=== PATIENT | male | born 1935 | race Caucasian/White ===

== ENCOUNTER 2018-02-01 21:36 | Emergency (ER) | payer MEDICARE ==
[~2018-02-01] VITALS: Ht 193 cm; Wt 75.7 kg
[~2018-02-01 21:36] MED LIST: ACET-2267 PO; ALFU10TA11 PO; CIPR-225 PO; FINA5TAB6 PO; HYDR-3820 PO; PLTR10OP OP; SULF1TAB35 PO; TERA1CAP3 PO; [UNRECOGNIZED DRUG - SUPPLY] MC
[2018-02-01] MEDS ORDERED: KETOROLAC 30 MG/ML VIAL IVP STA (23:46)
[2018-02-02] MEDS ORDERED: ONDANSETRON 4 MG/2 ML (SDV) Z0FRAN IVP ONE
[2018-02-02 00:08] LABS: BASOPHILS % (AUTO) 0 % (0-10); EOSINOPHILS # (AUTO) 0.1 10^3/uL (0.0-0.3); EOSINOPHILS % (AUTO) 1 % (0-10); HEMATOCRIT 45 % (40-54); HEMOGLOBIN 14.7 G/DL (13.3-17.7); LYMPHOCYTES # (AUTO) 2.5 X 10^3 (1.0-4.0); LYMPHOCYTES % (AUTO) 16 % (12-44); MEAN CORPUSCULAR HEMOGLOBIN 28 PG (25-34); MEAN CORPUSCULAR HGB CONC 33 G/DL (32-36); MEAN CORPUSCULAR VOLUME 86 FL (80-99); MEAN PLATELET VOLUME 9.5 FL (7.4-10.4); MONOCYTES # (AUTO) 0.9 X 10^3 (0.0-1.0); MONOCYTES % (AUTO) 6 % (0-12); NEUTROPHILS # (AUTO) 12.5 X 10^3 (1.8-7.8); NEUTROPHILS % (AUTO) 78 % (42-75); PLATELET COUNT 356 10^3/uL (130-400); RED BLOOD COUNT 5.26 10^6/uL (4.35-5.85); RED CELL DISTRIBUTION WIDTH 14.9 % (10.0-14.5)
[2018-02-02 00:22] LABS: BAND NEUTROPHILS 0 %; BASOPHILS % (MANUAL) 0 %; EOSINOPHILS % (MANUAL) 1 %; LYMPHOCYTES % (MANUAL) 13 %; MONOCYTES % (MANUAL) 3 %; NEUTROPHILS % (MANUAL) 79 %; REACTIVE LYMPHOCYTES 4 %; TOXIC GRANULATION/VACUOLAZATIO 1+
[2018-02-02 00:32] LABS: ALANINE AMINOTRANSFERASE 20 U/L (0-55); ALBUMIN 3.9 GM/DL (3.2-4.5); ALKALINE PHOSPHATASE 219 U/L (40-136); AMYLASE 53 U/L (25-125); BILIRUBIN,TOTAL 0.7 MG/DL (0.1-1.0); BUN/CREATININE RATIO 19; CALCIUM 9.2 MG/DL (8.5-10.1); CARBON DIOXIDE 19 MMOL/L (21-32); CHLORIDE 107 MMOL/L (98-107); CREATININE SERUM 0.94 MG/DL (0.60-1.30); GFR ESTIMATED > 60; GLUCOSE 121 MG/DL (70-105); LIPASE 6 U/L (8-78); POTASSIUM 3.8 MMOL/L (3.6-5.0); SODIUM 138 MMOL/L (135-145); TOTAL PROTEIN 6.7 GM/DL (6.4-8.2)
[2018-02-02] MEDS ORDERED: NS 250 ML (IVPB) BAG IV ONE (01:00)
[2018-02-02] MEDS ORDERED: IOHEXOL 350 MG/ML 100 ML (OMNIPAQUE 350) VIAL IV ONE (01:00)
[2018-02-02] MEDS ORDERED: RX-NAPROXEN (NAPROSYN) 250 MG TAB PPK#4 PO STA (01:53)
[2018-02-02] MEDS ORDERED: KETO10TA PO (01:57)
[2018-02-02] MEDS ORDERED: PANT40TA2 PO (01:57)
--- NOTE | 2018-02-02 01:58 | ED GI ---
General Chief Complaint: Abdominal/GI Problems Stated Complaint: NAUSEA Nursing Triage Note: Patient reports having an abdominal hernia. c/o nausea Sepsis Screen: No Definite Risk Source of Information: Patient Exam Limitations: No Limitations History of Present Illness Date Seen by Provider: Feb 01, 2018 Time Seen by Provider: 23:35 Initial Comments C/O LEFT GROIN PAIN FROM HERNIA STATES HERNIA HAS BEEN PRESENT FOR A COUPLE OF YEARS, BUT HAS NOT BEEN BOTHERING HIM UNTIL THE LAST 2 DAYS--HAS BECOME VERY PAINFUL HAS BEEN LIFTING 50 LB BAGS THIS WEEK--NOT A NORMAL ACTIVITY FOR PT HAS HAD DECREASED APPETITE FOR THE LAST 2 DAYS--BUT LATER REPORTS HAS ACTUALLY HAD DECREASED APPETITE OVER THE LAST 2 MONTHS + NAUSEA, NO VOMITING NO FEVER, BUT FEELS "HOT AND COLD" ALOT NO URINARY SYMPTOMS HAD SMALL BM THIS AM--HAS HAD PROBLEMS WITH CONSTIPATION, BUT STATES THAT HAS IMPROVED RECENTLY HE HAS INCREASED HIS FRUIT INTAKE. PCP: RONNIE, LILIBETH KIRK UROLOGIST: DR. SIMS Allergies and Home Medications Allergies Coded Allergies: Amanda Known Allergies (Unverified Allergy, Mild, 12/27/09) Home Medications Ciprofloxacin HCl 500 Mg Tablet, 500 MG PO BID Prescribed by: JAMES DIAZ on 07/01/15 1336 Hydrocodone/Acetaminophen 1 Each Tablet, 1-2 EA PO Q4H PRN for PAIN Prescribed by: JAMES DIAZ on 07/01/15 1336 Ketorolac Tromethamine 10 Mg Tablet, 10 MG PO Q6H Prescribed by: MING ORONA on 02/02/18 0157 Pantoprazole Sodium 40 Mg Tablet.dr, 40 MG PO DAILY Prescribed by: MING ORONA on 02/02/18156 Patient Home Medication List Home Medication List Reviewed: Yes Review of Systems Constitutional: see HPI, weight loss (10 LBS IN LAST 6 MONTHS--WEIGHED 180 6 MONTHS AGO. ) Respiratory: No Symptoms Reported Cardiovascular: No Symptoms Reported Gastrointestinal: See HPI, Abdominal Pain, Constipated; Denies Diarrhea; Nausea , Poor Appetite; Denies Poor Fluid Intake, Denies Rectal Bleeding, Denies Vomiting Genitourinary: No Symptoms Reported Musculoskeletal: no symptoms reported; No back pain Skin: no symptoms reported Psychiatric/Neurological: No Symptoms Reported Endocrine: No Symptoms Reported Hematologic/Lymphatic: No Symptoms Reported Past Lofoagx-Plebjw-Elyoyj Hx Patient Social History Alcohol Use: Denies Use Recreational Drug Use: No Smoking Status: Never a Smoker Recent Foreign Travel: No Contact w/Someone Who Travel: No Recent Infectious Disease Expo: No Physical Abuse: No Sexual Abuse: No Immunizations Up To Date Tetanus Booster (TDap): More than 5yrs PED Vaccines UTD: No Past Medical History Surgeries: Yes Appendectomy, Transurethral Resection Respiratory: No Cardiac: Yes Deep Vein Thrombosis Neurological: No Reproductive Disorders: No Genitourinary: Yes Benign Prostatic Hyperpl, Prostate Problems Gastrointestinal: No Musculoskeletal: Yes Arthritis Endocrine: No HEENT: No Cancer: No Psychosocial: No Nursing Suicide Risk Score: 0 Integumentary: No 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) Adverse Reaction/Blood Tranf: No (1959- PASSED OUT ) Family Medical History Heart disease G8 BROTHER Liver cirrhosis G8 BROTHER Renal cancer 19 FATHER Physical Exam Vital Signs Vital Signs - First Documented 02/01/18 23:24 Temp 97.4 Pulse 84 Resp 18 B/P (MAP) 176/104 (128) Pulse Ox 98 Capillary Refill : Less Than 3 Seconds General Appearance: no apparent distress, thin Respiratory: normal breath sounds, no respiratory distress, no accessory muscle use Cardiovascular: regular rate, rhythm, no edema, no JVD, no murmur Gastrointestinal: normal bowel sounds, soft, no pulsatile mass; No distended, No guarding, No rebound; hernia (BILATERAL INGUINAL HERNIAS--SOFT, REDUCIBLE. LEFT ONE IS MILDLY TENDER. NO ERYTHEMA OR WARMTH. 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, no motor/sensory deficits, alert, normal mood/affect, oriented x 3 Skin: normal color, warm/dry Progress/Results/Core Measures Results/Orders Lab Results Laboratory Tests Test 02/02/18 00:02 Range/Units White Blood Count 16.0 H 4.3-11.0 10^3/uL Red Blood Count 5.26 4.35-5.85 10^6/uL Hemoglobin 14.7 13.3-17.7 G/DL Hematocrit 45 40-54 % Mean Corpuscular Volume 86 80-99 FL Mean Corpuscular Hemoglobin 28 25-34 PG Mean Corpuscular Hemoglobin Concent 33 32-36 G/DL Red Cell Distribution Width 14.9 H 10.0-14.5 % Platelet Count 356 130-400 10^3/uL Mean Platelet Volume 9.5 7.4-10.4 FL Neutrophils (%) (Auto) 78 H 42-75 % Lymphocytes (%) (Auto) 16 12-44 % Monocytes (%) (Auto) 6 0-12 % Eosinophils (%) (Auto) 1 0-10 % Basophils (%) (Auto) 0 0-10 % Neutrophils # (Auto) 12.5 H 1.8-7.8 X 10^3 Lymphocytes # (Auto) 2.5 1.0-4.0 X 10^3 Monocytes # (Auto) 0.9 0.0-1.0 X 10^3 Eosinophils # (Auto) 0.1 0.0-0.3 10^3/uL Basophils # (Auto) 0.0 0.0-0.1 10^3/uL Neutrophils % (Manual) 79 % Lymphocytes % (Manual) 13 % Monocytes % (Manual) 3 % Eosinophils % (Manual) 1 % Basophils % (Manual) 0 % Band Neutrophils 0 % Reactive Lymphocytes 4 % Toxic Granulation 1+ Sodium Level 138 135-145 MMOL/L Potassium Level 3.8 3.6-5.0 MMOL/L Chloride Level 107 98-107 MMOL/L Carbon Dioxide Level 19 L 21-32 MMOL/L Anion Gap 12 5-14 MMOL/L Blood Urea Nitrogen 18 7-18 MG/DL Creatinine 0.94 0.60-1.30 MG/DL Estimat Glomerular Filtration Rate > 60 BUN/Creatinine Ratio 19 Glucose Level 121 H 70-105 MG/DL Calcium Level 9.2 8.5-10.1 MG/DL Total Bilirubin 0.7 0.1-1.0 MG/DL Aspartate Amino Transf (AST/SGOT) 21 5-34 U/L Alanine Aminotransferase (ALT/SGPT) 20 0-55 U/L Alkaline Phosphatase 219 H 40-136 U/L Total Protein 6.7 6.4-8.2 GM/DL Albumin 3.9 3.2-4.5 GM/DL Amylase Level 53 25-125 U/L Lipase 6 L 8-78 U/L My Orders Orders - ADWOAMING K DO Saline Lock/Iv-Start (02/01/18 23:46) Amylase (02/01/18 23:46) Cbc With Automated Diff (02/01/18 23:46) Comprehensive Metabolic Panel (02/01/18 23:46) Lipase (02/01/18 23:46) Ketorolac Injection (Toradol Injection) (02/01/18 23:46) Ondansetron Injection (Zofran Injectio (02/02/18 00:00) Ct Abdomen/Pelvis W (02/02/18 00:01) Abdomen, Flat & Upright/Decub (02/02/18 00:01) Manual Differential (02/02/18 00:02) Iohexol Injection (Omnipaque 350 Mg/Ml 1 (02/02/18 01:00) Ns (Ivpb) (Sodium Chloride 0.9%) (02/02/18 01:00) Rx-Naproxen (Rx-Naprosyn) (02/02/18 01:53) Medications Given in ED Current Medications Medications Dose Ordered Sig/Ella Route Start Time Stop Time Status Last Admin Dose Admin Iohexol 100 ml ONCE ONCE IV 02/02/18 01:00 02/02/18 01:01 DC 02/02/18 01:02 100 ML Ondansetron HCl 4 mg ONCE ONCE IVP 02/02/18 00:00 02/02/18 00:01 DC 02/02/18 00:05 4 MG Sodium Chloride 250 ml ONCE ONCE IV 02/02/18 01:00 02/02/18 01:01 DC 02/02/18 01:02 80 ML Vital Signs/I&O 02/01/18 02/02/18 23:24 02:05 Temp 97.4 97.4 Pulse 84 84 Resp 18 18 B/P (MAP) 176/104 (128) 154/98 (128) Pulse Ox 98 98 Blood Pressure Mean: 128 Progress Progress Note : Progress Note PAIN RELIEVED WITH TORADOL LENGTHY DISCUSSION WITH PT AND FAMILY ABOUT CT FINDINGS, AND THAT FINDINGS ARE VERY SUSPICIOUS FOR COLON CANCER WITH METASTATIC DISEASE TO LIVER AND LUNGS, BUT THAT ADDITIONAL TESTING WOULD NEED TO BE DONE TO DETERMINE IF THIS IS THE CASE. WILL REFER TO SURGEON, AND HAVE PT FOLLOW UP WITH HIS PCP WELL FOR FURTHER EVALUATION ALL APPEAR TO UNDERSTAND. 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 THICKENED WALL OF SIGMOID COLON, CONCERNING FOR NEOPLASTIC DISEASE, AIR AND FLUID FILLED UPSTREAM COLON. NO SMALL BOWEL OBSTRUCTION. RIGHT ADRENAL MASS, SUSPICIOUS FOR METASTASIS. NUMEROUS METASTATIC LESIONS IN LIVER. BILATERAL LUNG BASE NODULES-- DIFFERENTIAL DX IS METASTATIC DISEASE VS INFECTIOUS PER [facility] VIA FAX @ [phone] Departure Impression Primary Impression: Abnormal finding on CT scan Additional Impression: Bilateral inguinal hernia Disposition: HOME, SELF-CARE Condition: Improved Departure-Patient Inst. Referrals: RAVI LANDERS DO (PCP) Primary Care Physician AIDA KIRK (Family) Primary Care Physician JARAD VALENCIA MD Patient Instructions: CT Scan With Contrast, General, Groin Hernia (DC) Add. Discharge Instructions: LOTS OF CLEAR LIQUIDS--WATER, BROTH, JELLO, GATORADE, CLEAR JUICES DRINK ENSURE/BOOST OR OTHER HIGH PROTEIN, HIGH CALORIE SUPPLEMENTS TAKE STOOL SOFTENER DAILY FOR CONSTIPATION FOLLOW UP WITH DR. VALENCIA, SURGEON, NEXT WEEK FOR FURTHER CARE FOLLOW UP WITH YOUR DR AT [facility] NEXT WEEK FOR FURTHER CARE All discharge instructions reviewed with patient and/or family. Voiced understanding. Scripts Ketorolac Tromethamine (Ketorolac Tromethamine) 10 Mg Tablet 10 MG PO Q6H for Pain, #15 TAB Prov: MING ORONA DO 02/02/18 Pantoprazole Sodium (Protonix) 40 Mg Tablet.dr 40 MG PO DAILY, #15 TAB Prov: MING ORONA DO 02/02/18 MING ORONA DO Feb 02, 2018 01:58
[2018-02-02 02:05] VITALS: BP 154/98
--- NOTE | 2018-02-02 07:18 | Diagnostic Imaging Report ---
EXAM: ABDOMEN, FLAT UPRIGHT/DECUB INDICATION: Nausea. COMPARISON: CT abdomen and pelvis with IV contrast 02/02/2018. FINDINGS: Stable mild gaseous and fluid distention of the colon. Nonspecific small bowel gas pattern. No free intraperitoneal air is evident. No acute osseous findings. IMPRESSION: No acute radiographic findings in the abdomen. Dictated by: Dictated on workstation # [id number]
--- NOTE | 2018-02-02 07:32 | Diagnostic Imaging Report ---
PROCEDURE: CT abdomen and pelvis with contrast. TECHNIQUE: Multiple contiguous axial images were obtained through the abdomen and pelvis after administration of intravenous contrast. INDICATION: Nausea. COMPARISON: CT abdomen and pelvis without contrast 05/19/2015. FINDINGS: Several pulmonary nodules in both lung bases measuring up to 0.5 cm. Multiple large hypoenhancing masses in the liver, the largest measuring up to 7.7 cm. The gallbladder, pancreas, spleen, left adrenal gland, left kidney, collecting systems and bladder are unremarkable. Simple appearing cyst in the right kidney. Thickwalled centrally hypoenhancing mass in the right adrenal gland measuring up to 2.7 cm. Small amount of fluid layering dependently in the pelvis. No free intraperitoneal air. Moderate atherosclerotic calcifications. No lymphadenopathy. Focal bowel wall thickening in the sigmoid colon (series 2, image 65) suspicious for a mass. Moderate distention of the more proximal colon. Moderate spondylotic changes in the spine. No acute osseous findings. IMPRESSION: 1. Bowel wall thickening in the sigmoid colon is suspicious for a mass. 2. Several large hypoenhancing masses in the liver suspicious for metastatic disease. 3. Several small pulmonary nodules in the visualized lung bases are also suspicious for metastatic disease. 4. Thick-walled centrally hypoenhancing mass in the right adrenal gland measuring up to 2.7 cm. Dictated by: Dictated on workstation # [id number]
== END 2018-02-02 02:05 | disposition home or self-care (01) ==
LOC: EDUNIT# 21:36 → ER 21:37
DX: K40.20 Bilateral inguinal hernia, without obstruction or gangrene, not specified as recurrent (principal); R93.8 Abnormal findings on diagnostic imaging of other specified body structures; N40.0 Benign prostatic hyperplasia without lower urinary tract symptoms; Z86.718 Personal history of other venous thrombosis and embolism; Z90.49 Acquired absence of other specified parts of digestive tract; Z90.79 Acquired absence of other genital organ(s)
CPT/HCPCS: 36415; 74019; 74177; 80053; 82150; 83690; 85007; 85027; 96374; 96375

== ENCOUNTER 2018-02-03 06:15 | Inpatient (IN) | payer MEDICARE ==
[~2018-02-03] VITALS: Ht 190.5 cm; Wt 74.1 kg
[~2018-02-03 06:15] MED LIST changes: +KETO10TA PO; +PANT40TA2 PO
--- OUTSIDE RECORDS SUMMARY | 2018-02-03 06:21 | XMS REPORT ---
Demographics Preferred Language Unknown Marital Status Unknown Alevism Affiliation Unknown Race Unknown Ethnic Group UNK Author Author AIDA KIRK Organization [employer] Address Unknown Phone Unavailable Care Team Providers Care Business Objects Report Developer Name Role Phone AIDA KIRK CP Unavailable Allergies No Known Allergies Problems No Known Problems Medications No Known Medications Results No Known Results Summary Purpose [employer] Submission
--- OUTSIDE RECORDS SUMMARY | 2018-02-03 06:21 | XMS REPORT ---
Author Author AIDA KIRK Organization [employer] Address Unknown Phone Unavailable Care Team Providers Care Sales Representative [employer] Name Role Phone AIDA KIRK CP Unavailable Allergies, Adverse Reactions, Alerts Substance Reaction Event Type N.K.D.A. Info Not Available Non Drug Allergy Problems Problem Type Condition Code Onset Dates Condition Status Assessment BPH (benign prostatic hypertrophy) with urinary obstruction N40.1 Active Assessment Disappearance and of family member Z63.4 Active Assessment Establishing care with new doctor, encounter for Z71.89 Active Medications Medication Code System Code Instructions Start Date End Date Status Dos[place] [address]-56 400-80 MG Orally twice a day 2 tablets Proscar NDC [address]-23 5 MG Orally Once a day started in the hospital not defined Alfuzosin HCl NDC 0 10 MG Orally daily not defined Procedures Procedure Coding System Code Date Office Visit, New Pt., Level 3 CPT-4 31683 Jun 08, 2015 [facility] VISIT NEW PATIENT CPT-4 G0466 Jun 08, 2015 Vital Signs Date/Time: Jun 08, 2015 Temperature 98.3 F Weight 167.8 lbs Height 76 in BMI 20.42 Index Blood Pressure Diastolic 88 mmHg Blood Pressure Systolic 138 mmHg Cardiac Monitoring Heart Rate 104 bpm Results No Known Results Summary Purpose [employer] Submission
[2018-02-03] MEDS ORDERED: fentaNYL INJECTION 100 MCG/2 ML AMP IVP STA (06:29)
[2018-02-03] MEDS ORDERED: NS IV 1000 ML 1,000 ML IV STA (06:29)
[2018-02-03] MEDS ORDERED: ONDANSETRON 4 MG/2 ML (SDV) Z0FRAN IVP ONE (06:30)
--- NOTE | 2018-02-03 06:37 | ED Abdominal Pain ---
General Chief Complaint: Abdominal/GI Problems Stated Complaint: VOMITING BOWEL ISSUES Nursing Triage Note: Patient c/o abdomen pain and bloating. c/o nausea. patient reports has not had a BM for 4 or 5 days Sepsis Screen: No Definite Risk Source of Information: Patient Exam Limitations: No Limitations History of Present Illness Date Seen by Provider: Feb 03, 2018 Time Seen by Provider: 06:20 Initial Comments Here with increased bowel pain and bloating over the last several days. Seen 2 days ago for the same and found to have multiple masses and/or areas that are concerning for cancer. He is to have further workup tomorrow but is from too much nausea and pain to make it until then. He has been on his pain meds down and that does decrease his pain significantly but he is so nauseated that he can't tolerate it anymore. Denies fever or chills. He has not vomited. He has not had a bowel movement in 5 days. He states he is not passing anything via bowels currently. He does report that he is having some urination still. Timing/Duration: 4-5 Days Severity/Quality: Moderate, Severe, Aching, Other (nausea) Location: Generalized Abdomen Radiation: No Radiation Activities at Onset: None Modifying Factors: Improves With Analgesics; Worsens With Eating; Improves With Resting Associated Symptoms: No Back Pain, No Chest Pain, No Fever/Chills; Nausea/ Vomiting; No Shortness of Air; Swelling/Mass in Abdomen, Weakness Allergies and Home Medications Allergies Coded Allergies: NKANo Known Allergies (Unverified Allergy, Mild, 12/27/09) Home Medications Ciprofloxacin HCl 500 Mg Tablet, 500 MG PO BID Prescribed by: JAMES DIAZ on 07/01/15 133 Hydrocodone/Acetaminophen 1 Each Tablet, 1-2 EA PO Q4H PRN for PAIN Prescribed by: JAMES DIAZ on 07/01/15 1336 Ketorolac Tromethamine 10 Mg Tablet, 10 MG PO Q6H Prescribed by: MING ORONA on 02/02/18156 Pantoprazole Sodium 40 Mg Tablet.dr, 40 MG PO DAILY Prescribed by: MING ORONA on 02/02/18156 Patient Home Medication List Home Medication List Reviewed: Yes Review of Systems Constitutional: see HPI; No chills, No fever; weakness EENTM: No Symptoms Reported Respiratory: No Symptoms Reported; Denies Cough, Denies Shortness of Air Cardiovascular: Denies Chest Pain, Denies Edema Gastrointestinal: Abdominal Pain, Nausea; Denies Vomiting Genitourinary: No Symptoms Reported Musculoskeletal: no symptoms reported Skin: no symptoms reported All Other Systems Reviewed Negative Unless Noted: Yes Past Usjdeiu-Sdducf-Qlcari Hx Past Med/Social Hx: Reviewed Nursing Past Med/Soc Hx Patient Social History Alcohol Use: Denies Use Recreational Drug Use: No Recent Foreign Travel: No Contact w/Someone Who Travel: No Recent Infectious Disease Expo: No Immunizations Up To Date Tetanus Booster (TDap): More than 5yrs PED Vaccines UTD: No Past Medical History Surgeries: Yes Appendectomy, Transurethral Resection Respiratory: No Cardiac: Yes Deep Vein Thrombosis Neurological: No Reproductive Disorders: No Genitourinary: Yes Benign Prostatic Hyperpl, Prostate Problems Gastrointestinal: No Musculoskeletal: Yes Arthritis Endocrine: No HEENT: No Cancer: No Psychosocial: No Integumentary: No Blood Disorders: No (-1985) Adverse Reaction/Blood Tranf: No (1959- PASSED OUT ) Family Medical History Reviewed Nursing Family Hx Heart disease G8 BROTHER Liver cirrhosis G8 BROTHER Renal cancer 19 FATHER Physical Exam Vital Signs Vital Signs - First Documented 02/03/18 06:22 Temp 97.0 Pulse 106 Resp 18 B/P (MAP) 182/120 (140) Pulse Ox 98 Capillary Refill : Less Than 3 Seconds General Appearance: WD/WN, no apparent distress HEENT: PERRL/EOMI, pharynx normal Neck: full range of motion, supple Respiratory: lungs clear, normal breath sounds Cardiovascular: no murmur, tachycardia Peripheral Pulses: 2+ Dorsalis Pedis (R), 2+ Left Dors-Pedis (L), 2+ Radial Pulses (R), 2+ Radial Pulses (L) Gastrointestinal: soft, abnormal bowel sounds (hypoactive), distended, tenderness (mild diffuse) Extremities: non-tender, normal inspection Back: normal inspection, no CVA tenderness, no vertebral tenderness Neurologic/Psychiatric: alert, oriented x 3 Skin: normal color, warm/dry Progress/Results/Core Measures Results/Orders Lab Results Laboratory Tests Test 02/03/18 06:24 02/03/18 07:51 Range/Units White Blood Count 16.3 H 4.3-11.0 10^3/uL Red Blood Count 5.39 4.35-5.85 10^6/uL Hemoglobin 15.3 13.3-17.7 G/DL Hematocrit 46 40-54 % Mean Corpuscular Volume 84 80-99 FL Mean Corpuscular Hemoglobin 28 25-34 PG Mean Corpuscular Hemoglobin Concent 34 32-36 G/DL Red Cell Distribution Width 14.8 H 10.0-14.5 % Platelet Count 366 130-400 10^3/uL Mean Platelet Volume 9.5 7.4-10.4 FL Neutrophils (%) (Auto) 74 42-75 % Lymphocytes (%) (Auto) 20 12-44 % Monocytes (%) (Auto) 5 0-12 % Eosinophils (%) (Auto) 1 0-10 % Basophils (%) (Auto) 0 0-10 % Neutrophils # (Auto) 12.0 H 1.8-7.8 X 10^3 Lymphocytes # (Auto) 3.3 1.0-4.0 X 10^3 Monocytes # (Auto) 0.9 0.0-1.0 X 10^3 Eosinophils # (Auto) 0.1 0.0-0.3 10^3/uL Basophils # (Auto) 0.0 0.0-0.1 10^3/uL Neutrophils % (Manual) 79 % Lymphocytes % (Manual) 13 % Monocytes % (Manual) 3 % Eosinophils % (Manual) 3 % Basophils % (Manual) 0 % Band Neutrophils 0 % Reactive Lymphocytes 2 % Smudge Cells SLIGHT Toxic Granulation 1+ Sodium Level 137 135-145 MMOL/L Potassium Level 3.9 3.6-5.0 MMOL/L Chloride Level 104 98-107 MMOL/L Carbon Dioxide Level 19 L 21-32 MMOL/L Anion Gap 14 5-14 MMOL/L Blood Urea Nitrogen 21 H 7-18 MG/DL Creatinine 1.00 0.60-1.30 MG/DL Estimat Glomerular Filtration Rate > 60 BUN/Creatinine Ratio 21 Glucose Level 113 H 70-105 MG/DL Calcium Level 9.6 8.5-10.1 MG/DL Magnesium Level 2.5 H 1.8-2.4 MG/DL Total Bilirubin 1.2 H 0.1-1.0 MG/DL Aspartate Amino Transf (AST/SGOT) 20 5-34 U/L Alanine Aminotransferase (ALT/SGPT) 20 0-55 U/L Alkaline Phosphatase 227 H 40-136 U/L Total Protein 7.3 6.4-8.2 GM/DL Albumin 4.1 3.2-4.5 GM/DL Urine Color YELLOW Urine Clarity SLIGHTLY CLOUDY Urine pH 6 5-9 Urine Specific [place] 1.010 L 1.016-1.022 Urine Protein 1+ H NEGATIVE Urine Glucose (UA) NEGATIVE NEGATIVE Urine Ketones NEGATIVE NEGATIVE Urine Nitrite POSITIVE H NEGATIVE Urine Bilirubin NEGATIVE NEGATIVE Urine Urobilinogen NORMAL NORMAL MG/DL Urine Leukocyte Esterase 2+ H NEGATIVE Urine RBC (Auto) 1+ H NEGATIVE Urine RBC NONE /HPF Urine WBC 50-100 H /HPF Urine Crystals NONE /LPF Urine Bacteria LARGE H /HPF Urine Casts NONE /LPF Urine Mucus NEGATIVE /LPF Urine Culture Indicated YES My Orders Orders - YESENIA RIVERA MD Cbc With Automated Diff (02/03/18 06:29) Comprehensive Metabolic Panel (02/03/18 06:29) Magnesium (02/03/18 06:29) Ondansetron Injection (Zofran Injectio (02/03/18 06:30) Ns Iv 1000 Ml (Sodium Chloride 0.9%) (02/03/18 06:29) Saline Lock/Iv-Start (02/03/18 06:29) Fentanyl Injection (Sublimaze Injection (02/03/18 06:29) Manual Differential (02/03/18 06:24) Ua Culture If Indicated (02/03/18 06:45) Ct Abdomen/Pelvis W (02/03/18 07:04) Iohexol Injection (Omnipaque 350 Mg/Ml 1 (02/03/18 07:30) Ns (Ivpb) (Sodium Chloride 0.9%) (02/03/18 07:30) Urine Culture (02/03/18 07:51) Lactic Acid Analyzer (02/03/18 08:12) Blood Culture (02/03/18 08:12) Ceftriaxone Injection (Rocephin Injectio (02/03/18 08:15) Medications Given in ED Current Medications Medications Dose Ordered Sig/Ella Route Start Time Stop Time Status Last Admin Dose Admin Iohexol 100 ml ONCE ONCE IV 02/03/18 07:30 02/03/18 07:31 DC 02/03/18 07:24 100 ML Ondansetron HCl 4 mg ONCE ONCE IVP 02/03/18 06:30 02/03/18 06:32 DC 02/03/18 06:37 4 MG Sodium Chloride 250 ml ONCE ONCE IV 02/03/18 07:30 02/03/18 07:31 DC 02/03/18 07:24 80 ML Vital Signs/I&O 02/03/18 06:22 Temp 97.0 Pulse 106 Resp 18 B/P (MAP) 182/120 (140) Pulse Ox 98 Blood Pressure Mean: 140 Progress Progress Note : Progress Note Seen and evaluated. IV, labs and UA ordered. Normal saline 1 L bolus. Zofran 4 mg IV and fentanyl 50 g IV ordered. I did review the chart from previous visit. Significant concerns for cancer with metastasis. Lungs, liver and bowel all appear to be involved. 0815: CT results noted and are more concerning today. I did have a long discussion with the patient and family about the results including my concerns that this is primary cancer of the colon with metastasis. Patient is realistic in understanding the depth of the situation as far as the cancer or concerns for cancer go. We were able to get urine sample and this is positive for urinary tract infection. Blood cultures and lactic acid is been ordered and Rocephin 1 g IV will be initiated afterwards. In discussion with the patient and family, we had decided for admission for further evaluation to determine answers options for treatment and can at least provide comfort. Currently he is pain-free and without nausea. We did discuss that we may not be able to treat this but we can keep the patient comfortable and he is understanding and accepting of this. I have discussed the case with Dr. Velasquez, on-call for [facility], who accepts patient for admission, inpatient status. I have discussed the case with Dr. Astudillo, surgeon on-call and he will talk with the patient and family about possible options related to the possible primary cancer of the sigmoid colon. At this point we will provide clear liquids and bowel rest as well as pain and nausea medicines and IV fluids. Admit, inpatient status. Patient and family agree with plan. Diagnostic Imaging Diagonstic Imaging: CT Plain Films/CT/US/NM/MRI: abdomen, pelvis Comments VIA [facility]. [place], [place] NAME: MOY ZELAYA [facility] REC#: [id number] PT STATUS: REG ER : 1935 PHYSICIAN: YESENIA RIVERA MD ADMIT DATE: 02/03/18/ER Draft Date of Exam:02/03/18 CT ABDOMEN/PELVIS W PROCEDURE: CT abdomen and pelvis with contrast. TECHNIQUE: Multiple contiguous axial images were obtained through the abdomen and pelvis after administration of intravenous contrast. INDICATION: Nausea, vomiting, and constipation. COMPARISON: CT abdomen and pelvis performed prior day FINDINGS: Lower chest: Bandlike and nodular consolidation in the left lower lobe persists. Stable 5 mm left lower lobe pulmonary nodule. Peritoneum: Trace free fluid within the abdomen has developed. Liver and biliary system: Numerous peripherally enhancing hepatic masses are unchanged and compatible with metastases. Gallbladder has hyperdense material and is likely from vicarious excretion of contrast. Spleen and Pancreas: Spleen is normal. The pancreas enhances normally without mass lesion or peripancreatic inflammatory changes. Adrenals: Peripheral enhancing right adrenal metastasis is stable. tract: The kidneys enhance normally without suspicious mass or obstruction. Urinary bladder is distended without wall thickening. Prostate is not enlarged. GI tract: Annular wall thickening in the sigmoid colon is compatible with a sigmoid colon neoplasm resulting in partial obstruction. The colon proximal to the sigmoid colon is fluid-filled and mildly dilated. Multiple small bowel loops are also fluid filled and borderline dilated. Vasculature and Lymph nodes: Normal caliber aorta. No abdominal or pelvic lymphadenopathy. Musculoskeletal: No concerning osseous lesion. IMPRESSION: 1. 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 2. Metastatic disease includes numerous large hepatic masses and right adrenal mass. 3. A small volume of ascites has developed. 4. Left basilar pulmonary nodular bandlike consolidation is indeterminate. Dictated on workstation # [id number] Dict: 02/03/18 0729 Trans: 02/03/18 0743 RASHAAD [id number] Interpreted by: MARIO JERONIMO MD Electronically signed by: Departure Communication (Admissions) Time/Spoke to Admitting Phy: 08:05 Time/Spoke to Consulting Phy: 08:15 Impression Primary Impression: Colon cancer metastasized to multiple sites Additional Impression: Urinary tract infection Qualified Codes: N30.00 - Acute cystitis without hematuria Disposition: ADMITTED INPATIENT Condition: Stable Admissions Decision to Admit Reason: Admit from ER (General) Decision to Admit/Date: Feb 03, 2018 Time/Decision to Admit Time: 08:15 Departure-Patient Inst. Referrals: RAVI LANDERS DO (PCP) Primary Care Physician AIDA KIRK (Family) Primary Care Physician YESENIA RIVERA MD Feb 03, 2018 06:37
[2018-02-03 06:38] LABS: BASOPHILS % (AUTO) 0 % (0-10); EOSINOPHILS # (AUTO) 0.1 10^3/uL (0.0-0.3); EOSINOPHILS % (AUTO) 1 % (0-10); HEMATOCRIT 46 % (40-54); HEMOGLOBIN 15.3 G/DL (13.3-17.7); LYMPHOCYTES # (AUTO) 3.3 X 10^3 (1.0-4.0); LYMPHOCYTES % (AUTO) 20 % (12-44); MEAN CORPUSCULAR HEMOGLOBIN 28 PG (25-34); MEAN CORPUSCULAR HGB CONC 34 G/DL (32-36); MEAN CORPUSCULAR VOLUME 84 FL (80-99); MEAN PLATELET VOLUME 9.5 FL (7.4-10.4); MONOCYTES # (AUTO) 0.9 X 10^3 (0.0-1.0); MONOCYTES % (AUTO) 5 % (0-12); NEUTROPHILS % (AUTO) 74 % (42-75); PLATELET COUNT 366 10^3/uL (130-400); RED BLOOD COUNT 5.39 10^6/uL (4.35-5.85); RED CELL DISTRIBUTION WIDTH 14.8 % (10.0-14.5); WHITE BLOOD COUNT 16.3 10^3/uL (4.3-11.0)
[2018-02-03 06:51] LABS: BAND NEUTROPHILS 0 %; BASOPHILS % (MANUAL) 0 %; EOSINOPHILS % (MANUAL) 3 %; LYMPHOCYTES % (MANUAL) 13 %; MONOCYTES % (MANUAL) 3 %; NEUTROPHILS % (MANUAL) 79 %; REACTIVE LYMPHOCYTES 2 %; SMUDGE CELLS SLIGHT
[2018-02-03 06:52] LABS: TOXIC GRANULATION/VACUOLAZATIO 1+
[2018-02-03 06:59] LABS: ALANINE AMINOTRANSFERASE 20 U/L (0-55); ALBUMIN 4.1 GM/DL (3.2-4.5); ALKALINE PHOSPHATASE 227 U/L (40-136); BILIRUBIN,TOTAL 1.2 MG/DL (0.1-1.0); BUN/CREATININE RATIO 21; CALCIUM 9.6 MG/DL (8.5-10.1); CARBON DIOXIDE 19 MMOL/L (21-32); CHLORIDE 104 MMOL/L (98-107); GFR ESTIMATED > 60; GLUCOSE 113 MG/DL (70-105); MAGNESIUM 2.5 MG/DL (1.8-2.4); POTASSIUM 3.9 MMOL/L (3.6-5.0); SODIUM 137 MMOL/L (135-145); TOTAL PROTEIN 7.3 GM/DL (6.4-8.2)
[2018-02-03] MEDS ORDERED: IOHEXOL 350 MG/ML 100 ML (OMNIPAQUE 350) VIAL IV ONE (07:30)
[2018-02-03] MEDS ORDERED: NS 250 ML (IVPB) BAG IV ONE (07:30)
--- NOTE | 2018-02-03 07:44 | Diagnostic Imaging Report ---
PROCEDURE: CT abdomen and pelvis with contrast. TECHNIQUE: Multiple contiguous axial images were obtained through the abdomen and pelvis after administration of intravenous contrast. INDICATION: Nausea, vomiting, and constipation. COMPARISON: CT abdomen and pelvis performed prior day FINDINGS: Lower chest: Bandlike and nodular consolidation in the left lower lobe persists. Stable 5 mm left lower lobe pulmonary nodule. Peritoneum: Trace free fluid within the abdomen has developed. Liver and biliary system: Numerous peripherally enhancing hepatic masses are unchanged and compatible with metastases. Gallbladder has hyperdense material and is likely from vicarious excretion of contrast. Spleen and Pancreas: Spleen is normal. The pancreas enhances normally without mass lesion or peripancreatic inflammatory changes. Adrenals: Peripheral enhancing right adrenal metastasis is stable. tract: The kidneys enhance normally without suspicious mass or obstruction. Urinary bladder is distended without wall thickening. Prostate is not enlarged. GI tract: Annular wall thickening in the sigmoid colon is compatible with a sigmoid colon neoplasm resulting in partial obstruction. The colon proximal to the sigmoid colon is fluid-filled and mildly dilated. Multiple small bowel loops are also fluid filled and borderline dilated. Vasculature and Lymph nodes: Normal caliber aorta. No abdominal or pelvic lymphadenopathy. Musculoskeletal: No concerning osseous lesion. IMPRESSION: 1. 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 2. Metastatic disease includes numerous large hepatic masses and right adrenal mass. 3. A small volume of ascites has developed. 4. Left basilar pulmonary nodular bandlike consolidation is indeterminate. Dictated by: Dictated on workstation # [id number]
[2018-02-03 07:57] LABS: BILIRUBIN,URINE NEGATIVE (NEGATIVE); CLARITY,URINE SLIGHTLY CLOUDY; COLOR,URINE YELLOW; GLUCOSE, URINE (UA) NEGATIVE (NEGATIVE); KETONES,URINE NEGATIVE (NEGATIVE); LEUKOCYTE ESTERASE ,URINE 2+ (NEGATIVE); NITRITE,URINE POSITIVE (NEGATIVE); PH,URINE 6 (5-9); PROTEIN,URINE 1+ (NEGATIVE); UROBILINOGEN,URINE NORMAL (NORMAL)
[2018-02-03 08:05] LABS: BACTERIA,URINE LARGE /HPF; WBC,URINE 50-100 /HPF
[2018-02-03] MEDS ORDERED: cefTRIAXone INJECTION 1,000 MG in NS (IVPB) 50 ML IV ONE (08:15)
[2018-02-03 09:25] VITALS: BP 140/83
[2018-02-03] MEDS: NS IV 1000 ML 1,000 ML IV SCH ×2 (10:26→18:31)
[2018-02-03] MEDS: morphine INJ 10 MG/ML 1ML (SYR OR VIAL) IV PRN ×2 (11:03→17:21)
[2018-02-03] MEDS: ONDANSETRON 4 MG/2 ML (SDV) Z0FRAN IV PRN ×2 (11:03→17:21)
--- NOTE | 2018-02-03 11:14 | Consultation ---
History of Present Illness History of Present Illness Patient Consulted On(michel/time) 02/03/18 11:09 Date Seen by Provider: Feb 03, 2018 Time Seen by Provider: 10:30 History of Present Illness This is an 82 year old male who was seen in consultation with Dr. Valencia. Patient reports that he presented to the ER on Sunday with complaints of abdominal pain as well as nausea. He reports that he was found to have multiple liver lesions as well as a colon mass and instructed to follow up with further work up on Sunday. He reports that since Sunday that the abdominal pain has increased as well as the nausea and bloating to the point that he has been unable to eat or drink. He reports that his last BM was around 5 days ago. He reports that in the past 1-2 weeks he has lost 10 lbs. He reports that he has never had a colonoscopy. Allergies and Home Medications Allergies Coded Allergies: Amanda Known Allergies (Unverified Allergy, Mild, 12/27/09) Home Medications Ciprofloxacin HCl 500 Mg Tablet, 500 MG PO BID Prescribed by: JAMES DIAZ on 07/01/15 1336 Hydrocodone/Acetaminophen 1 Each Tablet, 1-2 EA PO Q4H PRN for PAIN Prescribed by: JAMES DIAZ on 07/01/15 1336 Ketorolac Tromethamine 10 Mg Tablet, 10 MG PO Q6H Prescribed by: MING ORONA on 02/02/18 015 Pantoprazole Sodium 40 Mg Tablet.dr, 40 MG PO DAILY Prescribed by: MING ORONA on 02/02/18156 Patient Home Medication List Home Medication List Reviewed: Yes Past Zzcldts-Ifgmfg-Cbhrfl Hx Past Med/Social Hx: Reviewed Nursing Past Med/Soc Hx Patient Social History Alcohol Use: Denies Use Recreational Drug Use: No Smoking Status: Never a Smoker Recent Foreign Travel: No Contact w/Someone Who Travel: No Recent Infectious Disease Expo: No Recent Hopitalizations: No Immunizations Up To Date Tetanus Booster (TDap): More than 5yrs PED Vaccines UTD: No Seasonal Allergies Seasonal Allergies: No Past Medical History Surgeries: Yes Appendectomy, Transurethral Resection Respiratory: No Cardiac: Yes Deep Vein Thrombosis Neurological: No Reproductive Disorders: No Genitourinary: Yes Benign Prostatic Hyperpl, Prostate Problems Gastrointestinal: No Musculoskeletal: Yes (2 BAD KNEES) Arthritis Endocrine: No HEENT: No Cancer: Yes Colon Did You Recieve Any Treatments: No Psychosocial: No Integumentary: No 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) Adverse Reaction/Blood Tranf: No (1960- PASSED OUT ) Family Medical History Reviewed Nursing Family Hx Heart disease G8 BROTHER Liver cirrhosis G8 BROTHER Renal cancer 19 FATHER Review of Systems-General Constitutional: weight loss EENTM: no symptoms reported Respiratory: no symptoms reported Cardiovascular: no symptoms reported Gastrointestinal: abdominal pain (Diffuse), constipation, loss of appetite, nausea Genitourinary: no symptoms reported Musculoskeletal: no symptoms reported Skin: no symptoms reported Psychiatric/Neurological: No Symptoms Reported Physical Exam-General Problems Physical Exam Vital Signs Vital Signs - First Documented 02/03/18 02/03/18 06:22 09:25 Temp 97.0 Pulse 106 Resp 18 B/P (MAP) 182/120 (140) Pulse Ox 98 O2 Delivery Room Air Capillary Refill : Less Than 3 Seconds General Appearance: WD/WN, no apparent distress, thin Neck: non-tender, full range of motion, supple, normal inspection Respiratory: chest non-tender, lungs clear, normal breath sounds, no respiratory distress, no accessory muscle use Cardiovascular: regular rate, rhythm, no edema Gastrointestinal: distended (mild), tenderness (diffuse) Neurologic/Psychiatric: alert, oriented x 3 Skin: normal color, warm/dry Assessment/Plan Assessment/Plan Admission Diagnosis/Plan An 82 year old male with Colon Cancer with metastasis and UTI. WBC 16.3. Clear liquid diet. IV fluids, pain and nausea meds. VSS. CBC and CMP in am. PT/INR, CEA, CA 19-9, and AFP. Consult oncology. Family was at bedside and it was discussed with patient and family about potential surgical options and other possible treatments including chemotherapy and even the option of hospice should they so choose. At this time patient is expressing that he is in full understanding and wishes to be kept comfortable. However it was explained to patient that we would also like oncology to speak with him to further discuss his options which patient agrees. Clinical Quality Measures DVT/VTE Risk/Contraindication: Risk Factor Score Per Nursin RFS Level Per Nursing on Admit: 4+=Very High Copy Copies To 1: JARAD VALENCIA MD, DUSTIN L APRN Feb 03, 2018 11:14
[2018-02-03 11:30] VITALS: BP 127/64
[2018-02-03 11:47] LABS: PROTHROMBIN TIME PATIENT 13.5 SEC (12.2-14.7)
--- NOTE | 2018-02-03 12:20 | History & Physicial (CHS) ---
HPI History of Present Illness: 82-year-old male presents to [facility] emergency department during the morning of February 03, 2018 after noticing increased abdominal bloating and some discomfort in the lower aspects of the abdomen. He does report he also has inguinal hernia and this has been bothering him and this was another reason that brought him into the emergency department because he knew something was wrong. 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 He currently denies any fever or chills. He has no vomiting. He does report he has been constipated and had bowel movement in several days. Source: patient Exam Limitations: no limitations Date seen by provider: Feb 03, 2018 Time Seen by Provider: 11:30 Attending Physician Paulina Wilkins DO PCP Paulina Wilkins DO Consult Date of Admission Feb 03, 2018 at 08:15 Home Medications Home Medications Reviewed patient Home Medication Reconciliation performed by pharmacy medication reconciliations electronic calibration technician and/or nursing. Patients Allergies have been reviewed. Allergies Coded Allergies: NKANo Known Allergies (Unverified Allergy, Mild, 12/27/09) [id number]-Xismgp Hx Patient Social History Marrital Status: Number of Children: 2 Alcohol Use: Denies Use Recreational Drug Use: No Smoking Status: Never a Smoker Former smoker/When Quit: May 19, 1960 Recent Foreign Travel: No Contact w/other who traveled: No Recent Hopitalizations: No Recent Infectious Disease Expo: No Physical Abuse Screen: No Sexual Abuse: No Immunizations Up To Date Tetanus Booster (TDap): More than 5yrs Past Medical History PMH: Arthritis - L knee PSH: Appendectomy Family Medical History Family History: Heart disease G8 BROTHER Liver cirrhosis G8 BROTHER Renal cancer 19 FATHER Review of Systems (CHC) Constitutional: see HPI Reviewed Test Results Reviewed Test Results Lab Laboratory Tests Test 02/03/18 06:20 02/03/18 06:24 02/03/18 07:51 02/03/18 08:46 Range/Units Prothrombin Time 13.5 12.2-14.7 SEC INR Comment 1.0 0.8-1.4 White Blood Count 16.3 H 4.3-11.0 10^3/uL Red Blood Count 5.39 4.35-5.85 10^6/uL Hemoglobin 15.3 13.3-17.7 G/DL Hematocrit 46 40-54 % Mean Corpuscular Volume 84 80-99 FL Mean Corpuscular Hemoglobin 28 25-34 PG Mean Corpuscular Hemoglobin Concent 34 32-36 G/DL Red Cell Distribution Width 14.8 H 10.0-14.5 % Platelet Count 366 130-400 10^3/uL Mean Platelet Volume 9.5 7.4-10.4 FL Neutrophils (%) (Auto) 74 42-75 % Lymphocytes (%) (Auto) 20 12-44 % Monocytes (%) (Auto) 5 0-12 % Eosinophils (%) (Auto) 1 0-10 % Basophils (%) (Auto) 0 0-10 % Neutrophils # (Auto) 12.0 H 1.8-7.8 X 10^3 Lymphocytes # (Auto) 3.3 1.0-4.0 X 10^3 Monocytes # (Auto) 0.9 0.0-1.0 X 10^3 Eosinophils # (Auto) 0.1 0.0-0.3 10^3/uL Basophils # (Auto) 0.0 0.0-0.1 10^3/uL Neutrophils % (Manual) 79 % Lymphocytes % (Manual) 13 % Monocytes % (Manual) 3 % Eosinophils % (Manual) 3 % Basophils % (Manual) 0 % Band Neutrophils 0 % Reactive Lymphocytes 2 % Smudge Cells SLIGHT Toxic Granulation 1+ Sodium Level 137 135-145 MMOL/L Potassium Level 3.9 3.6-5.0 MMOL/L Chloride Level 104 98-107 MMOL/L Carbon Dioxide Level 19 L 21-32 MMOL/L Anion Gap 14 5-14 MMOL/L Blood Urea Nitrogen 21 H 7-18 MG/DL Creatinine 1.00 0.60-1.30 MG/DL Estimat Glomerular Filtration Rate > 60 BUN/Creatinine Ratio 21 Glucose Level 113 H 70-105 MG/DL Calcium Level 9.6 8.5-10.1 MG/DL Magnesium Level 2.5 H 1.8-2.4 MG/DL Total Bilirubin 1.2 H 0.1-1.0 MG/DL Aspartate Amino Transf (AST/SGOT) 20 5-34 U/L Alanine Aminotransferase (ALT/SGPT) 20 0-55 U/L Alkaline Phosphatase 227 H 40-136 U/L Total Protein 7.3 6.4-8.2 GM/DL Albumin 4.1 3.2-4.5 GM/DL Urine Color YELLOW Urine Clarity SLIGHTLY CLOUDY Urine pH 6 5-9 Urine Specific [place] 1.010 L 1.016-1.022 Urine Protein 1+ H NEGATIVE Urine Glucose (UA) NEGATIVE NEGATIVE Urine Ketones NEGATIVE NEGATIVE Urine Nitrite POSITIVE H NEGATIVE Urine Bilirubin NEGATIVE NEGATIVE Urine Urobilinogen NORMAL NORMAL MG/DL Urine Leukocyte Esterase 2+ H NEGATIVE Urine RBC (Auto) 1+ H NEGATIVE Urine RBC NONE /HPF Urine WBC 50-100 H /HPF Urine Crystals NONE /LPF Urine Bacteria LARGE H /HPF Urine Casts NONE /LPF Urine Mucus NEGATIVE /LPF Urine Culture Indicated YES Lactic Acid Level 0.87 0.50-2.00 MMOL/L Radiology NAME: MOY ZELAYA [facility] REC#: [id number] PT STATUS: ADM IN : 1935 PHYSICIAN: YESENIA RIVERA MD ADMIT DATE: 02/03/18/ Signed Date of Exam: 02/03/18 CT ABDOMEN/PELVIS W PROCEDURE: CT abdomen and pelvis with contrast. TECHNIQUE: Multiple contiguous axial images were obtained through the abdomen and pelvis after administration of intravenous contrast. INDICATION: Nausea, vomiting, and constipation. COMPARISON: CT abdomen and pelvis performed prior day FINDINGS: Lower chest: Bandlike and nodular consolidation in the left lower lobe persists. Stable 5 mm left lower lobe pulmonary nodule. Peritoneum: Trace free fluid within the abdomen has developed. Liver and biliary system: Numerous peripherally enhancing hepatic masses are unchanged and compatible with metastases. Gallbladder has hyperdense material and is likely from vicarious excretion of contrast. Spleen and Pancreas: Spleen is normal. The pancreas enhances normally without mass lesion or peripancreatic inflammatory changes. Adrenals: Peripheral enhancing right adrenal metastasis is stable. tract: The kidneys enhance normally without suspicious mass or obstruction. Urinary bladder is distended without wall thickening. Prostate is not enlarged. GI tract: Annular wall thickening in the sigmoid colon is compatible with a sigmoid colon neoplasm resulting in partial obstruction. The colon proximal to the sigmoid colon is fluid-filled and mildly dilated. Multiple small bowel loops are also fluid filled and borderline dilated. Vasculature and Lymph nodes: Normal caliber aorta. No abdominal or pelvic lymphadenopathy. Musculoskeletal: No concerning osseous lesion. IMPRESSION: 1. 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 2. Metastatic disease includes numerous large hepatic masses and right adrenal mass. 3. A small volume of ascites has developed. 4. Left basilar pulmonary nodular bandlike consolidation is indeterminate. Dictated by: Dictated on workstation # [id number] Dict: 02/03/18728 Trans: 02/03/18921 Interpreted by: MARIO JERONIMO MD Electronically signed by: MARIO JERONIMO MD 02/03/18921 Physical Exam-(CHC) Physical Exam Vital Signs VS - Last 72 Hours, by Label 02/03/18 02/03/18 02/03/18 02/03/18 06:22 09:10 09:25 10:04 Temp 97.0 97.8 Pulse 106 90 67 Resp 18 18 16 B/P (MAP) 182/120 (140) 145/100 140/83 (102) Pulse Ox 98 98 96 O2 Delivery Room Air Room Air Capillary Refill : Less Than 3 Seconds General Appearance: no apparent distress (But he has received morphine) Eyes: Bilateral Eye Normal Inspection Neck: non-tender Respiratory: lungs clear Cardiovascular: regular rate, rhythm Gastrointestinal: distended, tenderness (Primarily in the lower quadrants of the abdomen) Rectal: deferred Extremities: other (He does have muscle wasting especially in the upper extremities) Skin: normal color Assessment/Plan Assessment/Plan Admission Dx 1. Bowel obstruction partial 2. Sigmoid colon neoplasm highly possible 3. Findings consistent with metastases to the liver, right adrenal gland, possibly left lower lung Admission Status: Inpatient Order (span 2 midnights) Reason for Inpatient Admission: Patient to be admitted for pain control as well as surgical consultation regarding a partial bowel obstruction most likely due to a sigmoid colon neoplasm Assessment & Plan 1. Bowel obstruction partial -Pain control with morphine -Surgical consultation -Patient has informed me he is not planning on real aggressive therapy 2. Sigmoid colon neoplasm highly possible -Further staging likely 3. Findings consistent with metastases to the liver, right adrenal gland, possibly left lower lung 4. Urinary tract infection -Initiation of IV ceftriaxone Clinical Quality Measures DVT/VTE Risk/Contraindication: Risk Factor Score Per Nursin RFS Level Per Nursing on Admit: 4+=Very High ANG MANCIA MD Feb 03, 2018 12:20
[2018-02-03 16:00] VITALS: BP 151/90
[2018-02-03 20:00] VITALS: BP 130/69
[2018-02-04] VITALS: BP 129/81
[2018-02-04] MEDS: NS IV 1000 ML 1,000 ML IV SCH ×3 (01:38→17:31)
[2018-02-04 04:00] VITALS: BP 133/76
[2018-02-04 06:37] LABS: HEMOGLOBIN 14.1 G/DL (13.3-17.7); MEAN PLATELET VOLUME 9.9 FL (7.4-10.4); RED BLOOD COUNT 5.09 10^6/uL (4.35-5.85); WHITE BLOOD COUNT 10.9 10^3/uL (4.3-11.0)
[2018-02-04 06:53] LABS: ALANINE AMINOTRANSFERASE 15 U/L (0-55); ALBUMIN 3.3 GM/DL (3.2-4.5); ALKALINE PHOSPHATASE 175 U/L (40-136); BUN/CREATININE RATIO 25; CALCIUM 8.5 MG/DL (8.5-10.1); CARBON DIOXIDE 21 MMOL/L (21-32); CHLORIDE 107 MMOL/L (98-107); CREATININE SERUM 0.83 MG/DL (0.60-1.30); GFR ESTIMATED > 60; GLUCOSE 97 MG/DL (70-105); POTASSIUM 4.5 MMOL/L (3.6-5.0); SODIUM 138 MMOL/L (135-145); TOTAL PROTEIN 5.6 GM/DL (6.4-8.2)
[2018-02-04 08:57] VITALS: BP 159/84
[2018-02-04] MEDS ORDERED: cefTRIAXone 1 GM/NS 50 ML IVPB IV SCH ×2 (09:00)
[2018-02-04] MEDS: morphine INJ 10 MG/ML 1ML (SYR OR VIAL) IV PRN ×2 (09:16→10:22)
[2018-02-04 12:00] VITALS: BP 125/76
[2018-02-04 16:15] VITALS: BP 139/77
--- NOTE | 2018-02-04 17:02 | Progress Note (SOAP) ---
Subjective Subjective/Events-last exam 82 year old male seen sitting up in bed visiting with a friend/family member. The patient states that he has no real complaints, "just that he wants to ". He quickly explains he does not intend to harm himself, but that he spent 7 years taking care of his , who 3 years ago, and since then, he has just been alone. He takes the sign of his cancer as a sign it is his time to go. Reports he has not spoken with oncology yet, and is not sure yet if he would like to speak with hospice. Review of Systems Date Seen by Provider: Feb 04, 2018 Time Seen by Provider: 13:42 General: No Chills, No Night Sweats; Fatigue HEENT: No Head Aches, No Eye Pain, No Dysphasia Pulmonary: No Dyspnea, No Cough Cardiovascular: No: Chest Pain, Palpitations, Paroxysmal Noc. Dyspnea Gastrointestinal: Nausea, Abdominal Pain, Constipation Genitourinary: No Dysuria, No Hematuria Neurological: Weakness; No: Incoordination, Change in speech, Confusion Focused Exam Lactate Level 02/03/18 08:46: Lactic Acid Level 0.87 Objective Exam Last Set of Vital Signs Vital Signs Date Time Temp Pulse Resp B/P (MAP) Pulse Ox O2 Delivery O2 Flow Rate FiO2 02/04/18 12:00 97.5 65 20 125/76 (92) 95 Room Air Capillary Refill : Less Than 3 Seconds I&O Intake and Output 02/04/18 00:00 Intake Total 1000 ml Output Total 0 ml Balance 1000 ml IV Total 1000 ml Output Urine Total 0 ml # Voids 2 Daily Weight Change Unsure General: Alert, Oriented X3, Cooperative, No Acute Distress HEENT: Atraumatic, EOMI, Mucous Memb Moist/Ruby Neck: Supple, +2 Carotid Pulse No Bruit Lungs: Clear to Auscultation, Normal Air Movement Heart: Regular Rate, Normal S1, Normal S2 Abdomen: Normal Bowel Sounds, Soft, No Tenderness, No Hepatosplenomegaly Extremities: No Clubbing, No Cyanosis, No Edema, No Tenderness/Swelling Skin: No Rashes, No Significant Lesion Neuro: Normal Speech, Normal Tone, Sensation Intact, Cranial Nerves 3-12 NL Psych/Mental Status: Mental Status NL, Other (mood somewhat depressed) Results/Procedures Lab Laboratory Tests 02/04/18 05:29: White Blood Count 10.9, Red Blood Count 5.09, Hemoglobin 14.1, Hematocrit 44, Mean Corpuscular Volume 86, Mean Corpuscular Hemoglobin 28, Mean Corpuscular Hemoglobin Concent 32, Red Cell Distribution Width 15.0H, Platelet Count 375, Mean Platelet Volume 9.9, Sodium Level 138, Potassium Level 4.5, Chloride Level 107, Carbon Dioxide Level 21, Anion Gap 10, Blood Urea Nitrogen 21H, Creatinine 0.83, Estimat Glomerular Filtration Rate > 60, BUN/Creatinine Ratio 25, Glucose Level 97, Calcium Level 8.5, Total Bilirubin 1.0, Aspartate Amino Transf (AST/ SGOT) 16, Alanine Aminotransferase (ALT/SGPT) 15, Alkaline Phosphatase 175H, Total Protein 5.6L, Albumin 3.3 Microbiology 02/03/18 Urine Culture - Preliminary, Resulted Gram Negative Aleksandr Sent To [facility] Radiology NAME: MOY ZELAYA [facility] REC#: [id number] PT STATUS: ADM IN : 1935 PHYSICIAN: YESENIA RIVERA MD ADMIT DATE: 02/03/18 Signed Date of Exam: 02/03/18 CT ABDOMEN/PELVIS W PROCEDURE: CT abdomen and pelvis with contrast. TECHNIQUE: Multiple contiguous axial images were obtained through the abdomen and pelvis after administration of intravenous contrast. INDICATION: Nausea, vomiting, and constipation. COMPARISON: CT abdomen and pelvis performed prior day FINDINGS: Lower chest: Bandlike and nodular consolidation in the left lower lobe persists. Stable 5 mm left lower lobe pulmonary nodule. Peritoneum: Trace free fluid within the abdomen has developed. Liver and biliary system: Numerous peripherally enhancing hepatic masses are unchanged and compatible with metastases. Gallbladder has hyperdense material and is likely from vicarious excretion of contrast. Spleen and Pancreas: Spleen is normal. The pancreas enhances normally without mass lesion or peripancreatic inflammatory changes. Adrenals: Peripheral enhancing right adrenal metastasis is stable. tract: The kidneys enhance normally without suspicious mass or obstruction. Urinary bladder is distended without wall thickening. Prostate is not enlarged. GI tract: Annular wall thickening in the sigmoid colon is compatible with a sigmoid colon neoplasm resulting in partial obstruction. The colon proximal to the sigmoid colon is fluid-filled and mildly dilated. Multiple small bowel loops are also fluid filled and borderline dilated. Vasculature and Lymph nodes: Normal caliber aorta. No abdominal or pelvic lymphadenopathy. Musculoskeletal: No concerning osseous lesion. IMPRESSION: 1. 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 2. Metastatic disease includes numerous large hepatic masses and right adrenal mass. 3. A small volume of ascites has developed. 4. Left basilar pulmonary nodular bandlike consolidation is indeterminate. Dictated by: Dictated on workstation # [id number] Dict: 02/03/18728 Trans: 02/03/18921 Interpreted by: MARIO JERONIMO MD Electronically signed by: MARIO JERONIMO MD 02/03/18921 Assessment/Plan Assessment/Plan Assessment & Plan 1. Bowel obstruction partial -Pain control with morphine -Surgical consultation -Patient has informed me he is not planning on real aggressive therapy 02/04 -pt indicates that he does not want to pursue aggressive therapy as it appears his obstruction is likely secondary to malignancy 2. Sigmoid colon neoplasm highly possible -Further staging likely 02/04 -discussed CT findings that indicate that there were likely areas of metastatic disease to liver, adrenal gland, etc, but that further testing may be needed to conclusively make this diagnosis -encouraged pt to consider hospice if he did not want to pursue cancer therapy after hearing what oncology has to offer, as they may be able to offer him a great deal of resources that he could otherwise have a difficult time getting at home 3. Findings consistent with metastases to the liver, right adrenal gland, possibly left lower lung 4. Urinary tract infection -Initiation of IV ceftriaxone 02/04 -Day 3 rocephin -gram negative aleksandr Anticipate that patient will require one additional night in the hospital in order to straighten out the plans for consultation with Lindsey Canales with oncology and Hospice if the patient desires, and that tomorrow the patient will be able to be discharged to home with oral abx and follow up plans in place for further care/workup/treatment of his apparently metastatic disease. Clinical Quality Measures DVT/VTE Risk/Contraindication: Risk Factor Score Per Nursin RFS Level Per Nursing on Admit: 4+=Very High Copy Copies To 1: [facility]/RADHA DOMINGUEZ DO Feb 04, 2018 17:02
[2018-02-04] MEDS ORDERED: HYDROcodone/APAP 7.5MG-325 MG/15 ML (LORTAB) UDC PO PRN (17:30)
--- NOTE | 2018-02-04 17:42 | Progress Note (SOAP) ---
Subjective Date Seen by Provider: Feb 04, 2018 Time Seen by Provider: 17:00 Subjective/Events-last exam doing ok. states feels better than past 2 days. passing significant flatus but no BM past 5 days. abdominal distention improved. tolerating clears with no nausea/vomiting, seen by oncology. metastatic colon ca however medically stable and good candidate for palliative surgery and oncologic therapy. near obstructing lesion sigmoid colon however no fully. will try to proceed with colon prep and one stage resection with anastomosis vs. resection and diverting colostomy. Focused Exam Lactate Level 02/03/18 08:46: Lactic Acid Level 0.87 Objective Exam Vital Signs Date Time Temp Pulse Resp B/P (MAP) Pulse Ox O2 Delivery O2 Flow Rate FiO2 02/04/18 12:00 97.5 65 20 125/76 (92) 95 Room Air 02/04/18 08:57 98.7 90 20 159/84 (109) 95 Room Air 02/04/18 04:00 98.0 93 18 133/76 (95) 96 Room Air 02/04/18 00:00 98.0 87 16 129/81 (97) 95 Room Air 02/03/18 20:00 97.5 77 18 130/69 (89) 95 Room Air I & O 02/04/18 07:00 Intake Total 1000 ml Output Total 0 ml Balance 1000 ml Capillary Refill : Less Than 3 Seconds General Appearance: No Apparent Distress HEENT: PERRL/EOMI Neck: Full Range of Motion Respiratory: Chest Non Tender, Lungs Clear, Normal Breath Sounds Cardiovascular: Regular Rate, Rhythm Gastrointestinal: normal bowel sounds, soft, distended Extremity: Normal Capillary Refill Neurologic/Psychiatric: Alert, Oriented x3 Skin: Normal Color Lymphatic: No Adenopathy Results Lab Laboratory Tests 02/04/18 05:29: White Blood Count 10.9, Red Blood Count 5.09, Hemoglobin 14.1, Hematocrit 44, Mean Corpuscular Volume 86, Mean Corpuscular Hemoglobin 28, Mean Corpuscular Hemoglobin Concent 32, Red Cell Distribution Width 15.0H, Platelet Count 375, Mean Platelet Volume 9.9, Sodium Level 138, Potassium Level 4.5, Chloride Level 107, Carbon Dioxide Level 21, Anion Gap 10, Blood Urea Nitrogen 21H, Creatinine 0.83, Estimat Glomerular Filtration Rate > 60, BUN/Creatinine Ratio 25, Glucose Level 97, Calcium Level 8.5, Total Bilirubin 1.0, Aspartate Amino Transf (AST/ SGOT) 16, Alanine Aminotransferase (ALT/SGPT) 15, Alkaline Phosphatase 175H, Total Protein 5.6L, Albumin 3.3 Microbiology 02/03/18 Blood Culture - Preliminary, Resulted No growth 02/03/18 Urine Culture - Preliminary, Resulted Gram Negative Aleksandr Sent To [facility] Assessment/Plan Assessment/Plan Assess & Plan/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 good candidate for palliative surgery and oncologic therapy. will proceed with trial of bowel prep then one stage sigmoidectomy and anastomosis vs. LAR. 2 stage if too much stool/contamination/vascular insufficiency and diverting colostomy. will proceed with right subclavian temporary central venous cath during surgery then more permanent groshong on left at later time. Clinical Quality Measures DVT/VTE Risk/Contraindication: Risk Factor Score Per Nursin RFS Level Per Nursing on Admit: 4+=Very High JARAD VALENCIA MD Feb 04, 2018 17:42
--- NOTE | 2018-02-04 19:36 | CONSULTATION REPORT ---
DATE OF SERVICE: 02/04/2018 REFERRING PHYSICIAN: Roland Astudillo MD. PRIMARY PHYSICIAN: Stefan Velasquez MD. Patient is admitted to room 407. ASSESSMENT: 1. An 82-year-old male admitted with a bowel obstruction. 2. Obstructing sigmoid colon lesion by CT scans with multiple liver lesions consistent with metastatic disease. Nausea and inability to eat or drink due to bowel obstruction. RECOMMENDATIONS: 1. Agree with sigmoid colectomy to relieve the obstruction as well as tissue diagnosis. 2. Once patient recovers from the surgery, we will discuss about further treatment options based on the pathology report and diagnosis. 3. I have discussed the standard treatment options versus no active treatment with the patient and his daughter and answered their questions. He would prefer to proceed with surgery to relieve the obstruction. 4. I have contacted Dr. Astudillo by phone and discussed this information. He will make arrangements for surgery. BRIEF HISTORY: The patient is an 82-year-old male who came to the Emergency Room over the weekend with abdominal pain, nausea and no bowel movements for a few days. He had evaluation and was noted to have a near obstructing lesion in the sigmoid colon. The patient decided to go home and think about his options, but had to come back to the hospital because of worsening nausea and inability to eat. He was admitted to the hospital and the surgical consultation obtained with Dr. Astudillo who discussed the surgical options. At that time, the patient did not want to proceed with surgery because of the chance of a colostomy placement. A medical oncology consultation was obtained to discuss about treatment options. Hence, the patient was seen today. PAST MEDICAL HISTORY: significant for prostatic hyperplasia causing bilateral hydronephrosis. The patient required surgical correction for this three years ago. He gives a history of ruptured appendix in 1962 and underwent surgery for this. No other medical problems and no other surgeries. SOCIAL HISTORY: The patient is and lives in [place], [place] by himself. He has two children, a daughter and a son. His son lives next door to him and the daughter lives in [place]. He denied any significant tobacco, alcohol or other recreational drug use. He smoked for a few years while he was in the service in the 1950s. 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 FAMILY HISTORY: Unremarkable with no malignancies in the family that the patient knows of. Both his parents and siblings lived into their mid 90s. PHYSICAL EXAMINATION: GENERAL: Today showed an elderly male, thin appearing, awake and oriented in mild discomfort due to the nausea and abdominal discomfort. VITAL SIGNS: Temperature was 97.5, pulse rate of 65, respirations 20, blood pressure 125/76 with oxygen saturation of 95% on room air. HEENT: Normocephalic with male pattern baldness, extraocular muscles intact, conjunctivae pink, oral mucosa slightly dry. NECK: Supple, with no JVD. No cervical, supraclavicular or axillary lymphadenopathy palpable. CHEST: Symmetrical. Lungs with slightly diminished breath sounds bilaterally without wheezes or rales. HEART: Regular in rate and rhythm with occasional missed beats. No murmurs heard. ABDOMEN: Soft with hypoactive bowel sounds. Mild tenderness in the left lower quadrant without guarding or rebound. Deep palpation was not done. EXTREMITIES: Showed no edema. NEUROLOGIC: Grossly intact without focal motor deficits. LABORATORY DATA: CBC done today showed white count of 10.9, hemoglobin 14.1 and platelet count of 375,000. Chemistry panel showed normal electrolytes. BUN was 21 and creatinine 0.83 with GFR more than 60 mL per minute. Alkaline phosphatase was elevated at 175 with the rest of the liver function studies within normal limits. Her CEA level obtained yesterday was elevated at 402.9 and the CA19-9 was elevated at 1102. [address] scan of the abdomen and pelvis done yesterday showed annular wall thickening in the sigmoid colon resulting in partial obstruction. The colon proximal to the sigmoid colon is fluid filled and dilated. Multiple small bowel loops are fluid filled and borderline dilated. Liver showed numerous large hepatic masses and a right adrenal mass consistent with metastatic disease. Small volume ascites was present. Left basilar pulmonary band like consolidation is indeterminate. Thank you for allowing me to participate in this patient's care. I will follow the patient with you and make appropriate recommendations. Job ID: [id number] DocumentID: [id number] Dictated Date: 02/04/2018 17:00:07 Surgical Consultant Date: 02/04/2018 19:34:59 Dictated By: SONU EASLEY MD
[2018-02-04] MEDS: POLYETHYLENE GLYCOL 17 GM (MIRALAX) PACK PO SCH (20:11)
[2018-02-04] MEDS: metroNIDAZOLE 500MG/100ML IVPB 100 ML IV SCH (20:11)
[2018-02-04] MEDS: CIPROFLOXACIN IV 400MG/200ML 200 ML IV SCH (20:11)
[2018-02-04 20:34] VITALS: BP 156/85
[2018-02-05 00:11] VITALS: BP 127/68
[2018-02-05] MEDS: NS IV 1000 ML 1,000 ML IV SCH ×3 (03:36→13:23)
[2018-02-05 04:44] VITALS: BP 134/76
--- NOTE | 2018-02-05 08:12 | Progress Note (SOAP) ---
Subjective Subjective/Events-last exam Pt met with Dr. Astudillo from General Surgery, as well as Dr. Carter from Oncology yesterday evening. The current plan is for patient do colon prep and Dr. Astudillo with attempt resection of his sigmoid mass with anastomosis vs diverting colostomy. The patient and his daughter also spoke with Dr. Carter and he was in agreement as well; they will plan to follow up with him in the office after the patient has recovered from the surgery. The patient is feeling optimistic about this at the time of exam, and reports that he was up today and had a shower and "is ready to take things one day at a time for now". Review of Systems Date Seen by Provider: Feb 05, 2018 Time Seen by Provider: 18:15 General: No Chills, No Night Sweats HEENT: No Head Aches, No Visual Changes, No Dysphasia Pulmonary: No Dyspnea, No Cough Cardiovascular: No: Chest Pain, Palpitations, Edema Gastrointestinal: Constipation; No: Nausea, Vomiting Genitourinary: No Dysuria, No Incontinence Musculoskeletal: No: neck pain, back pain Neurological: No: Weakness, Incoordination, Change in speech, Seizures Focused Exam Lactate Level 02/03/18 08:46: Lactic Acid Level 0.87 Objective Exam Last Set of Vital Signs Vital Signs Date Time Temp Pulse Resp B/P (MAP) Pulse Ox O2 Delivery O2 Flow Rate FiO2 02/05/18 04:44 98.0 65 17 134/76 (95) 93 Room Air Capillary Refill : Less Than 3 Seconds I&O Intake and Output 02/05/18 00:00 Intake Total 3280 ml Balance 3280 ml Intake Oral 1280 ml IV Total 2000 ml # Voids 6 General: Alert, Oriented X3, Cooperative, No Acute Distress HEENT: Atraumatic, EOMI, Mucous Memb Moist/[place] Neck: Supple, No Thyromegaly, +2 Carotid Pulse No Bruit Lungs: Clear to Auscultation, Normal Air Movement Heart: Regular Rate, Normal S1, Normal S2, No Murmurs Abdomen: Normal Bowel Sounds, Soft, No Tenderness Extremities: No Clubbing, No Cyanosis, No Edema, Normal Pulses Skin: No Rashes, No Significant Lesion Neuro: Normal Speech, Normal Tone, Sensation Intact, Cranial Nerves 3-12 NL Psych/Mental Status: Mental Status NL, Mood NL Results/Procedures Lab Microbiology 02/03/18 Blood Culture - Preliminary, Resulted No growth 02/03/18 Urine Culture - Preliminary, Resulted Gram Negative Aleksandr Sent To [facility] NAME: MOY ZELAYA [facility] REC#: [id number] PT STATUS: ADM IN : 1935 PHYSICIAN: YESENIA RIVERA MD ADMIT DATE: 02/03/18 Signed Date of Exam: 02/03/18 CT ABDOMEN/PELVIS W PROCEDURE: CT abdomen and pelvis with contrast. TECHNIQUE: Multiple contiguous axial images were obtained through the abdomen and pelvis after administration of intravenous contrast. INDICATION: Nausea, vomiting, and constipation. COMPARISON: CT abdomen and pelvis performed prior day FINDINGS: Lower chest: Bandlike and nodular consolidation in the left lower lobe persists. Stable 5 mm left lower lobe pulmonary nodule. Peritoneum: Trace free fluid within the abdomen has developed. Liver and biliary system: Numerous peripherally enhancing hepatic masses are unchanged and compatible with metastases. Gallbladder has hyperdense material and is likely from vicarious excretion of contrast. Spleen and Pancreas: Spleen is normal. The pancreas enhances normally without mass lesion or peripancreatic inflammatory changes. Adrenals: Peripheral enhancing right adrenal metastasis is stable. tract: The kidneys enhance normally without suspicious mass or obstruction. Urinary bladder is distended without wall thickening. Prostate is not enlarged. GI tract: Annular wall thickening in the sigmoid colon is compatible with a sigmoid colon neoplasm resulting in partial obstruction. The colon proximal to the sigmoid colon is fluid-filled and mildly dilated. Multiple small bowel loops are also fluid filled and borderline dilated. Vasculature and Lymph nodes: Normal caliber aorta. No abdominal or pelvic lymphadenopathy. Musculoskeletal: No concerning osseous lesion. IMPRESSION: 1. 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 2. Metastatic disease includes numerous large hepatic masses and right adrenal mass. 3. A small volume of ascites has developed. 4. Left basilar pulmonary nodular bandlike consolidation is indeterminate. Dictated by: Dictated on workstation # [id number] Dict: 02/03/18728 Trans: 02/03/18921 Interpreted by: MARIO JERONIMO MD Electronically signed by: MARIO JERONIMO MD 02/03/18921 Assessment/Plan Assessment/Plan Assessment & Plan 1. Bowel obstruction partial -Pain control with morphine -Surgical consultation -Patient has informed me he is not planning on real aggressive therapy 02/04 -pt indicates that he does not want to pursue aggressive therapy as it appears his obstruction is likely secondary to malignancy 02/05 -pt had the opportunity to speak with both Dr. Astudillo as well as Dr. Carter yesterday evening, and is planning for surgical resection of sigmoid mass on , with plans to follow up with Dr. Carter after he has had a chance to recover from surgery -the patient is feeling optimistic about this at this time, and reports he is planning on "just taking things one day at a time" 2. Sigmoid colon neoplasm highly possible -Further staging likely 02/04 -discussed CT findings that indicate that there were likely areas of metastatic disease to liver, adrenal gland, etc, but that further testing may be needed to conclusively make this diagnosis -encouraged pt to consider hospice if he did not want to pursue cancer therapy after hearing what oncology has to offer, as they may be able to offer him a great deal of resources that he could otherwise have a difficult time getting at home 02/05 -pt has elected to proceed with surgical resection of the sigmoid mass, and verbalizes understanding that this may be a multi-stage procedure, depending on what is found once surgery begins -procedure scheduled for -Day 1 Cipro and Flagyl, as pt is going to have intra-abdominal procedure 3. Findings consistent with metastases to the liver, right adrenal gland, possibly left lower lung 4. Urinary tract infection -Initiation of IV ceftriaxone 02/04 -Day 3 rocephin -gram negative aleksandr 02/05 -santizo sensitive E coli UTI -rocephin stopped, Day 1 Cipro and Flagyl, as cipro will provide coverage for UTI as well as pt's upcoming abdominal procedure 5. Elevated Alk Phos 02/05 -remains elevated, today 175 6. Hypoproteinemia 02/05 -5.6 today Pt will need a total of 7 days of treatment for UTI, currently on Day 4. He will be having surgery on for resection of his sigmoid mass, and his length of stay will depend on the outcome of his procedure. Anticipate the patient will have at least 4-5 more nights in the hospital for treatment and stabilization after surgery. CODE STATUS: DNR Clinical Quality Measures DVT/VTE Risk/Contraindication: Risk Factor Score Per Nursin RFS Level Per Nursing on Admit: 4+=Very High Copy Copies To 1: [facility]/RADHA DOMINGUEZ DO Feb 05, 2018 08:11
[2018-02-05 08:45] VITALS: BP 156/82
[2018-02-05] MEDS: morphine INJ 10 MG/ML 1ML (SYR OR VIAL) IV PRN (08:52)
[2018-02-05] MEDS: POLYETHYLENE GLYCOL 17 GM (MIRALAX) PACK PO SCH ×2 (08:53→20:22)
[2018-02-05] MEDS: metroNIDAZOLE 500MG/100ML IVPB 100 ML IV SCH ×2 (08:53→20:22)
[2018-02-05] MEDS: PANTOPRAZOLE 40 MG/10 ML (PROTONIX) VIAL IV SCH (08:53)
[2018-02-05] MEDS: CIPROFLOXACIN IV 400MG/200ML 200 ML IV SCH ×2 (10:07→21:50)
[2018-02-05 12:00] VITALS: BP 126/73
--- NOTE | 2018-02-05 13:35 | Progress Note (SOAP) ---
Subjective Date Seen by Provider: Feb 05, 2018 Time Seen by Provider: 13:00 Subjective/Events-last exam doing ok. no new complaints. passing flatus but no BM yet. no abd distention. tolerating clears, no nausea/vomiting. Focused Exam Lactate Level 02/03/18 08:46: Lactic Acid Level 0.87 Objective Exam Vital Signs Date Time Temp Pulse Resp B/P (MAP) Pulse Ox O2 Delivery O2 Flow Rate FiO2 02/05/18 12:00 97.3 85 20 126/73 (90) 96 Room Air 02/05/18 08:45 98.2 61 16 156/82 (106) 95 Room Air 02/05/18 04:44 98.0 65 17 134/76 (95) 93 Room Air 02/05/18 00:11 98.9 65 17 127/68 (87) 95 Room Air 02/04/18 20:34 98.7 87 20 156/85 (108) 94 Room Air 02/04/18 16:15 98.4 70 20 139/77 (97) 94 Room Air I & O 02/05/18 07:00 Intake Total 3530 ml Balance 3530 ml Capillary Refill : Less Than 3 Seconds General Appearance: No Apparent Distress HEENT: PERRL/EOMI Neck: Full Range of Motion Respiratory: Chest Non Tender, Lungs Clear Cardiovascular: Regular Rate, Rhythm Gastrointestinal: normal bowel sounds, soft, distended Extremity: Normal Capillary Refill Neurologic/Psychiatric: Alert, Oriented x3 Skin: Normal Color Lymphatic: No Adenopathy Results Lab Microbiology 02/03/18 Blood Culture - Preliminary, Resulted No growth 02/03/18 Urine Culture - Preliminary, Resulted Gram Negative Aleksandr Sent To [facility] Assessment/Plan Assessment/Plan Assess & Plan/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 good candidate for palliative surgery and oncologic therapy. will proceed with trial of bowel prep then one stage sigmoidectomy and anastomosis vs. LAR. 2 stage if too much stool/contamination/vascular insufficiency and diverting colostomy. will proceed with right subclavian temporary central venous cath during surgery then more permanent groshong on left at later time. will consult urology for placement left ureteral catheter. Clinical Quality Measures DVT/VTE Risk/Contraindication: Risk Factor Score Per Nursin RFS Level Per Nursing on Admit: 4+=Very High JARAD VALENCIA MD Feb 05, 2018 1:35 pm
[2018-02-05 16:00] VITALS: BP 154/80
[2018-02-05 20:00] VITALS: BP 143/79
[2018-02-06] VITALS: BP 141/76
[2018-02-06] MEDS: NS IV 1000 ML 1,000 ML IV SCH ×3 (00:05→17:58)
[2018-02-06 04:00] VITALS: BP 145/78
[2018-02-06 08:27] VITALS: BP 137/77
[2018-02-06] MEDS: POLYETHYLENE GLYCOL 17 GM (MIRALAX) PACK PO SCH ×2 (09:08→19:59)
[2018-02-06] MEDS: CIPROFLOXACIN IV 400MG/200ML 200 ML IV SCH ×2 (09:09→20:00)
[2018-02-06] MEDS: PANTOPRAZOLE 40 MG/10 ML (PROTONIX) VIAL IV SCH (09:09)
[2018-02-06] MEDS: metroNIDAZOLE 500MG/100ML IVPB 100 ML IV SCH ×2 (09:09→19:59)
--- NOTE | 2018-02-06 12:58 | CONSULTATION REPORT ---
DATE OF SERVICE: 02/06/2018 ATTENDING PHYSICIAN: Dr. Astudillo. SUMMARY: An 82-year-old white male known to me for a long time with previous BPH and TURP about three years ago. He is to have an abdominal surgery tomorrow for the removal of a cancer colon on the left side and Dr. Astudillo requested me to put a stent in the left ureter to be easily identified and prevent iatrogenic injury and surgery. IMPRESSION: Cancer colon was a proximity to the left ureter. PLAN: Cystoscopy and insertion of left ureteral stent tomorrow prior to Dr. Astudillo surgery. The procedure was fully explained to the patient and all of his questions were answered. Consent will be obtained accordingly. Job ID: [id number] DocumentID: [id number] Dictated Date: 02/06/2018 09:28:50 [employer] Date: 02/06/2018 12:58:30 Dictated By: TONIA SIMS MD MTDD
[2018-02-06 16:00] VITALS: BP 165/86
--- NOTE | 2018-02-06 16:01 | Progress Note (SOAP) ---
Subjective Date Seen by Provider: Feb 06, 2018 Time Seen by Provider: 13:00 Subjective/Events-last exam doing well. no nausea/vomiting and tolerating clears. copious flatus but no BM. Objective Exam Vital Signs Date Time Temp Pulse Resp B/P (MAP) Pulse Ox O2 Delivery O2 Flow Rate FiO2 02/06/18 08:27 98.9 65 20 137/77 (97) 95 Room Air 02/06/18 04:00 97.4 64 18 145/78 (100) 93 Room Air 02/06/18 00:00 97.1 65 16 141/76 (97) 94 Room Air 02/05/18 20:00 97.5 71 20 143/79 (100) 92 Room Air 02/05/18 16:00 97.0 59 18 154/80 (104) 96 Room Air I & O 02/06/18 07:00 Intake Total 3680 ml Balance 3680 ml Capillary Refill : Less Than 3 Seconds General Appearance: No Apparent Distress HEENT: PERRL/EOMI Neck: Full Range of Motion Respiratory: Chest Non Tender, Lungs Clear, Normal Breath Sounds Cardiovascular: Regular Rate, Rhythm Gastrointestinal: normal bowel sounds, soft, distended Extremity: Normal Capillary Refill, Normal Inspection Neurologic/Psychiatric: Alert, Oriented x3 Skin: Normal Color Lymphatic: No Adenopathy Results Lab Microbiology 02/03/18 Blood Culture - Preliminary, Resulted No growth 02/03/18 Urine Culture - Final, Complete Escherichia coli Assessment/Plan Assessment/Plan Assess & Plan/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 good candidate for palliative surgery and oncologic therapy. will proceed with trial of bowel prep then one stage sigmoidectomy and anastomosis vs. LAR. 2 stage if too much stool/contamination/vascular insufficiency and diverting colostomy. will proceed with right subclavian temporary central venous cath during surgery then more permanent groshong on left at later time. will consult urology for placement left ureteral catheter. hopefully will have loose stools before surgery. if not, and stools mostly liquid, if feasible will proceed with on table decompression and lavage and anastomosis. Clinical Quality Measures DVT/VTE Risk/Contraindication: Risk Factor Score Per Nursin RFS Level Per Nursing on Admit: 4+=Very High JARAD VALENCIA MD Feb 06, 2018 4:01 pm
--- NOTE | 2018-02-06 16:45 | Progress Note (SOAP) ---
Subjective Subjective/Events-last exam No complaints today. Tolerating clear liquid diet. Passing gas, but no bowel movement yet. No acute events overnight. Plan for surgery tomorrow with Dr. Astudillo for resection of sigmoid mass. Review of Systems Date Seen by Provider: Feb 06, 2018 Time Seen by Provider: 12:00 General: No Chills, No Night Sweats HEENT: No Head Aches, No Dysphasia Pulmonary: No Dyspnea, No Cough Cardiovascular: No: Chest Pain, Palpitations Gastrointestinal: Constipation; No: Nausea, Vomiting Genitourinary: No Dysuria Musculoskeletal: No: neck pain, back pain Neurological: No: Incoordination, Change in speech, Confusion, Seizures Objective Exam Last Set of Vital Signs Vital Signs Date Time Temp Pulse Resp B/P (MAP) Pulse Ox O2 Delivery O2 Flow Rate FiO2 02/06/18 16:00 98.9 67 18 165/86 (112) 96 Room Air Capillary Refill : Less Than 3 Seconds I&O Intake and Output 02/06/18 00:00 Intake Total 3680 ml Balance 3680 ml Intake Oral 1380 ml IV Total 2300 ml # Voids 7 General: Alert, Oriented X3, Cooperative, No Acute Distress HEENT: Atraumatic, EOMI, Mucous Memb Moist/[place] Neck: Supple, No Thyromegaly Lungs: Clear to Auscultation, Normal Air Movement Heart: Regular Rate, Normal S1, Normal S2 Abdomen: Normal Bowel Sounds, Soft, No Tenderness Extremities: No Clubbing, No Cyanosis, Normal Pulses Skin: No Rashes, No Significant Lesion Neuro: Normal Speech, Normal Tone, Sensation Intact, Cranial Nerves 3-12 NL Psych/Mental Status: Mental Status NL, Mood NL Results/Procedures Lab Microbiology 02/03/18 Blood Culture - Preliminary, Resulted No growth 02/03/18 Urine Culture - Final, Complete Escherichia coli Radiology NAME: MOY ZELAYA [facility] REC#: [id number] PT STATUS: ADM IN : 1935 PHYSICIAN: YESENIA RIVERA MD ADMIT DATE: 02/03/18/ Signed Date of Exam: 02/03/18 CT ABDOMEN/PELVIS W PROCEDURE: CT abdomen and pelvis with contrast. TECHNIQUE: Multiple contiguous axial images were obtained through the abdomen and pelvis after administration of intravenous contrast. INDICATION: Nausea, vomiting, and constipation. COMPARISON: CT abdomen and pelvis performed prior day FINDINGS: Lower chest: Bandlike and nodular consolidation in the left lower lobe persists. Stable 5 mm left lower lobe pulmonary nodule. Peritoneum: Trace free fluid within the abdomen has developed. Liver and biliary system: Numerous peripherally enhancing hepatic masses are unchanged and compatible with metastases. Gallbladder has hyperdense material and is likely from vicarious excretion of contrast. Spleen and Pancreas: Spleen is normal. The pancreas enhances normally without mass lesion or peripancreatic inflammatory changes. Adrenals: Peripheral enhancing right adrenal metastasis is stable. tract: The kidneys enhance normally without suspicious mass or obstruction. Urinary bladder is distended without wall thickening. Prostate is not enlarged. GI tract: Annular wall thickening in the sigmoid colon is compatible with a sigmoid colon neoplasm resulting in partial obstruction. The colon proximal to the sigmoid colon is fluid-filled and mildly dilated. Multiple small bowel loops are also fluid filled and borderline dilated. Vasculature and Lymph nodes: Normal caliber aorta. No abdominal or pelvic lymphadenopathy. Musculoskeletal: No concerning osseous lesion. IMPRESSION: 1. 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 2. Metastatic disease includes numerous large hepatic masses and right adrenal mass. 3. A small volume of ascites has developed. 4. Left basilar pulmonary nodular bandlike consolidation is indeterminate. Dictated by: Dictated on workstation # [id number] Dict: 02/03/18728 Trans: 02/03/18921 Interpreted by: MARIO JERONIMO MD Electronically signed by: MARIO JERONIMO MD 02/03/18921 Assessment/Plan Assessment/Plan Assessment & Plan 1. Bowel obstruction partial -Pain control with morphine -Surgical consultation -Patient has informed me he is not planning on real aggressive therapy 02/04 -pt indicates that he does not want to pursue aggressive therapy as it appears his obstruction is likely secondary to malignancy 02/05 -pt had the opportunity to speak with both Dr. Astudillo as well as Dr. Carter yesterday evening, and is planning for surgical resection of sigmoid mass on , with plans to follow up with Dr. Carter after he has had a chance to recover from surgery -the patient is feeling optimistic about this at this time, and reports he is planning on "just taking things one day at a time" 02/06 -plan for palliative surgery tomorrow with Dr. Astudillo and Dr. Grubbs with follow up with Dr. Carter after discharge -Day 2 Cipro and Flagyl 2. Sigmoid colon neoplasm highly possible -Further staging likely 02/04 -discussed CT findings that indicate that there were likely areas of metastatic disease to liver, adrenal gland, etc, but that further testing may be needed to conclusively make this diagnosis -encouraged pt to consider hospice if he did not want to pursue cancer therapy after hearing what oncology has to offer, as they may be able to offer him a great deal of resources that he could otherwise have a difficult time getting at home 02/05 -pt has elected to proceed with surgical resection of the sigmoid mass, and verbalizes understanding that this may be a multi-stage procedure, depending on what is found once surgery begins -procedure scheduled for -Day 1 Cipro and Flagyl, as pt is going to have intra-abdominal procedure 02/06 -Day 2 Cipro and Flagyl -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 Grubbs; more permanent Groshong to be placed on left at a later date 3. Findings consistent with metastases to the liver, right adrenal gland, possibly left lower lung 4. Urinary tract infection -Initiation of IV ceftriaxone 02/04 -Day 3 rocephin -gram negative judy 02/05 -santizo sensitive E coli UTI -rocephin stopped, Day 1 Cipro and Flagyl, as cipro will provide coverage for UTI as well as pt's upcoming abdominal procedure 02/06 -Day 4 abx for e coli UTI 5. Elevated Alk Phos 02/05 -remains elevated, today 175 6. Hypoproteinemia 02/05 -5.6 today Pt will need a total of 7 days of treatment for UTI, currently on Day 4. He will be having surgery on for resection of his sigmoid mass, and his length of stay will depend on the outcome of his procedure. Anticipate the patient will have at least 4-5 more nights in the hospital for treatment and stabilization after surgery. CODE STATUS: DNR Clinical Quality Measures DVT/VTE Risk/Contraindication: Risk Factor Score Per Nursin RFS Level Per Nursing on Admit: 4+=Very High Copy Copies To 1: [facility]/RADHA DOMINGUEZ DO Feb 06, 2018 16:45
[2018-02-06] MEDS ORDERED: BISACODYL 10 MG SUPP (DULCOLAX) PR NR (19:00)
[2018-02-07] VITALS (13 sets, daily range): BP systolic 89–165; BP diastolic 63–101
[2018-02-07] MEDS: NS IV 1000 ML 1,000 ML IV SCH ×3 (03:47→17:10)
[2018-02-07 06:02] LABS: BASOPHILS % (AUTO) 0 % (0-10); EOSINOPHILS # (AUTO) 0.2 10^3/uL (0.0-0.3); EOSINOPHILS % (AUTO) 3 % (0-10); HEMATOCRIT 38 % (40-54); HEMOGLOBIN 12.6 G/DL (13.3-17.7); LYMPHOCYTES # (AUTO) 1.9 X 10^3 (1.0-4.0); LYMPHOCYTES % (AUTO) 22 % (12-44); MEAN CORPUSCULAR HEMOGLOBIN 29 PG (25-34); MEAN CORPUSCULAR HGB CONC 34 G/DL (32-36); MEAN CORPUSCULAR VOLUME 85 FL (80-99); MEAN PLATELET VOLUME 9.9 FL (7.4-10.4); MONOCYTES # (AUTO) 0.9 X 10^3 (0.0-1.0); MONOCYTES % (AUTO) 10 % (0-12); NEUTROPHILS # (AUTO) 5.6 X 10^3 (1.8-7.8); NEUTROPHILS % (AUTO) 65 % (42-75); PLATELET COUNT 299 10^3/uL (130-400); RED BLOOD COUNT 4.41 10^6/uL (4.35-5.85); RED CELL DISTRIBUTION WIDTH 14.9 % (10.0-14.5); WHITE BLOOD COUNT 8.6 10^3/uL (4.3-11.0)
[2018-02-07 06:26] LABS: BUN/CREATININE RATIO 13; CALCIUM 8.5 MG/DL (8.5-10.1); CARBON DIOXIDE 17 MMOL/L (21-32); CHLORIDE 110 MMOL/L (98-107); CREATININE SERUM 0.71 MG/DL (0.60-1.30); GFR ESTIMATED > 60; GLUCOSE 89 MG/DL (70-105); MAGNESIUM 1.9 MG/DL (1.8-2.4); POTASSIUM 3.3 MMOL/L (3.6-5.0); SODIUM 139 MMOL/L (135-145)
--- NOTE | 2018-02-07 07:49 | Progress Note (SOAP) ---
Subjective Subjective/Events-last exam No acute events overnight. Plan for OR today. Review of Systems Date Seen by Provider: Feb 07, 2018 Time Seen by Provider: 19:18 Objective Exam Last Set of Vital Signs Vital Signs Date Time Temp Pulse Resp B/P (MAP) Pulse Ox O2 Delivery O2 Flow Rate FiO2 02/07/18 00:01 97.5 69 18 157/73 (101) 96 Room Air Capillary Refill : Less Than 3 Seconds I&O Intake and Output 02/07/18 00:00 Intake Total 1420 ml Balance 1420 ml Intake Oral 1420 ml # Voids 8 Results/Procedures Lab Laboratory Tests 02/07/18 05:15: White Blood Count 8.6, Red Blood Count 4.41, Hemoglobin 12.6L, Hematocrit 38L, Mean Corpuscular Volume 85, Mean Corpuscular Hemoglobin 29, Mean Corpuscular Hemoglobin Concent 34, Red Cell Distribution Width 14.9H, Platelet Count 299, Mean Platelet Volume 9.9, Neutrophils (%) (Auto) 65, Lymphocytes (%) (Auto) 22, Monocytes (%) (Auto) 10, Eosinophils (%) (Auto) 3, Basophils (%) (Auto) 0, Neutrophils # (Auto) 5.6, Lymphocytes # (Auto) 1.9, Monocytes # (Auto) 0.9, Eosinophils # (Auto) 0.2, Basophils # (Auto) 0.0, Sodium Level 139, Potassium Level 3.3L, Chloride Level 110H, Carbon Dioxide Level 17L, Anion Gap 12, Blood Urea Nitrogen 9, Creatinine 0.71, Estimat Glomerular Filtration Rate > 60, BUN/ Creatinine Ratio 13, Glucose Level 89, Calcium Level 8.5, Magnesium Level 1.9 Microbiology 02/03/18 Blood Culture - Preliminary, Resulted No growth 02/03/18 Urine Culture - Final, Complete Escherichia coli Radiology NAME: MOY ZELAYA [facility] REC#: [id number] PT STATUS: ADM IN : 1935 PHYSICIAN: YESENIA RIVERA MD ADMIT DATE: 02/03/18 Signed Date of Exam: 02/03/18 CT ABDOMEN/PELVIS W PROCEDURE: CT abdomen and pelvis with contrast. TECHNIQUE: Multiple contiguous axial images were obtained through the abdomen and pelvis after administration of intravenous contrast. INDICATION: Nausea, vomiting, and constipation. COMPARISON: CT abdomen and pelvis performed prior day FINDINGS: Lower chest: Bandlike and nodular consolidation in the left lower lobe persists. Stable 5 mm left lower lobe pulmonary nodule. Peritoneum: Trace free fluid within the abdomen has developed. Liver and biliary system: Numerous peripherally enhancing hepatic masses are unchanged and compatible with metastases. Gallbladder has hyperdense material and is likely from vicarious excretion of contrast. Spleen and Pancreas: Spleen is normal. The pancreas enhances normally without mass lesion or peripancreatic inflammatory changes. Adrenals: Peripheral enhancing right adrenal metastasis is stable. tract: The kidneys enhance normally without suspicious mass or obstruction. Urinary bladder is distended without wall thickening. Prostate is not enlarged. GI tract: Annular wall thickening in the sigmoid colon is compatible with a sigmoid colon neoplasm resulting in partial obstruction. The colon proximal to the sigmoid colon is fluid-filled and mildly dilated. Multiple small bowel loops are also fluid filled and borderline dilated. Vasculature and Lymph nodes: Normal caliber aorta. No abdominal or pelvic lymphadenopathy. Musculoskeletal: No concerning osseous lesion. IMPRESSION: 1. 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 2. Metastatic disease includes numerous large hepatic masses and right adrenal mass. 3. A small volume of ascites has developed. 4. Left basilar pulmonary nodular bandlike consolidation is indeterminate. Dictated by: Dictated on workstation # [id number] Dict: 02/03/18728 Trans: 02/03/18921 Interpreted by: MARIO JERONIMO MD Electronically signed by: MARIO JERONIMO MD 02/03/18921 Assessment/Plan Assessment/Plan Assessment & Plan 1. Bowel obstruction partial -Pain control with morphine -Surgical consultation -Patient has informed me he is not planning on real aggressive therapy 02/04 -pt indicates that he does not want to pursue aggressive therapy as it appears his obstruction is likely secondary to malignancy 02/05 -pt had the opportunity to speak with both Dr. Astudillo as well as Dr. Carter yesterday evening, and is planning for surgical resection of sigmoid mass on , with plans to follow up with Dr. Carter after he has had a chance to recover from surgery -the patient is feeling optimistic about this at this time, and reports he is planning on "just taking things one day at a time" 02/06 -plan for palliative surgery tomorrow with Dr. Astudillo and Dr. Grubbs with follow up with Dr. Carter after discharge -Day 2 Cipro and Flagyl 2. Sigmoid colon neoplasm highly possible -Further staging likely 02/04 -discussed CT findings that indicate that there were likely areas of metastatic disease to liver, adrenal gland, etc, but that further testing may be needed to conclusively make this diagnosis -encouraged pt to consider hospice if he did not want to pursue cancer therapy after hearing what oncology has to offer, as they may be able to offer him a great deal of resources that he could otherwise have a difficult time getting at home 02/05 -pt has elected to proceed with surgical resection of the sigmoid mass, and verbalizes understanding that this may be a multi-stage procedure, depending on what is found once surgery begins -procedure scheduled for -Day 1 Cipro and Flagyl, as pt is going to have intra-abdominal procedure 02/06 -Day 2 Cipro and Flagyl -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 Grubbs; more permanent Groshong to be placed on left at a later date 3. Findings consistent with metastases to the liver, right adrenal gland, possibly left lower lung 4. Urinary tract infection -Initiation of IV ceftriaxone 02/04 -Day 3 rocephin -gram negative judy 02/05 -santizo sensitive E coli UTI -rocephin stopped, Day 1 Cipro and Flagyl, as cipro will provide coverage for UTI as well as pt's upcoming abdominal procedure 02/06 -Day 4 abx for e coli UTI 5. Elevated Alk Phos 02/05 -remains elevated, today 175 6. Hypoproteinemia 02/05 -5.6 today Pt will need a total of 7 days of treatment for UTI, currently on Day 4. He will be having surgery on for resection of his sigmoid mass, and his length of stay will depend on the outcome of his procedure. Anticipate the patient will have at least 4-5 more nights in the hospital for treatment and stabilization after surgery. CODE STATUS: DNR Clinical Quality Measures DVT/VTE Risk/Contraindication: Risk Factor Score Per Nursin RFS Level Per Nursing on Admit: 4+=Very High RADHA DOVE DO Feb 07, 2018 07:49
[2018-02-07] MEDS: PANTOPRAZOLE 40 MG/10 ML (PROTONIX) VIAL IV SCH (08:29)
[2018-02-07] MEDS: POTASSIUM CL 10MEQ/50ML IVPB 50 ML IV SCH ×2 (08:29→09:31)
[2018-02-07] MEDS: POLYETHYLENE GLYCOL 17 GM (MIRALAX) PACK PO SCH ×2 (08:55→21:00)
[2018-02-07] MEDS: CIPROFLOXACIN IV 400MG/200ML 200 ML IV SCH ×2 (09:27→21:41)
[2018-02-07] MEDS: metroNIDAZOLE 500MG/100ML IVPB 100 ML IV SCH ×2 (09:28→20:07)
--- NOTE | 2018-02-07 09:34 | Progress Note-Pre Operative ---
Pre-Operative Progress Note H&P Reviewed The H&P was reviewed, patient examined and no changes noted. Date Seen by Provider: Feb 07, 2018 Time Seen by Provider: : Date H&P Reviewed: Feb 07, 2018 Time H&P Reviewed: :30 Pre-Operative Diagnosis: metastatic colon cancer JARAD VALENCIA MD Feb 07, 2018 9:34 am
[2018-02-07] MEDS ORDERED: BUP/EPI 0.5% 1:200,000 (SENSORCAINE) 30 ML VIAL ONE (09:49)
[2018-02-07] MEDS ORDERED: HEParin (CENTRAL IV FLUSH) 500 UNIT/5 ML SYR ONE (09:56)
[2018-02-07] MEDS ORDERED: ONDANSETRON 4 MG/2 ML (SDV) Z0FRAN ONE (10:00)
[2018-02-07] MEDS ORDERED: LIDOCAINE PF 2% 5 ML (XYLOCAINE) VIAL ONE (10:00)
[2018-02-07] MEDS ORDERED: DEXAMETHASONE 10 MG/ML (DECADRON) 1 ML VIAL ONE (10:00)
[2018-02-07] MEDS ORDERED: SEVOFLURANE (ULTANE) 15 ML INHAL SOLN ONE ×12 (10:00→13:53)
[2018-02-07] MEDS ORDERED: fentaNYL INJECTION 250 MCG/5 ML AMP ONE (10:00)
[2018-02-07] MEDS ORDERED: proPOfol 200 MG/20 ML (DIPRIVAN) VIAL IV ONE (10:00)
[2018-02-07] MEDS ORDERED: ROCURONIUM 10 MG/ML 5 ML SYRINGE IV ONE ×2 (10:00→11:31)
[2018-02-07] MEDS ORDERED: MIDAZOLAM 2 MG/2 ML (VERSED) VIAL ONE (10:41)
[2018-02-07] MEDS: LACTATED RINGERS 1,000 ML IV PRN ×2 (11:30→13:00)
--- NOTE | 2018-02-07 11:54 | Progress Note-Post Operative ---
Post-Operative Progess Note Surgeon (s)/Coating Machine Operator (s) Surgeon TONIA SIMS MD Coating Machine Operator: N/A Pre-Operative Diagnosis metastatic colon cancer Post-Operative Diagnosis SAME Procedure & Operative Findings Date of Procedure 02/07/18 Procedure Performed/Findings CYSTOSCOPY AND INSERTION OF LT STENT WITH RETROGRADE UROGRAM Anesthesia Type GENERAL AND EPIDURAL Estimated Blood Loss Estimated blood loss (mL): N/A Specimens/Packing Specimens Removed N/A Packing: N/A TONIA SIMS MD Feb 07, 2018 11:54 am
--- NOTE | 2018-02-07 12:29 | Diagnostic Imaging Report ---
Indication: Flank pain. Stent placement. Comparison: None available. Findings and Impression: Multiple fluoroscopic images were obtained during retrograde nephroureteral stent placement. These demonstrate contrast opacifying the ureter and placement of the nephroureteral stent. A total of 76 seconds or fluoroscopy was utilized for this procedure performed by Dr. Grubbs. Please see operative report for complete details. Dictated by: Dictated on workstation # [id number]
[2018-02-07] MEDS ORDERED: ceFAZolin 1,000 MG (ANCEF) VIAL ONE (12:50)
--- NOTE | 2018-02-07 13:41 | Progress Note-Post Operative ---
Post-Operative Progess Note Surgeon (s)/Extracting Machine Operator (s) Surgeon JARAD VALENCIA MD Extracting Machine Operator: debora canada [employer]STER Pre-Operative Diagnosis metastatic colon cancer Post-Operative Diagnosis same. apple core lesion distal sigmoid. no carcinomatosis. Procedure & Operative Findings Date of Procedure 02/07/18 Procedure Performed/Findings open low anterior resection, right subclavian central venous catheter placement. Anesthesia Type GET Estimated Blood Loss Estimated blood loss (mL): minimal Specimens/Packing Specimens Removed rectosigmoid Packing: N/A JARAD VALENCIA MD Feb 07, 2018 1:41 pm
[2018-02-07] MEDS ORDERED: fentaNYL INJECTION 5,000 MCG in EMPTY IV BAG (PVC) 1 EA IV SCH (13:45)
[2018-02-07] MEDS ORDERED: NEOSTIGMINE 1 MG/ML 5 ML SYRINGE ONE (14:03)
[2018-02-07] MEDS ORDERED: PHENYLEPHRINE 100 MCG/ML 10 ML (ANESTHESIA) SYR ONE (14:03)
[2018-02-07] MEDS ORDERED: GLYCOPYRROLATE 0.2 MG/ML (ROBINUL) 2 ML VIAL ONE ×2 (14:03)
--- NOTE | 2018-02-07 14:50 | Diagnostic Imaging Report ---
INDICATION: Postop colon resection. EXAMINATION: Frontal view of the chest was obtained at 2:16 p.m. COMPARISON: 05/19/2015. FINDINGS: The heart is mildly enlarged. There is central vascular congestion with interstitial edema and patchy bibasilar infiltrate, left greater than right. There is a trace of pleural fluid on the left side. There is no pneumothorax. Right-sided central catheter is seen with catheter into the right subclavian vein, catheter tip overlying the right atrium. IMPRESSION: Cardiomegaly with worsening central vascular congestion and interstitial edema and patchy bibasilar infiltrate. There is a small amount of pleural fluid on the left side. Followup is recommended. Dictated by: Dictated on workstation # [id number]
--- NOTE | 2018-02-07 15:40 | OPERATIVE REPORT ---
DATE OF SERVICE: 02/07/2018 PREOPERATIVE DIAGNOSIS: Metastatic cancer of the colon. POSTOPERATIVE DIAGNOSIS: Metastatic cancer of the colon. OPERATION PERFORMED: Cystoscopy, left retrograde urogram and insertion of left ureteral stent. SURGEON: Liam Sims MD ANESTHESIA: General, epidural. COMPLICATIONS: None. DESCRIPTION OF PROCEDURE: Under satisfactory general anesthesia and epidural anesthesia, the patient in lithotomy position, genitalia were prepped and draped in the usual sterile fashion. Cystoscope was introduced under vision. The anterior urethra was normal. The prostate was mildly enlarged and the prostate was well resected. The bladder neck was open. The bladder was entered revealed some trabeculation. Ureteric orifices displaced upward and laterally. There was no foreign body, bladder tumor or stone visualized. Using a foreoblique lens, I passed a 6- Welsh spiral tip ureteral catheter into the left ureteral orifice. I injected contrast to delineate the ureter. I passed the catheter guided fluoroscopically all the way to the renal pelvis. Then, I inserted a 16-Welsh River catheter after removing the cystoscope and draining the bladder and a River catheter and ureteral catheter were connected together and with special connector and the urethral catheter draining into the bag, which the River catheter as well using the special connector. The patient tolerated procedure and anesthesia well. Estimated blood loss is none and Dr. Astudillo proceeded with his part of the surgery that he will dictate. Job ID: [id number] DocumentID: [id number] Dictated Date: 02/07/2018 11:56:36 Technical Administrative Assistant Date: 02/07/2018 15:39:57 Dictated By: LIAM SIMS MD [facility]
--- NOTE | 2018-02-07 18:06 | OPERATIVE REPORT ---
DATE OF SERVICE: 02/07/2018 ATTENDING PACKAGE PICK UP: [facility]. 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 PROCEDURE: Open low anterior rectosigmoid resection and placement of right subclavian central venous catheter. SURGEON: Roland Valencia MD [employer]: Brayan Garcia APRN. ANESTHESIA: General endotracheal. ESTIMATED BLOOD LOSS: A 250 mL. FINDINGS: Large near obstructing apple-core lesion of the distal sigmoid colon. There were also palpable liver mass. There was no obvious adenopathy as well as no carcinomatosis. DISPOSITION: The patient tolerated the procedure well. INDICATIONS: The patient is an 82-year-old male who was admitted on 02/03/2018 for abdominal distention, bloating and nausea and vomiting. He was seen several days earlier due to similar yet less severe symptoms and a CT scan was performed, which did show that significantly sized lesion was identified of the pelvic region as well as probable metastatic disease to the liver, lung as well as adrenal gland. He was readmitted for a near obstructing suspected metastatic sigmoid colon cancer. After being admitted and IV hydrated as well as oncology consultation he did agree to proceed with a colon resection to alleviate the obstruction as well as continued oncologic medical therapy. DESCRIPTION OF PROCEDURE: The patient was brought to the operating room, laid supine on the table. After adequate IV pain and sedating medications and general endotracheal intubation, we first proceeded with placement of a right subclavian central venous catheter. The chest and neck were prepped and draped in standard surgical fashion. The right subclavian vein was then cannulated withdrawing the venous blood. Guidewire was then inserted without any resistance. The cannulating needle removed and a small incision made using 11 blade. A tract was then created using a venous dilator and a triple lumen central venous catheter was then placed using Seldinger technique. The guidewire removed and all three ports gosia venous blood and saline pushed down without any resistance. The catheter was sutured to the skin using 3-0 silk interrupted sutures. Catheter was then cleaned and covered with Op-Site. The abdomen was then prepped and draped in standard surgical fashion. The patient was also placed in modified lithotomy position. A lower laparotomy midline incision was then made using a 10 blade. Subcutaneous tissue was then dissected down using electrocautery. The linea alba was then opened using electrocautery visualizing the preperitoneal fat. The peritoneal lining was then opened under direct visualization visualizing the peritoneal cavity. We then proceeded to open the fascia and peritoneum to the length of skin incision using electrocautery under direct visualization. A 4-quadrant abdominal exploration was performed. A large near obstructing apple-core lesion was identified at the distal sigmoid colon. There was no carcinomatosis as well as no palpable lymphadenopathy. There was palpable multitude of lung lesions. There was also mild ascites. Upon palpation of the remainder of the small bowel and colon, there were no palpable lesions. A Troy was then placed as well as the bladder blade. The patient was then placed in Trendelenburg position. We then proceeded with a low anterior sigmorectal resection encompassing the appropriate wedge of mesentery. The mesentery was scored using a Sonicision. The mesenteric vessels were then dissected and ligated using the Sonicision with visualization of good hemostasis. The mesorectum was also dissected similarly using the Sonicision with visualization of good hemostasis. Before the procedure a left ureteral catheter was placed by urology, which was identified throughout the process and the left ureter preserved. Once we were below the lesion approximately 5 cm, we then proceeded to staple and transect the rectum using a TA contour curved cutter stapler with a blue load. We then proceeded with an area of proximal sigmoid colon where a good perfusion was identified and dissected the mesenteric tissue using a Sonicision electrocautery as well as the Metzenbaum scissors. A purse-string was then applied and the sigmoid colon resected using a 10 blade after the bowel clamp was placed. This was sent to pathology. We then sized to a 31 mm and decided to proceed with a 29 mm EEA stapler. The anvil was placed in the distal end and the purse-string tied. The EEA stapler was then placed into the rectum and then the stem opened under direct visualization and we preceded with an anastomosis with intact rings proximal and distal rings. The pelvis and abdomen were then copiously irrigated and suctioned out. A 19-Persian José Miguel-Sigala drain was then placed into the pelvis and brought out through a small incision in the left upper abdominal quadrant. This was sutured to the skin using 3-0 nylon suture. The fascia was then closed from the proximal and distal direction using #1 PDS looped suture and tied in the middle. Subcutaneous tissue was then reapproximated using 4-0 Vicryl interrupted sutures. Skin was closed using skin tristin. The patient tolerated the procedure well. We will admit him to the ICU and proceed with DVT prophylaxis with early ambulation, calf SCDs as well as Lovenox injections. We will also await bowel function and proceed with respiratory support with a supplemental O2 and incentive spirometer. Job ID: [id number] DocumentID: [id number] Dictated Date: 02/07/2018 13:56:36 Asp Net C Developer Date: 02/07/2018 18:05:37 Dictated By: ROLAND VALENCIA MD [facility]
[2018-02-07] MEDS: EPIDURAL (SUFENTA 0.6MCG/ML BUPIVA 0.125%) 100 ML BAG EPI PRN (20:41)
[2018-02-08] VITALS (17 sets, daily range): BP systolic 107–167; BP diastolic 66–95
[2018-02-08] MEDS: NS IV 1000 ML 1,000 ML IV SCH ×3 (02:23→19:05)
[2018-02-08] MEDS: EPIDURAL (SUFENTA 0.6MCG/ML BUPIVA 0.125%) 100 ML BAG EPI PRN ×2 (02:24→09:06)
[2018-02-08 04:10] LABS: BASOPHILS % (AUTO) 0 % (0-10); EOSINOPHILS % (AUTO) 0 % (0-10); HEMATOCRIT 38 % (40-54); HEMOGLOBIN 12.3 G/DL (13.3-17.7); LYMPHOCYTES % (AUTO) 13 % (12-44); MEAN CORPUSCULAR HEMOGLOBIN 28 PG (25-34); MEAN CORPUSCULAR HGB CONC 33 G/DL (32-36); MEAN CORPUSCULAR VOLUME 85 FL (80-99); MEAN PLATELET VOLUME 9.5 FL (7.4-10.4); MONOCYTES # (AUTO) 1.3 X 10^3 (0.0-1.0); MONOCYTES % (AUTO) 9 % (0-12); NEUTROPHILS # (AUTO) 11.6 X 10^3 (1.8-7.8); NEUTROPHILS % (AUTO) 78 % (42-75); PLATELET COUNT 369 10^3/uL (130-400); RED BLOOD COUNT 4.44 10^6/uL (4.35-5.85); WHITE BLOOD COUNT 14.9 10^3/uL (4.3-11.0)
[2018-02-08 04:28] LABS: BUN/CREATININE RATIO 16; CARBON DIOXIDE 21 MMOL/L (21-32); CHLORIDE 104 MMOL/L (98-107); CREATININE SERUM 0.76 MG/DL (0.60-1.30); GFR ESTIMATED > 60; GLUCOSE 114 MG/DL (70-105); MAGNESIUM 1.8 MG/DL (1.8-2.4); POTASSIUM 3.9 MMOL/L (3.6-5.0); SODIUM 136 MMOL/L (135-145)
[2018-02-08] MEDS: POLYETHYLENE GLYCOL 17 GM (MIRALAX) PACK PO SCH ×2 (08:09→21:15)
--- NOTE | 2018-02-08 08:17 | Diagnostic Imaging Report ---
INDICATION: Respiratory failure. Portable chest 3:52 AM FINDINGS: There is an NG tube projecting over the stomach. Right subclavian central line tip projects over the SVC. There is some atelectasis at the left medial lung base. IMPRESSION: Improved aeration of lungs with some residual left medial basilar atelectasis. Dictated by: Dictated on workstation # [id number]
[2018-02-08] MEDS: CIPROFLOXACIN IV 400MG/200ML 200 ML IV SCH ×2 (08:21→21:15)
[2018-02-08] MEDS: metroNIDAZOLE 500MG/100ML IVPB 100 ML IV SCH ×2 (08:21→21:15)
[2018-02-08] MEDS: PANTOPRAZOLE 40 MG/10 ML (PROTONIX) VIAL IV SCH (08:22)
--- NOTE | 2018-02-08 10:49 | Progress Note (SOAP) ---
Subjective Subjective/Events-last exam Patient comfortable, no complaints other than NG tube is irritating to the back of his throat. Reports pain is well controlled. Did well overnight, no acute events. Review of Systems Date Seen by Provider: Feb 08, 2018 Time Seen by Provider: 10:36 General: No Chills, No Night Sweats, No Fatigue, No Malaise, No Appetite, No Other HEENT: No Head Aches, No Visual Changes, No Eye Pain, No Ear Pain, No Dysphasia , No Sinus Congestion, No Post Nasal Drip; Sore Throat; No Other Pulmonary: No Dyspnea, No Cough, No Pleuritic Chest Pain, No Other Cardiovascular: No: Chest Pain, Palpitations, Orthopnea, Paroxysmal Noc. Dyspnea, Edema, Lt Headedness, Other Gastrointestinal: No: Nausea, Vomiting, Abdominal Pain, Diarrhea, Constipation , Melena, Hematochezia, Other Genitourinary: No Dysuria, No Frequency, No Incontinence, No Hematuria, No Retention, No Other Musculoskeletal: No: other, neck pain, shoulder pain, arm pain, back pain, hand pain, leg pain, foot pain Neurological: No: Weakness, Numbness, Incoordination, Change in speech, Confusion, Seizures, Other Objective Exam Last Set of Vital Signs Vital Signs Date Time Temp Pulse Resp B/P (MAP) Pulse Ox O2 Delivery O2 Flow Rate FiO2 02/08/18 10:00 82 18 121/77 (92) 98 Room Air 02/08/18 08:30 98.3 Capillary Refill : Less Than 3 Seconds I&O Intake and Output 02/08/18 00:00 Intake Total 3500 ml Output Total 2950 ml Balance 550 ml Intake Oral 100 ml IV Total 3400 ml Output Urine Total 2375 ml Drainage Total 325 ml Estimated Blood Loss 250 ml # Voids 6 # Bowel Movements 2 General: Alert, Oriented X3, Cooperative, No Acute Distress HEENT: Atraumatic, EOMI, Mucous Memb Moist/[place] Neck: Supple, No Thyromegaly Lungs: Clear to Auscultation, Normal Air Movement Heart: Regular Rate, Normal S1, Normal S2 Abdomen: Soft, No Tenderness, Other (hypoactive bowel sounds) Extremities: No Clubbing, No Cyanosis, Normal Pulses Skin: No Rashes, Other (dressings dry and intact) Neuro: Normal Speech, Normal Tone, Sensation Intact, Cranial Nerves 3-12 NL Psych/Mental Status: Mental Status NL, Mood NL Results/Procedures Lab Laboratory Tests 02/08/18 01:02: Glucometer 99 02/08/18 03:58: White Blood Count 14.9H, Red Blood Count 4.44, Hemoglobin 12.3L, Hematocrit 38L , Mean Corpuscular Volume 85, Mean Corpuscular Hemoglobin 28, Mean Corpuscular Hemoglobin Concent 33, Red Cell Distribution Width 15.0H, Platelet Count 369, Mean Platelet Volume 9.5, Neutrophils (%) (Auto) 78H, Lymphocytes (%) (Auto) 13 , Monocytes (%) (Auto) 9, Eosinophils (%) (Auto) 0, Basophils (%) (Auto) 0, Neutrophils # (Auto) 11.6H, Lymphocytes # (Auto) 2.0, Monocytes # (Auto) 1.3H, Eosinophils # (Auto) 0.0, Basophils # (Auto) 0.0, Sodium Level 136, Potassium Level 3.9, Chloride Level 104, Carbon Dioxide Level 21, Anion Gap 11, Blood Urea Nitrogen 12, Creatinine 0.76, Estimat Glomerular Filtration Rate > 60, BUN/ Creatinine Ratio 16, Glucose Level 114H, Calcium Level 8.0L, Phosphorus Level 4.0, Magnesium Level 1.8 Microbiology 02/03/18 Blood Culture - Preliminary, Resulted No growth 02/03/18 Urine Culture - Final, Complete Escherichia coli Radiology NAME: MOY ZELAYA [facility] REC#: [id number] PT STATUS: ADM IN : 1935 PHYSICIAN: YESENIA RIVERA MD ADMIT DATE: 02/03/18 Signed Date of Exam: 02/03/18 CT ABDOMEN/PELVIS W PROCEDURE: CT abdomen and pelvis with contrast. TECHNIQUE: Multiple contiguous axial images were obtained through the abdomen and pelvis after administration of intravenous contrast. INDICATION: Nausea, vomiting, and constipation. COMPARISON: CT abdomen and pelvis performed prior day FINDINGS: Lower chest: Bandlike and nodular consolidation in the left lower lobe persists. Stable 5 mm left lower lobe pulmonary nodule. Peritoneum: Trace free fluid within the abdomen has developed. Liver and biliary system: Numerous peripherally enhancing hepatic masses are unchanged and compatible with metastases. Gallbladder has hyperdense material and is likely from vicarious excretion of contrast. Spleen and Pancreas: Spleen is normal. The pancreas enhances normally without mass lesion or peripancreatic inflammatory changes. Adrenals: Peripheral enhancing right adrenal metastasis is stable. tract: The kidneys enhance normally without suspicious mass or obstruction. Urinary bladder is distended without wall thickening. Prostate is not enlarged. GI tract: Annular wall thickening in the sigmoid colon is compatible with a sigmoid colon neoplasm resulting in partial obstruction. The colon proximal to the sigmoid colon is fluid-filled and mildly dilated. Multiple small bowel loops are also fluid filled and borderline dilated. Vasculature and Lymph nodes: Normal caliber aorta. No abdominal or pelvic lymphadenopathy. Musculoskeletal: No concerning osseous lesion. IMPRESSION: 1. 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 2. Metastatic disease includes numerous large hepatic masses and right adrenal mass. 3. A small volume of ascites has developed. 4. Left basilar pulmonary nodular bandlike consolidation is indeterminate. Dictated by: Dictated on workstation # [id number] Dict: 02/03/18728 Trans: 02/03/18921 Interpreted by: MARIO JERONIMO MD Electronically signed by: MARIO JERONIMO MD 02/03/18921 Assessment/Plan Assessment/Plan Assessment & Plan 1. Bowel obstruction partial -Pain control with morphine -Surgical consultation -Patient has informed me he is not planning on real aggressive therapy 02/04 -pt indicates that he does not want to pursue aggressive therapy as it appears his obstruction is likely secondary to malignancy 02/05 -pt had the opportunity to speak with both Dr. Astudillo as well as Dr. Carter yesterday evening, and is planning for surgical resection of sigmoid mass on , with plans to follow up with Dr. Carter after he has had a chance to recover from surgery -the patient is feeling optimistic about this at this time, and reports he is planning on "just taking things one day at a time" 02/06 -plan for palliative surgery tomorrow with Dr. Astudillo and Dr. Grubbs with follow up with Dr. Carter after discharge -Day 2 Cipro and Flagyl 02/08 -Day 4 Cipro and Flagyl -POD #1 s/p palliative resection procedure by Dr. Astudillo 2. Sigmoid colon neoplasm highly possible -Further staging likely 02/04 -discussed CT findings that indicate that there were likely areas of metastatic disease to liver, adrenal gland, etc, but that further testing may be needed to conclusively make this diagnosis -encouraged pt to consider hospice if he did not want to pursue cancer therapy after hearing what oncology has to offer, as they may be able to offer him a great deal of resources that he could otherwise have a difficult time getting at home 02/05 -pt has elected to proceed with surgical resection of the sigmoid mass, and verbalizes understanding that this may be a multi-stage procedure, depending on what is found once surgery begins -procedure scheduled for -Day 1 Cipro and Flagyl, as pt is going to have intra-abdominal procedure 02/06 -Day 2 Cipro and Flagyl -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 Grubbs; more permanent Groshong to be placed on left at a later date 02/08 -Day 4 Cipro and Flagyl -POD #1 s/p resection, feeling well 3. Findings consistent with metastases to the liver, right adrenal gland, possibly left lower lung 4. Urinary tract infection -Initiation of IV ceftriaxone 02/04 -Day 3 rocephin -gram negative judy 02/05 -santizo sensitive E coli UTI -rocephin stopped, Day 1 Cipro and Flagyl, as cipro will provide coverage for UTI as well as pt's upcoming abdominal procedure 02/06 -Day 4 abx for e coli UTI 02/08 -Day 6 abx for e coli UTI, tomorrow will be last day of treatment needed for UTI 5. Elevated Alk Phos 02/05 -remains elevated, today 175 6. Hypoproteinemia 02/05 -5.6 today 7. Leukocytosis 02/08 WBC 8.6 --> 14.9 not unexpected after surgery, pt on abx, afebrile 8. Anemia 02/08 12.6 --> 12.3 9. Hypocalcemia 02/08 8.0 today CODE STATUS: DNR Clinical Quality Measures DVT/VTE Risk/Contraindication: Risk Factor Score Per Nursin RFS Level Per Nursing on Admit: 4+=Very High Copy Copies To 1: [facility]/RADHA DOMINGUEZ DO Feb 08, 2018 10:49
--- NOTE | 2018-02-08 14:22 | Progress Note (SOAP) ---
Subjective Date Seen by Provider: Feb 08, 2018 Time Seen by Provider: 14:00 Subjective/Events-last exam doing well. BMx2 today. no abdominal distention. pain controlled. Objective Exam Vital Signs Date Time Temp Pulse Resp B/P (MAP) Pulse Ox O2 Delivery O2 Flow Rate FiO2 02/08/18 11:53 98.4 02/08/18 11:52 96 Room Air 02/08/18 10:00 82 18 121/77 (92) 98 Room Air 02/08/18 09:00 80 13 131/79 (96) 96 Room Air 02/08/18 08:30 98.3 02/08/18 08:30 96 Room Air 02/08/18 08:00 79 15 117/66 (83) 98 Room Air 02/08/18 07:00 74 11 138/75 (96) 97 Room Air 02/08/18 07:00 73 02/08/18 06:00 73 9 124/72 (89) 100 Room Air 02/08/18 05:00 73 11 117/72 (87) 100 Room Air 02/08/18 04:00 96 Room Air 02/08/18 04:00 80 27 134/78 (96) 97 Room Air 02/08/18 03:54 97.9 02/08/18 03:00 90 24 132/82 (99) 96 Room Air 02/08/18 02:00 93 22 122/77 (92) 97 Room Air 02/08/18 01:00 80 10 117/66 (83) 96 Room Air 02/08/18 01:00 76 02/08/18 00:00 78 10 107/68 (81) 98 Room Air 02/08/18 00:00 98 Room Air 02/07/18 23:30 97.4 02/07/18 23:00 80 8 89/63 (72) 97 Room Air 02/07/18 22:00 90 10 124/85 (98) 97 Room Air 02/07/18 21:00 87 12 117/74 (88) 97 Room Air 02/07/18 20:00 98 Room Air 02/07/18 20:00 98 19 117/78 (91) 96 Room Air 02/07/18 20:00 97.0 02/07/18 19:00 85 11 119/76 (90) 95 Room Air 02/07/18 19:00 86 02/07/18 18:00 82 19 144/96 (112) 96 Room Air 02/07/18 17:00 100 18 146/101 (116) 94 Room Air 02/07/18 16:30 88 15 145/88 (107) 92 Room Air 02/07/18 16:00 96.7 Room Air 02/07/18 15:45 64 10 150/82 (104) 97 Room Air 02/07/18 15:30 63 13 143/80 (101) 97 Room Air 02/07/18 15:15 96.9 Room Air 02/07/18 15:15 68 17 155/87 (109) 96 Room Air 02/07/18 15:12 53 I & O 02/08/18 07:00 Intake Total 2400 ml Output Total 3345 ml Balance -945 ml Capillary Refill : Less Than 3 Seconds General Appearance: No Apparent Distress HEENT: PERRL/EOMI Neck: Full Range of Motion Respiratory: Chest Non Tender, Lungs Clear, Normal Breath Sounds Cardiovascular: Regular Rate, Rhythm Gastrointestinal: soft, tenderness, other (incision clean/dry) Extremity: Normal Capillary Refill Neurologic/Psychiatric: Alert Skin: Normal Color Lymphatic: No Adenopathy Results Lab Laboratory Tests 02/08/18 01:02: Glucometer 99 02/08/18 03:58: White Blood Count 14.9H, Red Blood Count 4.44, Hemoglobin 12.3L, Hematocrit 38L , Mean Corpuscular Volume 85, Mean Corpuscular Hemoglobin 28, Mean Corpuscular Hemoglobin Concent 33, Red Cell Distribution Width 15.0H, Platelet Count 369, Mean Platelet Volume 9.5, Neutrophils (%) (Auto) 78H, Lymphocytes (%) (Auto) 13 , Monocytes (%) (Auto) 9, Eosinophils (%) (Auto) 0, Basophils (%) (Auto) 0, Neutrophils # (Auto) 11.6H, Lymphocytes # (Auto) 2.0, Monocytes # (Auto) 1.3H, Eosinophils # (Auto) 0.0, Basophils # (Auto) 0.0, Sodium Level 136, Potassium Level 3.9, Chloride Level 104, Carbon Dioxide Level 21, Anion Gap 11, Blood Urea Nitrogen 12, Creatinine 0.76, Estimat Glomerular Filtration Rate > 60, BUN/ Creatinine Ratio 16, Glucose Level 114H, Calcium Level 8.0L, Phosphorus Level 4.0, Magnesium Level 1.8 02/08/18 11:48: Glucometer 93 Microbiology 02/03/18 Blood Culture - Preliminary, Resulted No growth 02/03/18 Urine Culture - Final, Complete Escherichia coli Assessment/Plan Assessment/Plan Assess & Plan/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 good candidate for palliative surgery and oncologic therapy. LAR POD#1 D/C NGT but stay on ice chips only. ambulate. start lovenox at 7pm today. transfer to floor. more permanent groshong on left at later time. Clinical Quality Measures DVT/VTE Risk/Contraindication: Risk Factor Score Per Nursin RFS Level Per Nursing on Admit: 4+=Very High JARAD VALENCIA MD Feb 08, 2018 2:22 pm
--- NOTE | 2018-02-08 14:45 | Anesthesia-General Post-Op ---
General Patient Condition Mental Status/LOC: Same as Preop Cardiovascular: Satisfactory Nausea/Vomiting: Absent Respiratory: Satisfactory Pain: Controlled Complications: Absent Post Op Complications Complications None Follow Up Care/Instructions Patient Instructions None needed. Anesthesia/Patient Condition Patient Condition Patient is doing well, C/O NGT, stable vital signs, no apparent adverse anesthesia problems. Epidural catheter D/C'd without incident, tip intact. AAMIR RUTH DO Feb 08, 2018 14:45
[2018-02-08] MEDS: ENOXAPARIN 30 MG/0.3 ML (LOVENOX) SYR SC SCH (19:06)
[2018-02-09] VITALS (7 sets, daily range): BP systolic 114–166; BP diastolic 67–87
[2018-02-09] MEDS: NS IV 1000 ML 1,000 ML IV SCH ×4 (04:56→23:59)
[2018-02-09 05:16] LABS: BASOPHILS % (AUTO) 0 % (0-10); EOSINOPHILS % (AUTO) 0 % (0-10); HEMATOCRIT 38 % (40-54); HEMOGLOBIN 12.9 G/DL (13.3-17.7); LYMPHOCYTES # (AUTO) 1.8 X 10^3 (1.0-4.0); LYMPHOCYTES % (AUTO) 10 % (12-44); MEAN CORPUSCULAR HEMOGLOBIN 29 PG (25-34); MEAN CORPUSCULAR HGB CONC 34 G/DL (32-36); MEAN CORPUSCULAR VOLUME 85 FL (80-99); MEAN PLATELET VOLUME 9.5 FL (7.4-10.4); MONOCYTES # (AUTO) 1.7 X 10^3 (0.0-1.0); MONOCYTES % (AUTO) 10 % (0-12); NEUTROPHILS # (AUTO) 14.1 X 10^3 (1.8-7.8); NEUTROPHILS % (AUTO) 80 % (42-75); PLATELET COUNT 309 10^3/uL (130-400); RED BLOOD COUNT 4.51 10^6/uL (4.35-5.85); WHITE BLOOD COUNT 17.7 10^3/uL (4.3-11.0)
[2018-02-09 05:32] LABS: BUN/CREATININE RATIO 16; CALCIUM 8.1 MG/DL (8.5-10.1); CARBON DIOXIDE 19 MMOL/L (21-32); CHLORIDE 103 MMOL/L (98-107); GFR ESTIMATED > 60; GLUCOSE 84 MG/DL (70-105); MAGNESIUM 1.9 MG/DL (1.8-2.4); POTASSIUM 3.8 MMOL/L (3.6-5.0); SODIUM 133 MMOL/L (135-145)
[2018-02-09] MEDS: ENOXAPARIN 30 MG/0.3 ML (LOVENOX) SYR SC SCH ×2 (06:17→18:28)
[2018-02-09] MEDS: CIPROFLOXACIN IV 400MG/200ML 200 ML IV SCH (08:50)
[2018-02-09] MEDS: POLYETHYLENE GLYCOL 17 GM (MIRALAX) PACK PO SCH ×2 (08:50→20:31)
[2018-02-09] MEDS: metroNIDAZOLE 500MG/100ML IVPB 100 ML IV SCH (08:50)
[2018-02-09] MEDS: PANTOPRAZOLE 40 MG/10 ML (PROTONIX) VIAL IV SCH (08:50)
--- NOTE | 2018-02-09 10:02 | Progress Note-Standard ---
Standard Progress Note Progress Notes/Assess & Plan Date Seen by Provider: Feb 09, 2018 Time Seen by Provider: 09:25 Progress/Assessment & Plan Temperature spike to 99.9. Very poor use of incentive spirometry. Catheter still in place and will be removed. Passing flatus. Incision dry. Antibiotics could be stopped. We will encourage ambulation and increased use of incentive spirometry. Final Diagnosis Obstruction of rectosigmoid junction with tumor YADIRA JACOBSON MD Feb 09, 2018 10:02 am
--- NOTE | 2018-02-09 13:09 | Progress Note (SOAP) ---
Subjective Subjective/Events-last exam Pt reports pain well controlled with [employer]. Review of Systems Date Seen by Provider: Feb 09, 2018 Time Seen by Provider: 11:25 Objective Exam Last Set of Vital Signs Vital Signs Date Time Temp Pulse Resp B/P (MAP) Pulse Ox O2 Delivery O2 Flow Rate FiO2 02/09/18 10:32 96 Room Air 02/09/18 08:00 99.5 91 18 129/74 (92) Capillary Refill : Less Than 3 Seconds I&O Intake and Output 02/09/18 00:00 Intake Total 1300 ml Output Total 1385 ml Balance -85 ml Intake Oral 0 ml IV Total 1300 ml Output Urine Total 1175 ml Drainage Total 210 ml # Bowel Movements 3 General: Alert, Oriented X3, Cooperative Psych/Mental Status: Mood NL Results/Procedures Lab Laboratory Tests 02/09/18 05:05: White Blood Count 17.7H, Red Blood Count 4.51, Hemoglobin 12.9L, Hematocrit 38L , Mean Corpuscular Volume 85, Mean Corpuscular Hemoglobin 29, Mean Corpuscular Hemoglobin Concent 34, Red Cell Distribution Width 15.0H, Platelet Count 309, Mean Platelet Volume 9.5, Neutrophils (%) (Auto) 80H, Lymphocytes (%) (Auto) 10L , Monocytes (%) (Auto) 10, Eosinophils (%) (Auto) 0, Basophils (%) (Auto) 0, Neutrophils # (Auto) 14.1H, Lymphocytes # (Auto) 1.8, Monocytes # (Auto) 1.7H, Eosinophils # (Auto) 0.0, Basophils # (Auto) 0.0, Sodium Level 133L, Potassium Level 3.8, Chloride Level 103, Carbon Dioxide Level 19L, Anion Gap 11, Blood Urea Nitrogen 11, Creatinine 0.70, Estimat Glomerular Filtration Rate > 60, BUN/ Creatinine Ratio 16, Glucose Level 84, Calcium Level 8.1L, Magnesium Level 1.9 Microbiology 02/03/18 Blood Culture - Final, Complete No growth 02/03/18 Urine Culture - Final, Complete Escherichia coli Radiology NAME: MO[facility]AYA [facility] REC#: [id number] PT STATUS: ADM IN : 1935 PHYSICIAN: YESENIA RIVERA MD ADMIT DATE: 02/03/18 Signed Date of Exam: 02/03/18 CT ABDOMEN/PELVIS W PROCEDURE: CT abdomen and pelvis with contrast. TECHNIQUE: Multiple contiguous axial images were obtained through the abdomen and pelvis after administration of intravenous contrast. INDICATION: Nausea, vomiting, and constipation. COMPARISON: CT abdomen and pelvis performed prior day FINDINGS: Lower chest: Bandlike and nodular consolidation in the left lower lobe persists. Stable 5 mm left lower lobe pulmonary nodule. Peritoneum: Trace free fluid within the abdomen has developed. Liver and biliary system: Numerous peripherally enhancing hepatic masses are unchanged and compatible with metastases. Gallbladder has hyperdense material and is likely from vicarious excretion of contrast. Spleen and Pancreas: Spleen is normal. The pancreas enhances normally without mass lesion or peripancreatic inflammatory changes. Adrenals: Peripheral enhancing right adrenal metastasis is stable. tract: The kidneys enhance normally without suspicious mass or obstruction. Urinary bladder is distended without wall thickening. Prostate is not enlarged. GI tract: Annular wall thickening in the sigmoid colon is compatible with a sigmoid colon neoplasm resulting in partial obstruction. The colon proximal to the sigmoid colon is fluid-filled and mildly dilated. Multiple small bowel loops are also fluid filled and borderline dilated. Vasculature and Lymph nodes: Normal caliber aorta. No abdominal or pelvic lymphadenopathy. Musculoskeletal: No concerning osseous lesion. IMPRESSION: 1. 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 2. Metastatic disease includes numerous large hepatic masses and right adrenal mass. 3. A small volume of ascites has developed. 4. Left basilar pulmonary nodular bandlike consolidation is indeterminate. Dictated by: Dictated on workstation # [id number] Dict: 02/03/18 0729 Trans: 02/03/18921 Interpreted by: MARIO JERONIMO MD Electronically signed by: MARIO JERONIMO MD 02/03/18921 Assessment/Plan Assessment/Plan Assessment & Plan 1. Bowel obstruction partial -Pain control with morphine -Surgical consultation -Patient has informed me he is not planning on real aggressive therapy 02/04 -pt indicates that he does not want to pursue aggressive therapy as it appears his obstruction is likely secondary to malignancy 02/05 -pt had the opportunity to speak with both Dr. Astudillo as well as Dr. Carter yesterday evening, and is planning for surgical resection of sigmoid mass on , with plans to follow up with Dr. Carter after he has had a chance to recover from surgery -the patient is feeling optimistic about this at this time, and reports he is planning on "just taking things one day at a time" 02/06 -plan for palliative surgery tomorrow with Dr. Astudillo and Dr. Grubbs with follow up with Dr. Carter after discharge -Day 2 Cipro and Flagyl 02/08 -Day 4 Cipro and Flagyl -POD #1 s/p palliative resection procedure by Dr. Astudillo 2. Sigmoid colon neoplasm highly possible -Further staging likely 02/04 -discussed CT findings that indicate that there were likely areas of metastatic disease to liver, adrenal gland, etc, but that further testing may be needed to conclusively make this diagnosis -encouraged pt to consider hospice if he did not want to pursue cancer therapy after hearing what oncology has to offer, as they may be able to offer him a great deal of resources that he could otherwise have a difficult time getting at home 02/05 -pt has elected to proceed with surgical resection of the sigmoid mass, and verbalizes understanding that this may be a multi-stage procedure, depending on what is found once surgery begins -procedure scheduled for -Day 1 Cipro and Flagyl, as pt is going to have intra-abdominal procedure 02/06 -Day 2 Cipro and Flagyl -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 Grubbs; more permanent Groshong to be placed on left at a later date 02/08 -Day 4 Cipro and Flagyl -POD #1 s/p resection, feeling well 3. Findings consistent with metastases to the liver, right adrenal gland, possibly left lower lung 4. Urinary tract infection -Initiation of IV ceftriaxone 02/04 -Day 3 rocephin -gram negative judy 02/05 -santizo sensitive E coli UTI -rocephin stopped, Day 1 Cipro and Flagyl, as cipro will provide coverage for UTI as well as pt's upcoming abdominal procedure 02/06 -Day 4 abx for e coli UTI 02/08 -Day 6 abx for e coli UTI, tomorrow will be last day of treatment needed for UTI 5. Elevated Alk Phos 02/05 -remains elevated, today 175 6. Hypoproteinemia 02/05 -5.6 today 7. Leukocytosis 02/08 WBC 8.6 --> 14.9 not unexpected after surgery, pt on abx, afebrile 8. Anemia 02/08 12.6 --> 12.3 9. Hypocalcemia 02/08 8.0 today CODE STATUS: DNR Clinical Quality Measures DVT/VTE Risk/Contraindication: Risk Factor Score Per Nursin RFS Level Per Nursing on Admit: 4+=Very High RAVI LANDERS DO Feb 09, 2018 13:09
[2018-02-10 05:12] LABS: BASOPHILS % (AUTO) 0 % (0-10); EOSINOPHILS # (AUTO) 0.2 10^3/uL (0.0-0.3); EOSINOPHILS % (AUTO) 1 % (0-10); HEMATOCRIT 40 % (40-54); HEMOGLOBIN 13.3 G/DL (13.3-17.7); LYMPHOCYTES # (AUTO) 1.9 X 10^3 (1.0-4.0); LYMPHOCYTES % (AUTO) 11 % (12-44); MEAN CORPUSCULAR HEMOGLOBIN 28 PG (25-34); MEAN CORPUSCULAR HGB CONC 33 G/DL (32-36); MEAN CORPUSCULAR VOLUME 84 FL (80-99); MEAN PLATELET VOLUME 9.6 FL (7.4-10.4); MONOCYTES # (AUTO) 1.5 X 10^3 (0.0-1.0); MONOCYTES % (AUTO) 9 % (0-12); NEUTROPHILS # (AUTO) 14.2 X 10^3 (1.8-7.8); NEUTROPHILS % (AUTO) 79 % (42-75); PLATELET COUNT 310 10^3/uL (130-400); RED BLOOD COUNT 4.79 10^6/uL (4.35-5.85); RED CELL DISTRIBUTION WIDTH 15.1 % (10.0-14.5); WHITE BLOOD COUNT 17.9 10^3/uL (4.3-11.0)
[2018-02-10 05:40] LABS: BUN/CREATININE RATIO 17; CALCIUM 8.4 MG/DL (8.5-10.1); CARBON DIOXIDE 20 MMOL/L (21-32); CHLORIDE 102 MMOL/L (98-107); CREATININE SERUM 0.64 MG/DL (0.60-1.30); GFR ESTIMATED > 60; GLUCOSE 77 MG/DL (70-105); MAGNESIUM 1.9 MG/DL (1.8-2.4); POTASSIUM 3.6 MMOL/L (3.6-5.0); SODIUM 133 MMOL/L (135-145)
[2018-02-10] MEDS: ENOXAPARIN 30 MG/0.3 ML (LOVENOX) SYR SC SCH ×2 (06:18→18:53)
[2018-02-10 08:00] VITALS: BP 149/90
[2018-02-10] MEDS: NS IV 1000 ML 1,000 ML IV SCH ×2 (08:27→20:09)
[2018-02-10] MEDS: POLYETHYLENE GLYCOL 17 GM (MIRALAX) PACK PO SCH (08:38)
[2018-02-10] MEDS: PANTOPRAZOLE 40 MG/10 ML (PROTONIX) VIAL IV SCH (08:43)
[2018-02-10 12:00] VITALS: BP 142/80
--- NOTE | 2018-02-10 12:14 | Progress Note (SOAP) ---
Subjective Subjective/Events-last exam Pain controlled; will start ambulating today. Review of Systems Date Seen by Provider: Feb 10, 2018 Time Seen by Provider: 10:20 Objective Exam Last Set of Vital Signs Vital Signs Date Time Temp Pulse Resp B/P (MAP) Pulse Ox O2 Delivery O2 Flow Rate FiO2 02/10/18 10:19 96 Room Air 02/10/18 08:00 97.4 102 18 149/90 (109) Capillary Refill : Less Than 3 Seconds I&O Intake and Output 02/10/18 00:00 Intake Total 3300 ml Output Total 1835 ml Balance 1465 ml Intake Oral 0 ml IV Total 3300 ml Output Urine Total 1800 ml Drainage Total 35 ml # Bowel Movements 1 General: Alert, Oriented X3, Cooperative Psych/Mental Status: Mood NL Results/Procedures Lab Laboratory Tests 02/10/18 05:00: White Blood Count 17.9H, Red Blood Count 4.79, Hemoglobin 13.3, Hematocrit 40, Mean Corpuscular Volume 84, Mean Corpuscular Hemoglobin 28, Mean Corpuscular Hemoglobin Concent 33, Red Cell Distribution Width 15.1H, Platelet Count 310, Mean Platelet Volume 9.6, Neutrophils (%) (Auto) 79H, Lymphocytes (%) (Auto) 11L , Monocytes (%) (Auto) 9, Eosinophils (%) (Auto) 1, Basophils (%) (Auto) 0, Neutrophils # (Auto) 14.2H, Lymphocytes # (Auto) 1.9, Monocytes # (Auto) 1.5H, Eosinophils # (Auto) 0.2, Basophils # (Auto) 0.0, Sodium Level 133L, Potassium Level 3.6, Chloride Level 102, Carbon Dioxide Level 20L, Anion Gap 11, Blood Urea Nitrogen 11, Creatinine 0.64, Estimat Glomerular Filtration Rate > 60, BUN/ Creatinine Ratio 17, Glucose Level 77, Calcium Level 8.4L, Magnesium Level 1.9 Microbiology 02/03/18 Blood Culture - Final, Complete No growth 02/03/18 Urine Culture - Final, Complete Escherichia coli Radiology NAME: MOY [facility] REC#: [id number] PT STATUS: ADM IN : 1935 PHYSICIAN: YESENIA RIVERA MD ADMIT DATE: 02/03/18 Signed Date of Exam: 02/03/18 CT ABDOMEN/PELVIS W PROCEDURE: CT abdomen and pelvis with contrast. TECHNIQUE: Multiple contiguous axial images were obtained through the abdomen and pelvis after administration of intravenous contrast. INDICATION: Nausea, vomiting, and constipation. COMPARISON: CT abdomen and pelvis performed prior day FINDINGS: Lower chest: Bandlike and nodular consolidation in the left lower lobe persists. Stable 5 mm left lower lobe pulmonary nodule. Peritoneum: Trace free fluid within the abdomen has developed. Liver and biliary system: Numerous peripherally enhancing hepatic masses are unchanged and compatible with metastases. Gallbladder has hyperdense material and is likely from vicarious excretion of contrast. Spleen and Pancreas: Spleen is normal. The pancreas enhances normally without mass lesion or peripancreatic inflammatory changes. Adrenals: Peripheral enhancing right adrenal metastasis is stable. tract: The kidneys enhance normally without suspicious mass or obstruction. Urinary bladder is distended without wall thickening. Prostate is not enlarged. GI tract: Annular wall thickening in the sigmoid colon is compatible with a sigmoid colon neoplasm resulting in partial obstruction. The colon proximal to the sigmoid colon is fluid-filled and mildly dilated. Multiple small bowel loops are also fluid filled and borderline dilated. Vasculature and Lymph nodes: Normal caliber aorta. No abdominal or pelvic lymphadenopathy. Musculoskeletal: No concerning osseous lesion. IMPRESSION: 1. 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 2. Metastatic disease includes numerous large hepatic masses and right adrenal mass. 3. A small volume of ascites has developed. 4. Left basilar pulmonary nodular bandlike consolidation is indeterminate. Dictated by: Dictated on workstation # [id number] Dict: 02/03/18 0729 Trans: 02/03/18921 Interpreted by: MARIO JERONIMO MD Electronically signed by: MARIO JERONIMO MD 02/03/18921 Assessment/Plan Assessment/Plan Assessment & Plan 1. Bowel obstruction partial -Pain control with morphine -Surgical consultation -Patient has informed me he is not planning on real aggressive therapy 02/04 -pt indicates that he does not want to pursue aggressive therapy as it appears his obstruction is likely secondary to malignancy 02/05 -pt had the opportunity to speak with both Dr. Astudillo as well as Dr. Carter yesterday evening, and is planning for surgical resection of sigmoid mass on , with plans to follow up with Dr. Carter after he has had a chance to recover from surgery -the patient is feeling optimistic about this at this time, and reports he is planning on "just taking things one day at a time" 02/06 -plan for palliative surgery tomorrow with Dr. Astudillo and Dr. Grubbs with follow up with Dr. Carter after discharge -Day 2 Cipro and Flagyl 02/08 -Day 4 Cipro and Flagyl -POD #1 s/p palliative resection procedure by Dr. Astudillo 02/10/18 - POD #3 2. Sigmoid colon neoplasm highly possible -Further staging likely 02/04 -discussed CT findings that indicate that there were likely areas of metastatic disease to liver, adrenal gland, etc, but that further testing may be needed to conclusively make this diagnosis -encouraged pt to consider hospice if he did not want to pursue cancer therapy after hearing what oncology has to offer, as they may be able to offer him a great deal of resources that he could otherwise have a difficult time getting at home 02/05 -pt has elected to proceed with surgical resection of the sigmoid mass, and verbalizes understanding that this may be a multi-stage procedure, depending on what is found once surgery begins -procedure scheduled for -Day 1 Cipro and Flagyl, as pt is going to have intra-abdominal procedure 02/06 -Day 2 Cipro and Flagyl -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 Grubbs; more permanent Groshong to be placed on left at a later date 02/08 -Day 4 Cipro and Flagyl -POD #1 s/p resection, feeling well 3. Findings consistent with metastases to the liver, right adrenal gland, possibly left lower lung 4. Urinary tract infection -Initiation of IV ceftriaxone 02/04 -Day 3 rocephin -gram negative judy 02/05 -santizo sensitive E coli UTI -rocephin stopped, Day 1 Cipro and Flagyl, as cipro will provide coverage for UTI as well as pt's upcoming abdominal procedure 02/06 -Day 4 abx for e coli UTI 02/08 -Day 6 abx for e coli UTI, tomorrow will be last day of treatment needed for UTI 02/10/18 - antibiotics completed 5. Elevated Alk Phos 02/05 -remains elevated, today 175 6. Hypoproteinemia 02/05 -5.6 today 7. Leukocytosis 02/08 WBC 8.6 --> 14.9 not unexpected after surgery, pt on abx, afebrile 8. Anemia 02/08 12.6 --> 12.3 9. Hypocalcemia 02/08 8.0 today CODE STATUS: DNR Clinical Quality Measures DVT/VTE Risk/Contraindication: Risk Factor Score Per Nursin RFS Level Per Nursing on Admit: 4+=Very High RAVI LANDERS DO Feb 10, 2018 12:14
--- NOTE | 2018-02-10 12:58 | Progress Note-Standard ---
Standard Progress Note Progress Notes/Assess & Plan Date Seen by Provider: Feb 10, 2018 Time Seen by Provider: 12:57 Progress/Assessment & Plan Temperature spike to 99.9. Very poor use of incentive spirometry. Catheter still in place and will be removed. Passing flatus. Incision dry. Antibiotics could be stopped. We will encourage ambulation and increased use of incentive spirometry. 02/10/18: Has had liquid stools. Afebrile. Leucocytosis persists. Minimal post- op tenderness. Right basal crepitations Final Diagnosis Rectosigmoid obstruction YADIRA JACOBSON MD Feb 10, 2018 12:58 pm
[2018-02-10 16:05] VITALS: BP 153/88
[2018-02-10 20:00] VITALS: BP 148/88
[2018-02-10 23:37] VITALS: BP 133/82
[2018-02-11 05:53] LABS: BUN/CREATININE RATIO 21; CALCIUM 8.2 MG/DL (8.5-10.1); CARBON DIOXIDE 18 MMOL/L (21-32); CHLORIDE 104 MMOL/L (98-107); CREATININE SERUM 0.66 MG/DL (0.60-1.30); GFR ESTIMATED > 60; GLUCOSE 112 MG/DL (70-105); MAGNESIUM 2.1 MG/DL (1.8-2.4); POTASSIUM 3.5 MMOL/L (3.6-5.0); SODIUM 135 MMOL/L (135-145)
[2018-02-11] MEDS: ENOXAPARIN 30 MG/0.3 ML (LOVENOX) SYR SC SCH ×2 (06:10→20:25)
[2018-02-11 08:00] VITALS: BP 157/87
--- NOTE | 2018-02-11 09:12 | Physical Therapy Evaluation ---
PT Evaluation-General Medical Diagnosis Admission Date Feb 03, 2018 at 08:15 Medical Diagnosis: colon cancer with obstruction Onset Date: Feb 03, 2018 Therapy Diagnosis Therapy Diagnosis: generalized weakness/debility Height/Weight Height (Feet): 6 Height (Inches): 3.00 Weight (Pounds): 163 Weight (Ounces): 7.0 Precautions Precautions/Isolations: Standard Precautions Weight Bear Status Right Lower Extremity: Right Full Weight Bearing Left Lower Extremity: Left Full Weight Bearing Referral Physician: Rich Reason for Referral: Evaluation/Treatment Medical History Pertinent Medical History: Arthritis Current History ED with bowel pain and bloating x 5 days/colon cancer with mets Reviewed History: Yes Social History Home: Single Level Current Living Status: Alone Entry Into Home: Ramp Prior/Core FIM Prior Level of Function Functional [place] Measure 0=Not Assessed/NA 4=Minimal Assistance 1=Total Assistance 5=Supervision or Setup 2=Maximal Assistance 6=Modified [place] 3=Moderate Assistance 7=Complete [place] Bed Mobility: 7 Transfers (B,C,W/C) (FIM): 7 Gait: 7 PT Evaluation-Current Subjective Patient is very agreeable to participate with PT. Pain Numeric Pain Scale: 5-Moderate Pain Location: Lower Location Body Site: Abdomen Pain Description: Acute Objective Patient Orientation: Normal For Age Problem Solving: Fair Attachments: Drains, IV ROM/Strength ROM Lower Extremities bilateral LE WNL Strength Lower Extremities 4-/5 grossly bilaterally Integumentary/Posture Integumentary refer to nursing notes Bowel Incontinence: No Bladder Incontinence: No Posture slightly kyphotic Neuromuscular (Tone, Coordination, Reflexes) grossly intact Sensory Vision: Functional Hearing: Functional Sensation Right Lower Extremit: Intact Sensation Left Lower Extremity: Intact Transfers Functional [place] Measure 0=Not Assessed/NA 4=Minimal Assistance 1=Total Assistance 5=Supervision or Setup 2=Maximal Assistance 6=Modified [place] 3=Moderate Assistance 7=Complete [place] Transfers (B, C, W/C) (FIM): 4 Scootin Rollin Supine to/from Sit: 4 Sit to/from Stand: 5 Gait Mode of Locomotion: Walk Anticipated Mode of Locomotion: Walk Gait (FIM): 4 Distance (FIM): 3=150 ft Distance: 150' Gait Level of Assist: 4 Gait Assistive Device: FWW Comments/Gait Description steady, functional gait sequence with FWW use Balance Sitting Static: Normal Sitting Dynamic: Normal Standing Static: Normal Standing Dynamic: Normal Assessment/Needs 82 y.o. male, will benefit from skilled PT to address functional strength and mobility to improve current LOF and to safely return to home or care facility at maximum LOF. Rehab Potential: Guarded Post Rehab Potential-Barriers: metastatic cancer PT Senior Living Goals Senior Living Goals PT Steerer Goals Time Frame: Mar 01, 2018 Transfers (B,C,W/C) (FIM): 6 Gait (FIM): 6 Gait distance (FIM): 3=150 ft Gait Level of Assist: 6 Gait Assistive Device: FWW PT Plan Problem List Problem List: Activity Tolerance, Functional Strength, Safety, Balance, Gait, Transfer, Bed Mobility Treatment/Plan Treatment Plan: Continue Plan of Care Treatment Plan: Bed Mobility, Education, Functional Activity Dean, Functional Strength, Gait, Safety, Therapeutic Exercise, Transfers Treatment Duration: Mar 01, 2018 Frequency: 6 times per week Estimated Hrs Per Day: .25 hour per day Patient and/or Family Agrees t: Yes Discharge Recommendations Therapy D/C Recommendations: Home w/ Family Support, Residential (TCU/NH) Time/GCodes Time In: 825 Time Out: 845 Total Billed Treatment Time: 20 Total Billed Treatment 1 visit EVModC 20 min G Codes Necessary: LORE Medina PT Feb 11, 2018 09:12
[2018-02-11 12:00] VITALS: BP 153/92
--- NOTE | 2018-02-11 13:34 | Progress Note (SOAP) ---
Subjective Date Seen by Provider: Feb 11, 2018 Time Seen by Provider: 13:00 Subjective/Events-last exam doing well. still not ambulating well. tolerating diet and having BM's. pain controlled. Objective Exam Vital Signs Date Time Temp Pulse Resp B/P (MAP) Pulse Ox O2 Delivery O2 Flow Rate FiO2 02/11/18 11:12 96 Room Air 02/11/18 09:10 96 Room Air 0.00 02/11/18 09:10 97 Room Air 0.00 0.00 02/11/18 08:00 98.1 93 18 157/87 (110) 97 Room Air 02/11/18 07:00 96 Room Air 02/11/18 06:10 16 02/11/18 01:35 96 Room Air 02/10/18 23:37 99.8 98 22 133/82 (99) 97 Room Air 02/10/18 21:49 96 Room Air 02/10/18 21:00 Room Air 02/10/18 20:00 98.9 100 25 148/88 (108) 96 Room Air 02/10/18 19:14 97 Room Air 02/10/18 16:05 98.1 110 24 153/88 (109) 95 Room Air 02/10/18 14:55 Room Air 02/10/18 14:15 95 Room Air I & O 02/11/18 07:00 Intake Total 2990 ml Output Total 1791 ml Balance 1199 ml Capillary Refill : Less Than 3 SecondsLess Than 3 Seconds General Appearance: No Apparent Distress HEENT: PERRL/EOMI Neck: Full Range of Motion Respiratory: Chest Non Tender, Decreased Breath Sounds Cardiovascular: Regular Rate, Rhythm Gastrointestinal: normal bowel sounds, non tender, soft Extremity: Normal Capillary Refill Neurologic/Psychiatric: Alert Skin: Normal Color Lymphatic: No Adenopathy Results Lab Laboratory Tests 02/11/18 05:30: Sodium Level 135, Potassium Level 3.5L, Chloride Level 104, Carbon Dioxide Level 18L, Anion Gap 13, Blood Urea Nitrogen 14, Creatinine 0.66, Estimat Glomerular Filtration Rate > 60, BUN/Creatinine Ratio 21, Glucose Level 112H, Calcium Level 8.2L, Magnesium Level 2.1 Microbiology 02/03/18 Blood Culture - Final, Complete No growth 02/03/18 Urine Culture - Final, Complete Escherichia coli Assessment/Plan Assessment/Plan Assess & Plan/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 good candidate for palliative surgery and oncologic therapy. LAR POD#1 D/C NGT but stay on ice chips only. ambulate. start lovenox at 7pm today. transfer to floor. more permanent groshong on left at later time. Clinical Quality Measures DVT/VTE Risk/Contraindication: Risk Factor Score Per Nursin RFS Level Per Nursing on Admit: 4+=Very High JARAD VALENCIA MD Feb 11, 2018 1:34 pm
--- NOTE | 2018-02-11 14:49 | Progress Note (SOAP) ---
Subjective Subjective/Events-last exam Afebrile. States pain is fairly well controlled, but has minimal appetite. Review of Systems Date Seen by Provider: Feb 11, 2018 Time Seen by Provider: 11:01 Objective Exam Last Set of Vital Signs Vital Signs Date Time Temp Pulse Resp B/P (MAP) Pulse Ox O2 Delivery O2 Flow Rate FiO2 02/11/18 12:00 97.9 89 18 153/92 (112) 96 Room Air 02/11/18 09:10 0.00 Capillary Refill : Less Than 3 SecondsLess Than 3 Seconds I&O Intake and Output 02/11/18 00:00 Intake Total 2870 ml Output Total 1320 ml Balance 1550 ml Intake Oral 870 ml IV Total 2000 ml Output Urine Total 1300 ml Drainage Total 20 ml Daily Weight Change Yes, Unsure # of pounds General: Alert, No Acute Distress Lungs: Clear to Auscultation, Normal Air Movement Heart: Regular Rate, No Murmurs Abdomen: Normal Bowel Sounds, Soft, Other (dressing in place with no drainage noted, drainage tube in place with serous drainage) Neuro: Normal Speech Psych/Mental Status: Mental Status NL Results/Procedures Lab Laboratory Tests 02/11/18 05:30: Sodium Level 135, Potassium Level 3.5L, Chloride Level 104, Carbon Dioxide Level 18L, Anion Gap 13, Blood Urea Nitrogen 14, Creatinine 0.66, Estimat Glomerular Filtration Rate > 60, BUN/Creatinine Ratio 21, Glucose Level 112H, Calcium Level 8.2L, Magnesium Level 2.1 Microbiology 02/03/18 Blood Culture - Final, Complete No growth 02/03/18 Urine Culture - Final, Complete Escherichia coli Radiology NAME: [facility] REC#: [id number] PT STATUS: ADM IN : 1935 PHYSICIAN: YESENIA RIVERA MD ADMIT DATE: 02/03/18 Signed Date of Exam: 02/03/18 CT ABDOMEN/PELVIS W PROCEDURE: CT abdomen and pelvis with contrast. TECHNIQUE: Multiple contiguous axial images were obtained through the abdomen and pelvis after administration of intravenous contrast. INDICATION: Nausea, vomiting, and constipation. COMPARISON: CT abdomen and pelvis performed prior day FINDINGS: Lower chest: Bandlike and nodular consolidation in the left lower lobe persists. Stable 5 mm left lower lobe pulmonary nodule. Peritoneum: Trace free fluid within the abdomen has developed. Liver and biliary system: Numerous peripherally enhancing hepatic masses are unchanged and compatible with metastases. Gallbladder has hyperdense material and is likely from vicarious excretion of contrast. Spleen and Pancreas: Spleen is normal. The pancreas enhances normally without mass lesion or peripancreatic inflammatory changes. Adrenals: Peripheral enhancing right adrenal metastasis is stable. tract: The kidneys enhance normally without suspicious mass or obstruction. Urinary bladder is distended without wall thickening. Prostate is not enlarged. GI tract: Annular wall thickening in the sigmoid colon is compatible with a sigmoid colon neoplasm resulting in partial obstruction. The colon proximal to the sigmoid colon is fluid-filled and mildly dilated. Multiple small bowel loops are also fluid filled and borderline dilated. Vasculature and Lymph nodes: Normal caliber aorta. No abdominal or pelvic lymphadenopathy. Musculoskeletal: No concerning osseous lesion. IMPRESSION: 1. 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 2. Metastatic disease includes numerous large hepatic masses and right adrenal mass. 3. A small volume of ascites has developed. 4. Left basilar pulmonary nodular bandlike consolidation is indeterminate. Dictated by: Dictated on workstation # [id number] Dict: 02/03/18728 Trans: 02/03/18921 Interpreted by: MARIO JERONIMO MD Electronically signed by: MARIO JERONIMO MD 02/03/18921 Assessment/Plan Assessment/Plan Assessment & Plan 1. Bowel obstruction partial -Pain control with morphine -Surgical consultation -Patient has informed me he is not planning on real aggressive therapy 02/04 -pt indicates that he does not want to pursue aggressive therapy as it appears his obstruction is likely secondary to malignancy 02/05 -pt had the opportunity to speak with both Dr. Astudillo as well as Dr. Carter yesterday evening, and is planning for surgical resection of sigmoid mass on , with plans to follow up with Dr. Carter after he has had a chance to recover from surgery -the patient is feeling optimistic about this at this time, and reports he is planning on "just taking things one day at a time" 02/07 resection done 02/11 doing well, possible discharge tomorrow if tolerating oral pain medications 2. Sigmoid colon neoplasm highly possible -Further staging likely 02/04 -discussed CT findings that indicate that there were likely areas of metastatic disease to liver, adrenal gland, etc, but that further testing may be needed to conclusively make this diagnosis -encouraged pt to consider hospice if he did not want to pursue cancer therapy after hearing what oncology has to offer, as they may be able to offer him a great deal of resources that he could otherwise have a difficult time getting at home 02/05 -pt has elected to proceed with surgical resection of the sigmoid mass, and verbalizes understanding that this may be a multi-stage procedure, depending on what is found once surgery begins -procedure scheduled for 3. Findings consistent with metastases to the liver, right adrenal gland, possibly left lower lung 4. Urinary tract infection -Initiation of IV ceftriaxone 02/04 -Day 3 rocephin -gram negative judy 02/05 -santizo sensitive E coli UTI -rocephin stopped, Day 1 Cipro and Flagyl, as cipro will provide coverage for UTI as well as pt's upcoming abdominal procedure 02/06 -Day 4 abx for e coli UTI 02/08 -Day 6 abx for e coli UTI, tomorrow will be last day of treatment needed for UTI 02/10/18 - antibiotics completed 5. Elevated Alk Phos 02/05 -remains elevated, today 175 6. Hypoproteinemia 02/05 -5.6 today 7. Leukocytosis 02/08 WBC 8.6 --> 14.9 not unexpected after surgery, pt on abx, afebrile 8. Anemia 02/08 12.6 --> 12.3 9. Hypocalcemia 02/08 8.0 today CODE STATUS: DNR Clinical Quality Measures DVT/VTE Risk/Contraindication: Risk Factor Score Per Nursin RFS Level Per Nursing on Admit: 4+=Very High JAMAR JACKSON MD Feb 11, 2018 2:49 pm
[2018-02-11 15:15] VITALS: BP 160/90
[2018-02-11 19:20] VITALS: BP 152/86
[2018-02-12 00:01] VITALS: BP 141/87
[2018-02-12 05:33] LABS: HEMOGLOBIN 12.7 G/DL (13.3-17.7); MEAN PLATELET VOLUME 9.3 FL (7.4-10.4); RED BLOOD COUNT 4.56 10^6/uL (4.35-5.85); WHITE BLOOD COUNT 11.8 10^3/uL (4.3-11.0)
[2018-02-12 05:53] LABS: ALANINE AMINOTRANSFERASE 12 U/L (0-55); ALBUMIN 2.7 GM/DL (3.2-4.5); ALKALINE PHOSPHATASE 149 U/L (40-136); BILIRUBIN,TOTAL 0.6 MG/DL (0.1-1.0); BUN/CREATININE RATIO 21; CALCIUM 8.3 MG/DL (8.5-10.1); CARBON DIOXIDE 22 MMOL/L (21-32); CHLORIDE 103 MMOL/L (98-107); CREATININE SERUM 0.73 MG/DL (0.60-1.30); GFR ESTIMATED > 60; GLUCOSE 157 MG/DL (70-105); POTASSIUM 3.3 MMOL/L (3.6-5.0); SODIUM 134 MMOL/L (135-145)
[2018-02-12] MEDS: ENOXAPARIN 30 MG/0.3 ML (LOVENOX) SYR SC SCH ×2 (07:06→20:50)
[2018-02-12 08:00] VITALS: BP 120/66
[2018-02-12] MEDS: POTASSIUM CL 10MEQ/50ML IVPB 50 ML IV SCH ×3 (09:15→10:55)
--- NOTE | 2018-02-12 10:07 | Physical Therapy Daily Note ---
PT Daily Note-Current Subjective Patient is very agreeable to participate with PT. No c/o at this time. Pain Numeric Pain Scale: 0-No Pain Location: No Pain Reported Mental Status Patient Orientation: Normal For Age Attachments: IV Transfers Functional [place] Measure 0=Not Assessed/NA 4=Minimal Assistance 1=Total Assistance 5=Supervision or Setup 2=Maximal Assistance 6=Modified [place] 3=Moderate Assistance 7=Complete IndependenceIRFPAI Quality Coding Scale 6 Independent with activity with or without an assistive device 5 Patient requires set up or clean up by helper. Patient completes activity by themselves 4 Supervision or touching assist (CGA). [place] provide cues , steadying assist 3 The helper provides less than half the effort to complete the activity 2 The helper provides more than half the effort to complete the activity 1 Dependent. The helper does all the effort to complete an activity 7 Patient refused to complete or attempt activity 9 The patient did not perform the activity before the current illness or injury 88 Not attempted due to Medical conditions or safety concerns Transfers (B, C, W/C) (FIM): 6 Scootin Supine to/from Sit: 6 Sit to/from Stand: 6 Weight Bearing Right Lower Extremity: Right Full Weight Bearing Left Lower Extremity: Left Full Weight Bearing Gait Training Gait (FIM): 6 Distance (FIM): 3=150 ft Distance: 400' Gait Level of Assist: 6 Gait Persons Needed: 1 Gait Assistive Device: FWW improved distance and function on this date. Exercises Supine Ex: Ankle pumps, Quad Set, Heel Slides, Straight leg raise Supine Reps: 15 Seated Therapy Exercises: Ankle pumps, Long arc quads Seated Reps: 15 Assessment Patient progressing with treatment plan and will dismiss to [place] for skilled care this week. PT Intermediate Goals Blast Setter Goals PT Blast Setter Goals Time Frame: Mar 01, 2018 Transfers (B,C,W/C) (FIM): 6 Gait (FIM): 6 Gait distance (FIM): 3=150 ft Gait Level of Assist: 6 Gait Assistive Device: FWW PT Plan Treatment/Plan Treatment Plan: Continue Plan of Care Treatment Plan: Bed Mobility, Education, Functional Activity Dean, Functional Strength, Gait, Safety, Therapeutic Exercise, Transfers Treatment Duration: Mar 01, 2018 Frequency: 6 times per week Estimated Hrs Per Day: .25 hour per day Patient and/or Family Agrees t: Yes Time/GCodes Time In: 922 Time Out: 945 Total Billed Treatment Time: 23 Total Billed Treatment 1 visit EX 10 min FA 13 min LORE ALLEN PT Feb 12, 2018 10:06
--- NOTE | 2018-02-12 11:28 | Progress Note (SOAP) ---
Subjective Date Seen by Provider: Feb 12, 2018 Time Seen by Provider: 11:20 Subjective/Events-last exam pt doing well from a surgical standpoint. tolerating diet and having BM's. slow to ambulate, IS, as well as returning to baseline physical capacity. most likely will be transferred to SNF for interim period. Objective Exam Vital Signs Date Time Temp Pulse Resp B/P (MAP) Pulse Ox O2 Delivery O2 Flow Rate FiO2 02/12/18 00:01 97.1 75 18 141/87 (105) 94 Room Air 02/11/18 21:00 Room Air 02/11/18 19:20 98.6 87 18 152/86 (108) 95 Room Air 02/11/18 15:15 98.7 91 18 160/90 (113) 96 Room Air 02/11/18 12:00 97.9 89 18 153/92 (112) 96 Room Air I & O 02/12/18 07:00 Intake Total 930 ml Output Total 503 ml Balance 427 ml Capillary Refill : Less Than 3 SecondsLess Than 3 Seconds General Appearance: No Apparent Distress HEENT: PERRL/EOMI Neck: Full Range of Motion Respiratory: Chest Non Tender, Lungs Clear, Normal Breath Sounds Cardiovascular: Regular Rate, Rhythm Gastrointestinal: normal bowel sounds, soft, other (wound clean/dry) Extremity: Normal Capillary Refill Neurologic/Psychiatric: Alert, Oriented x3 Skin: Normal Color Lymphatic: No Adenopathy Results Lab Laboratory Tests 02/12/18 05:25: White Blood Count 11.8H, Red Blood Count 4.56, Hemoglobin 12.7L, Hematocrit 38L , Mean Corpuscular Volume 84, Mean Corpuscular Hemoglobin 28, Mean Corpuscular Hemoglobin Concent 33, Red Cell Distribution Width 15.0H, Platelet Count 357, Mean Platelet Volume 9.3, Sodium Level 134L, Potassium Level 3.3L, Chloride Level 103, Carbon Dioxide Level 22, Anion Gap 9, Blood Urea Nitrogen 15, Creatinine 0.73, Estimat Glomerular Filtration Rate > 60, BUN/Creatinine Ratio 21, Glucose Level 157H, Calcium Level 8.3L, Total Bilirubin 0.6, Aspartate Amino Transf (AST/SGOT) 21, Alanine Aminotransferase (ALT/SGPT) 12, Alkaline Phosphatase 149H, Total Protein 5.0L, Albumin 2.7L Microbiology 02/03/18 Blood Culture - Final, Complete No growth 02/03/18 Urine Culture - Final, Complete Escherichia coli Assessment/Plan Assessment/Plan Assess & Plan/Chief 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 doing well from surgical standpoint however slightly slow to recover to baseline physical status. continue PT more permanent groshong on left at later time. SNF transfer pending. Clinical Quality Measures DVT/VTE Risk/Contraindication: Risk Factor Score Per Nursin RFS Level Per Nursing on Admit: 4+=Very High JARAD VALENCIA MD Feb 12, 2018 11:28
--- NOTE | 2018-02-12 11:57 | Progress Note (SOAP) ---
Subjective Subjective/Events-last exam Afebrile, denies concerns. Is eating now. Plans to go to SNF at [facility] tomorrow. Review of Systems Date Seen by Provider: Feb 12, 2018 Time Seen by Provider: 08:53 Objective Exam Last Set of Vital Signs Vital Signs Date Time Temp Pulse Resp B/P (MAP) Pulse Ox O2 Delivery O2 Flow Rate FiO2 02/12/18 08:00 97.8 93 16 120/66 (84) 96 Room Air 02/11/18 09:10 0.00 Capillary Refill : Less Than 3 SecondsLess Than 3 Seconds I&O Intake and Output 02/12/18 00:00 Intake Total 950 ml Output Total 1193 ml Balance -243 ml Intake Oral 540 ml IV Total 410 ml Output Urine Total 1150 ml Stool Total 1 ml Drainage Total 42 ml General: Alert, No Acute Distress Lungs: Clear to Auscultation, Normal Air Movement Heart: Regular Rate, No Murmurs Abdomen: Normal Bowel Sounds Psych/Mental Status: Mental Status NL Results/Procedures Lab Laboratory Tests 02/12/18 05:25: White Blood Count 11.8H, Red Blood Count 4.56, Hemoglobin 12.7L, Hematocrit 38L , Mean Corpuscular Volume 84, Mean Corpuscular Hemoglobin 28, Mean Corpuscular Hemoglobin Concent 33, Red Cell Distribution Width 15.0H, Platelet Count 357, Mean Platelet Volume 9.3, Sodium Level 134L, Potassium Level 3.3L, Chloride Level 103, Carbon Dioxide Level 22, Anion Gap 9, Blood Urea Nitrogen 15, Creatinine 0.73, Estimat Glomerular Filtration Rate > 60, BUN/Creatinine Ratio 21, Glucose Level 157H, Calcium Level 8.3L, Total Bilirubin 0.6, Aspartate Amino Transf (AST/SGOT) 21, Alanine Aminotransferase (ALT/SGPT) 12, Alkaline Phosphatase 149H, Total Protein 5.0L, Albumin 2.7L Microbiology 02/03/18 Blood Culture - Final, Complete No growth 02/03/18 Urine Culture - Final, Complete Escherichia coli Radiology NAME: [facility] REC#: [id number] PT STATUS: ADM IN : 1935 PHYSICIAN: YESENIA RIVERA MD ADMIT DATE: 02/03/18 Signed Date of Exam: 02/03/18 CT ABDOMEN/PELVIS W PROCEDURE: CT abdomen and pelvis with contrast. TECHNIQUE: Multiple contiguous axial images were obtained through the abdomen and pelvis after administration of intravenous contrast. INDICATION: Nausea, vomiting, and constipation. COMPARISON: CT abdomen and pelvis performed prior day FINDINGS: Lower chest: Bandlike and nodular consolidation in the left lower lobe persists. Stable 5 mm left lower lobe pulmonary nodule. Peritoneum: Trace free fluid within the abdomen has developed. Liver and biliary system: Numerous peripherally enhancing hepatic masses are unchanged and compatible with metastases. Gallbladder has hyperdense material and is likely from vicarious excretion of contrast. Spleen and Pancreas: Spleen is normal. The pancreas enhances normally without mass lesion or peripancreatic inflammatory changes. Adrenals: Peripheral enhancing right adrenal metastasis is stable. tract: The kidneys enhance normally without suspicious mass or obstruction. Urinary bladder is distended without wall thickening. Prostate is not enlarged. GI tract: Annular wall thickening in the sigmoid colon is compatible with a sigmoid colon neoplasm resulting in partial obstruction. The colon proximal to the sigmoid colon is fluid-filled and mildly dilated. Multiple small bowel loops are also fluid filled and borderline dilated. Vasculature and Lymph nodes: Normal caliber aorta. No abdominal or pelvic lymphadenopathy. Musculoskeletal: No concerning osseous lesion. IMPRESSION: 1. 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 2. Metastatic disease includes numerous large hepatic masses and right adrenal mass. 3. A small volume of ascites has developed. 4. Left basilar pulmonary nodular bandlike consolidation is indeterminate. Dictated by: Dictated on workstation # [id number] Dict: 02/03/18728 Trans: 02/03/18921 Interpreted by: MARIO JERONIMO MD Electronically signed by: MARIO JERONIMO MD 02/03/18921 Assessment/Plan Assessment/Plan Assessment & Plan 1. Bowel obstruction partial -Pain control with morphine -Surgical consultation -Patient has informed me he is not planning on real aggressive therapy 02/04 -pt indicates that he does not want to pursue aggressive therapy as it appears his obstruction is likely secondary to malignancy 02/05 -pt had the opportunity to speak with both Dr. Astudillo as well as Dr. Carter yesterday evening, and is planning for surgical resection of sigmoid mass on , with plans to follow up with Dr. Carter after he has had a chance to recover from surgery -the patient is feeling optimistic about this at this time, and reports he is planning on "just taking things one day at a time" 02/07 resection done 02/11 doing well, possible discharge tomorrow if tolerating oral pain medications 02/12 plan for d/c to SNF tomorrow 2. Sigmoid colon neoplasm highly possible -Further staging likely 02/04 -discussed CT findings that indicate that there were likely areas of metastatic disease to liver, adrenal gland, etc, but that further testing may be needed to conclusively make this diagnosis -encouraged pt to consider hospice if he did not want to pursue cancer therapy after hearing what oncology has to offer, as they may be able to offer him a great deal of resources that he could otherwise have a difficult time getting at home 02/05 -pt has elected to proceed with surgical resection of the sigmoid mass, and verbalizes understanding that this may be a multi-stage procedure, depending on what is found once surgery begins -procedure scheduled for 3. Findings consistent with metastases to the liver, right adrenal gland, possibly left lower lung 4. Urinary tract infection -Initiation of IV ceftriaxone 02/04 -Day 3 rocephin -gram negative judy 02/05 -santizo sensitive E coli UTI -rocephin stopped, Day 1 Cipro and Flagyl, as cipro will provide coverage for UTI as well as pt's upcoming abdominal procedure 02/06 -Day 4 abx for e coli UTI 02/08 -Day 6 abx for e coli UTI, tomorrow will be last day of treatment needed for UTI 02/10/18 - antibiotics completed 5. Elevated Alk Phos 02/05 -remains elevated, today 175 6. Hypoproteinemia 02/05 -5.6 today 7. Leukocytosis 02/08 WBC 8.6 --> 14.9 not unexpected after surgery, pt on abx, afebrile 8. Anemia 02/08 12.6 --> 12.3 9. Hypocalcemia 02/08 8.0 today CODE STATUS: DNR Clinical Quality Measures DVT/VTE Risk/Contraindication: Risk Factor Score Per Nursin RFS Level Per Nursing on Admit: 4+=Very High JAMAR JACKSON MD Feb 12, 2018 11:57 am
[2018-02-12 12:00] VITALS: BP 129/84
[2018-02-12 16:00] VITALS: BP 128/67
[2018-02-12 20:32] VITALS: BP 123/74
[2018-02-13 00:03] VITALS: BP 138/77
[2018-02-13 00:04] VITALS: BP 138/77
[2018-02-13 04:19] VITALS: BP 130/76
[2018-02-13 06:04] LABS: HEMOGLOBIN 11.8 G/DL (13.3-17.7); MEAN PLATELET VOLUME 9.4 FL (7.4-10.4); RED BLOOD COUNT 4.17 10^6/uL (4.35-5.85); RED CELL DISTRIBUTION WIDTH 14.8 % (10.0-14.5); WHITE BLOOD COUNT 11.6 10^3/uL (4.3-11.0)
[2018-02-13] MEDS: ENOXAPARIN 30 MG/0.3 ML (LOVENOX) SYR SC SCH (06:19)
[2018-02-13 06:28] LABS: ALANINE AMINOTRANSFERASE 13 U/L (0-55); ALBUMIN 2.6 GM/DL (3.2-4.5); ALKALINE PHOSPHATASE 140 U/L (40-136); BILIRUBIN,TOTAL 0.5 MG/DL (0.1-1.0); BUN/CREATININE RATIO 16; CALCIUM 8.2 MG/DL (8.5-10.1); CARBON DIOXIDE 23 MMOL/L (21-32); CHLORIDE 106 MMOL/L (98-107); CREATININE SERUM 0.67 MG/DL (0.60-1.30); GFR ESTIMATED > 60; GLUCOSE 90 MG/DL (70-105); POTASSIUM 3.5 MMOL/L (3.6-5.0); SODIUM 138 MMOL/L (135-145); TOTAL PROTEIN 4.7 GM/DL (6.4-8.2)
[2018-02-13 08:00] VITALS: BP 145/71
--- NOTE | 2018-02-13 11:16 | Discharge Inst-Skilled Nursing ---
Discharge Inst-Skilled NF Patient Instructions Patient Problems: s/p rectosigmoid resection for near obstructing colon cancer Metastatic colon cancer Goal: Increase mobility, improve nutrition, manage pain Consult/Follow Up/Orders Follow up appt.: Haylie Euceda APRN will see you at [facility]. Skilled NF Admit to: [facility] Certifications SNF I certify that SNF services are required to be given on an inpatient basis because of the above named patient's need for fci care on a continuing basis for the conditions(s) for which he/she was receiving inpatient hospital services prior to his/her transfer to the SNF. [facility] Facility Order: Nursing Services, Morning Babysitter-Evaluate & Treat, Physical Therapy-Evaluate & Treat, Speech Language-Evaluate & Treat, Wound Care-Eval/Treat (surgical incision care, surgical drain tube management) Discharge Diet: Other Diet (dysphagia/pureed) Daily Activity as Tolerated: Yes (or per Dr. Astudillo recommendations) New & Resume Previous Orders Pneu Vac Indicated: Yes Discharge Medications New, Converted or Re-Newed RX: RX on Chart Jamar Mansfield Feb 13, 2018 10:18 JAMAR MANSFIELD MD Feb 13, 2018 10:22 am
[2018-02-13 12:00] VITALS: BP 132/61
--- NOTE | 2018-02-13 14:01 | Physical Therapy Daily Note ---
PT Daily Note-Current Subjective Pt sitting up in bed finishing visit with Machine Rug Cleaner upon arrival. Pt agrees to PT. Machine Rug Cleaner informed [employer], pt discharging at 1530. Pain Location: No Pain Reported Mental Status Patient Orientation: Person, Place, Time, Situation Attachments: Drains Transfers Functional [place] Measure 0=Not Assessed/NA 4=Minimal Assistance 1=Total Assistance 5=Supervision or Setup 2=Maximal Assistance 6=Modified [place] 3=Moderate Assistance 7=Complete IndependenceIRFPAI Quality Coding Scale 6 Independent with activity with or without an assistive device 5 Patient requires set up or clean up by helper. Patient completes activity by themselves 4 Supervision or touching assist (CGA). Nichols provide cues , steadying assist 3 The helper provides less than half the effort to complete the activity 2 The helper provides more than half the effort to complete the activity 1 Dependent. The helper does all the effort to complete an activity 7 Patient refused to complete or attempt activity 9 The patient did not perform the activity before the current illness or injury 88 Not attempted due to Medical conditions or safety concerns Scootin Sit to/from Stand: 4 Weight Bearing Right Lower Extremity: Right Full Weight Bearing Left Lower Extremity: Left Full Weight Bearing Treatments Pt needs brief on so Pt transfers from siting to standing using FWW at CGA. Pt sits back at EOB. Pt's daughter wants to discuss a few questions about discharge & SNF pt will be discharging to. Pt is resting Supine in bed at end of tx with all needs met. Assessment Current Status: Good Progress Pt & family voice improved progress during hospital stay and are more confident and how pt is doing. PT Senior Living Goals Time Study Observer Goals PT Senior Living Goals Time Frame: Mar 01, 2018 Transfers (B,C,W/C) (FIM): 6 Gait (FIM): 6 Gait distance (FIM): 3=150 ft Gait Level of Assist: 6 Gait Assistive Device: FWW PT Plan Problem List Problem List: Activity Tolerance, Functional Strength Treatment/Plan Treatment Plan: Continue Plan of Care Treatment Plan: Bed Mobility, Education, Functional Activity Dean, Functional Strength, Gait, Safety, Therapeutic Exercise, Transfers Treatment Duration: Mar 01, 2018 Frequency: 6 times per week Estimated Hrs Per Day: .25 hour per day Patient and/or Family Agrees t: Yes Safety Risks/Education Patient Education: Transfer Techniques, Correct Positioning, Safety Issues Teaching Recipient: Patient, Family Teaching Methods: Discussion Response to Teaching: Verbalize Understanding Time/GCodes Time In: 1335 Time Out: 1352 Total Billed Treatment Time: 17 Total Billed Treatment 1, SAULO (17m) G Codes Necessary: RAMONA Champion PTA Feb 13, 2018 14:01
--- NOTE | 2018-02-13 14:20 | Discharge Summary ---
Diagnosis/Chief Complaint Date of Admission Feb 03, 2018 at 8:15 am Date of Discharge Feb 13, 2018 Admission Diagnosis Admission Diagnosis 1. Bowel obstruction partial 2. Sigmoid colon neoplasm highly possible 3. Findings consistent with metastases to the liver, right adrenal gland, possibly left lower lung Discharge Diagnosis 1. Bowel obstruction partial -Pain control with morphine -Surgical consultation -Patient has informed me he is not planning on real aggressive therapy 02/04 -pt indicates that he does not want to pursue aggressive therapy as it appears his obstruction is likely secondary to malignancy 02/05 -pt had the opportunity to speak with both Dr. Astudillo as well as Dr. Carter yesterday evening, and is planning for surgical resection of sigmoid mass on , with plans to follow up with Dr. Carter after he has had a chance to recover from surgery -the patient is feeling optimistic about this at this time, and reports he is planning on "just taking things one day at a time" 02/07 resection done 02/11 doing well, possible discharge tomorrow if tolerating oral pain medications 02/13 d/c to SNF, will follow up with Oncology outpatient for further discussion and diagnosis 2. Findings consistent with metastases to the liver, right adrenal gland, possibly left lower lung 3. Urinary tract infection- completed 7 days of treatment 4. Elevated Alk Phos 5. Hypoproteinemia 6. Anemia 02/08 12.6 --> 12.3 7. Hypocalcemia- resolved (normal corrected calcium for hypoalbuminemia at d/c) Chief Complaint/HPI Chief Complaint/HPI 82-year-old male presents to [facility] emergency department during the morning of February 03, 2018 after noticing increased abdominal bloating and some discomfort in the lower aspects of the abdomen. He does report he also has inguinal hernia and this has been bothering him and this was another reason that brought him into the emergency department because he knew something was wrong. 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 He currently denies any fever or chills. He has no vomiting. He does report he has been constipated and had bowel movement in several days. Discharge Summary-Simple/Stand Procedures Sigmoid resection Consultations Dr. Carter (Oncology) Dr. Astudillo (General Surgery) Discharge Physical Examination Allergies: Coded Allergies: NKANo Known Allergies (Unverified Allergy, Mild, 12/27/09) Vitals & I&Os Vital Sign - Last 12Hours Date Time Temp Pulse Resp B/P (MAP) Pulse Ox O2 Delivery O2 Flow Rate FiO2 02/13/18 12:00 97.2 85 18 132/61 (84) 97 Room Air 02/11/18 09:10 0.00 Intake and Output 02/13/18 00:00 Intake Total 920 ml Balance 920 ml General Appearance: Alert, No Acute Distress Respiratory: Clear to Auscultation, Normal Air Movement Cardiovascular: Regular Rate, No Murmurs Abdominal: Normal Bowel Sounds, Soft Neuro: Normal Speech Hospital Course See final discharge diagnosis. Labs Laboratory Tests Test 02/12/18 05:25 02/13/18 05:55 Range/Units White Blood Count 11.8 H 11.6 H 4.3-11.0 10^3/uL Red Blood Count 4.56 4.17 L 4.35-5.85 10^6/uL Hemoglobin 12.7 L 11.8 L 13.3-17.7 G/DL Hematocrit 38 L 35 L 40-54 % Mean Corpuscular Volume 84 84 80-99 FL Mean Corpuscular Hemoglobin 28 28 25-34 PG Mean Corpuscular Hemoglobin Concent 33 34 32-36 G/DL Red Cell Distribution Width 15.0 H 14.8 H 10.0-14.5 % Platelet Count 357 325 130-400 10^3/uL Mean Platelet Volume 9.3 9.4 7.4-10.4 FL Sodium Level 134 L 138 135-145 MMOL/L Potassium Level 3.3 L 3.5 L 3.6-5.0 MMOL/L Chloride Level 103 106 98-107 MMOL/L Carbon Dioxide Level 22 23 21-32 MMOL/L Anion Gap 9 9 5-14 MMOL/L Blood Urea Nitrogen 15 11 7-18 MG/DL Creatinine 0.73 0.67 0.60-1.30 MG/DL Estimat Glomerular Filtration Rate > 60 > 60 BUN/Creatinine Ratio 21 16 Glucose Level 157 H 90 70-105 MG/DL Calcium Level 8.3 L 8.2 L 8.5-10.1 MG/DL Total Bilirubin 0.6 0.5 0.1-1.0 MG/DL Aspartate Amino Transf (AST/SGOT) 21 22 5-34 U/L Alanine Aminotransferase (ALT/SGPT) 12 13 0-55 U/L Alkaline Phosphatase 149 H 140 H 40-136 U/L Total Protein 5.0 L 4.7 L 6.4-8.2 GM/DL Albumin 2.7 L 2.6 L 3.2-4.5 GM/DL Radiology Reviewed NAME: [facility] REC#: [id number] PT STATUS: ADM IN : 1935 PHYSICIAN: YESENIA RIVERA MD ADMIT DATE: 02/03/18/ Signed Date of Exam: 02/03/18 CT ABDOMEN/PELVIS W PROCEDURE: CT abdomen and pelvis with contrast. TECHNIQUE: Multiple contiguous axial images were obtained through the abdomen and pelvis after administration of intravenous contrast. INDICATION: Nausea, vomiting, and constipation. COMPARISON: CT abdomen and pelvis performed prior day FINDINGS: Lower chest: Bandlike and nodular consolidation in the left lower lobe persists. Stable 5 mm left lower lobe pulmonary nodule. Peritoneum: Trace free fluid within the abdomen has developed. Liver and biliary system: Numerous peripherally enhancing hepatic masses are unchanged and compatible with metastases. Gallbladder has hyperdense material and is likely from vicarious excretion of contrast. Spleen and Pancreas: Spleen is normal. The pancreas enhances normally without mass lesion or peripancreatic inflammatory changes. Adrenals: Peripheral enhancing right adrenal metastasis is stable. tract: The kidneys enhance normally without suspicious mass or obstruction. Urinary bladder is distended without wall thickening. Prostate is not enlarged. GI tract: Annular wall thickening in the sigmoid colon is compatible with a sigmoid colon neoplasm resulting in partial obstruction. The colon proximal to the sigmoid colon is fluid-filled and mildly dilated. Multiple small bowel loops are also fluid filled and borderline dilated. Vasculature and Lymph nodes: Normal caliber aorta. No abdominal or pelvic lymphadenopathy. Musculoskeletal: No concerning osseous lesion. IMPRESSION: 1. 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 2. Metastatic disease includes numerous large hepatic masses and right adrenal mass. 3. A small volume of ascites has developed. 4. Left basilar pulmonary nodular bandlike consolidation is indeterminate. Dictated by: Dictated on workstation # [id number] Dict: 02/03/1829 Trans: 02/03/18921 Interpreted by: MARIO JERONIMO MD Electronically signed by: MARIO JERONIMO MD 02/03/18921 Discharge Instructions to patient/family Please see electronic discharge instructions given to patient. Discharge Medications Reviewed and agree with Discharge Medication list on patient's Discharge Instruction sheet Clinical Quality Measures DVT/VTE Risk/Contraindication: Risk Factor Score Per Nursin RFS Level Per Nursing on Admit: 4+=Very High Copy Copies To 1: KEVON Ragland BETHANY N MD Feb 13, 2018 2:20 pm
== END 2018-02-13 15:25 | DRG 345 ==
LOC: EDUNIT# 06:15 → ER 06:17 → 4TH 08:15 → ICU 02-07 15:30 → 4TH 02-08 15:45
PROVIDERS: ADMIT Family Medicine; ATTEND Family Medicine
PROC: BT171ZZ Fluoroscopy of Left Ureter using Low Osmolar Contrast (ICD-10-PCS; 2018-02-07)
PROC: 0DBN0ZX Excision of Sigmoid Colon, Open Approach, Diagnostic (ICD-10-PCS; principal; 2018-02-07 10:41)
PROC: 0DBP0ZX Excision of Rectum, Open Approach, Diagnostic (ICD-10-PCS; 2018-02-07 10:41)
PROC: 0T778DZ Dilation of Left Ureter with Intraluminal Device, Via Natural or Artificial Opening Endoscopic (ICD-10-PCS; 2018-02-07 10:41)
DX: C18.7 Malignant neoplasm of sigmoid colon (principal); C78.7 Secondary malignant neoplasm of liver and intrahepatic bile duct; C79.71 Secondary malignant neoplasm of right adrenal gland; C78.02 Secondary malignant neoplasm of left lung; N30.00 Acute cystitis without hematuria; R18.8 Other ascites; B96.20 Unspecified Escherichia coli [E. coli] as the cause of diseases classified elsewhere; Z66 Do not resuscitate; K59.00 Constipation, unspecified; R63.4 Abnormal weight loss; M19.91 Primary osteoarthritis, unspecified site; K40.20 Bilateral inguinal hernia, without obstruction or gangrene, not specified as recurrent; N40.0 Benign prostatic hyperplasia without lower urinary tract symptoms; R74.8 Abnormal levels of other serum enzymes; E77.8 Other disorders of glycoprotein metabolism; D64.9 Anemia, unspecified; E83.51 Hypocalcemia; Z87.891 Personal history of nicotine dependence; Z86.718 Personal history of other venous thrombosis and embolism
CPT/HCPCS: 36415; 71045; 74177; 80048; 80053; 81000; 82105; 82378; 82962; 83605; 83735; 84100; 85007; 85025; 85027; 85610; 86301; 87040; 87077; 87088; 87186; 94664; 94760; 96361; 96365; 96375

== ENCOUNTER → 2018-03-19 | Outpatient (CLI) | payer MEDICARE ==
[~2018-03-19] MED LIST changes: +HYDR-34 PO
--- NOTE | 2018-03-20 13:44 | Diagnostic Imaging Report ---
PET/CT. INDICATION: Colon carcinoma. After intravenous administration of 13.65 mCi of F18-FDG, a series of overlapping emission and transmission PET images was obtained. In the coronal, transaxial and sagittal planes, the area imaged extended from the skull base through the upper thighs. There are no previous PET/CT examinations available for comparison. FINDINGS: The recent CT abdomen/pelvis exam performed on 02/03/18 identified an apple core lesion involving the sigmoid colon. There were also numerous hepatic metastatic foci. In addition, there was a 2.7 cm mass associated with the right adrenal gland. There was also an indeterminate density in the left lung base. On this exam, there is a roughly 4 cm segment of the sigmoid colon which does show slightly increased hypermetabolic activity. The maximum SUV in this area is 4.2. It is my understanding that the patient has undergone surgical resection of the known carcinoma. Consequently this uptake most likely represents a sequela of the patient's interval surgery. The numerous low-density lesions within the liver seen on CT exam are extremely hypermetabolic, however, with SUV values ranging from 6.8 to 7.5. The right adrenal mass is also hypermetabolic with a maximum SUV of 5.1. The abnormal density in the left lung base seen previously is again evident and does not seem to have changed significantly. The maximum SUV in this area is only 2, however. Even so, this area has somewhat of a nodular appearance and there may be an underlying neoplastic mass present. However, there are several hypermetabolic pulmonary nodules bilaterally. These nodules measure in the 1.5-2 cm range and have SUV values in the 3.8-4.5 range and these nodules should be considered neoplastic until proven otherwise. There are also a few subcentimeter nodules in each lung which are not hypermetabolically active. These findings are still worrisome for metastatic foci. In addition, there are scattered foci of slight increased metabolic activity within the right transverse process of C3, the body of C5, the body of T10 and the left sacrum. All of these areas should be considered secondary to metastatic disease until proven otherwise. The most intense of these lesions is in the left sacrum and has a maximum SUV of 5.2. IMPRESSION: 1. There is only slightly increased hypermetabolic activity in the sigmoid colon. This is most likely a sequela of the patient's interval colon resection. 2. There are hypermetabolic metastatic foci involving the liver, the right kidney, the lungs and the thoracic spine. Dictated by: Dictated on workstation # [id number]
== END ==
LOC: RAD 09:38
PROVIDERS: ATTEND Internal Medicine Hematology & Oncology
DX: C18.7 Malignant neoplasm of sigmoid colon (principal); C78.7 Secondary malignant neoplasm of liver and intrahepatic bile duct

== ENCOUNTER 2018-03-25 05:31 | Outpatient (CLI) | payer MEDICARE ==
[~2018-03-25] VITALS: Ht 190.5 cm; Wt 74.1 kg
[~2018-03-25 05:31] MED LIST changes: -HYDR-34 PO
== END 2018-03-25 10:59 | disposition home or self-care (01) ==
LOC: PREOP 05:31
PROVIDERS: ATTEND Surgery
DX: Z01.818 Encounter for other preprocedural examination (principal)

== ENCOUNTER 2018-03-28 08:22 | Day surgery (SDC) | payer MEDICARE ==
[~2018-03-28] VITALS: Ht 190.5 cm; Wt 74.1 kg
[2018-03-28] MEDS ORDERED: LACTATED RINGERS 1,000 ML IV PRN (08:29)
[2018-03-28] MEDS ORDERED: ceFAZolin INJECTION 1,000 MG in NS (IVPB) 50 ML IV ONE (08:30)
[2018-03-28 08:40] VITALS: BP 158/57
[2018-03-28] MEDS ORDERED: CATHETER FLUSH 10 ML SYR IV PRN (08:45)
[2018-03-28] MEDS ORDERED: LIDOCAINE/EPI 1%-1:200,000 (XYLOCAINE) 10 ML VIAL ONE (09:42)
[2018-03-28] MEDS ORDERED: 0.9% SODIUM CHLORIDE PF INJ 20 ML VIAL ONE (09:43)
[2018-03-28] MEDS ORDERED: HEParin (CENTRAL IV FLUSH) 500 UNIT/5 ML SYR ONE (09:43)
[2018-03-28] MEDS ORDERED: fentaNYL INJECTION 100 MCG/2 ML AMP ONE (10:18)
[2018-03-28] MEDS ORDERED: MIDAZOLAM 2 MG/2 ML (VERSED) VIAL ONE (10:18)
[2018-03-28] MEDS ORDERED: PROPOFOL INJECTION 50 ML IV ONE (10:22)
--- NOTE | 2018-03-28 10:33 | Progress Note-Pre Operative ---
Pre-Operative Progress Note H&P Reviewed The H&P was reviewed, patient examined and no changes noted. Date Seen by Provider: Mar 28, 2018 Time Seen by Provider: 10:30 Date H&P Reviewed: Mar 28, 2018 Time H&P Reviewed: 10:30 Pre-Operative Diagnosis: metastatic colon cancer JARAD VALENCIA MD Mar 28, 2018 10:33 am
[2018-03-28] MEDS ORDERED: morphine INJ 10 MG/ML 1ML (SYR OR VIAL) IVP PRN (10:45)
[2018-03-28] MEDS ORDERED: ONDANSETRON 4 MG/2 ML (SDV) Z0FRAN IVP PRN (10:45)
[2018-03-28] MEDS ORDERED: HYDROcodone/APAP 5 MG/325 MG (LORTAB) TAB PO ONE (10:45)
[2018-03-28] MEDS ORDERED: ACETAMINOPHEN 325 MG TABLET PO PRN (10:45)
--- NOTE | 2018-03-28 11:40 | Progress Note-Post Operative ---
Post-Operative Progess Note Surgeon (s)/Air Compressor Operator (s) Surgeon JARAD VALENCIA MD Air Compressor Operator: debora candaa RECEIPT AND REPORT CLERK Pre-Operative Diagnosis metastatic colon cancer Post-Operative Diagnosis same Procedure & Operative Findings Date of Procedure 03/28/18 Procedure Performed/Findings placement left subclavian groshong implantable catheter. Anesthesia Type MAC with local Estimated Blood Loss Estimated blood loss (mL): minimal Specimens/Packing Specimens Removed none JARAD VALENCIA MD Mar 28, 2018 11:40 am
[2018-03-28] MEDS ORDERED: HYDR-34 PO (11:41)
--- NOTE | 2018-03-28 11:43 | Discharge Inst-Surgical ---
D/C Lap Instructions-ERIK New, Converted, or Re-Newed RX: RX on Chart Follow Up PRN Activity as tolerated Regular Diet Symptoms to Report: Fever over 101 degree F, Nausea/Vomiting Infection Signs and Symptoms to report: Increased redness, Foul odor of wound, Increased drainage Bathing instructions: May shower Operative Area Clean/Dry; Keep incision clean/dry If any problems/questions: Contact your physician or go to Emergency Room JARAD VALENCIA MD Mar 28, 2018 11:43 am
--- NOTE | 2018-03-28 12:18 | Diagnostic Imaging Report ---
Indication: Evaluate catheter placement. Comparison made with prior examination from 02/08/2018. Findings: There is now a left subclavian catheter in place with its tip in superior vena cava. Heart size is normal. There is mild venous congestion. There is minimal scarring or atelectasis in the left lung base. There is no pleural effusion or pneumothorax. Impression: The central venous catheter is in satisfactory position. Mild venous congestion. Scarring or atelectasis in the left lung base. Dictated by: Dictated on workstation # [id number]
[2018-03-28 12:20] VITALS: BP 154/98
[2018-03-28 12:50] VITALS: BP 136/78
[2018-03-28 13:15] VITALS: BP 136/78
--- NOTE | 2018-03-28 15:34 | Anesthesia-General Post-Op ---
MAC Patient Condition Mental Status/LOC: Same as Preop Cardiovascular: Satisfactory Nausea/Vomiting: Absent Respiratory: Satisfactory Pain: Controlled Complications: Absent Post Op Complications Complications None Follow Up Care/Instructions Patient Instructions None needed. Anesthesiology Discharge Order Discharge Order Patient was seen after the procedure and he was doing well, no complaints, stable vital signs, no apparent adverse anesthesia problems. AAMIR RUTH DO Mar 28, 2018 15:34
--- NOTE | 2018-03-28 17:43 | Diagnostic Imaging Report ---
INDICATION: Undergoing central line placement. TECHNIQUE: Single intraprocedural images superior chest at 11:36 AM CORRELATION STUDY: None FINDINGS: Fluoroscopy utilized by Dr. Astudillo during placement of a left-sided central line. Limited imaging of the central aspect of the upper chest demonstrates a left-sided central line to be present, the tip projecting over the of right paramediastinal region. Fluoroscopy time: 3 minute 3 seconds IMPRESSION: 1. Fluoroscopy utilized for placement of a left-sided central line. Tip positioning somewhat indeterminate. If further assessment is desired, post procedure chest radiograph recommended. Dictated by: Dictated on workstation # [id number]
--- NOTE | 2018-03-28 18:06 | OPERATIVE REPORT ---
DATE OF SERVICE: 03/28/2018 ATTENDING PRIMARY CARE PHYSICIAN: Dr. Velasquez. PREOPERATIVE DIAGNOSIS: History of metastatic colon cancer. POSTOPERATIVE DIAGNOSIS: History of metastatic colon cancer. PROCEDURE: Left subclavian Groshong implantable catheter placement under fluoroscopy. SURGEON: Jarad Valencia MD PLUG SAW OPERATOR: Brayan Garcia APRN ANESTHESIA: Monitored anesthesia care with local. ESTIMATED BLOOD LOSS: Minimal. FINDINGS: Catheter tip at superior vena cava - right atrial junction. DISPOSITION: The patient tolerated the procedure well. INDICATIONS: The patient is an 82-year-old male who was admitted on 02/03/2018 for abdominal distention, bloating as well as nausea and vomiting. A CT scan was performed, which showed a significant size lesion of the pelvic region as well as probable metastatic disease to the liver, lung and adrenal gland. 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 On 02/07/2018, he underwent a low anterior rectosigmoid resection and placement of a right subclavian central venous catheter. There was also palpable liver masses; however, no obvious adenopathy or carcinomatosis. Pathology report did come back as a poorly differentiated colonic adenocarcinoma with one of three lymph nodes containing metastatic disease. The patient is here for placement of Groshong implantable catheter for chemotherapy. DESCRIPTION OF PROCEDURE: The patient was brought to the operating room, laid supine on the table. After adequate IV pain and sedating medications and monitored anesthesia care, the chest and neck were prepped and draped in standard surgical fashion. Lidocaine 1% with epinephrine was then used to anesthetize the overlying skin in the left subclavian region and the left subclavian vein was cannulated and the guidewire was then inserted using fluoroscopy. The cannulating needle was removed and a skin incision was made using a 15 blade. A tract was then created using a venous dilator and sheath under fluoroscopy. Guidewire and dilator were then removed and the Groshong implantable catheter was placed through the sheath until the tip of the catheter was at the superior vena cava - right atrial junction. The sheath was then removed. The skin incision was then extended laterally and the chest reservoir was created using electrocautery as well as blunt dissection overlying the pectoralis fascia. The inner wire within the catheter was then removed. The catheter cut down to size and then the port placed onto the catheter. The port was then placed into the reservoir and sutured to the pectoralis fascia using interrupted 3-0 Vicryl sutures. Subcutaneous tissue was then reapproximated using 3-0 Vicryl interrupted sutures. Skin was closed using 4-0 Monocryl running subcuticular suture. The wound was then cleaned and covered with Dermabond. The patient tolerated the procedure well. We will get a post-procedure chest x-ray and once placement is confirmed, the port may be accessed and the catheter may be used at any time. Job ID: [id number] DocumentID: [id number] Dictated Date: 03/28/2018 11:50:04 College Or University Faculty Member Date: 03/28/2018 18:06:14 Dictated By: JARAD VALENCIA MD MTDD
== END 2018-03-28 13:15 | disposition home or self-care (01) ==
LOC: SDC 08:22
PROVIDERS: ATTEND Surgery
DX: C18.7 Malignant neoplasm of sigmoid colon (principal); C77.2 Secondary and unspecified malignant neoplasm of intra-abdominal lymph nodes; Z87.891 Personal history of nicotine dependence
CPT/HCPCS: 71045; 87081

== ENCOUNTER 2018-04-22 09:08 | Outpatient (RCR) | payer MEDICARE ==
[2018-03-19 09:29] LABS: BASOPHILS % (AUTO) 0 % (0-10); EOSINOPHILS # (AUTO) 0.6 10^3/uL (0.0-0.3); EOSINOPHILS % (AUTO) 6 % (0-10); HEMATOCRIT 39 % (40-54); HEMOGLOBIN 12.9 G/DL (13.3-17.7); LYMPHOCYTES # (AUTO) 2.5 X 10^3 (1.0-4.0); LYMPHOCYTES % (AUTO) 25 % (12-44); MEAN CORPUSCULAR HEMOGLOBIN 28 PG (25-34); MEAN CORPUSCULAR HGB CONC 33 G/DL (32-36); MEAN CORPUSCULAR VOLUME 85 FL (80-99); MEAN PLATELET VOLUME 9.7 FL (7.4-10.4); MONOCYTES # (AUTO) 0.9 X 10^3 (0.0-1.0); MONOCYTES % (AUTO) 9 % (0-12); NEUTROPHILS # (AUTO) 5.9 X 10^3 (1.8-7.8); NEUTROPHILS % (AUTO) 60 % (42-75); PLATELET COUNT 316 10^3/uL (130-400); RED BLOOD COUNT 4.59 10^6/uL (4.35-5.85); WHITE BLOOD COUNT 9.8 10^3/uL (4.3-11.0)
[2018-03-19 09:49] LABS: ALANINE AMINOTRANSFERASE 24 U/L (0-55); ALBUMIN 3.9 GM/DL (3.2-4.5); ALKALINE PHOSPHATASE 187 U/L (40-136); BUN/CREATININE RATIO 17; CALCIUM 9.6 MG/DL (8.5-10.1); CARBON DIOXIDE 26 MMOL/L (21-32); CHLORIDE 108 MMOL/L (98-107); CREATININE SERUM 0.82 MG/DL (0.60-1.30); GFR ESTIMATED > 60; GLUCOSE 87 MG/DL (70-105); POTASSIUM 3.3 MMOL/L (3.6-5.0); SODIUM 142 MMOL/L (135-145)
[2018-04-01 10:40] LABS: BASOPHILS # (AUTO) 0.1 10^3/uL (0.0-0.1); BASOPHILS % (AUTO) 1 % (0-10); EOSINOPHILS # (AUTO) 0.6 10^3/uL (0.0-0.3); EOSINOPHILS % (AUTO) 6 % (0-10); HEMATOCRIT 40 % (40-54); HEMOGLOBIN 12.6 G/DL (13.3-17.7); LYMPHOCYTES # (AUTO) 1.9 X 10^3 (1.0-4.0); LYMPHOCYTES % (AUTO) 19 % (12-44); MEAN CORPUSCULAR HEMOGLOBIN 27 PG (25-34); MEAN CORPUSCULAR HGB CONC 32 G/DL (32-36); MEAN CORPUSCULAR VOLUME 85 FL (80-99); MEAN PLATELET VOLUME 10.2 FL (7.4-10.4); MONOCYTES # (AUTO) 0.8 X 10^3 (0.0-1.0); MONOCYTES % (AUTO) 9 % (0-12); NEUTROPHILS # (AUTO) 6.5 X 10^3 (1.8-7.8); NEUTROPHILS % (AUTO) 66 % (42-75); PLATELET COUNT 280 10^3/uL (130-400); RED BLOOD COUNT 4.65 10^6/uL (4.35-5.85); RED CELL DISTRIBUTION WIDTH 15.2 % (10.0-14.5); WHITE BLOOD COUNT 9.8 10^3/uL (4.3-11.0)
[2018-04-01 11:00] LABS: ALANINE AMINOTRANSFERASE 25 U/L (0-55); ALBUMIN 3.7 GM/DL (3.2-4.5); ALKALINE PHOSPHATASE 227 U/L (40-136); BUN/CREATININE RATIO 17; CALCIUM 9.2 MG/DL (8.5-10.1); CARBON DIOXIDE 26 MMOL/L (21-32); CHLORIDE 104 MMOL/L (98-107); CREATININE SERUM 0.72 MG/DL (0.60-1.30); GFR ESTIMATED > 60; GLUCOSE 108 MG/DL (70-105); MAGNESIUM 1.8 MG/DL (1.8-2.4); POTASSIUM 2.9 MMOL/L (3.6-5.0); SODIUM 138 MMOL/L (135-145); TOTAL PROTEIN 6.3 GM/DL (6.4-8.2)
[2018-04-08 14:22] LABS: BASOPHILS % (AUTO) 0 % (0-10); EOSINOPHILS # (AUTO) 0.6 10^3/uL (0.0-0.3); EOSINOPHILS % (AUTO) 5 % (0-10); HEMATOCRIT 41 % (40-54); LYMPHOCYTES # (AUTO) 2.4 X 10^3 (1.0-4.0); LYMPHOCYTES % (AUTO) 20 % (12-44); MEAN CORPUSCULAR HEMOGLOBIN 27 PG (25-34); MEAN CORPUSCULAR HGB CONC 32 G/DL (32-36); MEAN CORPUSCULAR VOLUME 85 FL (80-99); MEAN PLATELET VOLUME 9.6 FL (7.4-10.4); MONOCYTES % (AUTO) 9 % (0-12); NEUTROPHILS # (AUTO) 8.1 X 10^3 (1.8-7.8); NEUTROPHILS % (AUTO) 67 % (42-75); PLATELET COUNT 352 10^3/uL (130-400); RED BLOOD COUNT 4.79 10^6/uL (4.35-5.85); RED CELL DISTRIBUTION WIDTH 15.1 % (10.0-14.5); WHITE BLOOD COUNT 12.2 10^3/uL (4.3-11.0)
[2018-04-08 14:42] LABS: BUN/CREATININE RATIO 21; CALCIUM 8.9 MG/DL (8.5-10.1); CARBON DIOXIDE 23 MMOL/L (21-32); CHLORIDE 107 MMOL/L (98-107); CREATININE SERUM 0.82 MG/DL (0.60-1.30); GFR ESTIMATED > 60; GLUCOSE 122 MG/DL (70-105); POTASSIUM 3.5 MMOL/L (3.6-5.0); SODIUM 139 MMOL/L (135-145)
[2018-04-15 14:15] LABS: BASOPHILS % (AUTO) 0 % (0-10); EOSINOPHILS # (AUTO) 0.5 10^3/uL (0.0-0.3); EOSINOPHILS % (AUTO) 4 % (0-10); HEMATOCRIT 38 % (40-54); HEMOGLOBIN 12.6 G/DL (13.3-17.7); LYMPHOCYTES % (AUTO) 16 % (12-44); MEAN CORPUSCULAR HEMOGLOBIN 28 PG (25-34); MEAN CORPUSCULAR HGB CONC 33 G/DL (32-36); MEAN CORPUSCULAR VOLUME 85 FL (80-99); MEAN PLATELET VOLUME 9.2 FL (7.4-10.4); MONOCYTES # (AUTO) 0.9 X 10^3 (0.0-1.0); MONOCYTES % (AUTO) 7 % (0-12); NEUTROPHILS # (AUTO) 9.3 X 10^3 (1.8-7.8); NEUTROPHILS % (AUTO) 73 % (42-75); PLATELET COUNT 308 10^3/uL (130-400); RED BLOOD COUNT 4.51 10^6/uL (4.35-5.85); RED CELL DISTRIBUTION WIDTH 15.8 % (10.0-14.5); WHITE BLOOD COUNT 12.7 10^3/uL (4.3-11.0)
[2018-04-15 14:31] LABS: BUN/CREATININE RATIO 24; CARBON DIOXIDE 26 MMOL/L (21-32); CHLORIDE 108 MMOL/L (98-107); CREATININE SERUM 0.82 MG/DL (0.60-1.30); GFR ESTIMATED > 60; GLUCOSE 93 MG/DL (70-105); SODIUM 140 MMOL/L (135-145)
[~2018-04-22] VITALS: Ht 184.2 cm; Wt 68.9 kg
[~2018-04-22 09:08] MED LIST changes: +D5W 500 ML IV (CANCER CTR) 500 ML IV SCH; +FOSAPREPITANT DIMEGLUMINE 150 MG in NS (IVPB) CANCER CENTER ONLY 150 ML IV SCH; +HYDR-34 PO; +NS IV 1000 ML (CANCER CTR) 1,000 ML IV SCH; +OXALIPLATIN 100 MG, OXALIPLATIN (GENERIC) 50 MG in D5W 250 ML IVPB (CANCER CTR) 250 ML IV SCH; +PALONOSETRON HCL 0.25 MG, DEXAMETHASONE INJECTION 10 MG in NS (IVPB) CANCER CENTER 50 ML IV SCH; +PANITUMUMAB IV ONE; +PANITUMUMAB IV SCH; +[UNRECOGNIZED DRUG - OTHER] IV ONE; +[UNRECOGNIZED DRUG - OTHER] IV SCH
[2018-04-22 09:42] LABS: BASOPHILS # (AUTO) 0.1 10^3/uL (0.0-0.1); BASOPHILS % (AUTO) 1 % (0-10); EOSINOPHILS # (AUTO) 0.5 10^3/uL (0.0-0.3); EOSINOPHILS % (AUTO) 5 % (0-10); HEMATOCRIT 39 % (40-54); HEMOGLOBIN 12.7 G/DL (13.3-17.7); LYMPHOCYTES # (AUTO) 1.9 X 10^3 (1.0-4.0); LYMPHOCYTES % (AUTO) 20 % (12-44); MEAN CORPUSCULAR HEMOGLOBIN 28 PG (25-34); MEAN CORPUSCULAR HGB CONC 33 G/DL (32-36); MEAN CORPUSCULAR VOLUME 85 FL (80-99); MEAN PLATELET VOLUME 9.6 FL (7.4-10.4); MONOCYTES # (AUTO) 0.8 X 10^3 (0.0-1.0); MONOCYTES % (AUTO) 9 % (0-12); NEUTROPHILS # (AUTO) 6.2 X 10^3 (1.8-7.8); NEUTROPHILS % (AUTO) 66 % (42-75); PLATELET COUNT 268 10^3/uL (130-400); RED BLOOD COUNT 4.56 10^6/uL (4.35-5.85); RED CELL DISTRIBUTION WIDTH 16.2 % (10.0-14.5); WHITE BLOOD COUNT 9.4 10^3/uL (4.3-11.0)
[2018-04-22 09:59] LABS: ALANINE AMINOTRANSFERASE 21 U/L (0-55); ALBUMIN 3.8 GM/DL (3.2-4.5); ALKALINE PHOSPHATASE 211 U/L (40-136); BILIRUBIN,TOTAL 1.2 MG/DL (0.1-1.0); BUN/CREATININE RATIO 24; CALCIUM 9.2 MG/DL (8.5-10.1); CARBON DIOXIDE 24 MMOL/L (21-32); CHLORIDE 108 MMOL/L (98-107); CREATININE SERUM 0.74 MG/DL (0.60-1.30); GFR ESTIMATED > 60; GLUCOSE 79 MG/DL (70-105); MAGNESIUM 1.9 MG/DL (1.8-2.4); POTASSIUM 2.8 MMOL/L (3.6-5.0); SODIUM 140 MMOL/L (135-145); TOTAL PROTEIN 6.4 GM/DL (6.4-8.2)
== END 2018-05-13 08:41 | disposition home or self-care (01) ==
LOC: ONC 09:08
PROVIDERS: ATTEND Internal Medicine Hematology & Oncology
DX: C18.7 Malignant neoplasm of sigmoid colon (principal); C78.7 Secondary malignant neoplasm of liver and intrahepatic bile duct; C79.71 Secondary malignant neoplasm of right adrenal gland; C78.02 Secondary malignant neoplasm of left lung; Z87.891 Personal history of nicotine dependence
CPT/HCPCS: 36415; 36591; 80048; 80053; 82378; 83735; 85025; 96367; 96375; 96413; 96417; 99213

== ENCOUNTER 2018-05-13 09:04 | Outpatient (RCR) | payer MEDICARE ==
[~2018-05-13] VITALS: Ht 184.2 cm; Wt 64.9 kg
[~2018-05-13 09:04] MED LIST changes: -D5W 500 ML IV (CANCER CTR) 500 ML IV SCH; -FOSAPREPITANT DIMEGLUMINE 150 MG in NS (IVPB) CANCER CENTER ONLY 150 ML IV SCH; -NS IV 1000 ML (CANCER CTR) 1,000 ML IV SCH; -OXALIPLATIN 100 MG, OXALIPLATIN (GENERIC) 50 MG in D5W 250 ML IVPB (CANCER CTR) 250 ML IV SCH; -PALONOSETRON HCL 0.25 MG, DEXAMETHASONE INJECTION 10 MG in NS (IVPB) CANCER CENTER 50 ML IV SCH; -PANITUMUMAB IV ONE; -PANITUMUMAB IV SCH; -[UNRECOGNIZED DRUG - OTHER] IV ONE; -[UNRECOGNIZED DRUG - OTHER] IV SCH
[2018-05-13 09:26] LABS: BASOPHILS % (AUTO) 0 % (0-10); EOSINOPHILS # (AUTO) 0.5 10^3/uL (0.0-0.3); EOSINOPHILS % (AUTO) 5 % (0-10); HEMATOCRIT 42 % (40-54); HEMOGLOBIN 13.7 G/DL (13.3-17.7); LYMPHOCYTES # (AUTO) 1.8 X 10^3 (1.0-4.0); LYMPHOCYTES % (AUTO) 16 % (12-44); MEAN CORPUSCULAR HEMOGLOBIN 28 PG (25-34); MEAN CORPUSCULAR HGB CONC 32 G/DL (32-36); MEAN CORPUSCULAR VOLUME 85 FL (80-99); MEAN PLATELET VOLUME 9.5 FL (7.4-10.4); MONOCYTES % (AUTO) 9 % (0-12); NEUTROPHILS # (AUTO) 7.9 X 10^3 (1.8-7.8); NEUTROPHILS % (AUTO) 70 % (42-75); PLATELET COUNT 282 10^3/uL (130-400); RED BLOOD COUNT 4.98 10^6/uL (4.35-5.85); WHITE BLOOD COUNT 11.2 10^3/uL (4.3-11.0)
[2018-05-13] MEDS ORDERED: NS IV 1000 ML (CANCER CTR) 1,000 ML ONE (09:49)
[2018-05-13 09:56] LABS: ALANINE AMINOTRANSFERASE 19 U/L (0-55); ALBUMIN 3.7 GM/DL (3.2-4.5); ALKALINE PHOSPHATASE 240 U/L (40-136); BILIRUBIN,TOTAL 1.3 MG/DL (0.1-1.0); BUN/CREATININE RATIO 15; CALCIUM 9.5 MG/DL (8.5-10.1); CARBON DIOXIDE 23 MMOL/L (21-32); CHLORIDE 107 MMOL/L (98-107); CREATININE SERUM 0.71 MG/DL (0.60-1.30); GFR ESTIMATED > 60; GLUCOSE 79 MG/DL (70-105); MAGNESIUM 1.8 MG/DL (1.8-2.4); POTASSIUM 3.4 MMOL/L (3.6-5.0); SODIUM 139 MMOL/L (135-145); TOTAL PROTEIN 6.1 GM/DL (6.4-8.2)
[2018-05-13] MEDS ORDERED: [UNRECOGNIZED DRUG - OTHER] IV SCH (09:57)
[2018-05-13] MEDS ORDERED: D5W 500 ML IV (CANCER CTR) 500 ML IV SCH (09:57)
[2018-05-13] MEDS ORDERED: PALONOSETRON HCL 0.25 MG, DEXAMETHASONE INJECTION 10 MG in NS (IVPB) CANCER CENTER 50 ML IV SCH (09:57)
[2018-05-13] MEDS ORDERED: OXALIPLATIN 100 MG, OXALIPLATIN (GENERIC) 50 MG in D5W 250 ML IVPB (CANCER CTR) 250 ML IV SCH (09:57)
[2018-05-13] MEDS ORDERED: NS IV 1000 ML (CANCER CTR) 1,000 ML IV SCH (09:57)
[2018-05-13] MEDS ORDERED: PANITUMUMAB IV SCH (09:57)
[2018-05-13] MEDS ORDERED: FOSAPREPITANT DIMEGLUMINE 150 MG in NS (IVPB) CANCER CENTER ONLY 150 ML IV SCH (09:57)
[2018-05-20 13:49] LABS: BASOPHILS % (AUTO) 0 % (0-10); EOSINOPHILS # (AUTO) 0.6 10^3/uL (0.0-0.3); EOSINOPHILS % (AUTO) 4 % (0-10); HEMATOCRIT 43 % (40-54); HEMOGLOBIN 14.2 G/DL (13.3-17.7); LYMPHOCYTES # (AUTO) 2.4 X 10^3 (1.0-4.0); LYMPHOCYTES % (AUTO) 17 % (12-44); MEAN CORPUSCULAR HEMOGLOBIN 29 PG (25-34); MEAN CORPUSCULAR HGB CONC 33 G/DL (32-36); MEAN CORPUSCULAR VOLUME 85 FL (80-99); MONOCYTES # (AUTO) 1.2 X 10^3 (0.0-1.0); MONOCYTES % (AUTO) 9 % (0-12); NEUTROPHILS # (AUTO) 10.1 X 10^3 (1.8-7.8); NEUTROPHILS % (AUTO) 70 % (42-75); PLATELET COUNT 272 10^3/uL (130-400); RED BLOOD COUNT 4.99 10^6/uL (4.35-5.85); RED CELL DISTRIBUTION WIDTH 16.8 % (10.0-14.5); WHITE BLOOD COUNT 14.4 10^3/uL (4.3-11.0)
[2018-05-20 14:06] LABS: BUN/CREATININE RATIO 20; CALCIUM 9.1 MG/DL (8.5-10.1); CARBON DIOXIDE 26 MMOL/L (21-32); CHLORIDE 105 MMOL/L (98-107); CREATININE SERUM 0.83 MG/DL (0.60-1.30); GFR ESTIMATED > 60; GLUCOSE 110 MG/DL (70-105); POTASSIUM 3.5 MMOL/L (3.6-5.0); SODIUM 138 MMOL/L (135-145)
== END 2018-05-20 13:23 | disposition home or self-care (01) ==
LOC: ONC 09:04
PROVIDERS: ATTEND Internal Medicine Hematology & Oncology
DX: Z51.11 Encounter for antineoplastic chemotherapy (principal); C18.7 Malignant neoplasm of sigmoid colon; C78.7 Secondary malignant neoplasm of liver and intrahepatic bile duct; C79.71 Secondary malignant neoplasm of right adrenal gland; C78.02 Secondary malignant neoplasm of left lung; Z87.891 Personal history of nicotine dependence
CPT/HCPCS: 36415; 36591; 80048; 80053; 83735; 85025; 96367; 96375; 96413; 96417

== ENCOUNTER 2018-05-20 13:30 | Outpatient (RCR) | payer MEDICARE | END 2018-05-26 | disposition home or self-care (01) | LOC: ONC 13:30 | PROVIDERS: ATTEND Internal Medicine Hematology & Oncology | DX: C18.7 Malignant neoplasm of sigmoid colon (principal); C78.7 Secondary malignant neoplasm of liver and intrahepatic bile duct; C79.71 Secondary malignant neoplasm of right adrenal gland; C78.02 Secondary malignant neoplasm of left lung; Z87.891 Personal history of nicotine dependence ==

== ENCOUNTER 2018-06-03 14:04 | Inpatient (IN) | payer MEDICARE ==
[~2018-06-03] VITALS: Ht 193 cm; Wt 78.5 kg
[2018-06-03] VITALS (10 sets, daily range): BP systolic 112–149; BP diastolic 78–104
--- OUTSIDE RECORDS SUMMARY | 2018-06-03 14:09 | XMS REPORT ---
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 725617252897046 Problem Colon cancer metastasized to multiple sites C18.9 Active 99329004 ALLERGIES No Information ENCOUNTERS Encounter Location Date Diagnosis [place] [id number], [place] [address] Mar, Malignant neoplasm of sigmoid colon C18.7 ; 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 and 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 [place] [id number], [place] [address] Mar, [place] [id number], [place] [address] Feb, Via [employer] [address] [place] [id number] Feb, Malignant neoplasm of colon, unspecified part of colon C18.9 [place] [address] [facility] [id number] [address] Jan, Via [employer] [address] [place] [id number] Jan, Encounter for examination for admission to [facility] Z02.2 and Colon cancer metastasized to multiple sites C18.9 [place] [id number], [place] [address] Jan, [place] [address] [facility] [id number] [place] [address] Sep, Osteoarthritis M19.90 [place] [address] [address] May, Establishing care with new doctor, encounter for Z71.89 ; BPH (benign prostatic hypertrophy) with urinary obstruction N40.1 and Disappearance and of family member Z63.4 [place] [id number], [place] [address] Apr, IMMUNIZATIONS No Known Immunizations SOCIAL HISTORY Never Assessed REASON FOR VISIT Disabled Parking PLAN OF CARE VITAL SIGNS MEDICATIONS No Known Medications RESULTS No Results PROCEDURES No Known procedures INSTRUCTIONS MEDICATIONS ADMINISTERED No Known Medications MEDICAL (GENERAL) HISTORY Type Description Date Medical History Benign Prostatic Hypertrophy Surgical History appendectomy 1963 Surgical History colectomy 01/2018 Hospitalization History pyelonephritis, dehydration, renal insufficiency
--- OUTSIDE RECORDS SUMMARY | 2018-06-03 14:09 | XMS REPORT ---
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 411601409595913 Problem Colon cancer metastasized to multiple sites C18.9 Active 57909128 ALLERGIES No Information ENCOUNTERS Encounter Location Date Diagnosis [place] [id number], [place] [address] Mar, Malignant neoplasm of sigmoid colon C18.7 ; 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 and 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 [place] [address] [id number], [place] [address] Mar, [place] [id number], [place] [address] Feb, Via [email or web address] [address] [place] [id number] Feb, Malignant neoplasm of colon, unspecified part of colon C18.9 [place] [address] [facility] [id number], [place] [address] Jan, Via [email or web address] [address] [place] [id number] Jan, Encounter for examination for admission to [facility] Z02.2 and Colon cancer metastasized to multiple sites C18.9 [place] [address] [id number], [place] [address] Jan, [place] [address] [address] [facility] [id number] [place] [address] Sep, Osteoarthritis M19.90 [place] [address] [address], [place] [address] May, Establishing care with new doctor, encounter for Z71.89 ; BPH (benign prostatic hypertrophy) with urinary obstruction N40.1 and Disappearance and of family member Z63.4 [place] [address] [address], [place] [address] Apr, IMMUNIZATIONS No Known Immunizations SOCIAL HISTORY Never Assessed REASON FOR VISIT Refill request PLAN OF CARE VITAL SIGNS MEDICATIONS No Known Medications RESULTS No Results PROCEDURES No Known procedures INSTRUCTIONS MEDICATIONS ADMINISTERED No Known Medications MEDICAL (GENERAL) HISTORY Type Description Date Medical History Benign Prostatic Hypertrophy Surgical History appendectomy 1963 Surgical History colectomy 01/2018 Hospitalization History pyelonephritis, dehydration, renal insufficiency
--- OUTSIDE RECORDS SUMMARY | 2018-06-03 14:09 | XMS REPORT ---
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 846080896340502 Problem Colon cancer metastasized to multiple sites C18.9 Active 43480527 ALLERGIES No Information ENCOUNTERS Encounter Location Date Diagnosis [place] [id number], [place] [address] Mar, Malignant neoplasm of sigmoid colon C18.7 ; 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 and 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 [place] [address] [id number], [place] [address] Mar, [place] [id number], [place] [address] Feb, Via [facility] [employer] [address] [place] [id number] Feb, Malignant neoplasm of colon, unspecified part of colon C18.9 [place] [address] [facility] [id number], [place] [address] Jan, Via [facility] [address] [place] [id number] Jan, Encounter for examination for admission to [facility] Z02.2 and Colon cancer metastasized to multiple sites C18.9 [place] [address] [id number], [place] [address] Jan, [place] [address] [facility] [id number] [place] [address] Sep, Osteoarthritis M19.90 [facility] [id number], [place] [address] May, Establishing care with new doctor, encounter for Z71.89 ; BPH (benign prostatic hypertrophy) with urinary obstruction N40.1 and Disappearance and of family member Z63.4 [place] [address] [id number], [place] [address] Apr, IMMUNIZATIONS No Known Immunizations SOCIAL HISTORY Never Assessed REASON FOR VISIT OR Admission PLAN OF CARE Activity Details Follow Up prn Reason: VITAL SIGNS MEDICATIONS No Known Medications RESULTS No Results PROCEDURES Procedure Date Ordered Result Body Site [facility] VISIT ESTABLISHED PATIENT February 14, 2018 INSTRUCTIONS MEDICATIONS ADMINISTERED No Known Medications MEDICAL (GENERAL) HISTORY Type Description Date Medical History Benign Prostatic Hypertrophy Surgical History appendectomy 1963 Surgical History colectomy 01/2018 Hospitalization History pyelonephritis, dehydration, renal insufficiency
--- OUTSIDE RECORDS SUMMARY | 2018-06-03 14:09 | XMS REPORT ---
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 860028831403754 Problem Colon cancer metastasized to multiple sites C18.9 Active 86440056 ALLERGIES No Information ENCOUNTERS Encounter Location Date Diagnosis [place] [id number], [place] [address] Mar, Malignant neoplasm of sigmoid colon C18.7 ; 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 and 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 [place] [address] [id number], [place] [address] Mar, [place] [id number], [place] [address] Feb, Via [employer] [address] [place] [id number] Feb, Malignant neoplasm of colon, unspecified part of colon C18.9 [place] [address] [facility] [id number], [place] [address] Jan, Via [employer] [address] [place] [id number] Jan, Encounter [facility] Z02.2 and Colon cancer metastasized to multiple sites C18.9 [id number], [place] [address] Jan, [place] [address] [facility] [id number] [place] [address] Sep, Osteoarthritis M19.90 [facility] [address], [place] [address] May, Establishing care with new doctor, encounter for Z71.89 ; BPH (benign prostatic hypertrophy) with urinary obstruction N40.1 and Disappearance and of family member Z63.4 [place] [id number], [place] [address] Apr, IMMUNIZATIONS No Known Immunizations SOCIAL HISTORY Never Assessed REASON FOR VISIT Skilled Nursing PLAN OF CARE Activity Details Follow Up prn Reason: VITAL SIGNS MEDICATIONS No Known Medications RESULTS No Results PROCEDURES Procedure Date Ordered Result Body Site ON LICENSE OF [facility] VISIT ESTABLISHED PATIENT March 05, 2018 INSTRUCTIONS MEDICATIONS ADMINISTERED No Known Medications MEDICAL (GENERAL) HISTORY Type Description Date Medical History Benign Prostatic Hypertrophy Surgical History appendectomy 1963 Surgical History colectomy 01/2018 Hospitalization History pyelonephritis, dehydration, renal insufficiency
--- OUTSIDE RECORDS SUMMARY | 2018-06-03 14:09 | XMS REPORT ---
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 914415322120797 Problem Colon cancer metastasized to multiple sites C18.9 Active 29518472 ALLERGIES No Known Allergies ENCOUNTERS Encounter Location Date Diagnosis [address] [id number] [address] Mar, Malignant neoplasm of sigmoid colon C18.7 ; 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 and 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 [place] [address] [id number] [address] Mar, [place] [address] [id number] [address] Feb, Via [email or web address] [address] [place] [id number] Feb, Malignant neoplasm of colon, unspecified part of colon C18.9 [place] [address] [address] [facility] [id number] [address] Jan, Via [employer] [address] [place] [id number] Jan, Encounter for examination for admission to [facility] Z02.2 and Colon cancer metastasized to multiple sites C18.9 [place] [address] [id number] [address] Jan, [place] [address] [address] [facility] [id number] [place] [address] Sep, Osteoarthritis M19.90 [facility] [address] [facility] [id number] [address] May, Establishing care with new doctor, encounter for Z71.89 ; BPH (benign prostatic hypertrophy) with urinary obstruction N40.1 and Disappearance and of family member Z63.4 [facility] [address] [facility] [id number] [place] [address] Apr, IMMUNIZATIONS No Known Immunizations SOCIAL HISTORY Never Assessed REASON FOR VISIT prison F/U, PT reports that since yesterday he has been experincing [facility] PLAN OF CARE Activity Details Follow Up 3 Months Reason:colon cancer VITAL SIGNS Height 76 in 2018-04-15 Weight 148.5 lbs 2018-04-15 Temperature 97.7 degrees Fahrenheit 2018-04-15 Heart Rate 69 bpm 2018-04-15 Respiratory Rate 20 2018-04-15 Oximetry 98 % 2018-04-15 BMI 18.07 kg/m2 2018-04-15 Blood pressure systolic 160 mmHg 2018-04-15 Blood pressure diastolic 90 mmHg 2018-04-15 MEDICATIONS No Known Medications RESULTS No Results PROCEDURES Procedure Date Ordered Result Body Site [facility] VISIT ESTABLISHED PATIENT Apr 15, 2018 INSTRUCTIONS MEDICATIONS ADMINISTERED No Known Medications MEDICAL (GENERAL) HISTORY Type Description Date Medical History Benign Prostatic Hypertrophy Surgical History appendectomy 1963 Surgical History colectomy 01/2018 Hospitalization History pyelonephritis, dehydration, renal insufficiency
--- OUTSIDE RECORDS SUMMARY | 2018-06-03 14:10 | XMS REPORT ---
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 223810022060967 Problem Colon cancer metastasized to multiple sites C18.9 Active 12262011 ALLERGIES No Information ENCOUNTERS Encounter Location Date Diagnosis [place] [address] [place] [address] Mar, Malignant neoplasm of sigmoid colon C18.7 ; 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 and 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 [place] [address] [place] [address] Mar, [place] [address] [address] Feb, Via [employer] [address] [place] [id number] Feb, Malignant neoplasm of colon, unspecified part of colon C18.9 [facility] [address] [facility] [id number] [address] Jan, Via [employer] [address] [place] [id number] Jan, Encounter for examination for admission to senior living Z02.2 and Colon cancer metastasized to multiple sites C18.9 [facility] [address] [place] [address] Jan, [place] [facility] [id number] [place] [address] Sep, Osteoarthritis M19.90 [place] [address] [id number] [address] May, Establishing care with new doctor, encounter for Z71.89 ; BPH (benign prostatic hypertrophy) with urinary obstruction N40.1 and Disappearance and of family member Z63.[address] [id number] [address] Apr, IMMUNIZATIONS No Known Immunizations SOCIAL HISTORY Never Assessed REASON FOR VISIT Med Rec PLAN OF CARE VITAL SIGNS MEDICATIONS Medication Instructions Dosage Frequency Start Date End Date Duration Status Pantoprazole Sodium 40 MG Orally Once a day 1 tablet 24h Active Ketorolac Tromethamine 10 mg Orally every 6 hrs prn pain 1 tablet with food or milk as needed Active RESULTS No Results PROCEDURES No Known procedures INSTRUCTIONS MEDICATIONS ADMINISTERED No Known Medications MEDICAL (GENERAL) HISTORY Type Description Date Medical History Benign Prostatic Hypertrophy Surgical History appendectomy 1963 Surgical History colectomy 01/2018 Hospitalization History pyelonephritis, dehydration, renal insufficiency
--- OUTSIDE RECORDS SUMMARY | 2018-06-03 14:10 | XMS REPORT ---
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 [id number] Problem Colon cancer metastasized to multiple sites C18.9 Active [id number] ALLERGIES No Information ENCOUNTERS Encounter Location Date Diagnosis [id number], [place] [address] Mar, Malignant neoplasm of sigmoid colon C18.7 ; 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 and 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 [id number], [place] [address] Mar, [place] [id number], [place] [address] Feb, [address] [facility] [address] [place] [id number] Feb, Malignant neoplasm of colon, unspecified part of colon C18.9 [address] [facility] [id number] [address] Jan, [facility] [address] [place] [id number] Jan, Encounter for examination for admission to long-term Z02.2 and Colon cancer metastasized to multiple sites C18.9 [place] [id number], [place] [address] Jan, [place] [address] [facility] [id number] [address] Sep, Osteoarthritis M19.90 [place] [id number] [address] May, Establishing care with new doctor, encounter for Z71.89 ; BPH (benign prostatic hypertrophy) with urinary obstruction N40.1 and Disappearance and of family member Z63.4 [place] [id number], [place] [address] Apr, IMMUNIZATIONS No Known Immunizations SOCIAL HISTORY Never Assessed REASON FOR VISIT Requests return call PLAN OF CARE VITAL SIGNS MEDICATIONS No Known Medications RESULTS No Results PROCEDURES No Known procedures INSTRUCTIONS MEDICATIONS ADMINISTERED No Known Medications MEDICAL (GENERAL) HISTORY Type Description Date Medical History Benign Prostatic Hypertrophy Surgical History appendectomy 1963 Surgical History colectomy 01/2018 Hospitalization History pyelonephritis, dehydration, renal insufficiency
--- OUTSIDE RECORDS SUMMARY | 2018-06-03 14:11 | XMS REPORT | Continuity of Care Document ---
Author Author [facility] Organization [facility] Address Unknown Phone Unavailable Allergies Active Description Code Type Severity Reaction Onset Reported/Identified Relationship to Patient Clinical Status Yes NKANo Known Allergies NKA Miscellaneous Allergy Mild N/A 12/27/2009 Yes No Known Drug Allergies [id number] Drug Allergy Unknown N/A 03/25/2018 Medications There is no data. 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 07/26/1322 YARA JENNINGS MD, Ot C78.7 SECONDARY MALIG NEOPLASM OF LIVER AND IN 07/26/1322 YARA JENNINGS MD, Ot 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 07/26/1322 YARA JENNINGS MD Ot Z51.11 ENCOUNTER FOR ANTINEOPLASTIC CHEMOTHERAP 07/26/1322 YARA JENNINGS MD, Ot Z87.891 PERSONAL HISTORY OF NICOTINE DEPENDENCE 12/27/2009 Ot 379.93 12/27/2009 Ot 930.0 12/27/2009 Ot E000.8 12/27/2009 Ot E029.9 12/27/2009 Ot E849.0 12/27/2009 Ot E914 05/21/2015 RAVI LANDERS DO Ot 584.9 ACUTE RENAL FAILURE, UNSPECIFIED 05/21/2015 RAVI LANDERS DO Ot 590.10 AC PYELONEPHRITIS NOS 05/21/2015 RAVI LANDERS DO Ot 599.60 URINARY OBSTRUCTION, UNSPECIFIED 05/21/2015 RAVI LANDERS DO Ot 600.01 HYPERTROPHY (BENIGN) OF PROSTATE W URINA 05/21/2015 RAVI LANDERS DO Ot 788.20 RETENTION OF URINE NOS 05/21/2015 RAVI LANDERS DO Ot V15.82 HISTORY OF TOBACCO USE 06/11/2015 SHAQUILLE GARCIA, EDGAR Mariee Ot N13.8 OTHER OBSTRUCTIVE AND REFLUX UROPATHY 06/11/2015 EDGAR CORBIN MD Ot N39.0 URINARY TRACT INFECTION, SITE NOT SPECIF 06/11/2015 EDGAR CORBIN MD Ot N40.1 ENLARGED PROSTATE WITH LOWER URINARY TRA 06/28/2015 TONIA SIMS MD Ot N40.0 06/28/2015 TONIA SIMS MD Ot Z01.812 06/28/2015 TONIA SIMS MD Ot Z11.2 07/01/2015 TONIA SIMS MD, Ot N40.1 ENLARGED PROSTATE WITH LOWER URINARY TRA 07/01/2015 TONIA SIMS MD Ot R33.8 OTHER RETENTION OF URINE 07/15/2015 TONIA SIMS MD Ot N40.0 07/15/2015 TONIA SIMS MD Ot Z01.812 07/15/2015 TONIA SIMS MD Ot Z11.2 08/24/2015 TONIA SIMS MD Ot N40.0 08/24/2015 TONIA SIMS MD Ot Z01.812 08/24/2015 TONIA SIMS MD Ot Z11.2 09/16/2015 TONIA SIMS MD Ot N28.1 02/02/2018 TONIA SIMS MD Ot N40.0 ENLARGED PROSTATE WITHOUT LOWER URINARY 02/02/2018 TONIA SIMS MD Ot Z01.812 ENCOUNTER FOR PREPROCEDURAL LABORATORY E 02/02/2018 TONIA SIMS MD, Ot Z11.2 ENCOUNTER FOR SCREENING FOR OTHER BACTER 02/02/2018 TONIA SIMS MD, Ot N28.1 CYST OF KIDNEY, ACQUIRED 02/02/2018 ADWOA DO, MING Fox Ot K40.20 BI INGUINAL HERNIA, W/O OBST OR GANGRENE 02/02/2018 ADWOA DO, MING K Ot N40.0 BENIGN PROSTATIC HYPERPLASIA WITHOUT LOW 02/02/2018 ADWOA DO, MING K Ot R11.0 NAUSEA 02/02/2018 ADWOA DO, MING K Ot R93.8 ABNORMAL FINDINGS ON DIAGNOSTIC IMAGING 02/02/2018 ADWOA DO MING K Ot Z86.718 PERSONAL HISTORY OF OTHER VENOUS THROMBO 02/02/2018 ADWOA DO MING K Ot Z90.49 ACQUIRED ABSENCE OF OTHER SPECIFIED PART 02/02/2018 ADWOA DOMING Ot Z90.79 ACQUIRED ABSENCE OF OTHER GENITAL ORGAN( 02/03/2018 TONIA SIMS MD Ot N40.0 ENLARGED PROSTATE WITHOUT LOWER URINARY 02/03/2018 TONIA SIMS MD Ot Z01.812 ENCOUNTER FOR PREPROCEDURAL LABORATORY E 02/03/2018 TONIA SIMS MD Ot Z11.2 ENCOUNTER FOR SCREENING FOR OTHER BACTER 02/03/2018 TONIA SIMS MD, Ot N28.1 CYST OF KIDNEY, ACQUIRED 02/03/2018 TONIA SIMS MD, Ot N40.0 ENLARGED PROSTATE WITHOUT LOWER URINARY 02/03/2018 TONIA SIMS MD Ot Z01.812 ENCOUNTER FOR PREPROCEDURAL LABORATORY E 02/03/2018 TONIA SIMS MD Ot Z11.2 ENCOUNTER FOR SCREENING FOR OTHER BACTER 02/03/2018 TONIA SIMS MD, Ot N28.1 CYST OF KIDNEY, ACQUIRED 02/05/2018 LEESA DORAVI Ot C18.7 MALIGNANT NEOPLASM OF SIGMOID COLON 02/05/2018 LANDERS DOKAYLYNA K Ot 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 02/05/2018 RAVI LANDERS DO Ot C78.7 SECONDARY MALIG NEOPLASM OF LIVER AND IN 02/05/2018 RAVI LANDERS DO Ot 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 02/05/2018 KAYLYN LANDERS DOA K Ot K59.00 CONSTIPATION, UNSPECIFIED 02/05/2018 RAVI LANDERS DO K Ot M19.91 PRIMARY OSTEOARTHRITIS, UNSPECIFIED SITE 02/05/2018 LANDERS DO, RAVI K Ot N30.00 ACUTE CYSTITIS WITHOUT HEMATURIA 02/05/2018 LANDERS DO, RAVI K Ot R63.4 ABNORMAL WEIGHT LOSS 02/05/2018 LANDERS DO, RAVI K Ot Z66 DO NOT RESUSCITATE 02/05/2018 LANDERS DO, RAVI K Ot Z86.718 PERSONAL HISTORY OF OTHER VENOUS THROMBO 02/05/2018 LANDERS DO, RAVI K Ot C18.7 MALIGNANT NEOPLASM OF SIGMOID COLON 02/05/2018 LANDERS DO, RAVI K Ot 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 02/05/2018 LANDERS DO, RAVI K Ot C78.7 SECONDARY MALIG NEOPLASM OF LIVER AND IN 02/05/2018 LANDERS DO, RAVI K Ot 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 02/05/2018 LANDERS DO, RAVI K Ot K59.00 CONSTIPATION, UNSPECIFIED 02/05/2018 LANDERS DO, RAVI K Ot M19.91 PRIMARY OSTEOARTHRITIS, UNSPECIFIED SITE 02/05/2018 LANDERS DO, RAVI K Ot N30.00 ACUTE CYSTITIS WITHOUT HEMATURIA 02/05/2018 LANDERS DO, RAVI K Ot R63.4 ABNORMAL WEIGHT LOSS 02/05/2018 LANDERS DO, RAVI K Ot Z66 DO NOT RESUSCITATE 02/05/2018 LANDERS DO, RAVI K Ot Z86.718 PERSONAL HISTORY OF OTHER VENOUS THROMBO 02/06/2018 LANDERS DO, RAVI K Ot C18.7 MALIGNANT NEOPLASM OF SIGMOID COLON 02/06/2018 LANDERS DO, RAVI K Ot 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 02/06/2018 LANDERS DO, RAVI K Ot C78.7 SECONDARY MALIG NEOPLASM OF LIVER AND IN 02/06/2018 LANDERS DO, RAVI K Ot 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 02/06/2018 LANDERS DO, RAVI K Ot K59.00 CONSTIPATION, UNSPECIFIED 02/06/2018 LANDERS DO, RAVI K Ot M19.91 PRIMARY OSTEOARTHRITIS, UNSPECIFIED SITE 02/06/2018 LANDERS DO, RAVI K Ot N30.00 ACUTE CYSTITIS WITHOUT HEMATURIA 02/06/2018 LANDERS DO, RAVI K Ot R63.4 ABNORMAL WEIGHT LOSS 02/06/2018 LANDERS DO, RAVI K Ot Z66 DO NOT RESUSCITATE 02/06/2018 LANDERS DO, RAVI K Ot Z86.718 PERSONAL HISTORY OF OTHER VENOUS THROMBO 02/07/2018 LANDERS DO, RAVI K Ot C18.7 MALIGNANT NEOPLASM OF SIGMOID COLON 02/07/2018 LANDERS DO, RAVI K Ot 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 02/07/2018 LANDERS DO, RAVI K Ot C78.7 SECONDARY MALIG NEOPLASM OF LIVER AND IN 02/07/2018 LANDERS DO, RAVI K Ot 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 02/07/2018 LANDERS DO, RAVI K Ot K40.20 BI INGUINAL HERNIA, W/O OBST OR GANGRENE 02/07/2018 LANDERS DO, RAVI K Ot K59.00 CONSTIPATION, UNSPECIFIED 02/07/2018 LANDERS DO, RAVI K Ot M19.91 PRIMARY OSTEOARTHRITIS, UNSPECIFIED SITE 02/07/2018 LANDERS DO, RAVI K Ot N30.00 ACUTE CYSTITIS WITHOUT HEMATURIA 02/07/2018 LANDERS DO, RAVI K Ot N40.0 BENIGN PROSTATIC HYPERPLASIA WITHOUT LOW 02/07/2018 LANDERS DO, RAVI K Ot R63.4 ABNORMAL WEIGHT LOSS 02/07/2018 LANDERS DO, RAVI K Ot Z66 DO NOT RESUSCITATE 02/07/2018 LANDERS DO, RAVI K Ot Z86.718 PERSONAL HISTORY OF OTHER VENOUS THROMBO 02/08/2018 LANDERS DO, RAVI K Ot C18.7 MALIGNANT NEOPLASM OF SIGMOID COLON 02/08/2018 LANDERS DO, RAVI K Ot 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 02/08/2018 LANDERS DO, RAVI K Ot C78.7 SECONDARY MALIG NEOPLASM OF LIVER AND IN 02/08/2018 LANDERS DO, RAVI K Ot 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 02/08/2018 LANDERS DO, RAVI K Ot K40.20 BI INGUINAL HERNIA, W/O OBST OR GANGRENE 02/08/2018 LANDERS DO, RAVI K Ot K59.00 CONSTIPATION, UNSPECIFIED 02/08/2018 LANDERS DO, RAVI K Ot M19.91 PRIMARY OSTEOARTHRITIS, UNSPECIFIED SITE 02/08/2018 LANDERS DO, RAVI K Ot N30.00 ACUTE CYSTITIS WITHOUT HEMATURIA 02/08/2018 LANDERS DO, RAVI K Ot N40.0 BENIGN PROSTATIC HYPERPLASIA WITHOUT LOW 02/08/2018 LANDERS DO, RAVI K Ot R63.4 ABNORMAL WEIGHT LOSS 02/08/2018 LANDERS DO, RAVI K Ot Z66 DO NOT RESUSCITATE 02/08/2018 LANDERS DO, RAVI K Ot Z86.718 PERSONAL HISTORY OF OTHER VENOUS THROMBO 02/10/2018 LANDERS DO, RAVI K Ot C18.7 MALIGNANT NEOPLASM OF SIGMOID COLON 02/10/2018 LANDERS DO, RAVI K Ot 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 02/10/2018 LANDERS DO, RAVI K Ot C78.7 SECONDARY MALIG NEOPLASM OF LIVER AND IN 02/10/2018 LANDERS DO, RAVI K Ot 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 02/10/2018 LANDERS DO, RAVI K Ot K40.20 BI INGUINAL HERNIA, W/O OBST OR GANGRENE 02/10/2018 LANDERS DO, RAVI K Ot K59.00 CONSTIPATION, UNSPECIFIED 02/10/2018 LANDERS DO, RAVI K Ot M19.91 PRIMARY OSTEOARTHRITIS, UNSPECIFIED SITE 02/10/2018 LANDERS DO, RAVI K Ot N30.00 ACUTE CYSTITIS WITHOUT HEMATURIA 02/10/2018 LANDERS DO, RAVI K Ot N40.0 BENIGN PROSTATIC HYPERPLASIA WITHOUT LOW 02/10/2018 LANDERS DO, RAVI K Ot R63.4 ABNORMAL WEIGHT LOSS 02/10/2018 LANDERS DO, RAVI K Ot Z66 DO NOT RESUSCITATE 02/10/2018 LANDERS DO, RAVI K Ot Z86.718 PERSONAL HISTORY OF OTHER VENOUS THROMBO 02/13/2018 LANDERS DO, RAVI K Ot 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 COLI THE CAUSE OF DI 02/13/2018 LANDERS DO, RAVI K Ot C18.7 MALIGNANT NEOPLASM OF SIGMOID COLON 02/13/2018 LANDERS DO, RAVI K Ot 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 02/13/2018 LANDERS DO, RAVI K Ot C78.7 SECONDARY MALIG NEOPLASM OF LIVER AND IN 02/13/2018 LANDERS DO, RAVI K Ot 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 02/13/2018 LANDERS DO, RAVI K Ot D64.9 ANEMIA, UNSPECIFIED 02/13/2018 LANDERS DO, RAVI K Ot 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 02/13/2018 LANDERS DO, RAVI K Ot E83.51 HYPOCALCEMIA 02/13/2018 LANDERS DO, RAVI K Ot K40.20 BI INGUINAL HERNIA, W/O OBST OR GANGRENE 02/13/2018 LANDERS DO, RAVI K Ot K59.00 CONSTIPATION, UNSPECIFIED 02/13/2018 LANDERS DO, RAVI K Ot M19.91 PRIMARY OSTEOARTHRITIS, UNSPECIFIED SITE 02/13/2018 LANDERS DO, RAVI K Ot N30.00 ACUTE CYSTITIS WITHOUT HEMATURIA 02/13/2018 LANDERS DO, RAVI K Ot N40.0 BENIGN PROSTATIC HYPERPLASIA WITHOUT LOW 02/13/2018 LANDERS DO, RAVI K Ot R18.8 OTHER ASCITES 02/13/2018 LANDERS DO, RAVI K Ot R63.4 ABNORMAL WEIGHT LOSS 02/13/2018 LANDERS DO, RAVI K Ot R74.8 ABNORMAL LEVELS OF OTHER SERUM ENZYMES 02/13/2018 LANDERS DO, RAVI K Ot Z66 DO NOT RESUSCITATE 02/13/2018 LANDERS DO, RAVI K Ot Z86.718 PERSONAL HISTORY OF OTHER VENOUS THROMBO 02/13/2018 LANDERS DO, RAVI K Ot Z87.891 PERSONAL HISTORY OF NICOTINE DEPENDENCE 03/19/2018 SONU EASLEY Ot C18.7 MALIGNANT NEOPLASM OF SIGMOID COLON 03/19/2018 SONU EASLEY Ot 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 03/19/2018 SONU EASLEY Ot C78.7 SECONDARY MALIG NEOPLASM OF LIVER AND IN 03/19/2018 SONU EASLEY Ot 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 03/19/2018 SONU EASLEY Ot Z87.891 PERSONAL HISTORY OF NICOTINE DEPENDENCE 03/20/2018 SONU EASLEY Ot C18.7 MALIGNANT NEOPLASM OF SIGMOID COLON 03/20/2018 SONU EASLEY Ot C78.7 SECONDARY MALIG NEOPLASM OF LIVER AND IN 03/25/2018 JARAD VALENCIA MD Ot Z01.818 ENCOUNTER FOR OTHER PREPROCEDURAL EXAMIN 03/28/2018 JARAD VALENCIA MD Ot C18.7 MALIGNANT NEOPLASM OF SIGMOID COLON 03/28/2018 JARAD VALENCIA MD Ot C77.2 SECONDARY AND UNSP MALIGNANT NEOPLASM OF 03/28/2018 JARAD VALENCIA MD Ot Z87.891 PERSONAL HISTORY OF NICOTINE DEPENDENCE 04/16/2018 SONU EASLEY Ot C18.7 MALIGNANT NEOPLASM OF SIGMOID COLON 04/16/2018 SONU EASLEY Ot 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 04/16/2018 TRACEE, BOBAN N Ot C78.7 SECONDARY MALIG NEOPLASM OF LIVER AND IN 04/16/2018 SONU EASLEY N Ot 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 04/16/2018 SONU EASLEY N Ot Z87.891 PERSONAL HISTORY OF NICOTINE DEPENDENCE 04/22/2018 SONU EASLEY N Ot C18.7 MALIGNANT NEOPLASM OF SIGMOID COLON 04/22/2018 SONU EASLEY N Ot 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 04/22/2018 SONU EASLEY N Ot C78.7 SECONDARY MALIG NEOPLASM OF LIVER AND IN 04/22/2018 SONU EASLEY N Ot 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 04/22/2018 SONU EASLEY N Ot Z87.891 PERSONAL HISTORY OF NICOTINE DEPENDENCE 05/13/2018 SONU EASLEY N Ot C18.7 MALIGNANT NEOPLASM OF SIGMOID COLON 05/13/2018 SONU EASLEY N Ot 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 05/13/2018 SONU EASLEY Danuta Ot C78.7 SECONDARY MALIG NEOPLASM OF LIVER AND IN 05/13/2018 KIM EASLEYKERI Tipton Ot 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 05/13/2018 SONU EASLEY N Ot Z87.891 PERSONAL HISTORY OF NICOTINE DEPENDENCE 05/13/2018 YARA JENNINGS MD Ot C18.7 MALIGNANT NEOPLASM OF SIGMOID COLON 05/13/2018 YARA JENNINGS MD Ot 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 05/13/2018 YARA JENNINGS MD Ot C78.7 SECONDARY MALIG NEOPLASM OF LIVER AND IN 05/13/2018 YARA JENNINGS MD Ot 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 05/13/2018 YARA JENNINGS MD Ot Z87.891 PERSONAL HISTORY OF NICOTINE DEPENDENCE 05/13/2018 YARA JENNINGS MD Ot C18.7 MALIGNANT NEOPLASM OF SIGMOID COLON 05/13/2018 YARA JENNINGS MD Ot 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 05/13/2018 YARA JENNINGS MD Ot C78.7 SECONDARY MALIG NEOPLASM OF LIVER AND IN 05/13/2018 YARA JENNINGS MD Ot 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 05/13/2018 YARA JENNINGS MD Ot Z87.891 PERSONAL HISTORY OF NICOTINE DEPENDENCE 05/14/2018 YARA JENNINGS MD Ot C18.7 MALIGNANT NEOPLASM OF SIGMOID COLON 05/14/2018 YARA JENNINGS MD, Ot 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 05/14/2018 YARA JENNINGS MD, Ot C78.7 SECONDARY MALIG NEOPLASM OF LIVER AND IN 05/14/2018 YARA JENNINGS MD, Ot 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 05/14/2018 YARA JENNINGS MD, Ot Z87.891 PERSONAL HISTORY OF NICOTINE DEPENDENCE 05/20/2018 YARA JENNINGS MD Ot C18.7 MALIGNANT NEOPLASM OF SIGMOID COLON 05/20/2018 YARA JENNINGS MD, Ot 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 05/20/2018 YARA JENNINGS MD, Ot C78.7 SECONDARY MALIG NEOPLASM OF LIVER AND IN 05/20/2018 YARA JENNINGS MD, Ot 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 05/20/2018 YARA JENNINGS MD, Ot Z51.11 ENCOUNTER FOR ANTINEOPLASTIC CHEMOTHERAP 05/20/2018 YARA JENNINGS MD, Ot Z87.891 PERSONAL HISTORY OF NICOTINE DEPENDENCE 05/20/2018 TONIA SIMS MD Ot N40.0 ENLARGED PROSTATE WITHOUT LOWER URINARY 05/20/2018 TONIA SIMS MD Ot Z01.812 ENCOUNTER FOR PREPROCEDURAL LABORATORY E 05/20/2018 TONIA SIMS MD Ot Z11.2 ENCOUNTER FOR SCREENING FOR OTHER BACTER 05/20/2018 TONIA SIMS MD Ot N28.1 CYST OF KIDNEY, ACQUIRED 05/20/2018 SONU EASLEY Ot C18.7 MALIGNANT NEOPLASM OF SIGMOID COLON 05/20/2018 SONU EASLEY Ot C78.7 SECONDARY MALIG NEOPLASM OF LIVER AND IN 05/20/2018 YARA JENNINGS MD Ot C18.7 MALIGNANT NEOPLASM OF SIGMOID COLON 05/20/2018 YARA JENNINGS MD, Ot 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 05/20/2018 YARA JENNINGS MD, Ot C78.7 SECONDARY MALIG NEOPLASM OF LIVER AND IN 05/20/2018 YARA JENNINGS MD Ot 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 05/20/2018 YARA JENNINGS MD, Ot Z51.11 ENCOUNTER FOR ANTINEOPLASTIC CHEMOTHERAP 05/20/2018 YARA JENNINGS MD, Ot Z87.891 PERSONAL HISTORY OF NICOTINE DEPENDENCE 05/26/2018 YARA JENNINGS MD, Ot C18.7 MALIGNANT NEOPLASM OF SIGMOID COLON 05/26/2018 YARA JENNINGS MD, Ot 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 05/26/2018 YARA JENNINGS MD, Ot C78.7 SECONDARY MALIG NEOPLASM OF LIVER AND IN 05/26/2018 YARA JENNINGS MD, Ot 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 05/26/2018 YARA JENNINGS MD, Ot Z51.11 ENCOUNTER FOR ANTINEOPLASTIC CHEMOTHERAP 05/26/2018 YARA JENNINGS MD, Ot Z87.891 PERSONAL HISTORY OF NICOTINE DEPENDENCE 05/27/2018 YARA JENNINGS MD, Ot C18.7 MALIGNANT NEOPLASM OF SIGMOID COLON 05/27/2018 YARA JENNINGS MD, Ot 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 05/27/2018 YARA JENNINGS MD, Ot C78.7 SECONDARY MALIG NEOPLASM OF LIVER AND IN 05/27/2018 YARA JENNINGS MD, Ot 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 05/27/2018 YARA JENNINGS MD, Ot Z87.891 PERSONAL HISTORY OF NICOTINE DEPENDENCE Procedures Code Description Performed By Performed On [id number] EXCISION OF SIGMOID COLON , OPEN APPROACH 02/07/2018 [id number] EXCISION OF RECTUM, OPEN APPROACH, DIAGN 02/07/2018 [id number] DILATION OF LEFT URETER WITH INTRALUMINA 02/07/2018 [id number] FLUOROSCOPY OF LEFT URETER USING LOW OSM 02/07/2018 Results Test Result Range Complete blood count (CBC) with automated white blood cell (WBC) differential - 02/02/18 00:02 Blood leukocytes automated count (number/volume) 16.0 10*3/uL 4.3-11.0 Blood erythrocytes automated count (number/volume) 5.26 10*6/uL 4.35-5.85 Venous blood hemoglobin measurement (mass/volume) 14.7 g/dL 13.3-17.7 Blood hematocrit (volume fraction) 45 % 40-54 Automated erythrocyte mean corpuscular volume 86 [foz_us] 80-99 Automated erythrocyte mean corpuscular hemoglobin (mass per erythrocyte) 28 pg 25-34 Automated erythrocyte mean corpuscular hemoglobin concentration measurement ( mass/volume) 33 g/dL 32-36 Automated erythrocyte distribution width ratio 14.9 % 10.0-14.5 Automated blood platelet count (count/volume) 356 10*3/uL 130-400 Automated blood platelet mean volume measurement 9.5 [foz_us] 7.4-10.4 Automated blood neutrophils/100 leukocytes 78 % 42-75 Automated blood lymphocytes/100 leukocytes 16 % 12-44 Blood monocytes/100 leukocytes 6 % 0-12 Automated blood eosinophils/100 leukocytes 1 % 0-10 Automated blood basophils/100 leukocytes 0 % 0-10 Blood neutrophils automated count (number/volume) 12.5 10*3 1.8-7.8 Blood lymphocytes automated count (number/volume) 2.5 10*3 1.0-4.0 Blood monocytes automated count (number/volume) 0.9 10*3 0.0-1.0 Automated eosinophil count 0.1 10*3/uL 0.0-0.3 Automated blood basophil count (count/volume) 0.0 10*3/uL 0.0-0.1 Blood manual differential performed detection - 02/02/18 00:02 Blood monocytes/100 leukocytes 3 % NRG Manual blood segmented neutrophils/100 leukocytes 79 % NRG Blood band neutrophils/100 leukocytes 0 % NRG Manual blood lymphocytes/100 leukocytes 13 % NRG Manual eosinophils/100 leukocytes in nose 1 % NRG Manual blood basophils/100 leukocytes 0 % NRG Blood lymphocytes variant/100 leukocytes 4 % NRG Blood toxic granules detection by light microscopy 1+ NR Comprehensive metabolic panel - 02/02/18 00:02 Serum or plasma sodium measurement (moles/volume) 138 mmol/L 135-145 Serum or plasma potassium measurement (moles/volume) 3.8 mmol/L 3.6-5.0 Serum or plasma chloride measurement (moles/volume) 107 mmol/L 98-107 Carbon dioxide 19 mmol/L 21-32 Serum or plasma anion gap determination (moles/volume) 12 mmol/L 5-14 Serum or plasma urea nitrogen measurement (mass/volume) 18 mg/dL 7-18 Serum or plasma creatinine measurement (mass/volume) 0.94 mg/dL 0.60-1.30 Serum or plasma urea nitrogen/creatinine mass ratio 19 NRG Serum or plasma creatinine measurement with calculation of estimated glomerular filtration rate > NRG Serum or plasma glucose measurement (mass/volume) 121 mg/dL 70-105 Serum or plasma calcium measurement (mass/volume) 9.2 mg/dL 8.5-10.1 Serum or plasma total bilirubin measurement (mass/volume) 0.7 mg/dL 0.1-1.0 Serum or plasma alkaline phosphatase measurement (enzymatic activity/volume) 219 U/L 40-136 Serum or plasma aspartate aminotransferase measurement (enzymatic activity/ volume) 21 U/L 5-34 Serum or plasma alanine aminotransferase measurement (enzymatic activity/volume ) 20 U/L 0-55 Serum or plasma protein measurement (mass/volume) 6.7 g/dL 6.4-8.2 Serum or plasma albumin measurement (mass/volume) 3.9 g/dL 3.2-4.5 Serum or plasma amylase measurement (enzymatic activity/volume) - 02/02/18 00: 02 Serum or plasma amylase measurement (enzymatic activity/volume) 53 U /L 25-125 Lipase - 02/02/18 00:02 Lipase 6 U/L 8-78 PT panel in platelet poor plasma by coagulation assay - 02/03/18 06:20 Prothrombin time (PT) in platelet poor plasma by coagulation assay 13.5 s 12.2-14.7 INR in platelet poor plasma or blood by coagulation assay 1.0 0.8-1.4 Complete blood count (CBC) with automated white blood cell (WBC) differential - 02/03/18 06:24 Blood leukocytes automated count (number/volume) 16.3 10*3/uL 4.3-11.0 Blood erythrocytes automated count (number/volume) 5.39 10*6/uL 4.35-5.85 Venous blood hemoglobin measurement (mass/volume) 15.3 g/dL 13.3-17.7 Blood hematocrit (volume fraction) 46 % 40-54 Automated erythrocyte mean corpuscular volume 84 [foz_us] 80-99 Automated erythrocyte mean corpuscular hemoglobin (mass per erythrocyte) 28 pg 25-34 Automated erythrocyte mean corpuscular hemoglobin concentration measurement ( mass/volume) 34 g/dL 32-36 Automated erythrocyte distribution width ratio 14.8 % 10.0-14.5 Automated blood platelet count (count/volume) 366 10*3/uL 130-400 Automated blood platelet mean volume measurement 9.5 [foz_us] 7.4-10.4 Automated blood neutrophils/100 leukocytes 74 % 42-75 Automated blood lymphocytes/100 leukocytes 20 % 12-44 Blood monocytes/100 leukocytes 5 % 0-12 Automated blood eosinophils/100 leukocytes 1 % 0-10 Automated blood basophils/100 leukocytes 0 % 0-10 Blood neutrophils automated count (number/volume) 12.0 10*3 1.8-7.8 Blood lymphocytes automated count (number/volume) 3.3 10*3 1.0-4.0 Blood monocytes automated count (number/volume) 0.9 10*3 0.0-1.0 Automated eosinophil count 0.1 10*3/uL 0.0-0.3 Automated blood basophil count (count/volume) 0.0 10*3/uL 0.0-0.1 Blood manual differential performed detection - 02/03/18 06:24 Blood monocytes/100 leukocytes 3 % NRG Manual blood segmented neutrophils/100 leukocytes 79 % NRG Blood band neutrophils/100 leukocytes 0 % NRG Manual blood lymphocytes/100 leukocytes 13 % NRG Manual eosinophils/100 leukocytes in nose 3 % NRG Manual blood basophils/100 leukocytes 0 % NRG Blood smudge cells detection by light microscopy SLIGHT NRG Blood lymphocytes variant/100 leukocytes 2 % NRG Blood toxic granules detection by light microscopy 1+ NRG Comprehensive metabolic panel - 02/03/18 06:24 Serum or plasma sodium measurement (moles/volume) 137 mmol/L 135-145 Serum or plasma potassium measurement (moles/volume) 3.9 mmol/L 3.6-5.0 Serum or plasma chloride measurement (moles/volume) 104 mmol/L 98-107 Carbon dioxide 19 mmol/L 21-32 Serum or plasma anion gap determination (moles/volume) 14 mmol/L 5-14 Serum or plasma urea nitrogen measurement (mass/volume) 21 mg/dL 7-18 Serum or plasma creatinine measurement (mass/volume) 1.00 mg/dL 0.60-1.30 Serum or plasma urea nitrogen/creatinine mass ratio 21 NRG Serum or plasma creatinine measurement with calculation of estimated glomerular filtration rate > NRG Serum or plasma glucose measurement (mass/volume) 113 mg/dL 70-105 Serum or plasma calcium measurement (mass/volume) 9.6 mg/dL 8.5-10.1 Serum or plasma total bilirubin measurement (mass/volume) 1.2 mg/dL 0.1-1.0 Serum or plasma alkaline phosphatase measurement (enzymatic activity/volume) 227 U/L 40-136 Serum or plasma aspartate aminotransferase measurement (enzymatic activity/ volume) 20 U/L 5-34 Serum or plasma alanine aminotransferase measurement (enzymatic activity/volume ) 20 U/L 0-55 Serum or plasma protein measurement (mass/volume) 7.3 g/dL 6.4-8.2 Serum or plasma albumin measurement (mass/volume) 4.1 g/dL 3.2-4.5 Magnesium - 02/03/18 06:24 Magnesium 2.5 mg/dL 1.8-2.4 Serum or plasma [id number].tumor marker measurement (mass/volume) - 06:24 Serum or plasma [id number].tumor marker measurement (mass/volume) 4.2 % 0.0-8.8 Serum ragweed IgE antibody assay - 02/03/18 06:24 Serum ragweed IgE antibody assay 402.9 % 0.0-5.0 CA 19-9 - 02/03/18 06:24 CA 19-9 C 1102 u[iU]/mL 0-37 Complete urinalysis with reflex to culture - 02/03/18 07:51 Urine color determination YELLOW NRG Urine clarity determination SLIGHTLY CLOUDY NRG Urine pH measurement by test strip 6 5-9 Specific gravity of urine by test strip 1.010 1.016- 1.022 Urine protein assay by test strip, semi-quantitative 1+ NEGATIVE Urine glucose detection by automated test strip NEGATIVE NEGATIVE Erythrocytes detection in urine sediment by light microscopy 1+ NEGATIVE Urine ketones detection by automated test strip NEGATIVE NEGATIVE Urine nitrite detection by test strip POSITIVE NEGATIVE Urine total bilirubin detection by test strip NEGATIVE NEGATIVE Urine urobilinogen measurement by automated test strip (mass/volume) NORMAL NORMAL Urine leukocyte esterase detection by dipstick 2+ NEGATIVE Automated urine sediment erythrocyte count by microscopy (number/high power field) NONE NRG Automated urine sediment leukocyte count by microscopy (number/high power field ) [HPF] NRG Bacteria detection in urine sediment by light microscopy LARGE NRG Crystals detection in urine sediment by light microscopy NONE NRG Casts detection in urine sediment by light microscopy NONE NRG Mucus detection in urine sediment by light microscopy NEGATIVE NRG Complete urinalysis with reflex to culture YES NRG Bacterial urine culture - 02/03/18 07:51 Bacterial urine culture [id number] NRG COLONY COUNT >100,000/ML NRG FTX;REPORTABLE RML REPORTED SENSITIVITY 02/05/18 14:05 NR RML Sensitivity Panel - 02/03/18 07:51 Gentamicin susceptibility test by minimum inhibitory concentration < = NRG Trimethoprim/sulfamethoxazole susceptibility test by minimum inhibitoryconcentration <= NRG Levofloxacin susceptibility test by minimum inhibitory concentration <= NRG Ampicillin susceptibility test by minimum inhibitory concentration > NRG Cefazolin susceptibility test by minimum inhibitory concentration 4 NRG Ceftriaxone susceptibility test by minimum inhibitory concentration <= NRG Ciprofloxacin susceptibility test by minimum inhibitory concentration <= NRG Meropenem susceptibility test by minimum inhibitory concentration < = NRG Nitrofurantoin susceptibility test by minimum inhibitory concentration <= NRG Amoxicillin and clavulanate potassium susc ELBA = NRG Bacterial blood culture - 02/03/18 08:31 Bacterial blood culture NG NRG Blood lactic acid measurement (moles/volume) - 02/03/18 08:46 Blood lactic acid measurement (moles/volume) 0.87 mmol/L 0.50-2.00 Bacterial blood culture - 02/03/18 08:46 Bacterial blood culture NG NRG Automated blood complete blood count (hemogram) panel - 02/04/18 05:29 Blood leukocytes automated count (number/volume) 10.9 10*3/uL 4.3-11.0 Blood erythrocytes automated count (number/volume) 5.09 10*6/uL 4.35-5.85 Venous blood hemoglobin measurement (mass/volume) 14.1 g/dL 13.3-17.7 Blood hematocrit (volume fraction) 44 % 40-54 Automated erythrocyte mean corpuscular volume 86 [foz_us] 80-99 Automated erythrocyte mean corpuscular hemoglobin (mass per erythrocyte) 28 pg 25-34 Automated erythrocyte mean corpuscular hemoglobin concentration measurement ( mass/volume) 32 g/dL 32-36 Automated erythrocyte distribution width ratio 15.0 % 10.0-14.5 Automated blood platelet count (count/volume) 375 10*3/uL 130-400 Automated blood platelet mean volume measurement 9.9 [foz_us] 7.4-10.4 Comprehensive metabolic panel - 02/04/18 05:29 Serum or plasma sodium measurement (moles/volume) 138 mmol/L 135-145 Serum or plasma potassium measurement (moles/volume) 4.5 mmol/L 3.6-5.0 Serum or plasma chloride measurement (moles/volume) 107 mmol/L 98-107 Carbon dioxide 21 mmol/L 21-32 Serum or plasma anion gap determination (moles/volume) 10 mmol/L 5-14 Serum or plasma urea nitrogen measurement (mass/volume) 21 mg/dL 7-18 Serum or plasma creatinine measurement (mass/volume) 0.83 mg/dL 0.60-1.30 Serum or plasma urea nitrogen/creatinine mass ratio 25 NRG Serum or plasma creatinine measurement with calculation of estimated glomerular filtration rate > NRG Serum or plasma glucose measurement (mass/volume) 97 mg/dL 70-105 Serum or plasma calcium measurement (mass/volume) 8.5 mg/dL 8.5-10.1 Serum or plasma total bilirubin measurement (mass/volume) 1.0 mg/dL 0.1-1.0 Serum or plasma alkaline phosphatase measurement (enzymatic activity/volume) 175 U/L 40-136 Serum or plasma aspartate aminotransferase measurement (enzymatic activity/ volume) 16 U/L 5-34 Serum or plasma alanine aminotransferase measurement (enzymatic activity/volume ) 15 U/L 0-55 Serum or plasma protein measurement (mass/volume) 5.6 g/dL 6.4-8.2 Serum or plasma albumin measurement (mass/volume) 3.3 g/dL 3.2-4.5 Complete blood count (CBC) with automated white blood cell (WBC) differential - 02/07/18 05:15 Blood leukocytes automated count (number/volume) 8.6 10*3/uL 4.3-11.0 Blood erythrocytes automated count (number/volume) 4.41 10*6/uL 4.35-5.85 Venous blood hemoglobin measurement (mass/volume) 12.6 g/dL 13.3-17.7 Blood hematocrit (volume fraction) 38 % 40-54 Automated erythrocyte mean corpuscular volume 85 [foz_us] 80-99 Automated erythrocyte mean corpuscular hemoglobin (mass per erythrocyte) 29 pg 25-34 Automated erythrocyte mean corpuscular hemoglobin concentration measurement ( mass/volume) 34 g/dL 32-36 Automated erythrocyte distribution width ratio 14.9 % 10.0-14.5 Automated blood platelet count (count/volume) 299 10*3/uL 130-400 Automated blood platelet mean volume measurement 9.9 [foz_us] 7.4-10.4 Automated blood neutrophils/100 leukocytes 65 % 42-75 Automated blood lymphocytes/100 leukocytes 22 % 12-44 Blood monocytes/100 leukocytes 10 % 0-12 Automated blood eosinophils/100 leukocytes 3 % 0-10 Automated blood basophils/100 leukocytes 0 % 0-10 Blood neutrophils automated count (number/volume) 5.6 10*3 1.8-7.8 Blood lymphocytes automated count (number/volume) 1.9 10*3 1.0-4.0 Blood monocytes automated count (number/volume) 0.9 10*3 0.0-1.0 Automated eosinophil count 0.2 10*3/uL 0.0-0.3 Automated blood basophil count (count/volume) 0.0 10*3/uL 0.0-0.1 Whole blood basic metabolic panel - 02/07/18 05:15 Serum or plasma sodium measurement (moles/volume) 139 mmol/L 135-145 Serum or plasma potassium measurement (moles/volume) 3.3 mmol/L 3.6-5.0 Serum or plasma chloride measurement (moles/volume) 110 mmol/L 98-107 Carbon dioxide 17 mmol/L 21-32 Serum or plasma anion gap determination (moles/volume) 12 mmol/L 5-14 Serum or plasma urea nitrogen measurement (mass/volume) 9 mg/dL 7-18 Serum or plasma creatinine measurement (mass/volume) 0.71 mg/dL 0.60-1.30 Serum or plasma urea nitrogen/creatinine mass ratio 13 NRG Serum or plasma creatinine measurement with calculation of estimated glomerular filtration rate > NRG Serum or plasma glucose measurement (mass/volume) 89 mg/dL 70-105 Serum or plasma calcium measurement (mass/volume) 8.5 mg/dL 8.5-10.1 Magnesium - 02/07/18 05:15 Magnesium 1.9 mg/dL 1.8-2.4 Capillary blood glucose measurement by glucometer (mass/volume) - 02/08/18 01: 02 Capillary blood glucose measurement by glucometer (mass/volume) 99 mg/dL 70-110 Complete blood count (CBC) with automated white blood cell (WBC) differential - 06/15/18 03:58 Blood leukocytes automated count (number/volume) 14.9 10*3/uL 4.3-11.0 Blood erythrocytes automated count (number/volume) 4.44 10*6/uL 4.35-5.85 Venous blood hemoglobin measurement (mass/volume) 12.3 g/dL 13.3-17.7 Blood hematocrit (volume fraction) 38 % 40-54 Automated erythrocyte mean corpuscular volume 85 [foz_us] 80-99 Automated erythrocyte mean corpuscular hemoglobin (mass per erythrocyte) 28 pg 25-34 Automated erythrocyte mean corpuscular hemoglobin concentration measurement ( mass/volume) 33 g/dL 32-36 Automated erythrocyte distribution width ratio 15.0 % 10.0-14.5 Automated blood platelet count (count/volume) 369 10*3/uL 130-400 Automated blood platelet mean volume measurement 9.5 [foz_us] 7.4-10.4 Automated blood neutrophils/100 leukocytes 78 % 42-75 Automated blood lymphocytes/100 leukocytes 13 % 12-44 Blood monocytes/100 leukocytes 9 % 0-12 Automated blood eosinophils/100 leukocytes 0 % 0-10 Automated blood basophils/100 leukocytes 0 % 0-10 Blood neutrophils automated count (number/volume) 11.6 10*3 1.8-7.8 Blood lymphocytes automated count (number/volume) 2.0 10*3 1.0-4.0 Blood monocytes automated count (number/volume) 1.3 10*3 0.0-1.0 Automated eosinophil count 0.0 10*3/uL 0.0-0.3 Automated blood basophil count (count/volume) 0.0 10*3/uL 0.0-0.1 Serum or plasma phosphate measurement (mass/volume) - 02/08/18 03:58 Serum or plasma phosphate measurement (mass/volume) 4.0 mg/dL 2.3-4.7 Whole blood basic metabolic panel - 02/08/18 03:58 Serum or plasma sodium measurement (moles/volume) 136 mmol/L 135-145 Serum or plasma potassium measurement (moles/volume) 3.9 mmol/L 3.6-5.0 Serum or plasma chloride measurement (moles/volume) 104 mmol/L 98-107 Carbon dioxide 21 mmol/L 21-32 Serum or plasma anion gap determination (moles/volume) 11 mmol/L 5-14 Serum or plasma urea nitrogen measurement (mass/volume) 12 mg/dL 7-18 Serum or plasma creatinine measurement (mass/volume) 0.76 mg/dL 0.60-1.30 Serum or plasma urea nitrogen/creatinine mass ratio 16 NRG Serum or plasma creatinine measurement with calculation of estimated glomerular filtration rate > NRG Serum or plasma glucose measurement (mass/volume) 114 mg/dL 70-105 Serum or plasma calcium measurement (mass/volume) 8.0 mg/dL 8.5-10.1 Magnesium - 02/08/18 03:58 Magnesium 1.8 mg/dL 1.8-2.4 Capillary blood glucose measurement by glucometer (mass/volume) - 02/08/18 11: 48 Capillary blood glucose measurement by glucometer (mass/volume) 93 mg/dL 70-110 Complete blood count (CBC) with automated white blood cell (WBC) differential - 02/09/18 05:05 Blood leukocytes automated count (number/volume) 17.7 10*3/uL 4.3-11.0 Blood erythrocytes automated count (number/volume) 4.51 10*6/uL 4.35-5.85 Venous blood hemoglobin measurement (mass/volume) 12.9 g/dL 13.3-17.7 Blood hematocrit (volume fraction) 38 % 40-54 Automated erythrocyte mean corpuscular volume 85 [foz_us] 80-99 Automated erythrocyte mean corpuscular hemoglobin (mass per erythrocyte) 29 pg 25-34 Automated erythrocyte mean corpuscular hemoglobin concentration measurement ( mass/volume) 34 g/dL 32-36 Automated erythrocyte distribution width ratio 15.0 % 10.0-14.5 Automated blood platelet count (count/volume) 309 10*3/uL 130-400 Automated blood platelet mean volume measurement 9.5 [foz_us] 7.4-10.4 Automated blood neutrophils/100 leukocytes 80 % 42-75 Automated blood lymphocytes/100 leukocytes 10 % 12-44 Blood monocytes/100 leukocytes 10 % 0-12 Automated blood eosinophils/100 leukocytes 0 % 0-10 Automated blood basophils/100 leukocytes 0 % 0-10 Blood neutrophils automated count (number/volume) 14.1 10*3 1.8-7.8 Blood lymphocytes automated count (number/volume) 1.8 10*3 1.0-4.0 Blood monocytes automated count (number/volume) 1.7 10*3 0.0-1.0 Automated eosinophil count 0.0 10*3/uL 0.0-0.3 Automated blood basophil count (count/volume) 0.0 10*3/uL 0.0-0.1 Whole blood basic metabolic panel - 02/09/18 05:05 Serum or plasma sodium measurement (moles/volume) 133 mmol/L 135-145 Serum or plasma potassium measurement (moles/volume) 3.8 mmol/L 3.6-5.0 Serum or plasma chloride measurement (moles/volume) 103 mmol/L 98-107 Carbon dioxide 19 mmol/L 21-32 Serum or plasma anion gap determination (moles/volume) 11 mmol/L 5-14 Serum or plasma urea nitrogen measurement (mass/volume) 11 mg/dL 7-18 Serum or plasma creatinine measurement (mass/volume) 0.70 mg/dL 0.60-1.30 Serum or plasma urea nitrogen/creatinine mass ratio 16 NRG Serum or plasma creatinine measurement with calculation of estimated glomerular filtration rate > NRG Serum or plasma glucose measurement (mass/volume) 84 mg/dL 70-105 Serum or plasma calcium measurement (mass/volume) 8.1 mg/dL 8.5-10.1 Magnesium - 02/09/18 05:05 Magnesium 1.9 mg/dL 1.8-2.4 Complete blood count (CBC) with automated white blood cell (WBC) differential - 02/10/18 05:00 Blood leukocytes automated count (number/volume) 17.9 10*3/uL 4.3-11.0 Blood erythrocytes automated count (number/volume) 4.79 10*6/uL 4.35-5.85 Venous blood hemoglobin measurement (mass/volume) 13.3 g/dL 13.3-17.7 Blood hematocrit (volume fraction) 40 % 40-54 Automated erythrocyte mean corpuscular volume 84 [foz_us] 80-99 Automated erythrocyte mean corpuscular hemoglobin (mass per erythrocyte) 28 pg 25-34 Automated erythrocyte mean corpuscular hemoglobin concentration measurement ( mass/volume) 33 g/dL 32-36 Automated erythrocyte distribution width ratio 15.1 % 10.0-14.5 Automated blood platelet count (count/volume) 310 10*3/uL 130-400 Automated blood platelet mean volume measurement 9.6 [foz_us] 7.4-10.4 Automated blood neutrophils/100 leukocytes 79 % 42-75 Automated blood lymphocytes/100 leukocytes 11 % 12-44 Blood monocytes/100 leukocytes 9 % 0-12 Automated blood eosinophils/100 leukocytes 1 % 0-10 Automated blood basophils/100 leukocytes 0 % 0-10 Blood neutrophils automated count (number/volume) 14.2 10*3 1.8-7.8 Blood lymphocytes automated count (number/volume) 1.9 10*3 1.0-4.0 Blood monocytes automated count (number/volume) 1.5 10*3 0.0-1.0 Automated eosinophil count 0.2 10*3/uL 0.0-0.3 Automated blood basophil count (count/volume) 0.0 10*3/uL 0.0-0.1 Whole blood basic metabolic panel - 02/10/18 05:00 Serum or plasma sodium measurement (moles/volume) 133 mmol/L 135-145 Serum or plasma potassium measurement (moles/volume) 3.6 mmol/L 3.6-5.0 Serum or plasma chloride measurement (moles/volume) 102 mmol/L 98-107 Carbon dioxide 20 mmol/L 21-32 Serum or plasma anion gap determination (moles/volume) 11 mmol/L 5-14 Serum or plasma urea nitrogen measurement (mass/volume) 11 mg/dL 7-18 Serum or plasma creatinine measurement (mass/volume) 0.64 mg/dL 0.60-1.30 Serum or plasma urea nitrogen/creatinine mass ratio 17 NRG Serum or plasma creatinine measurement with calculation of estimated glomerular filtration rate > NRG Serum or plasma glucose measurement (mass/volume) 77 mg/dL 70-105 Serum or plasma calcium measurement (mass/volume) 8.4 mg/dL 8.5-10.1 Magnesium - 02/10/18 05:00 Magnesium 1.9 mg/dL 1.8-2.4 Whole blood basic metabolic panel - 02/11/18 05:30 Serum or plasma sodium measurement (moles/volume) 135 mmol/L 135-145 Serum or plasma potassium measurement (moles/volume) 3.5 mmol/L 3.6-5.0 Serum or plasma chloride measurement (moles/volume) 104 mmol/L 98-107 Carbon dioxide 18 mmol/L 21-32 Serum or plasma anion gap determination (moles/volume) 13 mmol/L 5-14 Serum or plasma urea nitrogen measurement (mass/volume) 14 mg/dL 7-18 Serum or plasma creatinine measurement (mass/volume) 0.66 mg/dL 0.60-1.30 Serum or plasma urea nitrogen/creatinine mass ratio 21 NRG Serum or plasma creatinine measurement with calculation of estimated glomerular filtration rate > NRG Serum or plasma glucose measurement (mass/volume) 112 mg/dL 70-105 Serum or plasma calcium measurement (mass/volume) 8.2 mg/dL 8.5-10.1 Magnesium - 02/11/18 05:30 Magnesium 2.1 mg/dL 1.8-2.4 Automated blood complete blood count (hemogram) panel - 02/12/18 05:25 Blood leukocytes automated count (number/volume) 11.8 10*3/uL 4.3-11.0 Blood erythrocytes automated count (number/volume) 4.56 10*6/uL 4.35-5.85 Venous blood hemoglobin measurement (mass/volume) 12.7 g/dL 13.3-17.7 Blood hematocrit (volume fraction) 38 % 40-54 Automated erythrocyte mean corpuscular volume 84 [foz_us] 80-99 Automated erythrocyte mean corpuscular hemoglobin (mass per erythrocyte) 28 pg 25-34 Automated erythrocyte mean corpuscular hemoglobin concentration measurement ( mass/volume) 33 g/dL 32-36 Automated erythrocyte distribution width ratio 15.0 % 10.0-14.5 Automated blood platelet count (count/volume) 357 10*3/uL 130-400 Automated blood platelet mean volume measurement 9.3 [foz_us] 7.4-10.4 Comprehensive metabolic panel - 02/12/18 05:25 Serum or plasma sodium measurement (moles/volume) 134 mmol/L 135-145 Serum or plasma potassium measurement (moles/volume) 3.3 mmol/L 3.6-5.0 Serum or plasma chloride measurement (moles/volume) 103 mmol/L 98-107 Carbon dioxide 22 mmol/L 21-32 Serum or plasma anion gap determination (moles/volume) 9 mmol/L 5-14 Serum or plasma urea nitrogen measurement (mass/volume) 15 mg/dL 7-18 Serum or plasma creatinine measurement (mass/volume) 0.73 mg/dL 0.60-1.30 Serum or plasma urea nitrogen/creatinine mass ratio 21 NRG Serum or plasma creatinine measurement with calculation of estimated glomerular filtration rate > NRG Serum or plasma glucose measurement (mass/volume) 157 mg/dL 70-105 Serum or plasma calcium measurement (mass/volume) 8.3 mg/dL 8.5-10.1 Serum or plasma total bilirubin measurement (mass/volume) 0.6 mg/dL 0.1-1.0 Serum or plasma alkaline phosphatase measurement (enzymatic activity/volume) 149 U/L 40-136 Serum or plasma aspartate aminotransferase measurement (enzymatic activity/ volume) 21 U/L 5-34 Serum or plasma alanine aminotransferase measurement (enzymatic activity/volume ) 12 U/L 0-55 Serum or plasma protein measurement (mass/volume) 5.0 g/dL 6.4-8.2 Serum or plasma albumin measurement (mass/volume) 2.7 g/dL 3.2-4.5 Automated blood complete blood count (hemogram) panel - 02/13/18 05:55 Blood leukocytes automated count (number/volume) 11.6 10*3/uL 4.3-11.0 Blood erythrocytes automated count (number/volume) 4.17 10*6/uL 4.35-5.85 Venous blood hemoglobin measurement (mass/volume) 11.8 g/dL 13.3-17.7 Blood hematocrit (volume fraction) 35 % 40-54 Automated erythrocyte mean corpuscular volume 84 [foz_us] 80-99 Automated erythrocyte mean corpuscular hemoglobin (mass per erythrocyte) 28 pg 25-34 Automated erythrocyte mean corpuscular hemoglobin concentration measurement ( mass/volume) 34 g/dL 32-36 Automated erythrocyte distribution width ratio 14.8 % 10.0-14.5 Automated blood platelet count (count/volume) 325 10*3/uL 130-400 Automated blood platelet mean volume measurement 9.4 [foz_us] 7.4-10.4 Comprehensive metabolic panel - 02/13/18 05:55 Serum or plasma sodium measurement (moles/volume) 138 mmol/L 135-145 Serum or plasma potassium measurement (moles/volume) 3.5 mmol/L 3.6-5.0 Serum or plasma chloride measurement (moles/volume) 106 mmol/L 98-107 Carbon dioxide 23 mmol/L 21-32 Serum or plasma anion gap determination (moles/volume) 9 mmol/L 5-14 Serum or plasma urea nitrogen measurement (mass/volume) 11 mg/dL 7-18 Serum or plasma creatinine measurement (mass/volume) 0.67 mg/dL 0.60-1.30 Serum or plasma urea nitrogen/creatinine mass ratio 16 NRG Serum or plasma creatinine measurement with calculation of estimated glomerular filtration rate > NRG Serum or plasma glucose measurement (mass/volume) 90 mg/dL 70-105 Serum or plasma calcium measurement (mass/volume) 8.2 mg/dL 8.5-10.1 Serum or plasma total bilirubin measurement (mass/volume) 0.5 mg/dL 0.1-1.0 Serum or plasma alkaline phosphatase measurement (enzymatic activity/volume) 140 U/L 40-136 Serum or plasma aspartate aminotransferase measurement (enzymatic activity/ volume) 22 U/L 5-34 Serum or plasma alanine aminotransferase measurement (enzymatic activity/volume ) 13 U/L 0-55 Serum or plasma protein measurement (mass/volume) 4.7 g/dL 6.4-8.2 Serum or plasma albumin measurement (mass/volume) 2.6 g/dL 3.2-4.5 Methicillin resistant Staphylococcus aureus (MRSA) screening culture - 08:40 Methicillin resistant Staphylococcus aureus (MRSA) screening culture NEG NRG Encounters ACCT No. Visit Date/Time Discharge Status Pt. Type Provider Facility Loc./Unit Complaint [id number] 05/27/2018 08:38:00 05/27/2018 23:59:59 CLS Outpatient YARA JENNINGS MD [facility] ONC [id number] 05/20/2018 13:30:00 05/26/2018 00:01:00 DIS Outpatient YARA JENNINGS MD [facility] ONC [id number] 05/13/2018 09:04:00 05/13/2018 23:59:59 CLS Outpatient YARA JENNINGS MD [facility] ONC [id number] 04/22/2018 09:08:00 05/13/2018 08:41:00 DIS Outpatient SONU EASLEY [facility] ONC [id number] 03/28/2018 12:45:00 03/28/2018 23:59:59 CLS Outpatient JARAD VALENCIA MD [facility] SDC COLON CA [id number] 03/25/2018 05:31:00 03/25/2018 10:59:00 DIS Outpatient JARAD VALENCIA MD [facility] PREOP COLON CA [id number] 03/19/2018 09:38:00 03/19/2018 23:59:59 CLS Outpatient SONU EASLEY [facility] 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,CA OF SIGMOID COLON [id number] 02/03/2018 08:15:00 02/13/2018 15:25:00 DIS Inpatient RAVI LANDERS DO [facility] 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 , METASTIC CA,UTI [id number] 02/01/2018 21:37:00 02/02/2018 02:05:00 DIS Emergency MING ORONA DO [facility] ER NAUSEA [id number] 08/24/2015 11:31:00 08/24/2015 23:59:59 CLS Outpatient TONIA SIMS MD [facility] RAD BILATERAL HYDRONEPHROSIS [id number] 06/30/2015 06:24:00 07/01/2015 18:00:00 DIS Outpatient TONIA SIMS MD [facility] SDC BPH, URINARY RETENTION [id number] 06/25/2015 11:46:00 06/25/2015 23:59:59 CLS Outpatient TONIA SIMS MD [facility] PREOP BPH, URINARY RETENTION [id number] 06/11/2015 02:46:00 06/11/2015 04:04:00 DIS Emergency EDGAR CORBIN MD [facility] ER CAN'T URINATE [id number] 05/20/2015 11:45:00 05/21/2015 18:20:00 DIS Inpatient RAVI LANDERS DO [facility] 4TH PYELONEPHRITIS, DEHYDARTION,RENAL INSUFF,URINARY RE [id number] 12/27/2009 15:08:00 Document Registration
[2018-06-03] MEDS ORDERED: NS IV 1000 ML 1,000 ML ONE (14:17)
[2018-06-03] MEDS ORDERED: NS IV 500 ML 500 ML IV ONE ×2 (14:36→15:34)
[2018-06-03] MEDS ORDERED: NS IV 1000 ML 1,000 ML IV SCH (14:36)
[2018-06-03] MEDS ORDERED: ADENOSINE 6 MG/2 ML (ADENOCARD) VIAL IV ONE ×3 (14:39→15:15)
[2018-06-03] MEDS ORDERED: CEFEPIME INJECTION 1,000 MG in NS (IVPB) 50 ML IV ONE (14:45)
[2018-06-03 14:55] LABS: INR 1.5 (0.8-1.4); PROTHROMBIN TIME PATIENT 18.4 SEC (12.2-14.7)
--- NOTE | 2018-06-03 15:05 | ED Cardiac General ---
History of Present Illness General Chief Complaint: Cardiac/General Problems Stated Complaint: TACHYCARDIC Nursing Triage Note: pt began experiencing nausea and dizzyness three days ago. today the pt was recieving his chemo tx when the pt states he began to get weak and the staff took an EKG to find the pt in an irregular rythym. pt brought to the ED via w/c by clinic staff. Source: patient, old records, other (Dr. Flanagan, oncology) Exam Limitations: no limitations History of Present Illness Date Seen by Provider: Jun 03, 2018 Time Seen by Provider: 14:27 Initial Comments The patient presents to ER by private conveyance from oncology clinic where he is receiving chemotherapy for stage IV colon cancer by Dr. Grier. He's felt weak, sick to his stomach and nauseated with vomiting and diarrhea for the past 3 or 4 days. He has been taking his medications. He has no history of any heart disorders, dysrhythmias or coronary artery disease. He was found to be in SVT on EKG and some basic labs drawn oncology office and sent to the ER for management. He is not having any chest pain nausea right now or shortness of breath or fevers. He is having some new onset low back pain started in the last 3 or 4 days. Allergies and Home Medications Allergies Coded Allergies: No Known Drug Allergies (Unverified , 03/25/18) Home Medications Hydrocodone/Acetaminophen 1 Each Tablet, 1 TAB PO Q4-6HR PRN for PAIN-MODERATE, (Reported) Ondansetron HCl 8 Mg Tablet, 8 MG PO Q8H PRN for NAUSEA/VOMITING-1ST LINE, ( Reported) Patient Home Medication List Home Medication List Reviewed: Yes Review of Systems Review of Systems Constitutional: No chills, No diaphoresis, No fever; malaise, weakness EENTM: No Blurred Vision, No Double Vision Respiratory: Denies Cough, Denies Orthopnea Cardiovascular: Denies Chest Pain, Denies Edema; Irregular Heart Rate, Lightheadedness, Palpitations; Denies Syncope Gastrointestinal: Denies Abdomen Distended, Denies Abdominal Pain Genitourinary: Denies Burning, Denies Discharge Musculoskeletal: No back pain, No joint pain Past Xtyiykv-Dsboya-Zzwqsf Hx Patient Social History Alcohol Use: Occasionally Uses Alcohol Beverage of Choice: Beer Recreational Drug Use: No Smoking Status: Former Smoker Type Used: Cigarettes Former Smoker, Quit: Oct 11, 1961 Recent Foreign Travel: No Contact w/Someone Who Travel: No Recent Infectious Disease Expo: No Recent Hopitalizations: Yes (COLON SURGERY 02/07/18) Immunizations Up To Date Tetanus Booster (TDap): More than 5yrs PED Vaccines UTD: No Seasonal Allergies Seasonal Allergies: No Past Medical History Surgeries: Yes Appendectomy Respiratory: No Cardiac: Yes Deep Vein Thrombosis Neurological: No Reproductive Disorders: No Sexually Transmitted Disease: No HIV/AIDS: No Genitourinary: Yes Benign Prostatic Hyperpl, Prostate Problems Gastrointestinal: No Liver Disease/Jaundice Musculoskeletal: Yes (2 BAD KNEES) Arthritis Endocrine: No HEENT: No Loss of Vision: Bilateral Hearing Impairment: Denies Cancer: Yes Colon Did You Recieve Any Treatments: No What Type of Treatment Did You: Surgical Intervention Psychosocial: No Integumentary: No 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) Adverse Reaction/Blood Tranf: No (N/A) Family Medical History Heart disease G8 BROTHER Liver cirrhosis G8 BROTHER Renal cancer 19 FATHER Physical Exam Vital Signs Vital Signs - First Documented Capillary Refill : Less Than 3 Seconds Height, Weight, BMI Height: 6'2.00" Weight: 168lbs. 7.0oz. 76.352426si; 20.4 BMI Method:Stated General Appearance: Anxious, Chronically ill, Thin HEENT: PERRL/EOMI, Normal ENT Inspection, Pharynx Normal Neck: Full Range of Motion, Normal Inspection Respiratory: Chest Non Tender, Lungs Clear, Normal Breath Sounds, No Accessory Muscle Use, No Respiratory Distress Cardiovascular: No Edema, No JVD, No Murmur, Normal Peripheral Pulses, Tachycardia Gastrointestinal: Normal Bowel Sounds, Non Tender, Soft Extremity: Normal Capillary Refill, Non Tender, No Pedal Edema Neurologic/Psychiatric: Alert, Oriented x3, No Motor/Sensory Deficits, Normal Mood/Affect Skin: Normal Color, Warm/Dry Focused Exam Lactate Level 06/03/18 14:31: Lactic Acid Level 2.52*H Lactic Acid Level Laboratory Tests Test 06/03/18 14:31 Lactic Acid Level 2.52 MMOL/L (0.50-2.00) *H Progress/Results/Core Measures Results/Orders Lab Results Laboratory Tests Test 06/03/18 14:31 Range/Units Prothrombin Time 18.4 H 12.2-14.7 SEC INR Comment 1.5 H 0.8-1.4 Activated Partial Thromboplast Time 30 24-35 SEC Lactic Acid Level 2.52 *H 0.50-2.00 MMOL/L Troponin I 0.38 *H <0.30 NG/ML Micro Results Microbiology 06/03/18 Blood Culture - Preliminary, Resulted No growth 06/03/18 Blood Culture - Preliminary, Resulted No growth 06/03/18 Influenza Types A,B Antigen (ELBA) - Final, Complete My Orders Orders - LORE PRUETT Ns Iv 1000 Ml (Sodium Chloride 0.9%) (06/03/18 14:17) Blood Culture (06/03/18 14:36) Sputum Culture (06/03/18 14:36) Urinalysis (06/03/18 14:36) Urine Culture (06/03/18 14:36) Protime With Inr (06/03/18 14:36) Partial Thromboplastin Time (06/03/18 14:36) Chest 1 View, Ap/Pa Only (06/03/18 14:36) Saline Lock/Iv-Start (06/03/18 14:36) Saline Lock/Iv-Start (06/03/18 14:36) Ekg Tracing (06/03/18 14:36) Troponin I (06/03/18 14:36) Vital Signs Adult Sepsis Patie Q15M (06/03/18 14:36) O2 (06/03/18 14:36) Remove Rings In Anticipation O (06/03/18 14:36) Lactic Acid Analyzer (06/03/18 14:36) Cefepime Injection (Maxipime Injection) (06/03/18 14:45) Saline Lock/Iv-Start (06/03/18 14:36) Ns Iv 500 Ml (Sodium Chloride 0.9%) (06/03/18 14:36) Ns Iv 1000 Ml (Sodium Chloride 0.9%) (06/03/18 14:36) Influenza A And B Antigens (06/03/18 14:36) Ct Lumbar Spine Wo (06/03/18 14:40) Adenosine Injection (Adenocard Injection (06/03/18 14:45) Adenosine Injection (Adenocard Injection (06/03/18 14:39) Diltiazem Injection (Cardizem Injection) (06/03/18 15:15) Ns (Ivpb) (Sodium C... W/Diltiazem Iv Fo (06/03/18 15:15) Adenosine Injection (Adenocard Injection (06/03/18 15:15) Ekg Tracing (06/03/18 15:05) Saline Lock/Iv-Start (06/03/18 15:34) Ns Iv 500 Ml (Sodium Chloride 0.9%) (06/03/18 15:34) Medications Given in ED Vital Signs/I&O 06/03/18 06/03/18 06/03/18 14:21 14:21 15:37 Temp 95.7 Pulse 168 165 Resp 22 B/P (MAP) 104/76 (85) 101/78 Pulse Ox 93 97 O2 Delivery Room Air Room Air Blood Pressure Mean: 85 Progress Progress Note #1: Time: 15:19 Progress Note Patient arrived in SVT. He already had a CBC and CMP done upstairs which we reviewed with an elevated white count. We reviewed his EKG from 142 showing SVT rate of 165 and on arrival 169 heart rate. We got him on monitor and with consultation cardiology delivered Adenocard which slowed his heart and was difficult to tell if it was sinus or not so we did begin and the second time we did Adenocard we got a very good picture that demonstrated atrial fibrillation. We will give him 10 mg of Cardizem and put him on a Cardizem drip. With that fluids going 1 L to start. Her doing a septic workup starting with cefepime to cover for urinary versus respiratory. Chest x-ray and finally a CT of his low lumbar spine looking for source of his new onset pain. Right now patient is comfortable and pain-free. He is noted to have an elevated troponin 0.38 which would be consistent with cardiac strain versus NSTEMI Progress Note #2: Time: 16:35 Progress Note Adenocard reveals atrial fibrillation/flutter. We gave him a dose of Cardizem 10 mg and put him on Cardizem drip and on 5 mg she is maintaining a rate around 90 we will pressure 116. We'll put him in the ICU with cardiology. His elevated troponin is probably a strain but we'll go ahead and trended out. Echocardiogram will be ordered inpatient. Initial ECG Impression Date: Jun 03, 2018 Initial ECG Impression Time: 14:17 Initial ECG Rate: 169 Initial ECG Rhythm: SVT (narrow complex) Initial ECG Intervals: QT (483) Initial ECG Impression: SVT Comment SVT pre-Adenocard EKG : EKG Time: 14:52 Rate: 146 Rhythm: A Fib/Flutter (with rapid ventricular response) Intervals: QT (487) ECG Impression: Atrial Fibrillation w/RVR Comment Atrial fibrillation with rapid ventricular response. You can see the cessation of electrical activity followed by resumption of atrial fib and promptly atrial fib with rapid ventricular response. Diagnostic Imaging Diagonstic Imaging: Xray Plain Films/CT/US/NM/MRI: chest (1v) Comments NAME: MOY ZELAYA [facility] REC#: [id number] PT STATUS: REG ER : 1935 PHYSICIAN: LORE PRUETT MD ADMIT DATE: 06/03/18/ER Draft Date of Exam:06/03/18 CHEST 1 VIEW, AP/PA ONLY INDICATION: Dizziness and nausea. COMPARISON: 03/28/2018. FINDINGS: The heart size is normal. There is some mild venous congestion. There are patchy bibasilar infiltrates and a left pleural effusion. There is no pneumothorax. The mediastinum is unremarkable. IMPRESSION: Patchy bibasilar infiltrates and a left pleural effusion. Mild central pulmonary venous congestion. Dictated on workstation # [id number] Dict: 06/03/18 1507 Trans: 06/03/18 1532 [id number] Interpreted by: CHERISE DURAND MD Electronically signed by: Reviewed: Reviewed by Me Diagonstic Imaging: CT (without contrast) Plain Films/CT/US/NM/MRI: other (lumbar spine) Comments Mild pathologic compression fracture of the L2 body secondary to metastasis. 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 Reviewed: Reviewed by Me Consults : Consulting Physician: Ricki MONTES MD Consults Notes Adenocard and if it's A. fib treat appropriately. Get an echocardiogram. Departure Communication (Admissions) Time/Spoke to Consulting Phy: 14:30 Dr. Montes Impression Primary Impression: Atrial fibrillation with rapid ventricular response Additional Impression: Elevated troponin I level Disposition: ADMITTED INPATIENT Condition: Improved Admissions Decision to Admit Reason: Admit from ER (General) Decision to Admit/Date: Jun 03, 2018 Time/Decision to Admit Time: 16:37 Departure-Patient Inst. Referrals: RAVI LANDERS DO (PCP) Primary Care Physician AIDA KIRK (Family) Primary Care Physician Copy Copies To 1: RAVI LANDERS TITUS J Jun 03, 2018 15:05
[2018-06-03] MEDS ORDERED: DILTIAZEM 25 MG/5 ML INJ (CARDIZEM) VIAL IVP ONE (15:15)
[2018-06-03] MEDS ORDERED: DILTIAZEM IV FOR DRIP 125 MG in NS (IVPB) 100 ML IV SCH (15:15)
--- NOTE | 2018-06-03 15:32 | Diagnostic Imaging Report ---
INDICATION: Dizziness and nausea. COMPARISON: 03/28/2018. FINDINGS: The heart size is normal. There is some mild venous congestion. There are patchy bibasilar infiltrates and a left pleural effusion. There is no pneumothorax. The mediastinum is unremarkable. IMPRESSION: Patchy bibasilar infiltrates and a left pleural effusion. Mild central pulmonary venous congestion. Dictated by: Dictated on workstation # [id number]
[2018-06-03] MEDS ORDERED: fentaNYL INJECTION 100 MCG/2 ML AMP IVP ONE (17:00)
--- NOTE | 2018-06-03 17:09 | Diagnostic Imaging Report ---
PROCEDURE: CT lumbar spine without contrast. TECHNIQUE: Multiple contiguous axial images were obtained through the lumbar spine without the use of intravenous contrast. Sagittal and coronal reformations were then performed. INDICATION: Severe back pain. COMPARISON: The exam interpreted in correlation with CT fusion PET performed 03/19/2018. FINDINGS: Having developed since the previous CT fusion PET are lytic changes involving the L2 vertebral body with cortical breakthrough leslie-left laterally as well as some leftward vertebral stature loss presumed mild pathological compression. No retropulsion. There is an irregular lucency involving the right T12 pedicle, its involvement by lytic metastases suspected. Parasagittal reconstructed imaging raising the question of pathological fracture. We note the severity of degenerative hypertrophy as well as some underlying osteopenia makes CT sensitivity for detecting lytic disease limited. MRI may be show additional metastatic deposits not apparent at this exam. Degenerative changes to the disc endplates and facets result in multilevel canal and foraminal stenoses; canal narrowing greatest at L3-L4. Foraminal stenosis greatest right greater than left at L4-L5. Bilateral pleural effusions partially visualized. IMPRESSION: Lytic lesion with pathological vertebral body fracture at L2 reflecting a new finding from previous PET. 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 Pathological fracture along the superior cortex is suspected without listhesis. Advanced degenerative changes with multilevel stenosis owing to underlying bony demineralization and degenerative hypertrophy. Additionally metastatic deposits could easily be occult at CT and if needed for restaging purposes or otherwise indicated, consider MRI as further investigation. Results discussed with the ER physician Dictated by: Dictated on workstation # [id number]
--- OUTSIDE RECORDS SUMMARY | 2018-06-03 17:41 | XMS REPORT | Continuity of Care Document ---
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 [...] MALIG NEOPLASM OF LIVER AND IN 05/13/2018 YAAR JENNINGS MD Ot 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 [...] C18.7 MALIGNANT NEOPLASM OF SIGMOID COLON 05/26/2018 YAAR JENNINGS MD, Ot C78.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 [...] Procedures Code Description Performed By Performed On [id number] EXCISION OF SIGMOID COLON , OPEN APPROACH 02/07/2018 [id number] EXCISION OF RECTUM, OPEN APPROACH, DIAGN 02/07/2018 [id number] DILATION OF LEFT URETER WITH INTRALUMINA 02/07/2018 [id number] FLUOROSCOPY OF LEFT URETER USING LOW OSM [...] Magnesium 2.5 mg/dL 1.8-2.4 Serum or plasma bahur-2-biwvopfmkim.tumor marker measurement (mass/volume) - 06:24 Serum or plasma gnwvu-1-hjkbftyhygi.tumor marker measurement (mass/volume) 4.2 % 0.0-8.8 Serum [...] culture - 02/03/18 07:51 Bacterial urine culture [id number] NRG COLONY COUNT >100,000/ML NRG FTX;REPORTABLE RML [...] Staphylococcus aureus (MRSA) screening culture NEG NRG PT panel in platelet poor plasma by coagulation assay - 06/03/18 14:31 Prothrombin time (PT) in platelet poor plasma by coagulation assay 18.4 s 12.2-14.7 INR in platelet poor plasma or blood by coagulation assay 1.5 0.8-1.4 Activated partial thromboplastin time (aPTT) in platelet poor plasma bycoagulation assay - 06/03/18 14:31 Activated partial thromboplastin time (aPTT) in platelet poor plasma bycoagulation assay 30 s 24-35 Blood lactic acid measurement (moles/volume) - 06/03/18 14:31 Blood lactic acid measurement (moles/volume) 2.52 mmol/L 0.50-2.00 Serum or plasma troponin i.cardiac measurement (mass/volume) - 06/03/18 14:31 Serum or plasma troponin i.cardiac measurement (mass/volume) 0.38 ng /mL <0.30 Influenza virus A and B antigen detection - 06/03/18 14:43 FLU RESULT NEGATIVE FOR INFLUENZA A AND B ANTIGENS BY IA NR Serum or plasma lactate measurement (moles/volume) - 06/03/18 17:15 Serum or plasma lactate measurement (moles/volume) 1.44 mmol/L 0.50-2.00 Encounters ACCT No. Visit Date/Time Discharge Status Pt. Type Provider Facility Loc./Unit Complaint [id number] 05/20/2018 13:30:00 05/26/2018 00:01:00 DIS Outpatient YARA JENNINGS MD [facility] ONC [id number] 05/13/2018 09:04:00 05/13/2018 23:59:59 CLS Outpatient YARA JENNINGS MD [facility] ONC [id number] 04/22/2018 09:08:00 05/13/2018 08:41:00 DIS Outpatient SONU EASLEY [facility] ONC [id number] 03/28/2018 12:45:00 03/28/2018 23:59:59 CLS Outpatient JARAD VALENCIA MD [facility] SDC COLON CA [id number] 03/25/2018 05:31:00 03/25/2018 10:59:00 DIS Outpatient JARAD VALENCIA MD [facility] PREOP COLON CA [id number] 03/19/2018 09:38:00 03/19/2018 23:59:59 CLS Outpatient SONU EASLEY [facility] 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,CA OF SIGMOID COLON [id number] 02/03/2018 08:15:00 02/13/2018 15:25:00 DIS Inpatient LEESA RATLIFF RAVI K [facility] 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 , METASTIC CA,UTI [id number] 02/01/2018 21:37:00 02/02/2018 02:05:00 DIS Emergency ADWOA MING K [facility] ER NAUSEA [id number] 08/24/2015 11:31:00 08/24/2015 23:59:59 CLS Outpatient TONIA SIMS MD [facility] RAD BILATERAL HYDRONEPHROSIS [id number] 06/30/2015 06:24:00 07/01/2015 18:00:00 DIS Outpatient TONIA SIMS MD [facility] SDC BPH, URINARY RETENTION [id number] 06/25/2015 11:46:00 06/25/2015 23:59:59 CLS Outpatient TONIA SIMS MD [facility] PREOP BPH, URINARY RETENTION [id number] 06/11/2015 02:46:00 06/11/2015 04:04:00 DIS Emergency SHAQUILLE GARCIA, EDGAR Mariee [facility] ER CAN'T URINATE [id number] 05/20/2015 11:45:00 05/21/2015 18:20:00 DIS Inpatient RAVI LANDERS DO [facility] 4TH PYELONEPHRITIS, DEHYDARTION,RENAL INSUFF,URINARY RE [id number] 06/03/2018 14:56:00 Document Registration [id number] 06/03/2018 12:42:00 ACT Outpatient MICHAELA GARCIA, YARA [facility] ONC [id number] 12/27/2009 15:08:00 Document Registration
[2018-06-03] MEDS ORDERED: ONDANSETRON 4 MG/2 ML (SDV) Z0FRAN IV PRN (19:00)
[2018-06-03] MEDS ORDERED: CATHETER FLUSH 10 ML SYR IV PRN (19:00)
[2018-06-03] MEDS: DILTIAZEM IV FOR DRIP 125 MG in NS (IVPB) 100 ML IV SCH (19:11)
[2018-06-03] MEDS ORDERED: FLU QUADRIvalent (5+ YOA) 2018-2019 (AFLURIA) 0.5 ML IM ONE (19:15)
[2018-06-03] MEDS: NS W/KCL 20 MEQ/L 1,000 ML IV SCH (20:25)
[2018-06-03] MEDS ORDERED: RT-ALBUTEROL SULF 2.5 MG/3 ML PRE-MIX VIAL INH PRN (21:15)
[2018-06-03 21:39] LABS: BACTERIA,URINE NEGATIVE /HPF; BILIRUBIN,URINE NEGATIVE (NEGATIVE); CLARITY,URINE CLEAR; COLOR,URINE YELLOW; GLUCOSE, URINE (UA) NEGATIVE (NEGATIVE); KETONES,URINE 1+ (NEGATIVE); LEUKOCYTE ESTERASE ,URINE 1+ (NEGATIVE); NITRITE,URINE NEGATIVE (NEGATIVE); PH,URINE 5 (5-9); PROTEIN,URINE 1+ (NEGATIVE); UROBILINOGEN,URINE NORMAL (NORMAL); WHITE BLOOD CELL CASTS, URINE RARE /LPF
[2018-06-03] MEDS ORDERED: ASPIRIN E.C. 81 MG (ECOTRIN) TAB PO ONE (23:15)
[2018-06-03] MEDS: CEFEPIME 2 GM/NS 50 ML IVPB IV SCH ×2 (23:37)
[2018-06-03] MEDS: fentaNYL INJECTION 100 MCG/2 ML AMP IV PRN (23:39)
[2018-06-04] VITALS (24 sets, daily range): BP systolic 89–136; BP diastolic 59–92
[2018-06-04] MEDS: ENOXAPARIN 80 MG/0.8 ML (LOVENOX) SYR SC SCH ×2 (00:46→11:15)
[2018-06-04] MEDS: fentaNYL INJECTION 100 MCG/2 ML AMP IV PRN ×3 (04:04→21:51)
[2018-06-04] MEDS: NS W/KCL 20 MEQ/L 1,000 ML IV SCH ×4 (04:05→21:51)
[2018-06-04 06:21] LABS: BASOPHILS % (AUTO) 0 % (0-10); EOSINOPHILS # (AUTO) 0.9 10^3/uL (0.0-0.3); EOSINOPHILS % (AUTO) 8 % (0-10); HEMATOCRIT 42 % (40-54); HEMOGLOBIN 13.3 G/DL (13.3-17.7); LYMPHOCYTES # (AUTO) 1.9 X 10^3 (1.0-4.0); LYMPHOCYTES % (AUTO) 16 % (12-44); MEAN CORPUSCULAR HEMOGLOBIN 28 PG (25-34); MEAN CORPUSCULAR HGB CONC 32 G/DL (32-36); MEAN CORPUSCULAR VOLUME 86 FL (80-99); MEAN PLATELET VOLUME 9.9 FL (7.4-10.4); MONOCYTES # (AUTO) 0.8 X 10^3 (0.0-1.0); MONOCYTES % (AUTO) 7 % (0-12); NEUTROPHILS % (AUTO) 69 % (42-75); PLATELET COUNT 244 10^3/uL (130-400); RED BLOOD COUNT 4.84 10^6/uL (4.35-5.85); RED CELL DISTRIBUTION WIDTH 18.1 % (10.0-14.5); WHITE BLOOD COUNT 11.5 10^3/uL (4.3-11.0)
[2018-06-04 06:37] LABS: BUN/CREATININE RATIO 29; CALCIUM 8.3 MG/DL (8.5-10.1); CARBON DIOXIDE 20 MMOL/L (21-32); CHLORIDE 112 MMOL/L (98-107); CREATININE SERUM 0.75 MG/DL (0.60-1.30); GFR ESTIMATED > 60; GLUCOSE 79 MG/DL (70-105); MAGNESIUM 1.7 MG/DL (1.8-2.4); PHOSPHORUS 2.9 MG/DL (2.3-4.7); POTASSIUM 3.9 MMOL/L (3.6-5.0); SODIUM 138 MMOL/L (135-145)
[2018-06-04] MEDS: MAGNESIUM 1 GM/100 ML IVPB 100 ML IV SCH ×2 (07:00→08:00)
[2018-06-04] MEDS: ASPIRIN E.C. 81 MG (ECOTRIN) TAB PO SCH (08:00)
--- NOTE | 2018-06-04 08:49 | Diagnostic Imaging Report ---
Portable erect AP chest at 256 hours. INDICATION: Dyspnea. FINDINGS: The appearance of the chest has worsened since the prior study of 06/03/2018 as the atelectasis/infiltrate and fluid involving both lung bases has increased. This is particularly true on the left. The central pulmonary vascularity is also somewhat more prominent and there may not be an element of mild pulmonary congestion present as well. The heart is stable. The mediastinum is not widened. The osseous structures are intact. The left-sided Port-A-Cath noted previously is again evident and no different. IMPRESSION: The appearance of the chest has worsened as there is greater involvement of both lung bases, particularly the left lung base, by pneumonia/atelectasis and fluid. A followup study would be recommended for continued evaluation. Dictated by: Dictated on workstation # [id number]
[2018-06-04] MEDS ORDERED: HYDR-3812 PO (09:56)
[2018-06-04] MEDS ORDERED: ONDA8TAB6 PO (10:02)
--- NOTE | 2018-06-04 11:28 | History & Physicial ([facility]) ---
HPI History of Present Illness: 82 yo male who was feeling poorly for about 3 days prior with leg swelling, pain in back and legs and difficulty ambulating with walker due to pain. He waited to see his Oncologist and when he was seen there was found to have marked tachycardia and sent to ER where he was found to have SVT and further to have atrial fibrillation after adenosine and was started on cardizem drip. He also had imaging of his back which does show pathologic fracture suspected to be secondary to his colon cancer. Today he states he is feeling quite well, was able to sleep with pain medication and denies concerns. He is able to explain most of what has occurred and states that he believes he does not have long to live and wants to be comfortable and would like to consider hospice. Date seen by provider: Jun 04, 2018 Time Seen by Provider: 09:20 Attending Physician Jamar Mansfield MD PCP Paulina Wilkins DO Consult Ricki RAWLS MD Date of Admission Jun 03, 2018 at 4:00 pm Home Medications Home Medications Reviewed patient Home Medication Reconciliation performed by pharmacy medication reconciliations maintenance technician 3rd shift and/or nursing. Patients Allergies have been reviewed. Allergies Coded Allergies: No Known Drug Allergies (Unverified , 03/25/18) [id number] Hx Patient Social History Alcohol Use: Denies Use Recreational Drug Use: No Smoking Status: Former Smoker Former smoker/When Quit: May 19, 1960 Type Used: Cigarettes Recent Foreign Travel: No Contact w/other who traveled: No Recent Hopitalizations: Yes (COLON SURGERY 02/07/18) Recent Infectious Disease Expo: No Physical Abuse Screen: No Sexual Abuse: No Immunizations Up To Date Tetanus Booster (TDap): More than 5yrs Past Medical History PMH: Arthritis - L knee Colon cancer PSH: Appendectomy Family Medical History Significant Family History: Heart Disease, GI Disease, Renal Disease Family History: Heart disease G8 BROTHER Liver cirrhosis G8 BROTHER Renal cancer 19 FATHER Review of Systems ([facility]) Constitutional: No fever; malaise EENTM: no symptoms reported Respiratory: no symptoms reported Cardiovascular: see HPI Gastrointestinal: No abdominal pain Genitourinary: no symptoms reported Musculoskeletal: back pain Skin: no symptoms reported Psychiatric/Neurological: Denies Depressed Reviewed Test Results Reviewed Test Results Lab Laboratory Tests Test 06/03/18 14:31 06/03/18 17:15 06/03/18 21:15 06/04/18 06:05 Range/Units Prothrombin Time 18.4 H 12.2-14.7 SEC INR Comment 1.5 H 0.8-1.4 Activated Partial Thromboplast Time 30 24-35 SEC Lactic Acid Level 2.52 *H 1.44 0.50-2.00 MMOL/L Troponin I 0.38 *H 0.48 *H 0.37 *H <0.30 NG/ML Urine Color YELLOW Urine Clarity CLEAR Urine pH 5 5-9 Urine Specific [place] 1.020 1.016-1.022 Urine Protein 1+ H NEGATIVE Urine Glucose (UA) NEGATIVE NEGATIVE Urine Ketones 1+ H NEGATIVE Urine Nitrite NEGATIVE NEGATIVE Urine Bilirubin NEGATIVE NEGATIVE Urine Urobilinogen NORMAL NORMAL MG/DL Urine Leukocyte Esterase 1+ H NEGATIVE Urine RBC (Auto) NEGATIVE NEGATIVE Urine RBC NONE /HPF Urine WBC 2-5 /HPF Urine Squamous Epithelial Cells 2-5 /HPF Urine Crystals NONE /LPF Urine Bacteria NEGATIVE /HPF Urine Casts PRESENT /LPF Urine Hyaline Casts 10-25 H /LPF Urine White Blood Cell Casts RARE H /LPF Urine Mucus LARGE H /LPF Urine Culture Indicated NO White Blood Count 11.5 H 4.3-11.0 10^3/uL Red Blood Count 4.84 4.35-5.85 10^6/uL Hemoglobin 13.3 13.3-17.7 G/DL Hematocrit 42 40-54 % Mean Corpuscular Volume 86 80-99 FL Mean Corpuscular Hemoglobin 28 25-34 PG Mean Corpuscular Hemoglobin Concent 32 32-36 G/DL Red Cell Distribution Width 18.1 H 10.0-14.5 % Platelet Count 244 130-400 10^3/uL Mean Platelet Volume 9.9 7.4-10.4 FL Neutrophils (%) (Auto) 69 42-75 % Lymphocytes (%) (Auto) 16 12-44 % Monocytes (%) (Auto) 7 0-12 % Eosinophils (%) (Auto) 8 0-10 % Basophils (%) (Auto) 0 0-10 % Neutrophils # (Auto) 8.0 H 1.8-7.8 X 10^3 Lymphocytes # (Auto) 1.9 1.0-4.0 X 10^3 Monocytes # (Auto) 0.8 0.0-1.0 X 10^3 Eosinophils # (Auto) 0.9 H 0.0-0.3 10^3/uL Basophils # (Auto) 0.0 0.0-0.1 10^3/uL Sodium Level 138 135-145 MMOL/L Potassium Level 3.9 3.6-5.0 MMOL/L Chloride Level 112 H 98-107 MMOL/L Carbon Dioxide Level 20 L 21-32 MMOL/L Anion Gap 6 5-14 MMOL/L Blood Urea Nitrogen 22 H 7-18 MG/DL Creatinine 0.75 0.60-1.30 MG/DL Estimat Glomerular Filtration Rate > 60 BUN/Creatinine Ratio 29 Glucose Level 79 70-105 MG/DL Calcium Level 8.3 L 8.5-10.1 MG/DL Phosphorus Level 2.9 2.3-4.7 MG/DL Magnesium Level 1.7 L 1.8-2.4 MG/DL Radiology CXR 06/03/18: IMPRESSION: Patchy bibasilar infiltrates and a left pleural effusion. Mild central pulmonary venous congestion. CT Lumbar spine 06/03/18: IMPRESSION: Lytic lesion with pathological vertebral body fracture at L2 reflecting a new finding from previous PET. 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 Pathological fracture along the superior cortex is suspected without listhesis. Advanced degenerative changes with multilevel stenosis owing to underlying bony demineralization and degenerative hypertrophy. Additionally metastatic deposits could easily be occult at CT and if needed for restaging purposes or otherwise indicated, consider MRI as further investigation. Physical Exam-([facility]) Physical Exam Vital Signs VS - Last 72 Hours, by Label 06/03/18 06/03/18 06/03/18 06/03/18 14:21 14:21 15:37 18:30 Temp 95.7 97.3 Pulse 168 165 90 Resp 22 23 B/P (MAP) 104/76 (85) 101/78 140/104 (116) Pulse Ox 93 97 96 O2 Delivery Room Air Room Air Room Air 06/03/18 06/03/18 06/03/18 06/03/18 18:35 18:55 19:00 19:00 Temp 97.9 Pulse 89 90 90 Resp 20 14 B/P (MAP) 137/96 (110) 137/98 (111) Pulse Ox 94 92 O2 Delivery Room Air Room Air Room Air 10/806/03/18 06/03/18 06/03/18 19:15 19:30 19:45 20:00 Pulse 90 91 90 90 Resp 14 13 23 31 B/P (MAP) 149/101 (117) 134/93 (107) 124/90 (101) 121/85 (97) Pulse Ox 95 98 98 98 O2 Delivery Room Air Room Air Room Air Room Air 06/03/18 06/03/18 06/03/18 06/03/18 20:00 20:00 20:55 21:00 Temp 97.9 Pulse 90 90 Resp 21 B/P (MAP) 112/78 (89) Pulse Ox 98 98 98 O2 Delivery Room Air Room Air FiO2 21 06/03/18 06/03/18 06/03/18 06/04/18 22:00 23:00 23:42 00:00 Temp 97.3 Pulse 92 90 89 Resp 19 21 12 B/P (MAP) 130/92 (105) 127/86 (100) 108/74 (85) Pulse Ox 97 99 99 O2 Delivery Room Air Room Air Room Air 06/04/18 06/04/18 06/04/18 06/04/18 00:00 01:00 01:00 02:00 Pulse 90 90 89 Resp 13 11 B/P (MAP) 114/76 (89) 124/91 (102) Pulse Ox 98 98 100 O2 Delivery Room Air Room Air Room Air 06/04/18 06/04/18 06/04/18 06/04/18 03:00 04:00 04:00 04:00 Temp 97.7 Pulse 89 88 Resp 20 14 B/P (MAP) 123/88 (100) 128/87 (101) Pulse Ox 98 98 96 O2 Delivery Room Air Room Air Room Air 06/04/18 06/04/18 06/04/18 06/04/18 05:00 06:00 07:00 07:00 Pulse 87 87 87 87 Resp 12 13 27 B/P (MAP) 112/74 (87) 119/83 (95) 124/82 (96) Pulse Ox 98 98 98 O2 Delivery Room Air Room Air Room Air 06/04/18 06/04/18 06/04/18 08:00 08:04 09:00 Temp 96.7 Pulse 86 85 Resp 13 16 B/P (MAP) 131/85 (100) 124/83 (97) Pulse Ox 98 98 O2 Delivery Room Air Room Air Room Air Capillary Refill : Less Than 3 Seconds General Appearance: no apparent distress Respiratory: lungs clear Cardiovascular: regular rate, rhythm, no murmur Gastrointestinal: normal bowel sounds, non tender, soft Extremities: pedal edema Neurologic/Psychiatric: alert, normal mood/affect Skin: warm/dry Assessment/Plan Assessment/Plan Admission Status: Inpatient Order (span 2 midnights) Reason for Inpatient Admission: Atrial fibrillation with RVR requiring continuous infusion to maintain rate, severe comorbidities with high risk of decompensation. (1) Atrial fibrillation with rapid ventricular response Status: Acute Assessment & Plan: Rate improved on diltiazem drip, started on therapeutic enoxaparin. Cardiology consulted, appreciate recommendations. Echocardiogram this morning. (2) Elevated troponin I level Status: Acute Assessment & Plan: Suspect due to strain from above, following. Cardiology consulted, appreciate recommendations. (3) Pneumonia Status: Acute Assessment & Plan: Possible pneumonia based on chest x-ray. No leukocytosis or fever. Started on cefepime in ED. (4) Pathologic lumbar vertebral fracture Status: Acute Assessment & Plan: Likely metastatic colon cancer. Pain controlled at this time. Qualifiers: Qualified Codes: M84.48XA - Pathological fracture, other site, initial encounter for fracture (5) Colon cancer Status: Acute Assessment & Plan: Consult Oncology, appreciate recommendations. (6) Nausea vomiting and diarrhea Status: Acute Assessment & Plan: Symptoms improved since admission per patient. Continue IVF and supportive care. (7) DVT prophylaxis Status: Acute Assessment & Plan: On therapeutic enoxaparin. (8) Discharge planning issues Status: Acute Assessment & Plan: Patient reporting he does recognize the seriousness of his conditions and is "not afraid to ", and is interested in pursuing comfort as his primary goal depending on further discussions with Cardiology and Oncology. Will support his decision either way when made and consult other services as needed. Clinical Quality Measures DVT/VTE Risk/Contraindication: Risk Factor Score Per Nursin RFS Level Per Nursing on Admit: 4+=Very High JAMAR MANSFIELD MD Jun 04, 2018 11:28 am
[2018-06-04] MEDS: CEFEPIME 2 GM/NS 50 ML IVPB IV SCH ×4 (11:44→23:14)
--- NOTE | 2018-06-04 13:03 | Consultation-Cardiology ---
HPI-Cardiology Cardiology Consultation: Date of Consultation 06/04/18 Date of Admission Attending Physician Gabriela Mansfield MD Admitting Physician Paulina Wilkins DO Consulting Physician Ricki MONTES MD HPI: Time Seen by a Provider: 13:03 Chief Complaint: Palpitations This is a 82-year-old gentleman who is receiving chemotherapy for colon cancer by Dr. Flanagan in our cancer Center. He presented yesterday for his next round of chemotherapy but was found to be weak, with nausea, vomiting and diarrhea for the last few days. Also was found to have a rapid pulse. The patient denies having any previous cardiac history. EKG demonstrated narrow complex tachycardia. He was sent to the ER for further management. He was admitted to the ICU and started on Cardizem. a dose of Lovenox was also given. Review of Systems-Cardiology Review of Systems Constitutional: As described under HPI; No As described under HPI, No no symptoms reported, No chills, No fever, No lightheadedness; malaise, tiredness Eyes: No As described under HPI, No no symptoms reported, No blindness, No blurred vision, No contact lenses, No drainage, No decreased acuity, No foreign body sensation, No pain, No vision change Ears/Nose/Throat: No As described under HPI, No no symptoms reported, No chronic hearing loss, No ear discharge, No ear pain, No nasal drainage, No ulcerations Respiratory: No no symptoms reported; As described under HPI; No As described under HPI, No cough, No orthopnea, No shortness of breath, No SOB with excertion Cardiovascular: No no symptoms reported; As described under HPI; No As described under HPI, No chest pain, No edema, No irregular heart rate, No lightheadedness; palpitations Gastrointestinal: No no symptoms reported, No As described under HPI, No abdomen distended, No abdominal pain, No blood streaked bowels, No constipation , No diarrhea, No nausea, No vomiting; nausea/vomiting/diarrhea; No stool coloration changes Genitourinary: No As described under HPI, No burning, No dysuria, No discharge , No frequency, No flank pain, No hematuria, No urgency Musculoskeletal: No no symptoms reported, No As describe under HPI, No back pain, No gout, No joint pain, No joint swelling, No muscle pain, No muscle stiffness, No neck pain, No other Skin: No no symptoms reported, No As described under HPI, No change in color, No change in hair/nails, No dryness, No lesions, No lumps, No rash, No other, No skin related problems, No ulcerations, No rash on exposed areas, No ulcerations on exposed areas Psychiatric/Neurological: No anxiety, No depression, No seizure, No focal weakness, No syncope Hematologic: No bleeding abnormalities [id number] Hx Patient Social History Alcohol Use: Denies Use Recreational Drug Use: No Smoking Status: Former Smoker Former smoker/When Quit: May 19, 1960 Type Used: Cigarettes Recent Foreign Travel: No Recent Infectious Disease Expo: No Hospitalization with Isolation: Denies Physical Abuse Screen: No Sexual Abuse: No Immunizations Up To Date Tetanus Booster (TDap): More than 5yrs Past Medical History PMH As described under Assessment. Family Medical History Family History: Heart disease G8 BROTHER Liver cirrhosis G8 BROTHER Renal cancer 19 FATHER Allergies and Home Medications Allergies Coded Allergies: No Known Drug Allergies (Unverified , 03/25/18) Home Medications Hydrocodone/Acetaminophen 1 Each Tablet, 1 TAB PO Q4-6HR PRN for PAIN-MODERATE, (Reported) Ondansetron HCl 8 Mg Tablet, 8 MG PO Q8H PRN for NAUSEA/VOMITING-1ST LINE, ( Reported) Patient Home Medication List Home Medication List Reviewed: Yes Physical Exam-Cardiology Physical Exam Vital Signs/I&O 06/04/18 06/04/18 06/04/18 06/04/18 03:00 04:00 04:00 04:00 Temp 97.7 Pulse 89 88 Resp 20 14 B/P (MAP) 123/88 (100) 128/87 (101) Pulse Ox 98 98 96 O2 Delivery Room Air Room Air Room Air 06/04/18 06/04/18 06/04/18 06/04/18 05:00 06:00 07:00 07:00 Pulse 87 87 87 87 Resp 12 13 27 B/P (MAP) 112/74 (87) 119/83 (95) 124/82 (96) Pulse Ox 98 98 98 O2 Delivery Room Air Room Air Room Air 06/04/18 06/04/18 06/04/18 06/04/18 08:00 08:04 09:00 12:10 Temp 96.7 98.1 Pulse 86 85 Resp 13 16 B/P (MAP) 131/85 (100) 124/83 (97) Pulse Ox 98 98 O2 Delivery Room Air Room Air Room Air 06/04/18 00:00 Intake Total 1720 ml Output Total 175 ml Balance 1545 ml Capillary Refill : Less Than 3 Seconds Constitutional: appears stated age, AAO x 3; No apparent distress; well- developed, well-nourished HEENT: PERRL; No normal ENT inspection, No TMs normal, No pharynx normal, No scleral icterus (R), No scleral icterus (L), No pale conjunctivae (R), No pale conjunctivae (L), No photophobia, No TM abnormal (R), No TM abnormal (L), No pharyngeal erythema, No tonsillar exudate, No other, No discharge, No EOMI; hearing is well preserved; No hard of hearing; oral hygience is good; No ulceration, No xanthelasmas are seen Neck: No non-tender, No full range of motion, No supple, No normal inspection, No carotid bruit, No limited range of motion, No lymphadenopathy (R), No lymphadenopathy (L), No tender lateral, No tender midline, No thyromegaly, No other; carotid pulses are 2 + bilaterally; No with good upstrokes Respiratory: No accessory muscle use, No respiratory distress, No chest tender , No chest expansion is symmetric; chest is bilaterally symmetric; No lungs clear to percussion; lungs clear to auscultation; No crackles, No rhonchi, No rales, No stridor, No wheezing, No pleural rub, No other Cardiovascular: irregularly irregular, tachycardia, S1 and S2 Gastrointestinal: No tender, No soft, No round, No distended, No pulsatile mass , No organomegaly, No guarding, No rebound, No tenderness, No hernia, No mass, No audible bowel sounds, No abnormal bowel sounds, No abdominal bruits, No spleenomegaly, No other Rectal: deferred Extremities: No normal range of motion, No non-tender, No normal inspection, No pedal edema, No calf tenderness, No normal capillary refill, No pelvis stable , No calf tenderness, No inflammation, No pedal edema, No slow capillary refill , No swelling, No other, No abrasion, No clubbing, No cyanosis, No ecchymosis, No laceration, No no lower extremity edema bilateral, No significant edema, No tenderness, No wound Neurologic/Psychiatric: no motor/sensory deficits, alert, normal mood/affect, oriented x 3, power is 5/5 both on sides Skin: No normal color, No warm/dry, No cyanosis, No cool, No diaphoresis, No damp, No ecchymosis, No jaundice, No mottled, No pallor, No rash, No tattoos/ piercings, No ulcerations, No rash on exposed areas, No ulcerations on exposed areas, No other Data Review Labs Laboratory Tests 06/03/18 17:15: Lactic Acid Level 1.44 06/03/18 21:15: Urine Color YELLOW, Urine Clarity CLEAR, Urine pH 5, Urine Specific [place] 1.020, Urine Protein 1+H, Urine Glucose (UA) NEGATIVE, Urine Ketones 1+H, Urine Nitrite NEGATIVE, Urine Bilirubin NEGATIVE, Urine Urobilinogen NORMAL, Urine Leukocyte Esterase 1+H, Urine RBC (Auto) NEGATIVE, Urine RBC NONE, Urine WBC 2-5 , Urine Squamous Epithelial Cells 2-5, Urine Crystals NONE, Urine Bacteria NEGATIVE, Urine Casts PRESENT, Urine Hyaline Casts 10-25H, Urine White Blood Cell Casts RAREH, Urine Mucus LARGEH, Urine Culture Indicated NO, Troponin I 0.48*H 06/04/18 06:05: Troponin I 0.37*H, White Blood Count 11.5H, Red Blood Count 4.84, Hemoglobin 13.3, Hematocrit 42, Mean Corpuscular Volume 86, Mean Corpuscular Hemoglobin 28 , Mean Corpuscular Hemoglobin Concent 32, Red Cell Distribution Width 18.1H, Platelet Count 244, Mean Platelet Volume 9.9, Neutrophils (%) (Auto) 69, Lymphocytes (%) (Auto) 16, Monocytes (%) (Auto) 7, Eosinophils (%) (Auto) 8, Basophils (%) (Auto) 0, Neutrophils # (Auto) 8.0H, Lymphocytes # (Auto) 1.9, Monocytes # (Auto) 0.8, Eosinophils # (Auto) 0.9H, Basophils # (Auto) 0.0, Sodium Level 138, Potassium Level 3.9, Chloride Level 112H, Carbon Dioxide Level 20L, Anion Gap 6, Blood Urea Nitrogen 22H, Creatinine 0.75, Estimat Glomerular Filtration Rate > 60, BUN/Creatinine Ratio 29, Glucose Level 79, Calcium Level 8.3L, Phosphorus Level 2.9, Magnesium Level 1.7L Microbiology 06/03/18 Influenza Types A,B Antigen (ELBA) - Final, Complete ECG Impression ECG Comment Typical Atrial flutter with rapid ventricular rate. A/P-Cardiology Assessment/Admission Diagnosis Typical atrial flutter with rapid ventricular rate, Pneumonia, Lactic acidosis, Nausea vomiting diarrhea, Stage IV colon cancer, Type II myocardial infarction Plan Typical atrial flutter with rapid ventricular rate, symptomatic typical atrial flutter with rapid ventricular rate. I discussed at length with Dr. Flanagan. He agrees with short-term oral anticoagulation with Eliquis. Will recommend Eliquis therapy for the next 3 weeks. Transesophageal echocardiogram assisted cardioversion will be done today. Patient will be scheduled for atrial flutter ablation in the next 2 weeks. Discussed at length with the patient and all the risks and complication were explained in detail including risk of stroke and esophageal damage. The patient provided informed consent. Type 2 myocardial infarction: Borderline elevated troponin which have stayed almost at similar levels. Likely due to severe sepsis and atrial flutter. Pneumonia, on IV antibiotics. Lactic acidosis, likely due to sepsis. Nausea vomiting diarrhea, multifactorial with contribution from sepsis and atrial flutter. Stage IV colon cancer, deferred to Dr. Flanagan. Patient was on adjuvant chemotherapy. Thank you for your consultation. Please call me if you have any questions. Mitch Montes MD, FACP, FACC, [facility], [facility], CCDS Interventional Cardiology Cardiac Electrophysiology Vascular Medicine and Endovascular Interventions Clinical Quality Measures DVT/VTE Risk/Contraindication: Risk Factor Score Per Nursin RFS Level Per Nursing on Admit: 4+=Very High Ricki MONTES MD Jun 04, 2018 1:03 pm
[2018-06-04] MEDS ORDERED: NS IV 500 ML 500 ML ONE (13:32)
[2018-06-04] MEDS ORDERED: proPOfol 200 MG/20 ML (DIPRIVAN) VIAL IV ONE (13:39)
[2018-06-04] MEDS ORDERED: MIDAZOLAM 5 MG/5 ML (VERSED) VIAL ONE (13:40)
[2018-06-04] MEDS ORDERED: LIDOCAINE 2% VISCOUS 15 ML UDC ONE (13:43)
[2018-06-04] MEDS ORDERED: APIXABAN 5 MG (ELIQUIS) TABLET PO NR (13:45)
--- NOTE | 2018-06-04 14:40 | Anesthesia-Procedure Note ---
Procedures/Interventions Procedure Start/Stop/Diagnosis Date of Procedure: Jun 04, 2018 Start Time: 14:10 Stop Time: 14:34 SURESH/Cardioversion Anesthesia Type: mac ASA Class: 3 Medications propofol 120mg IV, versed 5 mg Monitors and Equipment: Continuous EKG, End Tidal CO2, IV, Pulse Oximeter RADHA PARKER CRNA Jun 04, 2018 14:40
--- NOTE | 2018-06-04 14:41 | Anesthesia-General Post-Op ---
MAC Patient Condition Mental Status/LOC: Same as Preop Cardiovascular: Satisfactory Nausea/Vomiting: Absent Respiratory: Satisfactory Pain: Controlled Complications: Absent Post Op Complications Complications None Follow Up Care/Instructions Patient Instructions None needed. Anesthesiology Discharge Order Discharge Order Patient is doing well, no complaints, stable vital signs, no apparent adverse anesthesia problems. No complications reported per nursing. RADHA PARKER CRNA Jun 04, 2018 14:41
--- NOTE | 2018-06-04 14:48 | Cardioversion ---
Cardioversion PROCEDURE PHYSICIAN: Mitch Montes MD DATE OF PROCEDURE: 06/04/18 DIRECT EXTERNAL ELECTRICAL CARDIOVERSION: Indications: Atrial flutter with rapid ventricular rate Preoperative diagnoses: Atrial flutter with rapid ventricular rate Postoperative diagnosis: Sinus rhythm, Successful Electrical Cardioversion History: This is a 82-year-old gentleman with symptomatic typical atrial flutter with rapid ventricular rate. Transesophageal echocardiogram assisted cardioversion is recommended. Anesthesia: By Anesthesia services Complications: None Specimen: None Contrast: 0 Flouroscopy: none Procedure Details: The patient was brought the cardiac cath tech after informed consent was taken, all the risks and complications were explained including the risk of stroke. Transesophageal echocardiogram did not show any evidence of left atrial or left atrial appendage thrombus. Electrical cardioversion was carried out with anesthesia support with propofol. 120 joules of synchronized shock was delivered through external patches which promptly restored sinus rhythm with occasional PVCs. The patient tolerated the procedure well. Conclusions: 1.Successful Cardioversion. 2.Continue by mouth Cardizem and Eliquis 5 mg twice a day. 3. Typical atrial flutter ablation in 2 weeks. Mitch Montes MD, RS, CCDS Cardiac Electrophysiology Ricki MONTES MD Jun 04, 2018 2:48 pm
[2018-06-04] MEDS ORDERED: NS IV 1000 ML 1,000 ML ONE (14:59)
[2018-06-04] MEDS: DILTIAZEM IV FOR DRIP 125 MG in NS (IVPB) 100 ML IV SCH (15:09)
[2018-06-04] MEDS ORDERED: NS IV 1000 ML 1,000 ML IV SCH (15:15)
[2018-06-04] MEDS ORDERED: NS IV 1000 ML 500 ML IV SCH (15:30)
[2018-06-04] MEDS: DILTIAZEM 120 MG (CARDIZEM CD) CAP PO SCH (17:39)
--- NOTE | 2018-06-04 19:13 | CONSULTATION REPORT ---
DATE OF SERVICE: 06/04/2018 The patient is admitted to ICU bed 1. REFERRING AND PRIMARY CARE PHYSICIAN: Gabriela Mansfield MD IMPRESSION: 1. 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 2. On palliative chemotherapy with oxaliplatin and Xeloda along with Vectibix started since 04/01/2018 and has completed three courses. 3. New-onset atrial flutter with rapid ventricular response diagnosed on 06/03/2018 during his visit to the [facility]. The patient was referred to the emergency room and admitted to the hospital for further management. 4. Status post SURESH and cardioversion with sinus rhythm today. Planned ablation in 2 weeks. 5. Compression fracture of lumbar vertebra, most likely pathology. 6. Probable pneumonia with infiltrates on chest x-ray. RECOMMENDATIONS: 1. Continue management of atrial flutter as you are doing with the ablation and anticoagulation. 2. I will hold the palliative chemotherapy until after the ablation is completed. 3. Continue management of probable pneumonia with broad-spectrum antibiotics. 4. The patient may need kyphoplasty for the compression fracture and low back pain. 5. I will plan on seeing the patient back in three weeks with a CBC, CMP and CEA level. We will discuss about resuming chemotherapy at that point based on his physical condition and performance status. BRIEF HISTORY: The patient is an 82-year-old male, who was diagnosed with metastatic colon cancer with an obstructing lesion in the sigmoid in 01/2018. He underwent sigmoid colectomy followed by staging studies and was started on palliative chemotherapy with oxaliplatin, Xeloda and Vectibix regimen and has completed 3 cycles so far. The patient presented yesterday to the Cancer Center for evaluation prior to the fourth cycle of chemotherapy. He had a 2-day history of increasing fatigue and dizziness. During evaluation, he was noted to have significant tachycardia with pulse rate in the 160 to 170 range. Urgent EKG obtained showed supraventricular tachycardia with a rate of 165. He was sent to the emergency room for further evaluation and management. He was admitted to ICU with cardiology consultation. His rate was controlled with Cardizem drip and the patient underwent SURESH and cardioversion today and is in sinus rhythm at the time of my evaluation. Oncology consultation was obtained for concurrent care. PAST MEDICAL HISTORY: Significant for metastatic colon cancer diagnosed in 01/2018 as mentioned above. He has history of prostatic hyperplasia causing bilateral hydronephrosis requiring surgical correction 3 to 4 years ago. History of ruptured appendix in 1962 requiring surgery. No other surgeries or medical problems. SOCIAL HISTORY: The patient is and lives in [place], [place] by himself. His son lives next door and helps take care of him. His daughter lives in [place], [place]. He smoked for a few years while he was in the service, but denied any further tobacco, alcohol or other recreational drug use. 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 Later on, he worked at [employer] and retired in 2000. FAMILY HISTORY: Unremarkable with no malignancies in the family that the patient knows of. PHYSICAL EXAMINATION: GENERAL: Today showed an elderly male, thin appearing, awake and answering questions appropriately, and in no acute distress. VITAL SIGNS: Temperature was 98.1, pulse rate of 65, respirations 10, blood pressure 101/68. HEENT: Normocephalic with male pattern baldness. Extraocular muscles intact. Conjunctivae pink. Oral mucosa moist. NECK: Supple with no JVD. No cervical, supraclavicular or axillary lymphadenopathy palpable. CHEST: Symmetrical with a port present. LUNGS: Fairly clear to auscultation without wheezes or rales. CARDIOVASCULAR: Regular in rate and rhythm with occasional missed beats. No murmurs or gallops heard. ABDOMEN: Soft, nontender with no hepatosplenomegaly or other masses palpable. EXTREMITIES: Showed no edema. NEUROLOGIC: Showed no focal motor deficits. Overall, motor strength was 4/5 bilaterally. LABORATORY DATA: CBC done today showed white count of 11.5, hemoglobin 13.3 and platelet count 244,000 with neutrophil count 8.0 and lymphocyte count 1.9. BMP today showed relatively normal electrolytes. BUN was 22 and creatinine 0.75 with GFR more than 60 mL per minute. Serum magnesium was 1.7. Initial lactic acid drawn yesterday from the emergency room was slightly elevated at 2.52, but a followup done three hours later was normal at 1.44. Initial troponin was minimally elevated at 0.38, which increased to 0.48 and back down to 0.37. Chest x-ray done at the emergency room showed patchy bibasilar infiltrates and a small left pleural effusion. CT scan of the lumbar spine showed lytic lesion with pathological vertebral body fracture at L2, which is apparently a new finding when compared to the previous PET/CT scan from 03/19/2018. Thank you for allowing me to participate in this patient's care. I will follow the patient with you and make appropriate recommendations. Job ID: [id number] DocumentID: [id number] Dictated Date: 06/04/2018 16:15:26 Box Chipper Date: 06/04/2018 19:12:27 Dictated By: SONU EASLEY MD MTDD
[2018-06-04] MEDS: RT-ALBUTEROL SULF 2.5 MG/3 ML PRE-MIX VIAL INH SCH (20:58)
[2018-06-04] MEDS: APIXABAN 5 MG (ELIQUIS) TABLET PO SCH (21:51)
[2018-06-05] VITALS (14 sets, daily range): BP systolic 97–145; BP diastolic 61–89
[2018-06-05] MEDS: fentaNYL INJECTION 100 MCG/2 ML AMP IV PRN ×2 (02:03→09:04)
[2018-06-05 04:36] LABS: BASOPHILS % (AUTO) 0 % (0-10); EOSINOPHILS # (AUTO) 0.4 10^3/uL (0.0-0.3); EOSINOPHILS % (AUTO) 3 % (0-10); HEMATOCRIT 38 % (40-54); HEMOGLOBIN 12.5 G/DL (13.3-17.7); LYMPHOCYTES # (AUTO) 1.5 X 10^3 (1.0-4.0); LYMPHOCYTES % (AUTO) 11 % (12-44); MEAN CORPUSCULAR HEMOGLOBIN 29 PG (25-34); MEAN CORPUSCULAR HGB CONC 33 G/DL (32-36); MEAN CORPUSCULAR VOLUME 87 FL (80-99); MEAN PLATELET VOLUME 9.8 FL (7.4-10.4); MONOCYTES # (AUTO) 0.8 X 10^3 (0.0-1.0); MONOCYTES % (AUTO) 6 % (0-12); NEUTROPHILS # (AUTO) 10.3 X 10^3 (1.8-7.8); NEUTROPHILS % (AUTO) 79 % (42-75); PLATELET COUNT 220 10^3/uL (130-400); RED BLOOD COUNT 4.38 10^6/uL (4.35-5.85)
[2018-06-05 04:37] LABS: SMEAR SCAN COMMENT YES
[2018-06-05 04:51] LABS: BUN/CREATININE RATIO 26; CALCIUM 8.1 MG/DL (8.5-10.1); CARBON DIOXIDE 16 MMOL/L (21-32); CHLORIDE 113 MMOL/L (98-107); CREATININE SERUM 0.76 MG/DL (0.60-1.30); GFR ESTIMATED > 60; GLUCOSE 99 MG/DL (70-105); MAGNESIUM 1.8 MG/DL (1.8-2.4); PHOSPHORUS 2.6 MG/DL (2.3-4.7); POTASSIUM 4.3 MMOL/L (3.6-5.0); SODIUM 137 MMOL/L (135-145)
[2018-06-05] MEDS ORDERED: POTASSIUM CL 10MEQ/50ML IVPB 50 ML IV SCH (06:00)
[2018-06-05] MEDS ORDERED: KCL 20 MEQ TAB (K-DUR) PO SCH (06:00)
[2018-06-05] MEDS ORDERED: MAGNESIUM 1 GM/100 ML IVPB 100 ML IV SCH (06:00)
[2018-06-05] MEDS: NS W/KCL 20 MEQ/L 1,000 ML IV SCH ×2 (07:56→17:07)
--- NOTE | 2018-06-05 08:34 | Diagnostic Imaging Report ---
INDICATION: Dyspnea Frontal chest obtained at 3:41 a.m. and compared with 06/04/2018. The heart is mildly enlarged. Bibasilar infiltrates appear without significant change compared to the prior study. The Port-A-Cath is unchanged. There is no pneumothorax. There is a small amount of pleural fluid in the costophrenic angle on both sides. IMPRESSION: Unchanged bibasilar infiltrates and mild cardiomegaly with central vascular congestion. Small bilateral pleural effusions are noted. Dictated by: Dictated on workstation # [id number]
--- NOTE | 2018-06-05 08:44 | Progress Note (SOAP) ---
Subjective Subjective/Events-last exam Cardioverted yesterday and has remained in sinus rhythm. He had difficulty using the bedside commode, states it is is too short for him, so he ended up not wanting to try it and then required marquez catheter due to urinary retention. He denies pain this morning, but is concerned about getting a taller commode and getting marquez catheter out. Review of Systems Date Seen by Provider: Jun 05, 2018 Time Seen by Provider: 07:55 Focused Exam Lactate Level 06/03/18 14:31: Lactic Acid Level 2.52*H 06/03/18 17:15: Lactic Acid Level 1.44 Objective Exam Last Set of Vital Signs Vital Signs Date Time Temp Pulse Resp B/P (MAP) Pulse Ox O2 Delivery O2 Flow Rate FiO2 06/05/18 07:00 87 06/05/18 06:00 13 121/77 (92) 96 Room Air 06/05/18 04:24 98.7 06/03/18 20:55 21 Capillary Refill : Less Than 3 Seconds I&O Intake and Output 06/05/18 00:00 Intake Total 3735 ml Output Total 900 ml Balance 2835 ml Intake Oral 360 ml IV Total 3375 ml Output Urine Total 900 ml General: Alert, No Acute Distress Lungs: Clear to Auscultation, Normal Air Movement Heart: Regular Rate, No Murmurs Abdomen: Normal Bowel Sounds, Soft, No Tenderness Neuro: Normal Speech Psych/Mental Status: Other (irritable) Results/Procedures Lab Laboratory Tests 06/05/18 04:25: White Blood Count 13.0H, Red Blood Count 4.38, Hemoglobin 12.5L, Hematocrit 38L , Mean Corpuscular Volume 87, Mean Corpuscular Hemoglobin 29, Mean Corpuscular Hemoglobin Concent 33, Red Cell Distribution Width 18.0H, Platelet Count 220, Mean Platelet Volume 9.8, Neutrophils (%) (Auto) 79H, Lymphocytes (%) (Auto) 11L , Monocytes (%) (Auto) 6, Eosinophils (%) (Auto) 3, Basophils (%) (Auto) 0, Neutrophils # (Auto) 10.3H, Lymphocytes # (Auto) 1.5, Monocytes # (Auto) 0.8, Eosinophils # (Auto) 0.4H, Basophils # (Auto) 0.0, Sodium Level 137, Potassium Level 4.3, Chloride Level 113H, Carbon Dioxide Level 16L, Anion Gap 8, Blood Urea Nitrogen 20H, Creatinine 0.76, Estimat Glomerular Filtration Rate > 60, BUN /Creatinine Ratio 26, Glucose Level 99, Calcium Level 8.1L, Phosphorus Level 2.6 , Magnesium Level 1.8, Smear Scan YES Microbiology 06/03/18 Blood Culture - Preliminary, Resulted No growth 06/03/18 Influenza Types A,B Antigen (ELBA) - Final, Complete 06/03/18 Urine Culture - Preliminary, Resulted Enterococcus faecalis Radiology CXR 06/03/18: IMPRESSION: Patchy bibasilar infiltrates and a left pleural effusion. Mild central pulmonary venous congestion. CT Lumbar spine 06/03/18: IMPRESSION: Lytic lesion with pathological vertebral body fracture at L2 reflecting a new finding from previous PET. 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 Pathological fracture along the superior cortex is suspected without listhesis. Advanced degenerative changes with multilevel stenosis owing to underlying bony demineralization and degenerative hypertrophy. Additionally metastatic deposits could easily be occult at CT and if needed for restaging purposes or otherwise indicated, consider MRI as further investigation. Assessment/Plan Assessment/Plan (1) Atrial fibrillation with rapid ventricular response Status: Acute Assessment & Plan: Rate improved on diltiazem drip, started on therapeutic enoxaparin. Cardiology consulted, appreciate recommendations. Echocardiogram this morning. 06/05 s/p cardioversion, plan for ablation in next couple of weeks per Cardiology. Echo read pending. (2) Elevated troponin I level Status: Acute Assessment & Plan: Suspect due to strain from above, following. Cardiology consulted, appreciate recommendations. (3) Pneumonia Status: Acute Assessment & Plan: Possible pneumonia based on chest x-ray. No leukocytosis or fever. Started on cefepime in ED. 06/05 chest xray with worsening appearance, no hypoxia. Continue cefepime. Transfer to floor on telemetry. (4) Pathologic lumbar vertebral fracture Status: Acute Assessment & Plan: Likely metastatic colon cancer. Pain controlled at this time. Qualifiers: Qualified Codes: M84.48XA - Pathological fracture, other site, initial encounter for fracture (5) Colon cancer Status: Acute Assessment & Plan: Consult Oncology, appreciate recommendations. (6) Nausea vomiting and diarrhea Status: Resolved (7) DVT prophylaxis Status: Acute (8) Discharge planning issues Status: Acute Assessment & Plan: Patient reporting he does recognize the seriousness of his conditions and is "not afraid to ", and is interested in pursuing comfort as his primary goal depending on further discussions with Cardiology and Oncology. Will support his decision either way when made and consult other services as needed. 06/05 plan to treat acute issues and follow up with Oncology outpatient for further discussion about whether to resume chemotherapy Clinical Quality Measures DVT/VTE Risk/Contraindication: Risk Factor Score Per Nursin RFS Level Per Nursing on Admit: 4+=Very High JAMAR JACKSON MD Jun 05, 2018 8:44 am
[2018-06-05] MEDS: APIXABAN 5 MG (ELIQUIS) TABLET PO SCH ×2 (09:03→21:25)
[2018-06-05] MEDS: DILTIAZEM 120 MG (CARDIZEM CD) CAP PO SCH (09:03)
[2018-06-05] MEDS: ASPIRIN E.C. 81 MG (ECOTRIN) TAB PO SCH (09:04)
[2018-06-05] MEDS: HYDROcodone/APAP 5 MG/325 MG (LORTAB) TAB PO PRN ×2 (09:04→22:50)
[2018-06-05] MEDS: RT-ALBUTEROL SULF 2.5 MG/3 ML PRE-MIX VIAL INH SCH ×2 (09:42→20:16)
--- NOTE | 2018-06-05 11:15 | Cardiology Progress Note ---
Cardiology SOAP Progress Note Subjective: Significantly improved symptom complex. Objective: I&O/Vital Signs 06/05/18 06/05/18 06/05/18 06/05/18 00:00 00:00 01:00 01:00 Temp 98.9 Pulse 74 75 75 Resp 23 16 B/P (MAP) 97/61 (73) 100/64 (76) Pulse Ox 97 97 O2 Delivery Room Air Room Air Room Air 06/05/18 06/05/18 06/05/18 06/05/18 02:00 03:00 04:00 04:00 Pulse 74 75 73 Resp 16 14 15 B/P (MAP) 109/70 (83) 98/63 (75) 112/80 (91) Pulse Ox 96 97 96 O2 Delivery Room Air Room Air Room Air Room Air 06/05/18 06/05/18 06/05/18 06/05/18 04:24 05:00 06:00 07:00 Temp 98.7 Pulse 82 85 86 Resp 14 13 B/P (MAP) 119/76 (90) 121/77 (92) 138/84 (102) Pulse Ox 96 96 94 O2 Delivery Room Air Room Air Room Air 06/05/18 06/05/18 06/05/18 06/05/18 07:00 07:42 08:00 09:00 Pulse 87 86 Resp 20 B/P (MAP) 145/89 (107) Pulse Ox 92 97 O2 Delivery Room Air Room Air Room Air 06/05/18 06/05/18 06/05/18 09:00 09:04 10:05 Temp 98.2 96.6 Pulse 85 74 Resp 18 20 B/P (MAP) 142/79 (100) 141/82 (101) Pulse Ox 96 97 O2 Delivery Room Air Room Air Room Air 06/05/18 00:00 Intake Total 3735 ml Output Total 750 ml Balance 2985 ml Weight (Pounds): 164 Weight (Ounces): 5.0 Weight (Calculated Kilograms): [id number] Constitutional: appears stated age, AAO x 3; No apparent distress; well- developed, well-nourished Respiratory: No accessory muscle use, No respiratory distress, No chest tender , No chest expansion is symmetric; chest is bilaterally symmetric; No lungs clear to percussion; lungs clear to auscultation; No crackles, No rhonchi, No rales, No stridor, No wheezing, No pleural rub, No other Cardiovascular: regular rate-rhythm, tachycardia, S1 and S2 Gastrointestional: No tender, No soft, No round, No distended, No pulsatile mass, No organomegaly, No guarding, No rebound, No tenderness, No hernia, No mass, No audible bowel sounds, No abnormal bowel sounds, No abdominal bruits, No spleenomegaly, No other Extremities: No normal range of motion, No non-tender, No normal inspection, No pedal edema, No calf tenderness, No normal capillary refill, No pelvis stable , No calf tenderness, No inflammation, No pedal edema, No slow capillary refill , No swelling, No other, No abrasion, No clubbing, No cyanosis, No ecchymosis, No laceration, No no lower extremity edema bilateral, No significant edema, No tenderness, No wound Neurologic/Psychiatric: no motor/sensory deficits, alert, normal mood/affect, oriented x 3, power is 5/5 both on sides Skin: No normal color, No warm/dry, No cyanosis, No cool, No diaphoresis, No damp, No ecchymosis, No jaundice, No mottled, No pallor, No rash, No tattoos/ piercings, No ulcerations, No rash on exposed areas, No ulcerations on exposed areas, No other Results/Procedures: Labs Laboratory Tests 06/05/18 04:25: White Blood Count 13.0H, Red Blood Count 4.38, Hemoglobin 12.5L, Hematocrit 38L , Mean Corpuscular Volume 87, Mean Corpuscular Hemoglobin 29, Mean Corpuscular Hemoglobin Concent 33, Red Cell Distribution Width 18.0H, Platelet Count 220, Mean Platelet Volume 9.8, Neutrophils (%) (Auto) 79H, Lymphocytes (%) (Auto) 11L , Monocytes (%) (Auto) 6, Eosinophils (%) (Auto) 3, Basophils (%) (Auto) 0, Neutrophils # (Auto) 10.3H, Lymphocytes # (Auto) 1.5, Monocytes # (Auto) 0.8, Eosinophils # (Auto) 0.4H, Basophils # (Auto) 0.0, Sodium Level 137, Potassium Level 4.3, Chloride Level 113H, Carbon Dioxide Level 16L, Anion Gap 8, Blood Urea Nitrogen 20H, Creatinine 0.76, Estimat Glomerular Filtration Rate > 60, BUN /Creatinine Ratio 26, Glucose Level 99, Calcium Level 8.1L, Phosphorus Level 2.6 , Magnesium Level 1.8, Smear Scan YES Microbiology 06/03/18 Blood Culture - Preliminary, Resulted No growth 06/03/18 Influenza Types A,B Antigen (ELBA) - Final, Complete 06/03/18 Urine Culture - Preliminary, Resulted Enterococcus faecalis A/P: Assessment/Dx: Typical atrial flutter with rapid ventricular rate, Pneumonia, Lactic acidosis, Nausea vomiting diarrhea, Stage IV colon cancer, Type II myocardial infarction Plan: Typical atrial flutter with rapid ventricular rate, symptomatic typical atrial flutter with rapid ventricular rate. I discussed at length with Dr. Flanagan. He agrees with short-term oral anticoagulation with Eliquis. Will recommend Eliquis therapy for the next 3 weeks. Transesophageal echocardiogram assisted cardioversion was done yesterday which was successful. Patient will be scheduled for atrial flutter ablation in the next 2 weeks. Discussed at length with the patient and all the risks and complication were explained in detail including risk of stroke and esophageal damage. The patient provided informed consent. Type 2 myocardial infarction: Borderline elevated troponin which have stayed almost at similar levels. Likely due to severe sepsis and atrial flutter. Pneumonia, on IV antibiotics. Lactic acidosis, likely due to sepsis. Nausea vomiting diarrhea, multifactorial with contribution from sepsis and atrial flutter. Stage IV colon cancer, deferred to Dr. Flanagan. Patient was on adjuvant chemotherapy. Thank you for your consultation. Please call me if you have any questions. Mitch Montes MD, FACP, FACC, FSCAI, FHRS, CCDS Interventional Cardiology Cardiac Electrophysiology Vascular Medicine and Endovascular Interventions Focused Exam Lactate Level 06/03/18 14:31: Lactic Acid Level 2.52*H 06/03/18 17:15: Lactic Acid Level 1.44 Ricki MONTES MD Jun 05, 2018 11:15 am
[2018-06-05] MEDS: CEFEPIME 2 GM/NS 50 ML IVPB IV SCH ×4 (12:00→22:49)
--- NOTE | 2018-06-05 14:17 | Physician Query Clarification ---
PQ-Conflicting Diagnosis Admission/Discharge Admission Date: Jun 03, 2018 at 16:00 Discharge Date: The medical record reflects the following clinical scenario: History/Risk Factors: Pneumonia, type 2 PA, atrial fibrillation w/RVR and atrial flutter, IV 4 metastatic colon CA Clinical Findings: Lactic acid 2.52 on06/03 @ 1431 and 1.44 on 06/03 @ 1715, WBC 13.0, T 97.3, R 23, P 168 Treatment: IV Cefepime Question: Do you agree with the impression of the Sepsis per Dr. Montes. Please document a response below. PHYSICIAN RESPONSE Do you agree w/Consulting Dx?: Yes In responding to this query, please exercise your independent professional judgment. The purpose of this communication is to more accurately reflect the complexity of your patients condition. The fact that a question is asked does not imply that any particular answer is desired or expected. Thank you for your timely response to this clarification. Requestors name: Lacey THIS PHYSICIAN QUERY FORM IS A PERMANENT PART OF THE MEDICAL RECORD LACEY GOODMAN Jun 05, 2018 2:17 pm JAMAR JACKSON MD Jun 06, 2018 8:59 pm
--- NOTE | 2018-06-05 15:28 | Physical Therapy Evaluation ---
PT Evaluation-General Medical Diagnosis Admission Date Jun 03, 2018 at 16:00 Medical Diagnosis: Atrial fibrillation with RVR Onset Date: Jun 03, 2018 Therapy Diagnosis Therapy Diagnosis: impaired mobility and strength Height/Weight Height (Feet): 6 Height (Inches): 4.00 Weight (Pounds): 164 Weight (Ounces): 5.0 Precautions Precautions/Isolations: Fall Prevention, Standard Precautions, Pressure Ulcer Weight Bear Status Right Lower Extremity: Right Full Weight Bearing Left Lower Extremity: Left Full Weight Bearing Referral Physician: Donal Reason for Referral: Evaluation/Treatment Medical History Pertinent Medical History: Arthritis, OA Additional Medical History colon cancer, pathological fracture L2, colon surgery, appendectomy Current History Atrial fibrillation with RVR requiring continuous infusion to maintain rate, severe comorbidities with high risk of decompensation, pneumonia Social History Home: Single Level Current Living Status: Alone Entry Into Home: Ramp Prior/Core FIM Prior Level of Function Functional [place] Measure 0=Not Assessed/NA 4=Minimal Assistance 1=Total Assistance 5=Supervision or Setup 2=Maximal Assistance 6=Modified [place] 3=Moderate Assistance 7=Complete [place] Bed Mobility: 6 Transfers (B,C,W/C) (FIM): 6 Gait: 6 PT Evaluation-Current Subjective pt in bed pre tx, agrees to PT, no pain to report, "feeling much better today" Pt/Family Goals to be independent at home Objective Patient Orientation: Person, Place, Time Attachments: IV ROM/Strength Strength Lower Extremities RLE (hip flexion 2/5, knee flexion 3/5, knee extension 3+/5, DF 2/5, PF 4/5) LLE (hip flexion 2/5, knee flexion 4/5, knee extension 4+/5, DF 2/5, PF 4/5) Neuromuscular (Tone, Coordination, Reflexes) NT Sensory Vision: Functional Hearing: Functional Sensation Right Lower Extremit: Intact Sensation Left Lower Extremity: Intact Transfers Functional [place] Measure 0=Not Assessed/NA 4=Minimal Assistance 1=Total Assistance 5=Supervision or Setup 2=Maximal Assistance 6=Modified [place] 3=Moderate Assistance 7=Complete [place] Transfers (B, C, W/C) (FIM): 4 Scootin Rollin Supine to/from Sit: 5 Sit to/from Stand: 4 supine <->sit SBA, sit<->stand CGA for safety Gait Mode of Locomotion: Walk Anticipated Mode of Locomotion: Walk Gait (FIM): 1 Distance (FIM): 1=up to 49 ft Distance: 10' Gait Level of Assist: 4 Gait Persons Needed: 1 Gait Assistive Device: FWW Comments/Gait Description pt ambulates 10' using FWW, CGA, pt demonstrates excessive PF and knee flexion in LLE, quick but short steps, slight unsteadiness when turning Balance Sitting Static: Normal Sitting Dynamic: Normal Standing Static: Fair Standing Dynamic: Fair Treatment seated ex: AP, LAQs, hip flexion x10 Assessment/Needs impaired mobility and strength, pt appears very motivated to exercise and get moving out of bed Rehab Potential: Fair PT Short Term Goals Short Term Goals Time Frame: Jun 12, 2018 Transfers (B,C,W/C) (FIM): 5 Gait (FIM): 5 Gait Distance Comment: 200' Gait Level of Assist: 5 Gait Assistive Device: FWW PT Plan Problem List Problem List: Activity Tolerance, Functional Strength, Safety, Balance, Gait, Transfer, Bed Mobility, ROM Treatment/Plan Treatment Plan: Continue Plan of Care Treatment Plan: Bed Mobility, Education, Functional Activity Dean, Functional Strength, Gait, Safety, Therapeutic Exercise, Transfers Treatment Duration: Jun 12, 2018 Frequency: 6 times per week Estimated Hrs Per Day: .25 hour per day (15-30') Patient and/or Family Agrees t: Yes Safety Risks/Education Patient Education: Gait Training, Transfer Techniques, Correct Positioning, Safety Issues Teaching Recipient: Patient Teaching Methods: Demonstration, Discussion Response to Teaching: Reinforcement Needed Discharge Recommendations Plan Pt will perform bed mobility, transfer training, gait training, balance training , functional strengthening, and education to be independent at home. Therapy D/C Recommendations: Home w/ Family Support Time/GCodes Time In: 1445 Time Out: 1510 Total Billed Treatment Time: 25 Total Billed Treatment 1 visit EVM 15' EX 10' SAGRARIO ANNE PT Jun 05, 2018 15:28
[2018-06-06 00:13] VITALS: BP 128/75
[2018-06-06] MEDS: NS W/KCL 20 MEQ/L 1,000 ML IV SCH ×2 (01:18→09:24)
[2018-06-06 04:25] LABS: BASOPHILS % (AUTO) 0 % (0-10); EOSINOPHILS # (AUTO) 0.7 10^3/uL (0.0-0.3); EOSINOPHILS % (AUTO) 7 % (0-10); HEMATOCRIT 38 % (40-54); HEMOGLOBIN 12.3 G/DL (13.3-17.7); LYMPHOCYTES # (AUTO) 1.5 X 10^3 (1.0-4.0); LYMPHOCYTES % (AUTO) 15 % (12-44); MEAN CORPUSCULAR HEMOGLOBIN 28 PG (25-34); MEAN CORPUSCULAR HGB CONC 32 G/DL (32-36); MEAN CORPUSCULAR VOLUME 87 FL (80-99); MONOCYTES # (AUTO) 0.8 X 10^3 (0.0-1.0); MONOCYTES % (AUTO) 7 % (0-12); NEUTROPHILS # (AUTO) 7.5 X 10^3 (1.8-7.8); NEUTROPHILS % (AUTO) 71 % (42-75); PLATELET COUNT 201 10^3/uL (130-400); RED BLOOD COUNT 4.41 10^6/uL (4.35-5.85); RED CELL DISTRIBUTION WIDTH 18.3 % (10.0-14.5); WHITE BLOOD COUNT 10.5 10^3/uL (4.3-11.0)
[2018-06-06 04:31] VITALS: BP 151/78
[2018-06-06] MEDS: HYDROcodone/APAP 5 MG/325 MG (LORTAB) TAB PO PRN (07:09)
[2018-06-06] MEDS: RT-ALBUTEROL SULF 2.5 MG/3 ML PRE-MIX VIAL INH SCH ×2 (07:30→19:06)
[2018-06-06 08:00] VITALS: BP 167/88
[2018-06-06] MEDS: DILTIAZEM 120 MG (CARDIZEM CD) CAP PO SCH (09:24)
[2018-06-06] MEDS: ASPIRIN E.C. 81 MG (ECOTRIN) TAB PO SCH (09:24)
[2018-06-06] MEDS: APIXABAN 5 MG (ELIQUIS) TABLET PO SCH ×2 (09:24→20:03)
--- NOTE | 2018-06-06 09:43 | Progress Note-Cardiology ---
Cardiology SOAP Progress Note Subjective: Just returned to room after ambulating in the halls with PT. No c/o CP, dyspnea or palpitations. C/O generalized swelling. Objective: I&O/Vital Signs 06/06/18 06/06/18 06/06/18 06/06/18 01:12 04:31 07:00 07:30 Temp 96.9 Pulse 72 84 85 Resp 20 B/P (MAP) 151/78 (102) Pulse Ox 95 94 O2 Delivery Room Air 06/06/18 06/06/18 06/06/18 06/06/18 07:40 08:00 09:00 12:00 Temp 98.0 97.0 98.0 Pulse 104 99 Resp 18 18 B/P (MAP) 167/88 (114) 131/75 (93) Pulse Ox 91 96 O2 Delivery Room Air Room Air 06/06/18 00:00 Intake Total 2009 ml Output Total 0 ml Balance 2009 ml Weight (Pounds): 172 Weight (Ounces): 5.0 Weight (Calculated Kilograms): 78.687820 Constitutional: appears stated age, AAO x 3, well-developed, well-nourished Respiratory: chest is bilaterally symmetric, lungs clear to auscultation Cardiovascular: regular rate-rhythm, S1 and S2 Gastrointestional: audible bowel sounds Extremities: swelling (bilat 2(+) LE edema) Neurologic/Psychiatric: power is 5/5 both on sides Skin: No rash, No ulcerations Results/Procedures: Labs Laboratory Tests 06/06/18 04:15: White Blood Count 10.5, Red Blood Count 4.41, Hemoglobin 12.3L, Hematocrit 38L, Mean Corpuscular Volume 87, Mean Corpuscular Hemoglobin 28, Mean Corpuscular Hemoglobin Concent 32, Red Cell Distribution Width 18.3H, Platelet Count 201, Mean Platelet Volume 10.0, Neutrophils (%) (Auto) 71, Lymphocytes (%) (Auto) 15 , Monocytes (%) (Auto) 7, Eosinophils (%) (Auto) 7, Basophils (%) (Auto) 0, Neutrophils # (Auto) 7.5, Lymphocytes # (Auto) 1.5, Monocytes # (Auto) 0.8, Eosinophils # (Auto) 0.7H, Basophils # (Auto) 0.0, Magnesium Level 1.7L Microbiology 06/03/18 Blood Culture - Preliminary, Resulted No growth 06/03/18 Influenza Types A,B Antigen (ELBA) - Final, Complete 06/03/18 Urine Culture - Final, Complete Enterococcus faecalis A/P: Assessment: Typical atrial flutter with rapid ventricular rate treated with SURESH-assisted cardioversion by Dr. Montes on 06-05-18. Currently on apixaban for stroke prophylaxis Acute diastolic CHF vs vol overload Pneumonia with sepsis Borderline elevated troponin which have stayed almost at similar levels. Likely due to severe sepsis and atrial flutter Stage IV colon cancer, managed Dr. Flanagan. Patient was on adjuvant chemotherapy Plan: Per Dr. Sandoval note of 06-05-18: Patient will be scheduled for atrial flutter ablation in the next 2 weeks. OAC with Eliquis for [address] Montes and Dr. Carter Replace Mag Diastolic CHF with vol overload - stop IVF and give diuretics Monitor lab closely Physician Assessment Physician Assessment No cp or palp or syncope Notes leg swelling and some exertional shortness of breath Lungs: good bilat air entry, fine bibasilar crackles Cor: reg Ext: no c/c. Bilateral mod leg edema A&P * As documented in our note above that I updated (italics) and as noted below * I reviewed his records, interviewed him, examined him and discussed her CV issues with him and his on and answered questions * iv diuretics today * Monitor labs LILLI ELLIS [employer] Jun 06, 2018 09:43 SUBHASH CHRISTIANSON MD [facility] Jun 06, 2018 12:50
[2018-06-06] MEDS ORDERED: FUROSEMIDE 40 MG/4 ML INJ (LASIX) IVP NR (10:30)
[2018-06-06] MEDS ORDERED: POLYETHYLENE GLYCOL 17 GM (MIRALAX) PACK PO NR (10:45)
--- NOTE | 2018-06-06 11:03 | Physical Therapy Daily Note ---
PT Daily Note-Current Subjective Misael states he is feeling better today and wants to continue regaining his strength in preparation for upcoming chem. He is frustrated by his constipation (4 days per pt.) Alert, oriented and sharing jokes. Mental Status Patient Orientation: Person, Place, Time, Situation Transfers Functional [place] Measure 0=Not Assessed/NA 4=Minimal Assistance 1=Total Assistance 5=Supervision or Setup 2=Maximal Assistance 6=Modified [place] 3=Moderate Assistance 7=Complete IndependenceIRFPAI Quality Coding Scale 6 Independent with activity with or without an assistive device 5 Patient requires set up or clean up by helper. Patient completes activity by themselves 4 Supervision or touching assist (CGA). [place] provide cues , steadying assist 3 The helper provides less than half the effort to complete the activity 2 The helper provides more than half the effort to complete the activity 1 Dependent. The helper does all the effort to complete an activity 7 Patient refused to complete or attempt activity 9 The patient did not perform the activity before the current illness or injury 88 Not attempted due to Medical conditions or safety concerns Transfers (B, C, W/C) (FIM): 4 Supine to/from Sit: 4 Sit to/from Stand: 4 Weight Bearing Right Lower Extremity: Right Full Weight Bearing Left Lower Extremity: Left Full Weight Bearing Gait Training Gait (FIM): 4 Distance: 100 ft Gait Assistive Device: FWW Pt walks with flexed knees due to OA and wide based gait (probably due to swollen scrotum.) Easily fatigued - O2 stayed above 94% , HR 115. Exercises Supine Ex: Ankle pumps Assessment Current Status: Good Progress Misael had a big improvement in mobility - he should be able to walk with nursing service for short distance using FWW in addition to continued PT. PT Short Term Goals Short Term Goals Time Frame: Jun 12, 2018 Transfers (B,C,W/C) (FIM): 5 Gait (FIM): 5 Gait Distance Comment: 200' Gait Level of Assist: 5 Gait Assistive Device: FWW PT Plan Treatment/Plan Treatment Plan: Continue Plan of Care Treatment Plan: Bed Mobility, Education, Functional Activity Dean, Functional Strength, Gait, Safety, Therapeutic Exercise, Transfers Treatment Duration: Jun 12, 2018 Frequency: 6 times per week Estimated Hrs Per Day: .25 hour per day (15-30') Patient and/or Family Agrees t: Yes Discharge Recommendations Therapy D/C Recommendations: Acute Rehab, [facility] (TCU/[facility]) Time/GCodes Time In: 935 Time Out: 955 Total Billed Treatment Time: 20 Total Billed Treatment Visit, Gt G Codes Necessary: YOHANA Mcmahon PT Jun 06, 2018 11:03
[2018-06-06 12:00] VITALS: BP 131/75
[2018-06-06] MEDS: CEFEPIME 2 GM/NS 50 ML IVPB IV SCH ×4 (12:09→22:59)
[2018-06-06] MEDS: MAGNESIUM 1 GM/100 ML IVPB 100 ML IV SCH ×2 (12:56→12:57)
[2018-06-06 15:45] VITALS: BP 123/68
--- NOTE | 2018-06-06 17:58 | Progress Note-Standard ---
Standard Progress Note Progress Notes/Assess & Plan Date Seen by a Provider: Jun 06, 2018 Time Seen by a Provider: 17:54 Progress/Assessment & Plan 82-year-old male with metastatic sigmoid colon cancer who was on outpatient chemotherapy, admitted with new onset atrial flutter with rapid ventricular response. Status post SURESH and cardioversion and in sinus rhythm. Planned ablation in 2 weeks. Currently on anticoagulation with Eliquis. Patient is feeling better today but still weak. Denied fevers or chills. Appetite improving. Continues to have back pain with evidence of compression fracture in the lumbar vertebra, probably related to a fall. Agree with the physical therapy/rehabilitation for strengthening and ambulation. I will hold chemotherapy until after the ablation is completed. If the back pain is worsening, he may benefit from kyphoplasty. We will follow patient with you. SONU EASLEY Jun 06, 2018 17:58
[2018-06-06 20:15] VITALS: BP 134/73
--- NOTE | 2018-06-06 21:05 | Progress Note (SOAP) ---
Subjective Subjective/Events-last exam Afebrile. Is feeling pretty well and walking more, but feels he needs to have a bowel movement. Review of Systems Date Seen by Provider: Jun 06, 2018 Time Seen by Provider: 12:30 Objective Exam Last Set of Vital Signs Vital Signs Date Time Temp Pulse Resp B/P (MAP) Pulse Ox O2 Delivery O2 Flow Rate FiO2 06/06/18 19:40 87 06/06/18 19:06 94 Room Air 06/06/18 15:45 97.3 20 123/68 (86) 06/03/18 20:55 21 Capillary Refill : Less Than 3 Seconds I&O Intake and Output 06/06/18 00:00 Intake Total 3710 ml Output Total 510 ml Balance 3200 ml Intake Oral 1710 ml IV Total 2000 ml Output Urine Total 510 ml Bladder Scan Volume Amount 238 ml # Voids 2 General: Alert, No Acute Distress Lungs: Clear to Auscultation, Normal Air Movement Heart: Regular Rate, No Murmurs Abdomen: Normal Bowel Sounds, Other (tender to palpation lower abdomen) Extremities: Other (2+ edema) Neuro: Normal Speech Psych/Mental Status: Mental Status NL Results/Procedures Lab Laboratory Tests 06/06/18 04:15: White Blood Count 10.5, Red Blood Count 4.41, Hemoglobin 12.3L, Hematocrit 38L, Mean Corpuscular Volume 87, Mean Corpuscular Hemoglobin 28, Mean Corpuscular Hemoglobin Concent 32, Red Cell Distribution Width 18.3H, Platelet Count 201, Mean Platelet Volume 10.0, Neutrophils (%) (Auto) 71, Lymphocytes (%) (Auto) 15 , Monocytes (%) (Auto) 7, Eosinophils (%) (Auto) 7, Basophils (%) (Auto) 0, Neutrophils # (Auto) 7.5, Lymphocytes # (Auto) 1.5, Monocytes # (Auto) 0.8, Eosinophils # (Auto) 0.7H, Basophils # (Auto) 0.0, Magnesium Level 1.7L Microbiology 06/03/18 Blood Culture - Preliminary, Resulted No growth 06/03/18 Influenza Types A,B Antigen (ELBA) - Final, Complete 06/03/18 Urine Culture - Final, Complete Enterococcus faecalis Radiology CXR 06/03/18: IMPRESSION: Patchy bibasilar infiltrates and a left pleural effusion. Mild central pulmonary venous congestion. CT Lumbar spine 06/03/18: IMPRESSION: Lytic lesion with pathological vertebral body fracture at L2 reflecting a new finding from previous PET. 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 Pathological fracture along the superior cortex is suspected without listhesis. Advanced degenerative changes with multilevel stenosis owing to underlying bony demineralization and degenerative hypertrophy. Additionally metastatic deposits could easily be occult at CT and if needed for restaging purposes or otherwise indicated, consider MRI as further investigation. Assessment/Plan Assessment/Plan (1) Atrial fibrillation with rapid ventricular response Status: Acute Assessment & Plan: Rate improved on diltiazem drip, started on therapeutic enoxaparin. Cardiology consulted, appreciate recommendations. Echocardiogram this morning. 06/05 s/p cardioversion, plan for ablation in next couple of weeks per Cardiology. Echo read pending. 06/06 echo with EF 55-65%, grade 2 diastolic dysfunction (2) Elevated troponin I level Status: Acute Assessment & Plan: Suspect due to strain from above, following. Cardiology consulted, appreciate recommendations. (3) Pneumonia Status: Acute Assessment & Plan: Possible pneumonia based on chest x-ray. No leukocytosis or fever. Started on cefepime in ED. 06/05 chest xray with worsening appearance, no hypoxia. Continue cefepime. Transfer to floor on telemetry. 06/06 remains stable, continue cefepime (4) Pathologic lumbar vertebral fracture Status: Acute Assessment & Plan: Likely metastatic colon cancer. Pain controlled at this time. Qualifiers: Qualified Codes: M84.48XA - Pathological fracture, other site, initial encounter for fracture (5) Colon cancer Status: Acute Assessment & Plan: Consult Oncology, appreciate recommendations. (6) Nausea vomiting and diarrhea Status: Resolved (7) Urinary tract infection Status: Acute Assessment & Plan: Culture with enterococcus without resistance. On cefepime as above for pneumonia will cover urine. (8) DVT prophylaxis Status: Acute Assessment & Plan: On apixaban (9) Discharge planning issues Status: Acute Assessment & Plan: Patient reporting he does recognize the seriousness of his conditions and is "not afraid to ", and is interested in pursuing comfort as his primary goal depending on further discussions with Cardiology and Oncology. Will support his decision either way when made and consult other services as needed. 06/05 plan to treat acute issues and follow up with Oncology outpatient for further discussion about whether to resume chemotherapy Clinical Quality Measures DVT/VTE Risk/Contraindication: Risk Factor Score Per Nursin RFS Level Per Nursing on Admit: 4+=Very High JAMAR JACKSON MD Jun 06, 2018 9:05 pm
[2018-06-07 00:05] VITALS: BP 168/79
[2018-06-07] MEDS: HYDROcodone/APAP 5 MG/325 MG (LORTAB) TAB PO PRN ×3 (03:17→21:12)
[2018-06-07 04:07] VITALS: BP 151/89
[2018-06-07 05:21] LABS: BUN/CREATININE RATIO 20; CALCIUM 8.2 MG/DL (8.5-10.1); CARBON DIOXIDE 20 MMOL/L (21-32); CHLORIDE 109 MMOL/L (98-107); GFR ESTIMATED > 60; GLUCOSE 80 MG/DL (70-105); MAGNESIUM 1.8 MG/DL (1.8-2.4); POTASSIUM 3.6 MMOL/L (3.6-5.0); SODIUM 137 MMOL/L (135-145)
[2018-06-07] MEDS: RT-ALBUTEROL SULF 2.5 MG/3 ML PRE-MIX VIAL INH SCH ×2 (06:25→19:02)
[2018-06-07 08:00] VITALS: BP 134/74
[2018-06-07] MEDS: APIXABAN 5 MG (ELIQUIS) TABLET PO SCH ×2 (08:45→21:12)
[2018-06-07] MEDS: ASPIRIN E.C. 81 MG (ECOTRIN) TAB PO SCH (08:45)
[2018-06-07] MEDS: DILTIAZEM 120 MG (CARDIZEM CD) CAP PO SCH (08:45)
--- NOTE | 2018-06-07 08:46 | Progress Note-Cardiology ---
Cardiology SOAP Progress Note Subjective: Sitting up in bed. States he feels good today. Feels his swelling has improved especially in his hands. No c/o CP, palpitations, syncope or near syncope. Feels SOB is better than yesterday. Continues to c/o feeling weak. Objective: I&O/Vital Signs 06/06/18 06/07/18 06/07/18 06/07/18 21:20 00:05 01:04 04:07 Temp 97.8 98.7 Pulse 78 71 73 Resp 18 17 B/P (MAP) 168/79 (108) 151/89 (109) Pulse Ox 96 94 O2 Delivery Room Air Room Air Room Air 06/07/18 06/07/18 06:29 07:00 Pulse 81 Pulse Ox 97 O2 Delivery Room Air 06/07/18 00:00 Intake Total 2160 ml Output Total 3575 ml Balance -1415 ml Weight (Pounds): 176 Weight (Ounces): 2.0 Weight (Calculated Kilograms): 79.055397 Constitutional: appears stated age, AAO x 3, well-developed, well-nourished Respiratory: chest is bilaterally symmetric, lungs clear to auscultation Cardiovascular: regular rate-rhythm, S1 and S2 Gastrointestional: audible bowel sounds Extremities: swelling (bilat 2(+) LE edema) Neurologic/Psychiatric: power is 5/5 both on sides Skin: No rash, No ulcerations Results/Procedures: Labs Laboratory Tests 06/07/18 04:58: Sodium Level 137, Potassium Level 3.6, Chloride Level 109H, Carbon Dioxide Level 20L, Anion Gap 8, Blood Urea Nitrogen 14, Creatinine 0.70, Estimat Glomerular Filtration Rate > 60, BUN/Creatinine Ratio 20, Glucose Level 80, Calcium Level 8.2L, Magnesium Level 1.8 Microbiology 06/03/18 Blood Culture - Preliminary, Resulted No growth 06/03/18 Influenza Types A,B Antigen (ELBA) - Final, Complete 06/03/18 Urine Culture - Final, Complete Enterococcus faecalis Laboratory Tests 06/06/18 04:15 06/07/18 04:58 A/P: Assessment: Typical atrial flutter with rapid ventricular rate treated with SURESH-assisted cardioversion by Dr. Montes on 06-05-18. Currently on apixaban for stroke prophylaxis Acute diastolic CHF vs vol overload Pneumonia with sepsis Borderline elevated troponin which have stayed almost at similar levels. Likely due to severe sepsis and atrial flutter Stage IV colon cancer, managed Dr. Flanagan. Patient was on adjuvant chemotherapy Plan: Per Dr. Sandoval note of 06-05-18: Patient will be scheduled for atrial flutter ablation in the next 2 weeks. OAC with Eliquis for [address] Montes and Dr. Carter Diastolic CHF vs vol overload - improving - give additional diuretics toady Monitor lab closely LILLI ELLIS Jun 07, 2018 08:46
[2018-06-07] MEDS ORDERED: FUROSEMIDE 40 MG/4 ML INJ (LASIX) IVP NR (08:48)
--- NOTE | 2018-06-07 09:00 | Cardiology Progress Note ---
Cardiology SOAP Progress Note Subjective: Feeling much better. No cardiac complaints. Objective: I&O/Vital Signs 06/07/18 06/07/18 06/07/18 06/07/18 00:05 01:04 04:07 06:29 Temp 97.8 98.7 Pulse 78 71 73 Resp 18 17 B/P (MAP) 168/79 (108) 151/89 (109) Pulse Ox 96 94 97 O2 Delivery Room Air Room Air Room Air 06/07/18 07:00 Pulse 81 06/07/18 00:00 Intake Total 2160 ml Output Total 3575 ml Balance -1415 ml Weight (Pounds): 176 Weight (Ounces): 2.0 Weight (Calculated Kilograms): 79.008351 Constitutional: appears stated age, AAO x 3, well-developed, well-nourished Respiratory: chest is bilaterally symmetric, lungs clear to auscultation Cardiovascular: regular rate-rhythm, S1 and S2 Gastrointestional: audible bowel sounds Extremities: swelling (bilat 2(+) LE edema) Neurologic/Psychiatric: power is 5/5 both on sides Skin: No rash, No ulcerations Results/Procedures: Labs Laboratory Tests 06/07/18 04:58: Sodium Level 137, Potassium Level 3.6, Chloride Level 109H, Carbon Dioxide Level 20L, Anion Gap 8, Blood Urea Nitrogen 14, Creatinine 0.70, Estimat Glomerular Filtration Rate > 60, BUN/Creatinine Ratio 20, Glucose Level 80, Calcium Level 8.2L, Magnesium Level 1.8 Microbiology 06/03/18 Blood Culture - Preliminary, Resulted No growth 06/03/18 Influenza Types A,B Antigen (ELBA) - Final, Complete 06/03/18 Urine Culture - Final, Complete Enterococcus faecalis A/P: Assessment/Dx: Typical atrial flutter with rapid ventricular rate, Pneumonia, Lactic acidosis, Nausea vomiting diarrhea, Stage IV colon cancer, Type II myocardial infarction Plan: Typical atrial flutter with rapid ventricular rate, symptomatic typical atrial flutter with rapid ventricular rate. I discussed at length with Dr. Flanagan. He agrees with short-term oral anticoagulation with Eliquis. Will recommend Eliquis therapy for the next 3 weeks. Transesophageal echocardiogram assisted cardioversion was done Sunday06/04/2018 which was successful. Patient will be scheduled for atrial flutter ablation on June 21. Type 2 myocardial infarction: Borderline elevated troponin which have stayed almost at similar levels. Likely due to severe sepsis and atrial flutter. Pneumonia, on IV antibiotics. Lactic acidosis, likely due to sepsis. Nausea vomiting diarrhea, multifactorial with contribution from sepsis and atrial flutter. Stage IV colon cancer, deferred to Dr. Flanagan. Patient was on adjuvant chemotherapy. Thank you for your consultation. Please call me if you have any questions. Mitch Montes MD, FACP, FACC, FSCAI, FHRS, CCDS Interventional Cardiology Cardiac Electrophysiology Vascular Medicine and Endovascular Interventions Ricki MONTES MD Jun 07, 2018 9:00 am
[2018-06-07] MEDS: CEFEPIME 2 GM/NS 50 ML IVPB IV SCH ×4 (11:42→23:48)
[2018-06-07] MEDS ORDERED: ASPI-983 PO (11:51)
[2018-06-07] MEDS ORDERED: LEVO750T39 PO (11:51)
[2018-06-07] MEDS ORDERED: DILT120C63 PO (11:51)
[2018-06-07] MEDS ORDERED: APIX5TAB PO (11:51)
--- NOTE | 2018-06-07 11:53 | Discharge Instructions ---
Discharge Inst-[facility] Discharge Medications New, Converted or Re-Newed RX: Other (patient transferred to IRF, no scripts sent yet) New Medications: Levofloxacin (Levofloxacin) 750 Mg Tablet 750 MG PO DAILY, #6 TAB 0 Refills Apixaban (Eliquis) 5 Mg Tablet 5 MG PO BID, #60 TAB 0 Refills Aspirin (Aspirin EC) 81 Mg Tablet.dr 81 MG PO DAILY, #30 TAB 0 Refills Diltiazem HCl (Diltiazem 24Hr Cd) 120 Mg Cap.er.24h 120 MG PO DAILY, #30 CAP 0 Refills Continued Medications: Hydrocodone/Acetaminophen (Hydrocodone-Acetamin 5-325 mg) 1 Each Tablet 1 TAB PO Q4-6HR PRN for PAIN-MODERATE, TAB Discontinued Medications: Ondansetron HCl (Zofran) 8 Mg Tablet 8 MG PO Q8H PRN for NAUSEA/VOMITING-1ST LINE, TAB Patient Instructions Goal/Follow Up Appt: Follow up at [facility] as directed after Inpatient Rehab discharge. Activity & Diet Discharge Diet: Regular Diet Activity as Tolerated: Yes JAMAR JACKSON MD Jun 07, 2018 11:53 am
--- NOTE | 2018-06-07 11:54 | Discharge Summary ---
Diagnosis/Chief Complaint Date of Admission Jun 03, 2018 at 4:00 pm Date of Discharge Jun 07, 2018 Admission Diagnosis Admission Diagnosis (1) Atrial fibrillation with rapid ventricular response (2) Elevated troponin I level (3) Pneumonia (4) Pathologic lumbar vertebral fracture Qualifiers: Qualified Codes: M84.48XA - Pathological fracture, other site, initial encounter for fracture (5) Colon cancer (6) Nausea vomiting and diarrhea (7) DVT prophylaxis (8) Discharge planning issues Discharge Diagnosis (1) Atrial fibrillation with rapid ventricular response Status: Acute Assessment & Plan: Rate improved on diltiazem drip, started on therapeutic enoxaparin. Cardiology consulted, appreciate recommendations. Echocardiogram this morning. 06/05 s/p cardioversion, plan for ablation in next couple of weeks per Cardiology. Echo read pending. 06/06 echo with EF 55-65%, grade 2 diastolic dysfunction (2) Elevated troponin I level Status: Acute Assessment & Plan: Suspect due to strain from above, following. Cardiology consulted, appreciate recommendations. (3) Pneumonia Status: Acute Assessment & Plan: Possible pneumonia based on chest x-ray. No leukocytosis or fever. Started on cefepime in ED. 06/05 chest xray with worsening appearance, no hypoxia. Continue cefepime. Transfer to floor on telemetry. 06/06 remains stable, continue cefepime 06/07 plan for levofloxacin course on d/c (4) Pathologic lumbar vertebral fracture Status: Acute Assessment & Plan: Likely metastatic colon cancer. Pain controlled at this time. Qualifiers: Qualified Codes: M84.48XA - Pathological fracture, other site, initial encounter for fracture (5) Colon cancer Status: Acute Assessment & Plan: Consult Oncology, appreciate recommendations. (6) Nausea vomiting and diarrhea Status: Resolved (7) Urinary tract infection Status: Acute Assessment & Plan: Culture with enterococcus without resistance. On levofloxacin as above for pneumonia will cover urine. (8) DVT prophylaxis Status: Acute Assessment & Plan: On apixaban (9) Discharge planning issues Status: Acute Assessment & Plan: Patient reporting he does recognize the seriousness of his conditions and is "not afraid to ", and is interested in pursuing comfort as his primary goal depending on further discussions with Cardiology and Oncology. Will support his decision either way when made and consult other services as needed. 06/05 plan to treat acute issues and follow up with Oncology outpatient for further discussion about whether to resume chemotherapy 06/07 discharge to inpatient rehab for strengthening Chief Complaint/HPI Chief Complaint/HPI 82 yo male who was feeling poorly for about 3 days prior with leg swelling, pain in back and legs and difficulty ambulating with walker due to pain. He waited to see his Oncologist and when he was seen there was found to have marked tachycardia and sent to ER where he was found to have SVT and further to have atrial fibrillation after adenosine and was started on cardizem drip. He also had imaging of his back which does show pathologic fracture suspected to be secondary to his colon cancer. Today he states he is feeling quite well, was able to sleep with pain medication and denies concerns. He is able to explain most of what has occurred and states that he believes he does not have long to live and wants to be comfortable and would like to consider hospice. Discharge Summary-Simple/Stand Consultations Ricki RAWLS MD Discharge Physical Examination Allergies: Coded Allergies: No Known Drug Allergies (Unverified , 03/25/18) Vitals & I&Os Vital Sign - Last 12Hours Date Time Temp Pulse Resp B/P (MAP) Pulse Ox O2 Delivery O2 Flow Rate FiO2 06/07/18 09:00 Room Air 06/07/18 08:00 98.7 104 18 134/74 (94) 94 06/03/18 20:55 21 Intake and Output 06/07/18 00:00 Intake Total 2160 ml Output Total 3575 ml Balance -1415 ml Hospital Course See final discharge diagnosis. Radiology Reviewed CXR 06/03/18: IMPRESSION: Patchy bibasilar infiltrates and a left pleural effusion. Mild central pulmonary venous congestion. CT Lumbar spine 06/03/18: IMPRESSION: Lytic lesion with pathological vertebral body fracture at L2 reflecting a new finding from previous PET. 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 Pathological fracture along the superior cortex is suspected without listhesis. Advanced degenerative changes with multilevel stenosis owing to underlying bony demineralization and degenerative hypertrophy. Additionally metastatic deposits could easily be occult at CT and if needed for restaging purposes or otherwise indicated, consider MRI as further investigation. Discharge Instructions to patient/family Please see electronic discharge instructions given to patient. Discharge Medications Reviewed and agree with Discharge Medication list on patient's Discharge Instruction sheet Clinical Quality Measures DVT/VTE Risk/Contraindication: Risk Factor Score Per Nursin RFS Level Per Nursing on Admit: 4+=Very High JAMAR JACKSON MD Jun 07, 2018 11:54
[2018-06-07 12:00] VITALS: BP 123/61
--- NOTE | 2018-06-07 13:44 | Progress Note (SOAP) ---
Subjective Subjective/Events-last exam Afebrile, no acute events. Anxious to be discharged. Had a BM yesterday. Review of Systems Date Seen by Provider: Jun 07, 2018 Time Seen by Provider: 10:55 Objective Exam Last Set of Vital Signs Vital Signs Date Time Temp Pulse Resp B/P (MAP) Pulse Ox O2 Delivery O2 Flow Rate FiO2 06/07/18 12:00 97.6 75 18 123/61 (81) 94 Room Air 06/03/18 20:55 21 Capillary Refill : Less Than 3 Seconds I&O Intake and Output 06/07/18 00:00 Intake Total 3310 ml Output Total 4100 ml Balance -790 ml Intake Oral 1540 ml IV Total 1770 ml Output Urine Total 4100 ml General: Alert, No Acute Distress Lungs: Clear to Auscultation, Normal Air Movement Heart: No Murmurs, Other (irregular rhythm) Abdomen: Normal Bowel Sounds, Soft Psych/Mental Status: Mental Status NL, Mood NL Results/Procedures Lab Laboratory Tests 06/07/18 04:58: Sodium Level 137, Potassium Level 3.6, Chloride Level 109H, Carbon Dioxide Level 20L, Anion Gap 8, Blood Urea Nitrogen 14, Creatinine 0.70, Estimat Glomerular Filtration Rate > 60, BUN/Creatinine Ratio 20, Glucose Level 80, Calcium Level 8.2L, Magnesium Level 1.8 Microbiology 06/03/18 Blood Culture - Preliminary, Resulted No growth 06/03/18 Influenza Types A,B Antigen (ELBA) - Final, Complete 06/03/18 Urine Culture - Final, Complete Enterococcus faecalis Radiology CXR 06/03/18: IMPRESSION: Patchy bibasilar infiltrates and a left pleural effusion. Mild central pulmonary venous congestion. CT Lumbar spine 06/03/18: IMPRESSION: Lytic lesion with pathological vertebral body fracture at L2 reflecting a new finding from previous PET. 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 Pathological fracture along the superior cortex is suspected without listhesis. Advanced degenerative changes with multilevel stenosis owing to underlying bony demineralization and degenerative hypertrophy. Additionally metastatic deposits could easily be occult at CT and if needed for restaging purposes or otherwise indicated, consider MRI as further investigation. Assessment/Plan Assessment/Plan (1) Atrial fibrillation with rapid ventricular response Status: Acute Assessment & Plan: Rate improved on diltiazem drip, started on therapeutic enoxaparin. Cardiology consulted, appreciate recommendations. Echocardiogram this morning. 06/05 s/p cardioversion, plan for ablation in next couple of weeks per Cardiology. Echo read pending. 06/06 echo with EF 55-65%, grade 2 diastolic dysfunction 06/07 on apixaban and Cardizem with rate control, plan for ablation later as noted above (2) Elevated troponin I level Status: Acute Assessment & Plan: Suspect due to strain from above, following. Cardiology consulted, appreciate recommendations. (3) Pneumonia Status: Acute Assessment & Plan: Possible pneumonia based on chest x-ray. No leukocytosis or fever. Started on cefepime in ED. 06/05 chest xray with worsening appearance, no hypoxia. Continue cefepime. Transfer to floor on telemetry. 06/06 remains stable, continue cefepime 06/07 transition to levofloxacin on d/c (4) Pathologic lumbar vertebral fracture Status: Acute Assessment & Plan: Likely metastatic colon cancer. Pain controlled at this time. 06/07 reports pain controlled with oral medication, discussed considering kyphoplasty, he is okay with whatever we recommend, will see how rehab progresses Qualifiers: Qualified Codes: M84.48XA - Pathological fracture, other site, initial encounter for fracture (5) Colon cancer Status: Acute Assessment & Plan: Consult Oncology, appreciate recommendations. (6) Nausea vomiting and diarrhea Status: Resolved (7) Urinary tract infection Status: Acute Assessment & Plan: Culture with enterococcus without resistance. On cefepime as above for pneumonia will cover urine. (8) DVT prophylaxis Status: Acute Assessment & Plan: On apixaban (9) Discharge planning issues Status: Acute Assessment & Plan: Patient reporting he does recognize the seriousness of his conditions and is "not afraid to ", and is interested in pursuing comfort as his primary goal depending on further discussions with Cardiology and Oncology. Will support his decision either way when made and consult other services as needed. 06/05 plan to treat acute issues and follow up with Oncology outpatient for further discussion about whether to resume chemotherapy 06/07 accepted for inpatient rehab after d/c, will have bed on Sunday. Clinical Quality Measures DVT/VTE Risk/Contraindication: Risk Factor Score Per Nursin RFS Level Per Nursing on Admit: 4+=Very High JAMAR JACKSON MD Jun 07, 2018 1:44 pm
--- NOTE | 2018-06-07 14:44 | Physical Therapy Daily Note ---
PT Daily Note-Current Subjective Pt. declines Rx x3 and agrees on 4th attempt. Pt. initially stated he only works in the afternoon, 2nd attempt states she just ordered a meal and will work after he eats, 3rd attempt states he just wants to finish a cup of coffee.Stated after Rx that he would like a pain pill for back pain. Pain Numeric Pain Scale: 5-Moderate Pain Location: Medial Location Body Site: Back Pain Description: Throbbing Mental Status Patient Orientation: Person, Place, Time, Situation Transfers Functional [place] Measure 0=Not Assessed/NA 4=Minimal Assistance 1=Total Assistance 5=Supervision or Setup 2=Maximal Assistance 6=Modified [place] 3=Moderate Assistance 7=Complete IndependenceIRFPAI Quality Coding Scale 6 Independent with activity with or without an assistive device 5 Patient requires set up or clean up by helper. Patient completes activity by themselves 4 Supervision or touching assist (CGA). Randall provide cues , steadying assist 3 The helper provides less than half the effort to complete the activity 2 The helper provides more than half the effort to complete the activity 1 Dependent. The helper does all the effort to complete an activity 7 Patient refused to complete or attempt activity 9 The patient did not perform the activity before the current illness or injury 88 Not attempted due to Medical conditions or safety concerns supine to sit utilizing bed head up SBA, sit to stand SBA with level raised a little Weight Bearing Right Lower Extremity: Right Full Weight Bearing Left Lower Extremity: Left Full Weight Bearing Gait Training Gait Assistive Device: FWW 200ft x 1 with 2 standing rest periods, very short, no LOB, knee varum noted Exercises Seated Therapy Exercises: Ankle pumps, Long arc quads, Hip flexion Seated Reps: 10 Treatments requested to sit up at EOB after Rx. Call [place] at hand Assessment Current Status: Good Progress PT Short Term Goals Short Term Goals Time Frame: Jun 12, 2018 Transfers (B,C,W/C) (FIM): 5 Gait (FIM): 5 Gait Distance Comment: 200' Gait Level of Assist: 5 Gait Assistive Device: FWW PT Chip Separator Goals Correction Goals Rollin PT Plan Treatment/Plan Treatment Plan: Continue Plan of Care Treatment Plan: Bed Mobility, Education, Functional Activity Dean, Functional Strength, Gait, Safety, Therapeutic Exercise, Transfers Treatment Duration: Jun 12, 2018 Frequency: 6 times per week Estimated Hrs Per Day: .25 hour per day (15-30') Patient and/or Family Agrees t: Yes Safety Risks/Education Patient Education: Gait Training, Transfer Techniques, Disease Process, Safety Issues Teaching Recipient: Patient Teaching Methods: Demonstration, Discussion Response to Teaching: Verbalize Understanding, Return Demonstration, Reinforcement Needed Time/GCodes Time In: 1415 Time Out: 1435 Total Billed Treatment Time: 20 Total Billed Treatment 1,GT20m G Codes Necessary: No RIGO CHERRY SENIOR PASTOR Jun 07, 2018 14:44
[2018-06-07 15:30] VITALS: BP 119/70
[2018-06-07 19:10] VITALS: BP 131/71
[2018-06-08] VITALS (7 sets, daily range): BP systolic 120–171; BP diastolic 66–92
[2018-06-08 05:44] LABS: BUN/CREATININE RATIO 24; CALCIUM 8.3 MG/DL (8.5-10.1); CARBON DIOXIDE 20 MMOL/L (21-32); CHLORIDE 107 MMOL/L (98-107); CREATININE SERUM 0.63 MG/DL (0.60-1.30); GFR ESTIMATED > 60; GLUCOSE 75 MG/DL (70-105); MAGNESIUM 1.6 MG/DL (1.8-2.4); POTASSIUM 3.3 MMOL/L (3.6-5.0); SODIUM 137 MMOL/L (135-145)
[2018-06-08] MEDS: APIXABAN 5 MG (ELIQUIS) TABLET PO SCH ×2 (07:55→19:44)
[2018-06-08] MEDS: HYDROcodone/APAP 10 MG/325 MG (LORTAB) TAB PO PRN ×3 (07:55→21:53)
[2018-06-08] MEDS: DILTIAZEM 120 MG (CARDIZEM CD) CAP PO SCH (07:55)
[2018-06-08] MEDS: ASPIRIN E.C. 81 MG (ECOTRIN) TAB PO SCH (07:55)
[2018-06-08] MEDS: RT-ALBUTEROL SULF 2.5 MG/3 ML PRE-MIX VIAL INH SCH ×2 (08:34→19:35)
--- NOTE | 2018-06-08 10:52 | Physical Therapy Progress Note ---
Therapy Progress Note Attempted PT visit. Pt in bed eating pie and reported he did not want to get up until later this afternoon. Educated pt on importance of getting out of bed and he agreed to do so after lunch. Educated pt on plan to transfer to ARU tomorrow and ARU expectation. He verbalized understanding and reports he wants to transfer to ARU to get stronger. Visit only. SAGRARIO ANNE PT Jun 08, 2018 10:52
[2018-06-08] MEDS: CEFEPIME 2 GM/NS 50 ML IVPB IV SCH ×4 (11:04→23:29)
--- NOTE | 2018-06-08 12:32 | Progress Note (SOAP) ---
Subjective Subjective/Events-last exam Patient states that 30 mins ago he noticed that his right arm was swollen. States that it was not like that this AM. Had IV in the arm removed yesterday. Otherwise is doing well. Tolerating PO diet. Review of Systems Date Seen by Provider: Jun 08, 2018 Time Seen by Provider: 10:25 General: No Chills Pulmonary: No Dyspnea, No Cough Cardiovascular: No: Chest Pain Musculoskeletal: arm pain (Right) Objective Exam Last Set of Vital Signs Vital Signs Date Time Temp Pulse Resp B/P (MAP) Pulse Ox O2 Delivery O2 Flow Rate FiO2 06/08/18 11:00 97.0 89 20 123/66 (85) 95 Room Air 06/08/18 08:24 21 Capillary Refill : Less Than 3 Seconds I&O Intake and Output 06/08/18 00:00 Intake Total 1365 ml Output Total 2950 ml Balance -1585 ml Intake Oral 1365 ml Output Urine Total 2950 ml # Bowel Movements 1 General: Alert, Oriented X3 Lungs: Clear to Auscultation, Normal Air Movement Heart: Regular Rate Abdomen: Normal Bowel Sounds, Soft, No Tenderness, No Masses Extremities: Other (Right medial swelling with mild ttp, no erythema associated ) Skin: No Rashes Results/Procedures Lab Laboratory Tests 06/08/18 05:15: Sodium Level 137, Potassium Level 3.3L, Chloride Level 107, Carbon Dioxide Level 20L, Anion Gap 10, Blood Urea Nitrogen 15, Creatinine 0.63, Estimat Glomerular Filtration Rate > 60, BUN/Creatinine Ratio 24, Glucose Level 75, Calcium Level 8.3L, Magnesium Level 1.6L Microbiology 06/03/18 Blood Culture - Preliminary, Resulted No growth 06/03/18 Influenza Types A,B Antigen (ELBA) - Final, Complete 06/03/18 Urine Culture - Final, Complete Enterococcus faecalis Radiology CXR 06/03/18: IMPRESSION: Patchy bibasilar infiltrates and a left pleural effusion. Mild central pulmonary venous congestion. CT Lumbar spine 06/03/18: IMPRESSION: Lytic lesion with pathological vertebral body fracture at L2 reflecting a new finding from previous PET. 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 Pathological fracture along the superior cortex is suspected without listhesis. Advanced degenerative changes with multilevel stenosis owing to underlying bony demineralization and degenerative hypertrophy. Additionally metastatic deposits could easily be occult at CT and if needed for restaging purposes or otherwise indicated, consider MRI as further investigation. Assessment/Plan Assessment/Plan (1) Atrial fibrillation with rapid ventricular response Status: Acute Assessment & Plan: Rate improved on diltiazem drip, started on therapeutic enoxaparin. Cardiology consulted, appreciate recommendations. Echocardiogram this morning. 06/05 s/p cardioversion, plan for ablation in next couple of weeks per Cardiology. Echo read pending. 06/06 echo with EF 55-65%, grade 2 diastolic dysfunction 06/07 on apixaban and Cardizem with rate control, plan for ablation later as noted above (2) Elevated troponin I level Status: Acute Assessment & Plan: Suspect due to strain from above, following. Cardiology consulted, appreciate recommendations. (3) Pneumonia Status: Acute Assessment & Plan: Possible pneumonia based on chest x-ray. No leukocytosis or fever. Started on cefepime in ED. 06/05 chest xray with worsening appearance, no hypoxia. Continue cefepime. Transfer to floor on telemetry. 06/06 remains stable, continue cefepime 06/07 transition to levofloxacin on d/c (4) Pathologic lumbar vertebral fracture Status: Acute Assessment & Plan: Likely metastatic colon cancer. Pain controlled at this time. 06/07 reports pain controlled with oral medication, discussed considering kyphoplasty, he is okay with whatever we recommend, will see how rehab progresses 06/08: Plan for rehab tomorrow Qualifiers: Qualified Codes: M84.48XA - Pathological fracture, other site, initial encounter for fracture (5) Colon cancer Status: Acute Assessment & Plan: Consult Oncology, appreciate recommendations. (6) Nausea vomiting and diarrhea Status: Resolved (7) Urinary tract infection Status: Acute Assessment & Plan: Culture with enterococcus without resistance. On cefepime as above for pneumonia will cover urine. (8) DVT prophylaxis Status: Acute Assessment & Plan: On apixaban (9) Discharge planning issues Status: Acute Assessment & Plan: Patient reporting he does recognize the seriousness of his conditions and is "not afraid to ", and is interested in pursuing comfort as his primary goal depending on further discussions with Cardiology and Oncology. Will support his decision either way when made and consult other services as needed. 06/05 plan to treat acute issues and follow up with Oncology outpatient for further discussion about whether to resume chemotherapy 06/07 accepted for inpatient rehab after d/c, will have bed on Sunday. (10) Swelling of right upper extremity Status: Acute Assessment & Plan: 06/08: US ordered, possible superficial clot Clinical Quality Measures DVT/VTE Risk/Contraindication: Risk Factor Score Per Nursin RFS Level Per Nursing on Admit: 4+=Very High CRUZ CARDENAS MD Jun 08, 2018 12:31
[2018-06-08] MEDS ORDERED: KCL 20 MEQ TAB (K-DUR) PO NR (13:30)
--- NOTE | 2018-06-08 13:32 | Progress Note-Cardiology ---
Cardiology SOAP Progress Note Objective: I&O/Vital Signs 06/08/18 06/08/18 06/08/18 06/08/18 04:00 07:00 08:00 08:24 Temp 98.0 97.5 Pulse 85 72 74 Resp 16 18 B/P (MAP) 154/92 (112) 171/80 (110) Pulse Ox 96 95 95 O2 Delivery Room Air Room Air FiO2 21 06/08/18 06/08/18 06/08/18 06/08/18 08:34 09:00 11:00 13:00 Temp 97.0 Pulse 89 80 Resp 20 B/P (MAP) 123/66 (85) Pulse Ox 95 95 O2 Delivery Room Air Room Air Room Air 06/08/18 00:00 Intake Total 1265 ml Output Total 2400 ml Balance -1135 ml Weight (Pounds): 176 Weight (Ounces): 9.0 Weight (Calculated Kilograms): 80.751173 Constitutional: appears stated age, AAO x 3, well-developed, well-nourished Respiratory: chest is bilaterally symmetric, lungs clear to auscultation Cardiovascular: regular rate-rhythm, S1 and S2 Gastrointestional: audible bowel sounds Extremities: swelling (bilat 2(+) LE edema) Neurologic/Psychiatric: power is 5/5 both on sides Skin: No rash, No ulcerations Results/Procedures: Labs Laboratory Tests 06/08/18 05:15: Sodium Level 137, Potassium Level 3.3L, Chloride Level 107, Carbon Dioxide Level 20L, Anion Gap 10, Blood Urea Nitrogen 15, Creatinine 0.63, Estimat Glomerular Filtration Rate > 60, BUN/Creatinine Ratio 24, Glucose Level 75, Calcium Level 8.3L, Magnesium Level 1.6L Microbiology 06/03/18 Blood Culture - Preliminary, Resulted No growth 06/03/18 Influenza Types A,B Antigen (ELBA) - Final, Complete 06/03/18 Urine Culture - Final, Complete Enterococcus faecalis Laboratory Tests 06/07/18 04:58 06/08/18 05:15 A/P: Assessment: Typical atrial flutter with rapid ventricular rate treated with SURESH-assisted cardioversion by Dr. Montes on 06-05-18. Currently on apixaban for stroke prophylaxis Acute diastolic CHF vs vol overload, now clinically resolved Hypokalemia and hypomagnesemia, likely due to diuretic therapy Pneumonia with sepsis Borderline elevated troponin which have stayed almost at similar levels. Likely due to severe sepsis and atrial flutter Stage IV colon cancer, managed Dr. Flanagan. Patient was on adjuvant chemotherapy Plan: * Hold off on diuretics today * Replenish Mg * Replenish K * Monitor labs * I spoke with him and answered questions SUBHASH CHRISTIANSON MD FACP [facility] CCDS Jun 08, 2018 13:32
[2018-06-08] MEDS: MAGNESIUM 1 GM/100 ML IVPB 100 ML IV SCH ×2 (13:41→14:28)
--- NOTE | 2018-06-08 19:25 | Diagnostic Imaging Report ---
INDICATION: Right arm swelling. EXAMINATION: Color Doppler velocity and spectral waveform analysis of the veins of the right upper extremity was performed. FINDINGS: There is normal augmentation, compression and color Doppler flow with no thrombosis or other abnormality seen. IMPRESSION: No abnormality is seen. Dictated by: Dictated on workstation # [id number]
[2018-06-09 04:00] VITALS: BP 151/82
[2018-06-09 05:00] LABS: BASOPHILS % (AUTO) 0 % (0-10); EOSINOPHILS # (AUTO) 0.9 10^3/uL (0.0-0.3); EOSINOPHILS % (AUTO) 9 % (0-10); HEMATOCRIT 38 % (40-54); HEMOGLOBIN 12.3 G/DL (13.3-17.7); LYMPHOCYTES # (AUTO) 1.6 X 10^3 (1.0-4.0); LYMPHOCYTES % (AUTO) 15 % (12-44); MEAN CORPUSCULAR HEMOGLOBIN 28 PG (25-34); MEAN CORPUSCULAR HGB CONC 33 G/DL (32-36); MEAN CORPUSCULAR VOLUME 86 FL (80-99); MEAN PLATELET VOLUME 9.7 FL (7.4-10.4); MONOCYTES # (AUTO) 0.8 X 10^3 (0.0-1.0); MONOCYTES % (AUTO) 8 % (0-12); NEUTROPHILS # (AUTO) 7.1 X 10^3 (1.8-7.8); NEUTROPHILS % (AUTO) 68 % (42-75); PLATELET COUNT 189 10^3/uL (130-400); RED CELL DISTRIBUTION WIDTH 17.9 % (10.0-14.5); WHITE BLOOD COUNT 10.4 10^3/uL (4.3-11.0)
[2018-06-09 05:20] LABS: ALANINE AMINOTRANSFERASE 21 U/L (0-55); ALBUMIN 2.5 GM/DL (3.2-4.5); ALKALINE PHOSPHATASE 394 U/L (40-136); BILIRUBIN,TOTAL 0.9 MG/DL (0.1-1.0); BUN/CREATININE RATIO 30; CALCIUM 8.2 MG/DL (8.5-10.1); CARBON DIOXIDE 20 MMOL/L (21-32); CHLORIDE 109 MMOL/L (98-107); CREATININE SERUM 0.63 MG/DL (0.60-1.30); GFR ESTIMATED > 60; GLUCOSE 78 MG/DL (70-105); MAGNESIUM 1.8 MG/DL (1.8-2.4); POTASSIUM 3.7 MMOL/L (3.6-5.0); SODIUM 138 MMOL/L (135-145); TOTAL PROTEIN 4.9 GM/DL (6.4-8.2)
[2018-06-09 08:00] VITALS: BP 144/77
[2018-06-09] MEDS: ASPIRIN E.C. 81 MG (ECOTRIN) TAB PO SCH (08:14)
[2018-06-09] MEDS: DILTIAZEM 120 MG (CARDIZEM CD) CAP PO SCH (08:14)
[2018-06-09] MEDS: APIXABAN 5 MG (ELIQUIS) TABLET PO SCH (08:14)
[2018-06-09] MEDS: RT-ALBUTEROL SULF 2.5 MG/3 ML PRE-MIX VIAL INH SCH (09:28)
[2018-06-09 11:11] VITALS: BP 144/77
[2018-06-10] MEDS ORDERED: ONDA8TAB6 PO (10:09)
[2018-06-18] MEDS ORDERED: ASPI-983 PO (20:19)
[2018-06-18] MEDS ORDERED: DILT120C63 PO (20:19)
[2018-06-18] MEDS ORDERED: APIX5TAB PO (20:19)
[2018-06-18] MEDS ORDERED: FENT1PAT8 TD (20:19)
[2018-06-18] MEDS ORDERED: HYDR-3812 PO (20:19)
== END 2018-06-09 11:11 | DRG 871 ==
LOC: EDUNIT# 14:04 → ER 14:05 → ICU 16:00 → 4TH 06-05 10:05
PROVIDERS: ADMIT Family Medicine; ATTEND Family Medicine
PROC: 5A2204Z Restoration of Cardiac Rhythm, Single (ICD-10-PCS; principal; 2018-06-04)
DX: A41.9 Sepsis, unspecified organism (principal); I48.91 Unspecified atrial fibrillation; I47.1 Supraventricular tachycardia; I48.92 Unspecified atrial flutter; I21.A1 Myocardial infarction type 2; J18.9 Pneumonia, unspecified organism; M84.58XA Pathological fracture in neoplastic disease, other specified site, initial encounter for fracture; C79.51 Secondary malignant neoplasm of bone; C78.7 Secondary malignant neoplasm of liver and intrahepatic bile duct; C78.01 Secondary malignant neoplasm of right lung; C78.02 Secondary malignant neoplasm of left lung; I50.31 Acute diastolic (congestive) heart failure; N39.0 Urinary tract infection, site not specified; N40.1 Benign prostatic hyperplasia with lower urinary tract symptoms; R33.9 Retention of urine, unspecified; B95.2 Enterococcus as the cause of diseases classified elsewhere; M79.89 Other specified soft tissue disorders; E87.6 Hypokalemia; E83.42 Hypomagnesemia; Z85.038 Personal history of other malignant neoplasm of large intestine; Z87.891 Personal history of nicotine dependence; T50.2X5A Adverse effect of carbonic-anhydrase inhibitors, benzothiadiazides and other diuretics, initial encounter
CPT/HCPCS: 36415; 71045; 72131; 80048; 80053; 81000; 83605; 83735; 84100; 84484; 85025; 85027; 85610; 85730; 87040; 87077; 87088; 87186; 87804; 93005; 93306; 93320; 93325; 94640; 94760; 96361; 96365; 96366; 96367; 96368; 96375

== ENCOUNTER 2018-06-09 11:09 | Inpatient (IN) | payer MEDICARE ==
[~2018-06-09] VITALS: Ht 193 cm; Wt 75.9 kg
[~2018-06-09 11:09] MED LIST changes: +APIX5TAB PO; +ASPI-983 PO; +DILT120C63 PO; +HYDR-3812 PO; +LEVO750T39 PO; +ONDA8TAB6 PO
[2018-06-09 11:25] VITALS: BP 132/79
[2018-06-09] MEDS ORDERED: FLU QUADRIvalent (5+ YOA) 2018-2019 (AFLURIA) 0.5 ML IM ONE (12:00)
[2018-06-09] MEDS ORDERED: RT-ALBUTEROL SULF 2.5 MG/3 ML PRE-MIX VIAL INH PRN (13:30)
[2018-06-09] MEDS: HYDROcodone/APAP 5 MG/325 MG (LORTAB) TAB PO PRN ×2 (13:51→20:36)
[2018-06-09 17:15] VITALS: BP 118/72
[2018-06-09] MEDS: APIXABAN 5 MG (ELIQUIS) TABLET PO SCH (20:36)
[2018-06-10] MEDS: HYDROcodone/APAP 5 MG/325 MG (LORTAB) TAB PO PRN ×4 (03:53→20:02)
[2018-06-10 05:15] VITALS: BP 160/80
[2018-06-10] MEDS: APIXABAN 5 MG (ELIQUIS) TABLET PO SCH ×2 (08:17→20:02)
[2018-06-10] MEDS: ASPIRIN E.C. 81 MG (ECOTRIN) TAB PO SCH (08:17)
[2018-06-10] MEDS: DILTIAZEM 120 MG (CARDIZEM CD) CAP PO SCH (08:17)
--- NOTE | 2018-06-10 09:10 | Cardiology Progress Note ---
Cardiology SOAP Progress Note Subjective: Denies any cardiac complaints. Doing aggressive physical therapy. Objective: I&O/Vital Signs 06/10/18 06/10/18 05:15 08:52 Temp 98.0 Pulse 81 Resp 18 B/P (MAP) 160/80 (106) Pulse Ox 98 98 O2 Delivery Room Air Room Air 06/10/18 00:00 Intake Total 480 ml Output Total 200 ml Balance 280 ml Weight (Pounds): 167 Weight (Ounces): 4.0 Weight (Calculated Kilograms): 75.127189 Constitutional: No appears stated age; AAO x 3; No apparent distress, No PERRL , No well-developed, No well-nourished, No other Respiratory: No accessory muscle use, No respiratory distress, No chest tender , No chest expansion is symmetric; chest is bilaterally symmetric; No lungs clear to percussion; lungs clear to auscultation; No crackles, No rhonchi, No rales, No stridor, No wheezing, No pleural rub, No other Cardiovascular: regular rate-rhythm; No irregularly irregular, No extra beats, No parasternal heave is noted, No JVD, No edema, No bradycardia, No tachycardia , No point of maximal impulse, No cardiac thrills are palpable; S1 and S2; No gallop/S3, No gallop/S4, No diastolic murmur, No systolic murmur, No friction rub, No click, No other Gastrointestional: No tender, No soft, No round, No distended, No pulsatile mass, No organomegaly, No guarding, No rebound, No tenderness, No hernia, No mass, No audible bowel sounds, No abnormal bowel sounds, No abdominal bruits, No spleenomegaly, No other Extremities: No normal range of motion, No non-tender, No normal inspection, No pedal edema, No calf tenderness, No normal capillary refill, No pelvis stable , No calf tenderness, No inflammation, No pedal edema, No slow capillary refill , No swelling, No other, No abrasion, No clubbing, No cyanosis, No ecchymosis, No laceration, No no lower extremity edema bilateral, No significant edema, No tenderness, No wound Neurologic/Psychiatric: no motor/sensory deficits, alert, normal mood/affect, oriented x 3 Skin: No normal color, No warm/dry, No cyanosis, No cool, No diaphoresis, No damp, No ecchymosis, No jaundice, No mottled, No pallor, No rash, No tattoos/ piercings, No ulcerations, No rash on exposed areas, No ulcerations on exposed areas, No other A/P: Assessment/Dx: Assessment/Admission Diagnosis Typical atrial flutter with rapid ventricular rate, converted to sinus rhythm with cardioversion. Pneumonia, resolved. Lactic acidosis, resolved. Nausea vomiting diarrhea, Stage IV colon cancer, Type II myocardial infarction Plan: Plan Typical atrial flutter with rapid ventricular rate, symptomatic typical atrial flutter with rapid ventricular rate. Successful transesophageal echocardiogram assisted cardioversion. Continues to be in sinus rhythm. On Eliqu. Likely atrial flutter typical ablation on June 21. Type 2 myocardial infarction: Borderline elevated troponin which have stayed almost at similar levels. Likely due to severe sepsis and atrial flutter. No further chest pain. Pneumonia, on IV antibiotics. Resolved. Lactic acidosis, likely due to sepsis. Resolved. Nausea vomiting diarrhea, multifactorial with contribution from sepsis and atrial flutter. No further nausea, vomiting, diarrhea. Stage IV colon cancer, deferred to Dr. Flanagan. Patient was on adjuvant chemotherapy. Thank you for your consultation. Please call me if you have any questions. Mitch Montes MD, FACP, FACC, FSCAI, FHRS, CCDS Interventional Cardiology Cardiac Electrophysiology Vascular Medicine and Endovascular Interventions Ricki MONTES MD Jun 10, 2018 09:10
--- NOTE | 2018-06-10 10:08 | Physical Therapy Evaluation ---
PT Evaluation-General Medical Diagnosis Admission Date Jun 09, 2018 at 11:18 Medical Diagnosis: afib with RVR Onset Date: Jun 03, 2018 Therapy Diagnosis Therapy Diagnosis: impaired mobility, strength, endurance Height/Weight Height (Feet): 6 Height (Inches): 4.00 Weight (Pounds): 167 Weight (Ounces): 4.0 Precautions Precautions/Isolations: Fall Prevention, Standard Precautions Weight Bear Status Right Lower Extremity: Right Weight Bearing/Tolerated Left Lower Extremity: Left Weight Bearing/Tolerated Referral Physician: Nito Reason for Referral: Evaluation/Treatment Medical History Pertinent Medical History: Arthritis, OA Additional Medical History colon cancer, pathological fracture L2, colon surgery, appendectomy Current History Atrial fibrillation with RVR requiring continuous infusion to maintain rate, severe comorbidities with high risk of decompensation, pneumonia Reviewed History: Yes Social History Home: Single Level Current Living Status: Alone Entry Into Home: Ramp Prior/Core FIM Prior Level of Function Functional [place] Measure 0=Not Assessed/NA 4=Minimal Assistance 1=Total Assistance 5=Supervision or Setup 2=Maximal Assistance 6=Modified [place] 3=Moderate Assistance 7=Complete [place] Bed Mobility: 7 Transfers (B,C,W/C) (FIM): 6 Gait: 6 Patient states he was using a rolling walker previously. PT Evaluation-Current Subjective Patient in bed pre tx, agrees to PT, no complaints of pain. Pt/Family Goals to get stronger so he can take care of himself at work. Objective Patient Orientation: Person, Place, Situation ROM/Strength ROM Lower Extremities limited in both knees due to arthritis Strenght Lower Extremities right lower extremity (hip flexion 3+/5, knee flexion 4/5, knee extension 4/5, dorsiflexion 5/5), left lower extremity (hip flexion 3+/5, knee flexion 4/5, knee extension 4/5, dorsiflexion 5/5) Neuromuscular (Tone, Coordination, Reflexes) NT Sensory Vision: Neglect Left Hearing: Functional Sensation Right Lower Extremit: Intact Sensation Left Lower Extremity: Intact Sensation Lower Extremities Patient has intact light touch sensation in lower extremities but states he has decreased sensation in left foot. Transfers Functional [place] Measure 0=Not Assessed/NA 4=Minimal Assistance 1=Total Assistance 5=Supervision or Setup 2=Maximal Assistance 6=Modified [place] 3=Moderate Assistance 7=Complete IndependenceIRFPAI Quality Coding Scale 6 Independent with activity with or without an assistive device 5 Patient requires set up or clean up by helper. Patient completes activity by themselves 4 Supervision or touching assist (CGA). [place] provide cues , steadying assist 3 The helper provides less than half the effort to complete the activity 2 The helper provides more than half the effort to complete the activity 1 Dependent. The helper does all the effort to complete an activity 7 Patient refused to complete or attempt activity 9 The patient did not perform the activity before the current illness or injury 88 Not attempted due to Medical conditions or safety concerns Transfers (B, C, W/C) (FIM): 4 Scootin Rollin Roll Left to Right (QC): 4 Supine to/from Sit: 5 Sit to/from Stand: 4 Sit to Lying (QC): 4 Lying to Sitting/Side of Bed(Q: 4 Sit to Stand (QC): 4 Chair/Bgz-oz-Pbaor Xfer(QC): 4 Car Transfer (QC): 4 Patient performs bed mobility with SBA, sit to stand with CGA, transfers with CGA, car transfer with CGA. Gait Does the Patient Walk?: Yes Mode of Locomotion: Walk Anticipated Mode of Locomotion: Walk Gait (FIM): 5 Walk 10 feet (QC): 4 Walk 50 ft with 2 Turns(QC): 4 Walk 150 ft (QC): 4 Walking 10ft/uneven surface-QC: 4 Distance: 200'x2 Gait Level of Assist: 5 Gait Persons Needed: 1 Gait Assistive Device: FWW Comments/Gait Description Patient can ambulate 200' with a rolling walker with SBA, including 50' with at least 2 turns of 90 degrees and 10' over an uneven surface. Patient ambulates with flexed knees, has bilateral knee varus, and flexed at the hip. Wheelchair Training Does the Pt Use a Wheelchair?: No Stairs Stairs (FIM): 2 #of Steps: 4 Level of Assist: 4 1 Step (curb) (QC): 4 4 Steps (QC): 4 12 Steps (QC): 88 Patient can go up and down 4 steps using 2 handrails with CGA. Cues for foot placement and safety. Balance Sitting Static: Normal Sitting Dynamic: Normal Standing Static: Good Standing Dynamic: Good Treatment Exercises in parallel bars x15, heel raises, hip abd, mini-squats, hamstring curls. Assessment/Needs Patient has impaired mobility, strength, endurance. Fair to good balance with ambulation. Rehab Potential: Fair PT Short Term Goals Short Term Goals Time Frame: Jun 17, 2018 Transfers (B,C,W/C) (FIM): 5 Gait (FIM): 5 Gait Distance Comment: 300' Gait Level of Assist: 5 Gait Assistive Device: FWW PT Longterm Goals Longterm Goals PT Longterm Goals Time Frame: Jul 01, 2018 Transfers (B,C,W/C) (FIM): 6 Sit to Lying (QC): 6 Lying-Sitting on Side/Bed(QC): 6 Sit to Stand (QC): 6 Rollin Roll Left to Right (QC): 6 Chair/Xvq-sc-[place]ty[place] Xfer(QC): 6 Car Transfer (QC): 6 Gait (FIM): 6 Distance: 300' Walk 10 feet (QC): 6 Walk 10ft-Uneven Surface(QC): 6 Walk 50ft with 2 Turns (QC): 6 Walk 150 ft (QC): 6 Gait Assistive Device: FWW Stairs (FIM): 2 # of Steps: 8 1 Step (curb) (QC): 6 4 Steps (QC): 6 PT Plan Problem List Problem List: Activity Tolerance, Functional Strength, Safety, Balance, Gait, Transfer, Bed Mobility, ROM Treatment/Plan Treatment Plan: Continue Plan of Care Treatment Plan: Bed Mobility, Education, Functional Activity Dean, Functional Strength, Group Therapy, Gait, Safety, Therapeutic Exercise, Transfers Treatment Duration: Jul 01, 2018 Frequency: At least 5 of 7 days/Wk (IRF) Estimated Hrs Per Day: 1.5 hours per day Patient and/or Family Agrees t: Yes Safety Risks/Education Patient Education: Gait Training, Transfer Techniques, Steps, Correct Positioning, Safety Issues Teaching Recipient: Patient Teaching Methods: Demonstration, Discussion Response to Teaching: Reinforcement Needed Discharge Recommendations Plan Patient will perform bed mobility and transfer training, balance and endurance training, functional strengthening, stair training, gait training, and education , to improve functional mobility and independence at home. Therapy D/C Recommendations: Home w/ Family Support Time/GCodes Time In: 0900 Time Out: 1000 Total Billed Treatment Time: 60 Total Billed Treatment 1 visit EVM 30' GT 15' EX 15' ELISABETH GIRALDO PT Jun 10, 2018 10:08
[2018-06-10] MEDS ORDERED: ONDA8TAB6 PO (10:09)
[2018-06-10] MEDS ORDERED: LEVOFLOXACIN 500 MG TAB (LEVAQUIN) PO SCH (11:00)
--- NOTE | 2018-06-10 11:07 | ST Cognitive Linguistic Eval ---
Speech Evaluation-General Medical Diagnosis afib with RVR Onset Date: Jun 03, 2018 Therapy Diagnosis Therapy Diagnosis: Cognition Precautions Precautions/Isolations: Fall Prevention, Standard Precautions Referral Referring Physician: Dr. Beauchamp Reason for Referral: Evaluation/Treatment Medical History Pertinent Medical History: Arthritis, OA Reviewed History: Yes Social History Current Living Status: Alone Speech PLF-Current Status Prior Level of Function pt was independent Subjective pt up in chair, pleasant and cooperative. Pain Numeric Pain Scale: 0-No Pain Language Eval: Auditory Comprehends Simple Yes/No Ques: Functional Follows 1-Step Commands: Functional Follows Complex Directions: Functional Follows General Conversations: Mild Language Eval: Verbal Language Completes Spontaneous Greeting: Functional Produces Auto, Serial Info: Functional Word Finding: Functional Requests Basic Needs: Functional States Basic Personal Info: Functional Expresses Complex Ideas: Mild Language Evaluation: Reading NT Objective Cognitive Domain Attention: WNL Memory: Mild Problem Solving: Mild Objective Results [facility] Cognitive/Communication Assessment was administered to assess cognitive-linguistic functioning. Results are: Pt oriented x 3. Memory - 3 word recall was 3/3 correct for immediate, 3/3 correct for delay and 2/3 correct for remote delay. Sequencing/organization - 4/4 correct Problem Solving - Simple was 4/4 correct; Abstract/complex was 1.5/2 correct and Comparisons was 2/4 correct. Speech/language was WFL It was noted that pt would require re-instruction for some of the activities. He would go "off task" easily and then was tangential. Pt stated he was " coming down" off his meds. Oral Motor/Speech Production WFL Impression Mild cognitive deficits in attention, memory and higher level problem solving. Communication/Social Cognition Comprehension: 7 Expression: 7 Social Interaction: 7 Problem Solvin Memory: 4 Speech Patient Assess Expression of Ideas/Wants: Expression (4) Understanding Verbal Content: Understands (4) Brief Interview-Mental Status: Yes Repetition of Three Words: Three (3) Temporal Orientation: Year: Correct (3) Temporal Orientation: Month: Accurate within 5 days(2) Temporal Orientation: Day: Correct (1) Recall : Wear to say "Sock": Yes,after cueing (1) Recall : Color: Yes, no cue required (2) Recall : Bed: Yes, no cue required (2) Speech Short Term Goals Short Term Goals Short Term Goals 1. Pt will complete various auditory/visual memory activities with at least 85 % accuracy. 2. Pt will be educated regarding compensatory memory strategies and be able to recall at least 3. 3. Pt will complete problem solving activities with at least 80% and min assist. Time Frame-ST week Speech Care Home Goals Care Home Goals Pt will demonstrate functional cognition for safety and maximum independence for the home setting. Time Frame: 2 weeks Speech-Plan Patient/Family Goals Patient/Family Goals: to return home Treatment Plan Speech Therapy Treatment Plan: Modify Plan, See Comments (Skilled ST to address cognitive deficits.) Skilled ST to address cognitive deficits. Treatment Duration: Jun 11, 2018 Frequency: 5 times per week Estimated Hrs Per Day: .5 hour per day Rehab Potential: Fair Pt/Family Agrees to Plan: Yes Safety Risks/Education Teaching Recipient: Patient Teaching Methods: Discussion Response to Teaching: Verbalize Understanding Time Speech Therapy Time In: 10:30 Speech Therapy Time Out: 10:50 Total Billed Time: 20 Billed Treatment Time 1, SPSNDCOMP TAL Crook Jun 10, 2018 11:07
[2018-06-10] MEDS: LEVOFLOXACIN 750 MG TAB (LEVAQUIN) PO SCH (11:12)
--- NOTE | 2018-06-10 13:00 | Occupational Therapy Eval ---
OT Evaluation-General/PLF Medical Diagnosis Admission Date Jun 09, 2018 at 11:18 Medical Diagnosis: afib with RVR Onset Date: Jun 03, 2018 Therapy Diagnosis Therapy Diagnosis: decr self care, decr funct mob, decr act nadia, weakness Height/Weight Height (Feet): 6 Height (Inches): 4.00 Weight (Pounds): 167 Weight (Ounces): 4.0 Precautions Precautions/Isolations: Fall Prevention, Standard Precautions Safety Interventions: None Referral Physician: Nito Referral Reason: Evaluation/Treatment Medical History Pertinent Medical History: Arthritis, OA Additional Medical History Colon surgery 02/11 for colon cancer. DVT in 1985. BPH. Liver disease with jaundice. "2 bad knees". Decreased vision. Pt reported lung tumor. Pt reported R shoulder "pops out" Current History Admitted through ED with nausea and dizziness. Receiving chemo and got weak. Now has pathological fx L2 Reviewed History: Yes Social History Home: Single Level Current Living Status: Alone Entry Into Home: Ramp ADL-Prior Level of Function Functional [place] Measure 0=Not Assessed/NA 4=Minimal Assistance 1=Total Assistance 5=Supervision or Setup 2=Maximal Assistance 6=Modified [place] 3=Moderate Assistance 7=Complete [place] ADL PLOF Comments Pt reported that he was previously able to manage all of his basic ADLs, although he sometimes had trouble putting on pants and shoes/socks due to edema in his feet (10 year history). He has been able to manage cooking, laundry, cleaning, medications. Has a son that lives next door and checks on him. 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 His three years ago this month. Self Care DME/Equipment: Tall Toilet, Tub/Shower OT Current Status Subjective Pt seen in room, up in recliner, agreeable to OT. Pain reported 0/10 Appearance Alert, cooperative Mental Status/Objective Patient Orientation: Person, Place, Time, Situation Attachments: [place] Lock Current Glasses/Contacts: Yes Hearing Aids: No Dentures/Partials: Yes Hand Dominance: Right Upper Extremity ROM Grossly WFL bilat Upper Extremity Sensation No problems reported Upper Extremity Strength Grossly 4/5 bilat ADL-Treatment ADL-Current Pt wanted to wait until tomorrow to shower and change clothes. He got up from recliner with a little difficulty - pt educ for hand placement and to scoot forward in chair. He walked CGA, FWW to bathroom to brush teeth and toilet. Pt educ for walker placement during both activities. He reported that he was unable to get off tall toilet because it is too low. Provided with BSC over toilet. Transferred CGA on/off BSC and managed clothing CGA, FWW. Pt returned to room and was able to order his lunch without help. Pt left up in recliner, all needs met. Functional [place] Measure 0=Not Assessed/NA 4=Minimal Assistance 1=Total Assistance 5=Supervision or Setup 2=Maximal Assistance 6=Modified [place] 3=Moderate Assistance 7=Complete IndependenceIRFPAI Quality Coding Scale 6 Independent with activity with or without an assistive device 5 Patient requires set up or clean up by helper. Patient completes activity by themselves 4 Supervision or touching assist (CGA). [place] provide cues , steadying assist 3 The helper provides less than half the effort to complete the activity 2 The helper provides more than half the effort to complete the activity 1 Dependent. The helper does all the effort to complete an activity 7 Patient refused to complete or attempt activity 9 The patient did not perform the activity before the current illness or injury 88 Not attempted due to Medical conditions or safety concerns Grooming (FIM): 4 (CGA, FWW at sink) Oral Hygiene (QC): 4 Toileting (FIM): 4 (CGA, BSC over toilet, FWW, grab bar. CGA to manage clothing. Able to manage hygiene) Toileting Hygiene (QC): 4 Toilet/Commode Transfer (FIM): 4 (CGA on/off BSC over toilet) Toilet Transfer (QC): 4 (CGA) Education OT Patient Education: Modified ADL techniques, Purpose of tx/functional activities, Rehab process, Safety issues, Transfer techniques, Use of adapted equipment Teaching Recipient: Patient Teaching Methods: Discussion Response to Teaching: Verbalize Understanding, Return Demonstration, Reinforcement Needed OT Short Term Goals Short Term Goals Time Frame: Jun 17, 2018 Grooming(FIM): 5 Bathing(FIM): 5 Upper Body Dressing(FIM): 5 Lower Body Dressing(FIM): 5 Toileting(FIM): 5 Transfers (B,C,W/C) (FIM): 5 Toilet/Commode Transfer(FIM): 5 Shower Transfer(FIM): 5 Additional Short Term Goals: 1-Demonstrate ADL Tasks, 2-Verbalize Understanding , 3-ImproveStrength/Dean 1=Demonstrate adherence to instructed precautions during ADL tasks. 2=Patient will verbalize/demonstrate understanding of assistive devices/ modifications for ADL. 3=Patient will improve strength/tolerance for activity to enable patient to perform ADL's. OT Industrial Relations Analyst Goals Senior Care Goals Time Frame: Jul 01, 2018 Eating (FIM): 6 Eating (QC): 6 Groomin Oral Hygiene (QC): 6 Bathing(FIM): 6 Shower/Bathe Self (QC): 6 Upper Body Dressing(FIM): 6 Upper Body Dressing (QC): 6 Lower Body Dressing(FIM): 6 Lower Body Dressing (QC): 6 On/Off Footwear (QC): 6 Toileting(FIM): 6 Toileting Hygiene (QC): 6 Toilet/Commode Transfer(FIM): 6 Toilet/Commode Transfer (QC): 6 Tub Transfer(FIM): 5 (or shower) Shower Transfer(FIM): 5 Additional Goals: 1-Demonstrate ADL Tasks, 2-Verbalize Understanding, 3- ImproveStrength/Dean 1=Demonstrate adherence to instructed precautions during ADL tasks. 2=Patient will verbalize/demonstrate understanding of assistive devices/ modifications for ADL. 3=Patient will improve strength/tolerance for activity to enable patient to perform ADL's. OT Education/Plan Problem List/Assessment Assessment: Decreased Activ Tolerance, Decreased UE Strength, Dependent Transfers, Impaired Self-Care Skills Pt would benefit from skilled OT to increase his independence in basic self care. Discharge Recommendations Plan/Recommendations: Continue POC Treatment Plan/Plan of Care Treatment,Training & Education: Yes Patient would benefit from OT for education, treatment and training to promote independence in ADL's, mobility, safety and/or upper extremity function for ADL' s. Plan of Care: ADL Retraining, Functional Mobility, Group Exercise/Act as Ind ( education, exercise, activity tolerance, functional activities, socialization), UE Funct Exercise/Act, UE Neuromus Re-Ed/Coord, OTHER (energy conservation education) Treatment Duration: Jul 01, 2018 Frequency: At least 5 of 7 days/Wk (IRF) Estimated Hrs Per Day: 1.5 hours per day Rehab Potential: Fair Time/GCodes Start Time: 11:00 Stop Time: 12:00 Total Time Billed (hr/min): 60 Billed Treatment Time visit, 15 minutes evaluation moderate intensity, 45 minutes ADL SASCHA BLAKE OT Jun 10, 2018 13:00
--- NOTE | 2018-06-10 13:39 | PM&R Post Admission Assessment ---
Post Admission Physician Asses Date seen by provider: Jun 10, 2018 Time seen by provider: 13:30 The preadmission screen agrees with the post admission assessment that the patient is a good candidate for inpatient rehabilitation. The patient will have a comprehensive program of inpatient rehabilitation with a goal of maximizing level of functional independence prior to discharge home with HHC and family. The patient will have PT/OT ninety minutes per day, each discipline, five days a week for 2 weeks for gait, strengthening, conditioning, balance, ADLs, any patient/family/caregiver training as necessary. Speech therapy to do cognitive assessment and treat as indicated. Rehabilitation nursing to assist with bowel, bladder, skin, medication administration, pain management. Customer Leader to assist with discharge planning, community reentry. SCD's for DVT prophylaxis. He appears to be well motivated to participate in three hours of therapy a day. He should be able to tolerate three hours of therapy a day from a medical standpoint. He should benefit from the three hours of therapy a day. He has a reasonable discharge plan, reasonable discharge rehabilitation goals and a supportive family. He has various comorbidities that need to be closely monitored with medications and treatments adjusted on a daily basis as needed. These include: Pathologic Vertebral bone fractures A FIB Pneumonia Colon CA with mets IGC code 03.3 Etiologic DX Toxic myopathy Barriers to discharge for this patient who had been independent prior to this are for him to be modified independent to supervision for ADLs and mobility skills prior to discharge home with Family and HHC, so as to lessen the burden of the caregivers. Risks for this patient include: 1. Fall 2. Fracture 3. DVT 4. Pulmonary embolism 5. Poorly controlled A FIB 6. Skin breakdown 7. Contractures 8. Poorly controlled pain 9. Urinary retention 10. UTI 11. Respiratory infection 12. Aspiration 13.Pathologic Bone fracture Estimated Length of Stay: 14 days Prognosis: Rehab prognosis appears good for goal of discharge home with HHC and Family modified independent to supervision for ADLs and mobility skills. Date Identified: Jun 10, 2018 Time Identified: 13:30 Action Plan to Resolve CSMI: Adjust pain meds as patient reports Pain 8/10 in low back while sitting in chair General: Alert, Oriented X3, Cooperative, No Acute Distress HEENT: Atraumatic, PERRLA, EOMI, Mucous Memb Moist/[place]: Supple, No JVD Lungs: Clear to Auscultation Heart: Regular Rate Abdomen: Normal Bowel Sounds, Soft, No Tenderness Extremities: Other (trace edema both ankles) Neuro: Other (Weakness both legs as per H and P) Psych/Mental Status: Mental Status NL SARITA CONCEPCION MD Jun 10, 2018 13:39
--- NOTE | 2018-06-10 14:23 | Physical Therapy Daily Note ---
PT Daily Note-Current Subjective Patient just complete with OT and agrees to PT. Pain Numeric Pain Scale: 5-Moderate Pain Location: Lower Location Body Site: Back Pain Description: Chronic Comment: FLACC with meds issued Mental Status Patient Orientation: Normal For Age Transfers Functional [place] Measure 0=Not Assessed/NA 4=Minimal Assistance 1=Total Assistance 5=Supervision or Setup 2=Maximal Assistance 6=Modified [place] 3=Moderate Assistance 7=Complete IndependenceIRFPAI Quality Coding Scale 6 Independent with activity with or without an assistive device 5 Patient requires set up or clean up by helper. Patient completes activity by themselves 4 Supervision or touching assist (CGA). [place] provide cues , steadying assist 3 The helper provides less than half the effort to complete the activity 2 The helper provides more than half the effort to complete the activity 1 Dependent. The helper does all the effort to complete an activity 7 Patient refused to complete or attempt activity 9 The patient did not perform the activity before the current illness or injury 88 Not attempted due to Medical conditions or safety concerns Transfers (B, C, W/C) (FIM): 5 Scootin Rollin Roll Left to Right (QC): 5 Supine to/from Sit: 5 Sit to/from Stand: 5 Sit to Lying (QC): 5 Sit to Stand (QC): 5 Bed to/from Chair: 5 Car Transfer (QC): 5 Weight Bearing Right Lower Extremity: Right Partial Weight Bearing Left Lower Extremity: Left Weight Bearing/Tolerated Gait Training Does the Patient Walk?: Yes Gait (FIM): 5 Distance (FIM): 3=150 ft Distance: 150' x 2 Walk 10 feet (QC): 5 Walk 50 ft with 2 Turns(QC): 5 Walk 150 ft (QC): 5 Gait Level of Assist: 5 Gait Assistive Device: FWW slow, steady Exercises NuStep Minutes: 15 NuStep Workload: 4 (to improve strength and functional mobility) Assessment Patient tolerated treatment well and is progressing with treatment plan. Patient is limited due to back pain. PT Short Term Goals Short Term Goals Time Frame: Jun 17, 2018 Transfers (B,C,W/C) (FIM): 5 Gait (FIM): 5 Gait Distance Comment: 300' Gait Level of Assist: 5 Gait Assistive Device: FWW PT Agency Appointments Supervisor Goals Agency Appointments Supervisor Goals PT Agency Appointments Supervisor Goals Time Frame: Jul 01, 2018 Transfers (B,C,W/C) (FIM): 6 Sit to Lying (QC): 6 Lying-Sitting on Side/Bed(QC): 6 Sit to Stand (QC): 6 Rollin Roll Left to Right (QC): 6 Chair/Dtw-pl-[place] Xfer(QC): 6 Car Transfer (QC): 6 Gait (FIM): 6 Distance: 300' Walk 10 feet (QC): 6 Walk 10ft-Uneven Surface(QC): 6 Walk 50ft with 2 Turns (QC): 6 Walk 150 ft (QC): 6 Gait Assistive Device: FWW Stairs (FIM): 2 # of Steps: 8 1 Step (curb) (QC): 6 4 Steps (QC): 6 PT Plan Treatment/Plan Treatment Plan: Continue Plan of Care Treatment Plan: Bed Mobility, Education, Functional Activity Dean, Functional Strength, Group Therapy, Gait, Safety, Therapeutic Exercise, Transfers Treatment Duration: Jul 01, 2018 Frequency: At least 5 of 7 days/Wk (IRF) Estimated Hrs Per Day: 1.5 hours per day Patient and/or Family Agrees t: Yes Time/GCodes Time In: 1345 Time Out: 1415 Total Billed Treatment Time: 30 Total Billed Treatment 1 visit FA 15 min EX 15 min LORE ALLEN PT Jun 10, 2018 14:23
--- NOTE | 2018-06-10 15:25 | HISTORY AND PHYSICAL ---
DATE OF SERVICE: 06/10/2018 CHIEF COMPLAINT: Back pain. HISTORY OF PRESENT ILLNESS: The patient is an 82-year-old male with history of stage IV colon cancer with mets to the spine, who developed a new lytic lesions involving L2 with increased pain. He was admitted to ED at [facility] after the emergency room found him to be in atrial fibrillation with SVT. Medications were adjusted. Cardiology consulted. Short term oral anticoagulation with Eliquis was provided. A SURESH was completed on 06/04/2018, and the patient is scheduled for atrial flutter ablation next two weeks. He is on hydrocodone for pain control. He reports pain at 8/10 sitting in chair. We will increase dosage. He had borderline elevated troponin, which has stayed at similar levels, felt to be due to severe sepsis due to pneumonia, which has been treated. Dr. Grier, oncology was consulted, palliative chemo placed on hold until after ablation 06/05/2018. The patient has had a decline in his functional independence due to this and referred to inpatient rehabilitation unit. He had been modified independent with a walker and living alone in [place], [place] prior to this. He is retired from [employer]. He has a son that lives next door to him, who can help out. Currently, he is min assist for transfers, min assist for gait with a front wheel walker. He fatigues easily. He has peripheral edema, which is improving with treatment. He is modified independent for eating, CGA for grooming, min assist for upper body dressing, mod assist for lower body dressing and min assist fortoileting. PAST MEDICAL HISTORY: Colon cancer with mets to spine, arthritis, recent pneumonia, atrial fibrillation. PAST SURGICAL HISTORY: Colon surgery, Dr. Astudillo, general surgery, appendectomy. ALLERGIES: No known medication allergies. FAMILY HISTORY: Noncontributory. SOCIAL HISTORY: As per above. REVIEW OF SYSTEMS: A 10-point review of systems significant for low back pain, generalized weakness more so in lower limbs. MEDICATIONS: Levaquin 750 mg p.o. daily, ASA 81 mg p.o. every day, Diltiazem 120 mg p.o. daily, Eliquis 5 mg p.o. b.i.d., hydrocodone and APAP 5 one tablet p.o. q.4h. p.r.n. moderate pain, Proventil treatments q.4 hours p.r.n. shortness of breath. PHYSICAL EXAMINATION: GENERAL: Significant for a thin male appearing stated age, sitting in a chair complaining of low back pain in no acute distress. VITAL SIGNS: He is afebrile, pulse is 81, respirations 18, blood pressure 160/80, O2 sat 98% on room air. HEENT: Vision, speech, hearing grossly intact. No oral lesions noted. NECK: Supple without mass. HEART: Regular rhythm. CHEST: Clear. ABDOMEN: Soft, nontender. Bowel sounds present. EXTREMITIES: The patient has 1+ edema present in both ankles, no calf tenderness. MUSCULOSKELETAL: He has functional active range of motion in all 4 limbs. NEUROLOGIC: He reports decreased sensation in the left foot, which may be partially due to edema. Cognition appears grossly intact. Strength, hip flexion bilateral 3+/5, knee flexion 4/5, knee extension 4/5, dorsiflexion 5/5. He has 4/5 strength both upper limbs. IMPRESSION: 1. 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 2. Atrial fibrillation, controlled with medication. 3. Metastatic colon cancer, status post colon surgery 02/11/2018, with mets to the lumbar spine. 4. Osteoarthritis, both knees. 5. Type 2 myocardial infarction with borderline elevated troponin, will have a cardiac ablation in 2 weeks' time. PLAN: The patient will have a comprehensive program of inpatient rehabilitation with goal of maximizing level of functional independence prior to discharge home with son and home health care. The patient will have PT, OT 90 minutes per day each discipline, 5 days a week for 2 weeks with the above goals in mind. Speech therapy to do cognitive assessment and treat as indicated. Please see post-admission physician evaluation, which is a separate document for details of plan of care. 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 Follow up with [facility] with his PCP and Dr. Carter, medical oncology as per their schedule and follow with cardiology as per their schedule. I appreciate Dr. Montes's note.Continue current meds.SCDS in addition to eliquis for dvt Prophylaxis DIET: Regular. CODE STATUS: Full code. 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
--- NOTE | 2018-06-10 16:29 | Occupational Ther Daily Note ---
OT Current Status-Daily Note Subjective Pt seen in room, up in recliner, reporting pain 10/10 in low back. He said that lying down was the only way to relieve it. Appearance Alert, cooperative Mental Status/Objective Functional [place] Measure 0=Not Assessed/NA 4=Minimal Assistance 1=Total Assistance 5=Supervision or Setup 2=Maximal Assistance 6=Modified [place] 3=Moderate Assistance 7=Complete [place] ADL-Treatment Functional [place] Measure 0=Not Assessed/NA 4=Minimal Assistance 1=Total Assistance 5=Supervision or Setup 2=Maximal Assistance 6=Modified [place] 3=Moderate Assistance 7=Complete IndependenceIRFPAI Quality Coding Scale 6 Independent with activity with or without an assistive device 5 Patient requires set up or clean up by helper. Patient completes activity by themselves 4 Supervision or touching assist (CGA). [place] provide cues , steadying assist 3 The helper provides less than half the effort to complete the activity 2 The helper provides more than half the effort to complete the activity 1 Dependent. The helper does all the effort to complete an activity 7 Patient refused to complete or attempt activity 9 The patient did not perform the activity before the current illness or injury 88 Not attempted due to Medical conditions or safety concerns Other Treatment He recalled modified technique and scooted to edge of chair to stand with SBA, FWW and walked with CGA, FWW to bed. Sat quickly, almost collapsing into bed. Able to get both legs up and into bed without help. Pt education with nurys TOVAR ex with yellow theraband (gentle resistance), working on primarily shoulders and elbows, to help with transfers. he was unable to do more than 6 reps stretching band due to painful R shoulder. Modified technique used for elbow exercises which provided more stability to R shoulder. He was able to do 10 reps after education. Pt left up in bed, care transferred to PT. Education OT Patient Education: Exercise program, Purpose of tx/functional activities, Safety issues, Transfer techniques Teaching Recipient: Patient Teaching Methods: Demonstration, Discussion Response to Teaching: Verbalize Understanding, Return Demonstration, Reinforcement Needed OT Short Term Goals Short Term Goals Time Frame: Jun 17, 2018 Grooming(FIM): 5 Bathing(FIM): 5 Upper Body Dressing(FIM): 5 Lower Body Dressing(FIM): 5 Toileting(FIM): 5 Transfers (B,C,W/C) (FIM): 5 Toilet/Commode Transfer(FIM): 5 Shower Transfer(FIM): 5 Additional Short Term Goals: 1-Demonstrate ADL Tasks, 2-Verbalize Understanding , 3-ImproveStrength/Dean 1=Demonstrate adherence to instructed precautions during ADL tasks. 2=Patient will verbalize/demonstrate understanding of assistive devices/ modifications for ADL. 3=Patient will improve strength/tolerance for activity to enable patient to perform ADL's. OT Thermostat Machine Tender Goals Group Home Goals Time Frame: Jul 01, 2018 Eating (FIM): 6 Eating (QC): 6 Groomin Oral Hygiene (QC): 6 Bathing(FIM): 6 Shower/Bathe Self (QC): 6 Upper Body Dressing(FIM): 6 Upper Body Dressing (QC): 6 Lower Body Dressing(FIM): 6 Lower Body Dressing (QC): 6 On/Off Footwear (QC): 6 Toileting(FIM): 6 Toileting Hygiene (QC): 6 Toilet/Commode Transfer(FIM): 6 Toilet/Commode Transfer (QC): 6 Tub Transfer(FIM): 5 (or shower) Shower Transfer(FIM): 5 Additional Goals: 1-Demonstrate ADL Tasks, 2-Verbalize Understanding, 3- ImproveStrength/Dean 1=Demonstrate adherence to instructed precautions during ADL tasks. 2=Patient will verbalize/demonstrate understanding of assistive devices/ modifications for ADL. 3=Patient will improve strength/tolerance for activity to enable patient to perform ADL's. OT Education/Plan Problem List/Assessment Pt would benefit from skilled OT to increase his independence in basic self care. Discharge Recommendations Plan/Recommendations: Continue POC Treatment Plan/Plan of Care Patient would benefit from OT for education, treatment and training to promote independence in ADL's, mobility, safety and/or upper extremity function for ADL' s. Plan of Care: ADL Retraining, Functional Mobility, Group Exercise/Act as Ind ( education, exercise, activity tolerance, functional activities, socialization), UE Funct Exercise/Act, UE Neuromus Re-Ed/Coord, OTHER (energy conservation education) Treatment Duration: Jul 01, 2018 Frequency: At least 5 of 7 days/Wk (IRF) Estimated Hrs Per Day: 1.5 hours per day Rehab Potential: Fair Time/GCodes Start Time: 13:30 Stop Time: 13:45 Total Time Billed (hr/min): 15 Billed Treatment Time visit, 15 minutes exercise SASCHA BLAKE OT Jun 10, 2018 16:29
--- NOTE | 2018-06-10 16:35 | Consultation ([facility]) ---
HPI History of Present Illness: Patient with recent admission to hospital and transferred to acute rehab on Sunday Consulted for medical management Atrial Flutter Stage IV colon ca with mets CAD Cancer pain Sepsis due to PNA Advanced age Debility Source: patient Exam Limitations: no limitations Date seen by provider: Jun 10, 2018 Time Seen by Provider: 12:35 Attending Physician Keaton Beauchamp MD PCP [facility] Consult Date of Admission Jun 09, 2018 at 11:18 Home Medications Home Medications Reviewed patient Home Medication Reconciliation performed by pharmacy medication reconciliations decontamination technician and/or nursing. Patients Allergies have been reviewed. Allergies Coded Allergies: No Known Drug Allergies (Unverified , 03/25/18) [id number] Hx Patient Social History Living Status: Lives at home alone, 3 stairs to get into house Alcohol Use: Denies Use Recreational Drug Use: No Smoking Status: Former Smoker Former smoker/When Quit: May 19, 1960 Type Used: Cigarettes Recent Foreign Travel: No Contact w/other who traveled: No Recent Hopitalizations: Yes (COLON SURGERY 02/07/18) Recent Infectious Disease Expo: No Physical Abuse Screen: No Sexual Abuse: No Immunizations Up To Date Tetanus Booster (TDap): More than 5yrs Past Medical History PMH: Arthritis - L knee Colon cancer Atrial Flutter CAD PSH: Appendectomy Family Medical History Significant Family History: Heart Disease, GI Disease, Renal Disease Family History: Heart disease G8 BROTHER Liver cirrhosis G8 BROTHER Renal cancer 19 FATHER Review of Systems ([facility]) Constitutional: No chills, No fever; malaise, weakness EENTM: no symptoms reported Respiratory: No cough, No dyspnea on exertion, No short of breath Cardiovascular: No chest pain, No edema; palpitations Gastrointestinal: abdominal pain, loss of appetite; No melena Genitourinary: no symptoms reported; No dysuria, No hematuria Musculoskeletal: back pain, muscle stiffness Skin: no symptoms reported Physical Exam-([facility]) Physical Exam Vital Signs VS - Last 72 Hours, by Label 06/09/18 06/09/18 06/09/18 06/09/18 11:25 16:18 17:15 19:07 Temp 97.7 98.6 Pulse 81 70 Resp 18 18 B/P (MAP) 132/79 (96) 118/72 (87) Pulse Ox 97 98 O2 Delivery Room Air Room Air Room Air Room Air 06/09/18 06/10/18 06/10/18 06/10/18 20:18 05:15 08:52 18:00 Temp 98.0 98.6 Pulse 81 80 Resp 18 18 B/P (MAP) 160/80 (106) 124/74 (91) Pulse Ox 98 98 98 98 O2 Delivery Room Air Room Air Room Air Room Air Capillary Refill : General Appearance: WD/WN, thin Neck: non-tender, full range of motion, supple Respiratory: chest non-tender, normal breath sounds, no respiratory distress, no accessory muscle use Cardiovascular: normal peripheral pulses, regular rate, rhythm, no edema Gastrointestinal: normal bowel sounds, non tender, soft, no organomegaly Back: no CVA tenderness, no vertebral tenderness Extremities: no pedal edema, no calf tenderness, normal capillary refill Neurologic/Psychiatric: construction management assistant II-XII nml as tested, alert, normal mood/affect, oriented x 3 Skin: normal color, warm/dry Assessment/Plan Assessment/Plan (1) Sepsis due to pneumonia Status: Resolved Assessment & Plan: - Finishing course of Levoquin for PNA, Duonebs PRN (2) Atrial flutter with rapid ventricular response Status: Acute Assessment & Plan: - Cardiology consulted and managing (3) CAD (coronary artery disease) Status: Chronic Qualifiers: Qualified Codes: I25.10 - Atherosclerotic heart disease of [place] coronary artery without angina pectoris (4) Colon cancer Status: Acute Assessment & Plan: - Oncology consulted and managing (5) Pathologic lumbar vertebral fracture Status: Acute Assessment & Plan: - Controlled with PO pain medications Qualifiers: Qualified Codes: M84.48XS - Pathological fracture, other site, sequela (6) DEBILITY Status: Acute Assessment & Plan: - Rehab per Dr Beauchamp - Thank you for the consult, please notify [facility] when patient has discharge date Clinical Quality Measures DVT/VTE Risk/Contraindication: Risk Factor Score Per Nursin RFS Level Per Nursing on Admit: 4+=Very High Copy Copies To 1: KEVON Ragland HOLLY R MD Jun 10, 2018 16:35
[2018-06-10 18:00] VITALS: BP 124/74
[2018-06-10] MEDS: fentaNYL PATCH 25 MCG (DURAGESIC) TD SCH (21:26)
[2018-06-11 05:07] VITALS: BP 152/84
[2018-06-11 08:43] VITALS: BP 130/70
[2018-06-11] MEDS: APIXABAN 5 MG (ELIQUIS) TABLET PO SCH ×2 (08:44→20:37)
[2018-06-11] MEDS: DILTIAZEM 120 MG (CARDIZEM CD) CAP PO SCH (08:45)
[2018-06-11] MEDS: ASPIRIN E.C. 81 MG (ECOTRIN) TAB PO SCH (08:45)
[2018-06-11] MEDS: HYDROcodone/APAP 5 MG/325 MG (LORTAB) TAB PO PRN ×3 (08:49→20:37)
--- NOTE | 2018-06-11 10:00 | Physical Therapy Daily Note ---
PT Daily Note-Current Subjective Patient in bed pre tx, agrees to PT, has 6/10 pain in low back but states he had some pain meds and they should be working anytime. Appearance Patient in bed post tx with nurse call, phone, tray, all needs met. Mental Status Patient Orientation: Normal For Age Transfers Functional [place] Measure 0=Not Assessed/NA 4=Minimal Assistance 1=Total Assistance 5=Supervision or Setup 2=Maximal Assistance 6=Modified [place] 3=Moderate Assistance 7=Complete IndependenceIRFPAI Quality Coding Scale 6 Independent with activity with or without an assistive device 5 Patient requires set up or clean up by helper. Patient completes activity by themselves 4 Supervision or touching assist (CGA). [place] provide cues , steadying assist 3 The helper provides less than half the effort to complete the activity 2 The helper provides more than half the effort to complete the activity 1 Dependent. The helper does all the effort to complete an activity 7 Patient refused to complete or attempt activity 9 The patient did not perform the activity before the current illness or injury 88 Not attempted due to Medical conditions or safety concerns Transfers (B, C, W/C) (FIM): 5 Scootin Rollin Supine to/from Sit: 6 Sit to/from Stand: 5 Bed to/from Chair: 5 Patient has occasional dizziness with sitting or standing but it clears quickly. Weight Bearing Right Lower Extremity: Right Partial Weight Bearing Left Lower Extremity: Left Weight Bearing/Tolerated Gait Training Gait (FIM): 5 Distance: 150'x2 Gait Level of Assist: 5 Gait Persons Needed: 1 Gait Assistive Device: FWW slow but steady ambulation Exercises Supine Ex: Ankle pumps, Quad Set, Glut sets, Heel Slides, Hip abd/add Supine Reps: 20 NuStep Minutes: 15 NuStep Workload: 6 Treatments bed mobility and transfers, ambulation, functional strengthening Assessment Current Status: Fair Progress slowly improving general mobility PT Short Term Goals Short Term Goals Time Frame: Jun 17, 2018 Transfers (B,C,W/C) (FIM): 5 Gait (FIM): 5 Gait Distance Comment: 300' Gait Level of Assist: 5 Gait Assistive Device: FWW PT [facility] Goals [facility] Goals PT Conciliator Goals Time Frame: Jul 01, 2018 Transfers (B,C,W/C) (FIM): 6 Sit to Lying (QC): 6 Lying-Sitting on Side/Bed(QC): 6 Sit to Stand (QC): 6 Rollin Roll Left to Right (QC): 6 Chair/Yvi-vj-Zikpd Xfer(QC): 6 Car Transfer (QC): 6 Gait (FIM): 6 Distance: 300' Walk 10 feet (QC): 6 Walk 10ft-Uneven Surface(QC): 6 Walk 50ft with 2 Turns (QC): 6 Walk 150 ft (QC): 6 Gait Assistive Device: FWW Stairs (FIM): 2 # of Steps: 8 1 Step (curb) (QC): 6 4 Steps (QC): 6 PT Plan Problem List Problem List: Activity Tolerance, Functional Strength, Safety, Balance, Gait, Transfer, Bed Mobility, ROM Treatment/Plan Treatment Plan: Continue Plan of Care Treatment Plan: Bed Mobility, Education, Functional Activity Dean, Functional Strength, Group Therapy, Gait, Safety, Therapeutic Exercise, Transfers Treatment Duration: Jul 01, 2018 Frequency: At least 5 of 7 days/Wk (IRF) Estimated Hrs Per Day: 1.5 hours per day Patient and/or Family Agrees t: Yes Safety Risks/Education Patient Education: Gait Training, Transfer Techniques, Correct Positioning, Safety Issues Teaching Recipient: Patient Teaching Methods: Demonstration, Discussion Response to Teaching: Reinforcement Needed Time/GCodes Time In: 0900 Time Out: 1000 Total Billed Treatment Time: 60 Total Billed Treatment 1 visit EX 30' GT 30' ELISABETH GIRALDO PT Jun 11, 2018 10:00
[2018-06-11] MEDS: LEVOFLOXACIN 750 MG TAB (LEVAQUIN) PO SCH (11:05)
--- NOTE | 2018-06-11 13:52 | Occupational Ther Daily Note ---
OT Current Status-Daily Note Subjective Pt seen in room, up in bed, agreeable to OT. No pain mentioned. Appearance Alert, cooperative Mental Status/Objective Functional [place] Measure 0=Not Assessed/NA 4=Minimal Assistance 1=Total Assistance 5=Supervision or Setup 2=Maximal Assistance 6=Modified [place] 3=Moderate Assistance 7=Complete [place] Attachments: Central Line ADL-Treatment Pt reported he was able to open packages, cut up food, feed himself, get a drink. has dentures which he needs to eat. Able to swing legs over edge of bed and sit unsupported. Sit to stand with CGA and walked to bathroom CGA, FWW. Pt educ shower transfer. Pt transferred in/out of shower with CGA. Undressed with close SBA. Washed and dried all parts but CGA when standing to wash bottom. He lowered himself abruptly the last few inches to shower bench but said he didn't feel any discomfort, SBA using grab bars. transfer out of shower CGA and walked CGA, FWW to bed to dress. Pt educ modified technique for lower body dressing. Able to get pants on/off with CGA and setup. Also able to get slipper socks off and on with setup but some difficulty due to edema in feet. Pt able to get legs back into bed without help. Pt requested vitals be taken:HR 84, Oxygen 95%, BP 153/87. Pt left up in bed, 4 rails up, ready for lunch, all needs met. Functional [place] Measure 0=Not Assessed/NA 4=Minimal Assistance 1=Total Assistance 5=Supervision or Setup 2=Maximal Assistance 6=Modified [place] 3=Moderate Assistance 7=Complete IndependenceIRFPAI Quality Coding Scale 6 Independent with activity with or without an assistive device 5 Patient requires set up or clean up by helper. Patient completes activity by themselves 4 Supervision or touching assist (CGA). [place] provide cues , steadying assist 3 The helper provides less than half the effort to complete the activity 2 The helper provides more than half the effort to complete the activity 1 Dependent. The helper does all the effort to complete an activity 7 Patient refused to complete or attempt activity 9 The patient did not perform the activity before the current illness or injury 88 Not attempted due to Medical conditions or safety concerns Eating (FIM): 6 (Opens packages, cuts food, able to feed himself, get a drink. Has dentures which he needs for eating) Eating (QC): 6 Bathing (FIM): 4 (Washed and dried all aprts but CGA when standing. Shower bench, grab bars, hand held shower. [place] covered) Shower/Bathe Self (QC): 4 Upper Body (FIM): 5 (Doffed and donned shirt with setup) Upper Body Dressing (QC): 5 Lower Body Dressing (FIM): 4 (CGA when standing to pull pants up. Pt educ modified technique, with return demo. Difficulty putting socks on due to edema but able to do it. Would not be able to wear his regular shoes. ) Lower Body Dressing (QC): 4 (CGA) On/Off Footwear (QC): 5 (extra time) Education OT Patient Education: Modified ADL techniques, Progress toward Goal/Update tx plan, Purpose of tx/functional activities, Safety issues, Transfer techniques, Use of adapted equipment Teaching Recipient: Patient Teaching Methods: Demonstration, Discussion Response to Teaching: Verbalize Understanding, Return Demonstration, Reinforcement Needed OT Short Term Goals Short Term Goals Time Frame: Jun 17, 2018 Grooming(FIM): 5 Bathing(FIM): 5 Upper Body Dressing(FIM): 5 Lower Body Dressing(FIM): 5 Toileting(FIM): 5 Transfers (B,C,W/C) (FIM): 5 Toilet/Commode Transfer(FIM): 5 Shower Transfer(FIM): 5 Additional Short Term Goals: 1-Demonstrate ADL Tasks, 2-Verbalize Understanding , 3-ImproveStrength/Dean 1=Demonstrate adherence to instructed precautions during ADL tasks. 2=Patient will verbalize/demonstrate understanding of assistive devices/ modifications for ADL. 3=Patient will improve strength/tolerance for activity to enable patient to perform ADL's. OT Correction Goals Correction Goals Time Frame: Jul 01, 2018 Eating (FIM): 6 Eating (QC): 6 Groomin Oral Hygiene (QC): 6 Bathing(FIM): 6 Shower/Bathe Self (QC): 6 Upper Body Dressing(FIM): 6 Upper Body Dressing (QC): 6 Lower Body Dressing(FIM): 6 Lower Body Dressing (QC): 6 On/Off Footwear (QC): 6 Toileting(FIM): 6 Toileting Hygiene (QC): 6 Toilet/Commode Transfer(FIM): 6 Toilet/Commode Transfer (QC): 6 Tub Transfer(FIM): 5 (or shower) Shower Transfer(FIM): 5 Additional Goals: 1-Demonstrate ADL Tasks, 2-Verbalize Understanding, 3- ImproveStrength/Dean 1=Demonstrate adherence to instructed precautions during ADL tasks. 2=Patient will verbalize/demonstrate understanding of assistive devices/ modifications for ADL. 3=Patient will improve strength/tolerance for activity to enable patient to perform ADL's. OT Education/Plan Problem List/Assessment Pt would benefit from skilled OT to increase his independence in basic self care. Discharge Recommendations Plan/Recommendations: Continue POC Treatment Plan/Plan of Care Patient would benefit from OT for education, treatment and training to promote independence in ADL's, mobility, safety and/or upper extremity function for ADL' s. Plan of Care: ADL Retraining, Functional Mobility, Group Exercise/Act as Ind ( education, exercise, activity tolerance, functional activities, socialization), UE Funct Exercise/Act, UE Neuromus Re-Ed/Coord, OTHER (energy conservation education) Treatment Duration: Jul 01, 2018 Frequency: At least 5 of 7 days/Wk (IRF) Estimated Hrs Per Day: 1.5 hours per day Rehab Potential: Fair Time/GCodes Start Time: 11:00 Stop Time: 12:00 Total Time Billed (hr/min): 60 Billed Treatment Time visit, 60 minutes ADL SASCHA BLAKE OT Jun 11, 2018 13:52
--- NOTE | 2018-06-11 14:00 | Occupational Ther Daily Note ---
OT Current Status-Daily Note Subjective Pt seen in room, up in bed, agreeable to OT. No pain noted. Appearance Alert, cooperative Mental Status/Objective Functional [place] Measure 0=Not Assessed/NA 4=Minimal Assistance 1=Total Assistance 5=Supervision or Setup 2=Maximal Assistance 6=Modified [place] 3=Moderate Assistance 7=Complete [place] ADL-Treatment Functional [place] Measure 0=Not Assessed/NA 4=Minimal Assistance 1=Total Assistance 5=Supervision or Setup 2=Maximal Assistance 6=Modified [place] 3=Moderate Assistance 7=Complete IndependenceIRFPAI Quality Coding Scale 6 Independent with activity with or without an assistive device 5 Patient requires set up or clean up by helper. Patient completes activity by themselves 4 Supervision or touching assist (CGA). [place] provide cues , steadying assist 3 The helper provides less than half the effort to complete the activity 2 The helper provides more than half the effort to complete the activity 1 Dependent. The helper does all the effort to complete an activity 7 Patient refused to complete or attempt activity 9 The patient did not perform the activity before the current illness or injury 88 Not attempted due to Medical conditions or safety concerns Other Treatment Pt did 11 reps bilat UE exercise with yellow theraband. Was able to do modified version of shoulder stretch but still only 4 reps before shoulder elevation observed. 11 reps 4 additional exercises, including one new one, to strengthen arms to help with transfers and ADLs. Occasional skilled cues to complete them correctly. Pt left up in bed, all needs met. Education OT Patient Education: Exercise program, Purpose of tx/functional activities Teaching Recipient: Patient Teaching Methods: Demonstration, Discussion Response to Teaching: Verbalize Understanding, Return Demonstration OT Short Term Goals Short Term Goals Time Frame: Jun 17, 2018 Grooming(FIM): 5 Bathing(FIM): 5 Upper Body Dressing(FIM): 5 Lower Body Dressing(FIM): 5 Toileting(FIM): 5 Transfers (B,C,W/C) (FIM): 5 Toilet/Commode Transfer(FIM): 5 Shower Transfer(FIM): 5 Additional Short Term Goals: 1-Demonstrate ADL Tasks, 2-Verbalize Understanding , 3-ImproveStrength/Dean 1=Demonstrate adherence to instructed precautions during ADL tasks. 2=Patient will verbalize/demonstrate understanding of assistive devices/ modifications for ADL. 3=Patient will improve strength/tolerance for activity to enable patient to perform ADL's. OT Lubricating Specialist Goals Lubricating Specialist Goals Time Frame: Jul 01, 2018 Eating (FIM): 6 Eating (QC): 6 Groomin Oral Hygiene (QC): 6 Bathing(FIM): 6 Shower/Bathe Self (QC): 6 Upper Body Dressing(FIM): 6 Upper Body Dressing (QC): 6 Lower Body Dressing(FIM): 6 Lower Body Dressing (QC): 6 On/Off Footwear (QC): 6 Toileting(FIM): 6 Toileting Hygiene (QC): 6 Toilet/Commode Transfer(FIM): 6 Toilet/Commode Transfer (QC): 6 Tub Transfer(FIM): 5 (or shower) Shower Transfer(FIM): 5 Additional Goals: 1-Demonstrate ADL Tasks, 2-Verbalize Understanding, 3- ImproveStrength/Dean 1=Demonstrate adherence to instructed precautions during ADL tasks. 2=Patient will verbalize/demonstrate understanding of assistive devices/ modifications for ADL. 3=Patient will improve strength/tolerance for activity to enable patient to perform ADL's. OT Education/Plan Problem List/Assessment Pt would benefit from skilled OT to increase his independence in basic self care. Discharge Recommendations Plan/Recommendations: Continue POC Treatment Plan/Plan of Care Patient would benefit from OT for education, treatment and training to promote independence in ADL's, mobility, safety and/or upper extremity function for ADL' s. Plan of Care: ADL Retraining, Functional Mobility, Group Exercise/Act as Ind ( education, exercise, activity tolerance, functional activities, socialization), UE Funct Exercise/Act, UE Neuromus Re-Ed/Coord, OTHER (energy conservation education) Treatment Duration: Jul 01, 2018 Frequency: At least 5 of 7 days/Wk (IRF) Estimated Hrs Per Day: 1.5 hours per day Rehab Potential: Fair Time/GCodes Start Time: 13:00 Stop Time: 13:15 Total Time Billed (hr/min): 15 Billed Treatment Time visit, 15 minutes exercise SASCHA BLAKE OT Jun 11, 2018 14:00
--- NOTE | 2018-06-11 14:01 | Cardiology Progress Note ---
Cardiology SOAP Progress Note Subjective: No cardiac complaints. Objective: I&O/Vital Signs 06/11/18 06/11/18 06/11/18 05:07 08:00 08:43 Temp 98.0 Pulse 86 96 Resp 16 B/P (MAP) 152/84 (106) 130/70 (90) Pulse Ox 95 O2 Delivery Room Air Room Air 06/11/18 00:00 Intake Total 675 ml Output Total 450 ml Balance 225 ml Weight (Pounds): 167 Weight (Ounces): 4.0 Weight (Calculated Kilograms): 75.106635 Constitutional: No appears stated age; AAO x 3; No apparent distress, No PERRL , No well-developed, No well-nourished, No other Respiratory: No accessory muscle use, No respiratory distress, No chest tender , No chest expansion is symmetric; chest is bilaterally symmetric; No lungs clear to percussion; lungs clear to auscultation; No crackles, No rhonchi, No rales, No stridor, No wheezing, No pleural rub, No other Cardiovascular: regular rate-rhythm; No irregularly irregular, No extra beats, No parasternal heave is noted, No JVD, No edema, No bradycardia, No tachycardia , No point of maximal impulse, No cardiac thrills are palpable; S1 and S2; No gallop/S3, No gallop/S4, No diastolic murmur, No systolic murmur, No friction rub, No click, No other Gastrointestional: No tender, No soft, No round, No distended, No pulsatile mass, No organomegaly, No guarding, No rebound, No tenderness, No hernia, No mass, No audible bowel sounds, No abnormal bowel sounds, No abdominal bruits, No spleenomegaly, No other Extremities: No normal range of motion, No non-tender, No normal inspection, No pedal edema, No calf tenderness, No normal capillary refill, No pelvis stable , No calf tenderness, No inflammation, No pedal edema, No slow capillary refill , No swelling, No other, No abrasion, No clubbing, No cyanosis, No ecchymosis, No laceration, No no lower extremity edema bilateral, No significant edema, No tenderness, No wound Neurologic/Psychiatric: no motor/sensory deficits, alert, normal mood/affect, oriented x 3 Skin: No normal color, No warm/dry, No cyanosis, No cool, No diaphoresis, No damp, No ecchymosis, No jaundice, No mottled, No pallor, No rash, No tattoos/ piercings, No ulcerations, No rash on exposed areas, No ulcerations on exposed areas, No other A/P: Assessment/Dx: Assessment/Admission Diagnosis Typical atrial flutter with rapid ventricular rate, converted to sinus rhythm with cardioversion. Pneumonia, resolved. Lactic acidosis, resolved. Nausea vomiting diarrhea, Stage IV colon cancer, Type II myocardial infarction Plan: Plan Typical atrial flutter with rapid ventricular rate, symptomatic typical atrial flutter with rapid ventricular rate. Successful transesophageal echocardiogram assisted cardioversion. Continues to be in sinus rhythm. On Eliquis. Likely atrial flutter typical ablation on June 21. Type 2 myocardial infarction: Borderline elevated troponin which have stayed almost at similar levels. Likely due to severe sepsis and atrial flutter. No further chest pain. Pneumonia, on IV antibiotics. Resolved. Lactic acidosis, likely due to sepsis. Resolved. Nausea vomiting diarrhea, multifactorial with contribution from sepsis and atrial flutter. No further nausea, vomiting, diarrhea. Stage IV colon cancer, deferred to Dr. Flanagan. Patient was on adjuvant chemotherapy. Thank you for your consultation. Please call me if you have any questions. Mitch Montes MD, FACP, FACC, FSCAI, FHRS, CCDS Interventional Cardiology Cardiac Electrophysiology Vascular Medicine and Endovascular Interventions Ricki MONTES MD Jun 11, 2018 2:01 pm
--- NOTE | 2018-06-11 16:03 | Physical Therapy Daily Note ---
PT Daily Note-Current Subjective Pt laying Supine in bed upon arrival. Pt agrees to PT. Pain Numeric Pain Scale: 3 Location Body Site: Sacrum Pain Description: Ache Mental Status Patient Orientation: Person, Place, Time, Situation Transfers Functional [place] Measure 0=Not Assessed/NA 4=Minimal Assistance 1=Total Assistance 5=Supervision or Setup 2=Maximal Assistance 6=Modified [place] 3=Moderate Assistance 7=Complete IndependenceIRFPAI Quality Coding Scale 6 Independent with activity with or without an assistive device 5 Patient requires set up or clean up by helper. Patient completes activity by themselves 4 Supervision or touching assist (CGA). [place] provide cues , steadying assist 3 The helper provides less than half the effort to complete the activity 2 The helper provides more than half the effort to complete the activity 1 Dependent. The helper does all the effort to complete an activity 7 Patient refused to complete or attempt activity 9 The patient did not perform the activity before the current illness or injury 88 Not attempted due to Medical conditions or safety concerns Scootin Rollin Supine to/from Sit: 6 Sit to/from Stand: 6 Sit to Lying (QC): 6 Sit to Stand (QC): 6 Weight Bearing Right Lower Extremity: Right Partial Weight Bearing Left Lower Extremity: Left Weight Bearing/Tolerated Gait Training Does the Patient Walk?: Yes Distance (FIM): 3=150 ft Distance: 350' Walk 10 feet (QC): 5 Walk 50 ft with 2 Turns(QC): 5 Walk 150 ft (QC): 5 Gait Level of Assist: 5 Gait Persons Needed: 1 Gait Assistive Device: FWW Pt takes standing rest break as needed for fatigue. Wheelchair Training Does the Pt Use a Wheelchair?: No Treatments Pt transfers from Supine to Standing using FWW at Mod I. Pt ambulates in hallway using FWW at SBA. Pt takes standing rest breaks as needed for fatigue. SENIOR UI UX DESIGNER gives demo. for using Shower Transfer Bench. This will be safer than pt' s current transfer method. Pt returns to room at end of tx with all needs met. Assessment Current Status: Good Progress Pt fatigues but pt continues to try to push self and not let this limit them. PT Short Term Goals Short Term Goals Time Frame: Jun 17, 2018 Transfers (B,C,W/C) (FIM): 5 Gait (FIM): 5 Gait Distance Comment: 300' Gait Level of Assist: 5 Gait Assistive Device: FWW PT Detention Goals Detention Goals PT Detention Goals Time Frame: Jul 01, 2018 Transfers (B,C,W/C) (FIM): 6 Sit to Lying (QC): 6 Lying-Sitting on Side/Bed(QC): 6 Sit to Stand (QC): 6 Rollin Roll Left to Right (QC): 6 Chair/Coj-au-Rvwqm Xfer(QC): 6 Car Transfer (QC): 6 Gait (FIM): 6 Distance: 300' Walk 10 feet (QC): 6 Walk 10ft-Uneven Surface(QC): 6 Walk 50ft with 2 Turns (QC): 6 Walk 150 ft (QC): 6 Gait Assistive Device: FWW Stairs (FIM): 2 # of Steps: 8 1 Step (curb) (QC): 6 4 Steps (QC): 6 PT Plan Problem List Problem List: Activity Tolerance, Functional Strength, Gait Treatment/Plan Treatment Plan: Continue Plan of Care Treatment Plan: Bed Mobility, Education, Functional Activity Dean, Functional Strength, Group Therapy, Gait, Safety, Therapeutic Exercise, Transfers Treatment Duration: Jul 01, 2018 Frequency: At least 5 of 7 days/Wk (IRF) Estimated Hrs Per Day: 1.5 hours per day Patient and/or Family Agrees t: Yes Safety Risks/Education Patient Education: Gait Training, Transfer Techniques, Correct Positioning, Safety Issues Teaching Recipient: Patient Teaching Methods: Discussion Response to Teaching: Verbalize Understanding Time/GCodes Time In: 1510 Time Out: 1540 Total Billed Treatment Time: 30 Total Billed Treatment 1, FA (10m) & GT (20m) G Codes Necessary: RAMONA Champion SENIOR UI UX DESIGNER Jun 11, 2018 16:03
--- NOTE | 2018-06-11 16:07 | Speech Therapy Daily Note ---
Speech Daily Progress Note Subjective Date Seen by Provider: Jun 11, 2018 Time Seen by Provider: 10:30 Pt up in chair. Pleasant and cooperative. Pain Numeric Pain Scale: 0-No Pain Objective Memory - Picture recall. Instructed pt to look at picture and out loud verbalize what he had seen. Approximately 20 minutes he was asked questions about the picture and his responses with 90% accurate assist x 1. Problem Solving - Pt was provided with a problem situation and he was to provide two different outcomes. Pt was 85% with min assist. Pt is very verbal and tends to over explain situations. Assessment Assessment Current Status: Good Progress Treatment Plan Continue Plan of Care Communication Comprehension: 7 Expression: 7 Social Cognition Social Interaction: 7 Problem Solvin Memory: 4 Speech Short Term Goals Short Term Goals Short Term Goals 1. Pt will complete various auditory/visual memory activities with at least 85 % accuracy. 2. Pt will be educated regarding compensatory memory strategies and be able to recall at least 3. 3. Pt will complete problem solving activities with at least 80% and min assist. Time Frame-ST week Speech Vp Emerging Media Goals Vp Emerging Media Goals Pt will demonstrate functional cognition for safety and maximum independence for the home setting. Time Frame: 2 weeks Speech-Plan Patient/Family Goals Patient/Family Goals: to return home Treatment Plan Speech Therapy Treatment Plan: Continue Plan of Care pt is very cooperative and motivated to improve. Treatment Duration: Jun 11, 2018 Frequency: 5 times per week Estimated Hrs Per Day: .5 hour per day Rehab Potential: Fair Barriers to Learning: none identified Pt/Family Agrees to Plan: Yes Safety Risks/Education Teaching Recipient: Patient Teaching Methods: Discussion Response to Teaching: Verbalize Understanding Time Speech Therapy Time In: 10:30 Speech Therapy Time Out: 11:00 Total Billed Time: 30 Billed Treatment Time 1, TAL Leung Jun 11, 2018 16:07
--- NOTE | 2018-06-11 16:21 | Individualized Plan of Care ---
Individualized Plan of Care Rehab Nursing IPOC Order Admission Date Jun 09, 2018 at 11:18 Current Orders Orders Admission Order(Inpt,Obs,Sdc) (06/09/18 11:27) Code/Resuscitation (06/09/18 11:27) Initiate Admission Nursing Pro .admission (06/09/18 11:27) Isolation Central Supply Req (06/09/18 11:27) Pt Evaluate/Treat Request (06/09/18 11:27) Weight Bearing Status (06/09/18 11:27) Request Ot Evaluate & Treat (06/09/18 11:27) Speech Therapy Orders (06/09/18 11:27) General/Regular (06/09/18 Lunch) Influenza Quad (5+Yoa) 2017- (Afluria (06/09/18 12:00) Apixaban Tablet (Eliquis Tablet) (06/09/18 21:00) Aspirin Enteric Coated Tablet (Ecotrin T (06/10/18 09:00) Diltiazem Cd 24 Hr Capsule (Cardizem Cd (06/10/18 09:00) Hydrocodone/Apap 5/325 Tablet (Lortab 5 (06/09/18 13:30) Consult Physician (06/09/18 13:22) Svn Small Volume Nebulizer (06/09/18 13:22) Albuterol Pre-Mix Nebs (Rt) (Proventil (06/09/18 13:30) Svn Small Volume Nebulizer (06/09/18 13:22) Consult Physician (06/09/18 13:22) Levofloxacin Tablet (Levaquin Tablet) (06/10/18 11:00) Follow-Up Appointment (06/09/18 13:36) Follow-Up Appointment (06/09/18 13:39) Ambulate 08,12,20 (06/09/18 13:57) Sequential Compression Device 08,20 (06/09/18 13:57) Dvt/Vte Risk - Notifiy Physici 08 (06/09/18 13:57) Consult Physician (06/09/18 15:24) Levofloxacin Tablet (Levaquin Tablet) (06/10/18 11:00) Patient Visit (06/10/18 ) Pt Eval Moderate Complexity (06/10/18 ) Gait Training, Ea 15 Min (06/10/18 ) Exercise Therap, Ea 15 Min (06/10/18 ) Patient Visit (06/10/18 ) Exercise Therap, Ea 15 Min (06/10/18 ) Functional Activities, Ea 15 (06/10/18 ) Hydrocodone/Apap 5/325 Tablet (Lortab 5 (06/10/18 21:30) Fentanyl Patch (Duragesic Patch) (06/10/18 20:30) Patient Visit (06/10/18 ) Speech Sound Lang Comp (06/10/18 ) Patient Visit (06/11/18 ) Exercise Therap, Ea 15 Min (06/11/18 ) Gait Training, Ea 15 Min (06/11/18 ) Rehab Nursing Orders: Ongoing Assess. of Function Status, Disease Management & Educaiton, DVT Prophylaxis, Fall Prevention, Fluid/Electrolyte/Nutrition Mgmt, Infection Prevention, Medication Management & Education, Management of Risks & Complications, Management of Skin Intergrity, Nutrition Management, Pain Management, Patient/Family Support PT IPOC Problem List: Activity Tolerance, Functional Strength, Gait Treatment Plan: Continue Plan of Care Bed Mobility, Education, Functional Activity Dean, Functional Strength, Group Therapy, Gait, Safety, Therapeutic Exercise, Transfers Treatment Duration: Jul 01, 2018 Frequency: At least 5 of 7 days/Wk (IRF) Estimated Hrs Per Day: 1.5 hours per day OT IPOC Problems: Decreased Activ Tolerance, Decreased UE Strength, Dependent Transfers , Impaired Self-Care Skills OT Treatment, Training and Edu: Yes OT Problems Pt would benefit from skilled OT to increase his independence in basic self care. Plan of Care: ADL Retraining, Functional Mobility, Group Exercise/Act as Ind ( education, exercise, activity tolerance, functional activities, socialization), UE Funct Exercise/Act, UE Neuromus Re-Ed/Coord, OTHER (energy conservation education) Treatment Duration: Jul 01, 2018 Frequency: At least 5 of 7 days/Wk (IRF) Estimated Hrs Per Day: 1.[address] IPOC Speech Therapy Treatment Plan: Modify Plan, See Comments (Skilled ST to address cognitive deficits.) Treatment Duration: Jun 11, 2018 Frequency: 5 times per week Estimated Hrs Per Day: .5 hour per day Motorcycle Subassembler/Case Mgmt Motorcycle Subassembler/Case Managemen: Discharge Planning, Patient/Family Counseling Dietitian/Motorcycle Subassembler Dietitian/Motorcycle Subassembler to monitor nutritional status and make changes and/or recommendations as needed and work with speech pathology on dietary upgrades as the occur. 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 DR VALENCIA Recent Pneumonia A FIB C code 03.3 Etiologic DX Toxic myopathy Medical Issues: DVT Prophylaxis, Falls Precautions, Fluid/Electrolyte/ Nutrition Balance, Infection Protection, Pain Management, Other (List) (as per above) Brief Synthesis of Preadmission Screen, Post-Admission Evaluation, and Therapy Evaluations: 82 yo male who developed lytic lesions to L2 Vertebrae with resulting increased pain Admitted thru ED with A FIB with SVT found Meds adjusted and seen by Cardiology Had Severe sepsis due to pneumonia Palliative chemo placed on hold by Medonc., Had a decline in functional Kay and referred here. Medical Prognosis: Good rehab nieves short term Anticipated Length of Stay: 07-01-18 Modified Independent to supervision for adls and mobility skills with enhanced pain control Anticipated d/c Destination: Home with family and C SARITA CONCEPCION MD Jun 11, 2018 16:21
[2018-06-11 16:25] VITALS: BP 149/80
--- NOTE | 2018-06-11 16:30 | PM & R (SOAP) Progress Note ---
Subjective This was a face to face visit with the patient. Date Seen by Provider: Jun 11, 2018 Time Seen by Provider: 07:50 Subjective/Events-last exam Patient was seen in his room this AM Pain control much better with addition of D Patch to regimen Patient Modified Independent for transfers Date Identified: Jun 11, 2018 Time Identified: 08:00 Medication Intervention: Pain meds adjusted as per above Review of Systems Musculoskeletal: back pain Neurological: Weakness Objective Physician Exam Last Set of Vital Signs Vital Signs Date Time Temp Pulse Resp B/P (MAP) Pulse Ox O2 Delivery O2 Flow Rate FiO2 06/11/18 08:43 96 130/70 (90) 06/11/18 08:00 Room Air 06/11/18 05:07 98.0 16 95 Capillary Refill : I&O Intake and Output 06/11/18 00:00 Intake Total 1455 ml Output Total 450 ml Balance 1005 ml Intake Oral 1455 ml Output Urine Total 450 ml # Voids 7 # Bowel Movements 2 General: Alert, Oriented X3, Cooperative, No Acute Distress HEENT: Atraumatic, PERRLA, EOMI, Mucous Memb Moist/[place] Neck: Supple, No JVD Lungs: Clear to Auscultation Heart: Regular Rate Abdomen: Normal Bowel Sounds, Soft, No Tenderness Extremities: Other (trace edema both ankles) Neuro: Other (Weakness both legs as per H and P) Psych/Mental Status: Mental Status NL Assessment/Plan Assessment and Plan 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
[2018-06-12 05:34] VITALS: BP 153/87
--- NOTE | 2018-06-12 08:02 | Cardiology Progress Note ---
Cardiology SOAP Progress Note Subjective: No cardiac complaints. Objective: I&O/Vital Signs 06/12/18 05:34 Temp 97.6 Pulse 85 Resp 18 B/P (MAP) 153/87 (109) Pulse Ox 95 O2 Delivery Room Air 06/12/18 00:00 Intake Total 630 ml Output Total 400 ml Balance 230 ml Weight (Pounds): 167 Weight (Ounces): 4.0 Weight (Calculated Kilograms): 75.954464 Constitutional: No appears stated age; AAO x 3; No apparent distress, No PERRL , No well-developed, No well-nourished, No other Respiratory: No accessory muscle use, No respiratory distress, No chest tender , No chest expansion is symmetric; chest is bilaterally symmetric; No lungs clear to percussion; lungs clear to auscultation; No crackles, No rhonchi, No rales, No stridor, No wheezing, No pleural rub, No other Cardiovascular: regular rate-rhythm; No irregularly irregular, No extra beats, No parasternal heave is noted, No JVD, No edema, No bradycardia, No tachycardia , No point of maximal impulse, No cardiac thrills are palpable; S1 and S2; No gallop/S3, No gallop/S4, No diastolic murmur, No systolic murmur, No friction rub, No click, No other Gastrointestional: No tender, No soft, No round, No distended, No pulsatile mass, No organomegaly, No guarding, No rebound, No tenderness, No hernia, No mass, No audible bowel sounds, No abnormal bowel sounds, No abdominal bruits, No spleenomegaly, No other Extremities: No normal range of motion, No non-tender, No normal inspection, No pedal edema, No calf tenderness, No normal capillary refill, No pelvis stable , No calf tenderness, No inflammation, No pedal edema, No slow capillary refill , No swelling, No other, No abrasion, No clubbing, No cyanosis, No ecchymosis, No laceration, No no lower extremity edema bilateral, No significant edema, No tenderness, No wound Neurologic/Psychiatric: no motor/sensory deficits, alert, normal mood/affect, oriented x 3 Skin: No normal color, No warm/dry, No cyanosis, No cool, No diaphoresis, No damp, No ecchymosis, No jaundice, No mottled, No pallor, No rash, No tattoos/ piercings, No ulcerations, No rash on exposed areas, No ulcerations on exposed areas, No other A/P: Assessment/Dx: Assessment/Admission Diagnosis Typical atrial flutter with rapid ventricular rate, converted to sinus rhythm with cardioversion. Pneumonia, resolved. Lactic acidosis, resolved. Nausea vomiting diarrhea, Stage IV colon cancer, Type II myocardial infarction Plan: Plan Typical atrial flutter with rapid ventricular rate, symptomatic typical atrial flutter with rapid ventricular rate. Successful transesophageal echocardiogram assisted cardioversion. Continues to be in sinus rhythm. On Eliquis. Likely atrial flutter typical ablation on June 21. Type 2 myocardial infarction: Borderline elevated troponin which have stayed almost at similar levels. Likely due to severe sepsis and atrial flutter. No further chest pain. Pneumonia, on IV antibiotics. Resolved. Lactic acidosis, likely due to sepsis. Resolved. Nausea vomiting diarrhea, multifactorial with contribution from sepsis and atrial flutter. No further nausea, vomiting, diarrhea. Stage IV colon cancer, deferred to Dr. Flanagan. Patient was on adjuvant chemotherapy. Thank you for your consultation. Please call me if you have any questions. Mitch Montes MD, FACP, FACC, FSCAI, FHRS, CCDS Interventional Cardiology Cardiac Electrophysiology Vascular Medicine and Endovascular Interventions Ricki MONTES MD Jun 12, 2018 8:02 am
--- NOTE | 2018-06-12 08:07 | PM & R (SOAP) Progress Note ---
Subjective This was a face to face visit with the patient. Date Seen by Provider: Jun 12, 2018 Time Seen by Provider: 07:30 Subjective/Events-last exam Patient was seen in his room this AM Patient Mod assist for transfers,Patient reports that back pain uch improved with current pain med regimen Review of Systems Musculoskeletal: back pain Objective Physician Exam Last Set of Vital Signs Vital Signs Date Time Temp Pulse Resp B/P (MAP) Pulse Ox O2 Delivery O2 Flow Rate FiO2 06/12/18 05:34 97.6 85 18 153/87 (109) 95 Room Air Capillary Refill : I&O Intake and Output 06/12/18 00:00 Intake Total 1090 ml Output Total 1250 ml Balance -160 ml Intake Oral 1090 ml Output Urine Total 1250 ml # Voids 1 General: Alert, Oriented X3, Cooperative, No Acute Distress HEENT: Atraumatic, PERRLA, EOMI, Mucous Memb Moist/[place] Neck: Supple, No JVD Lungs: Clear to Auscultation Heart: Regular Rate Abdomen: Normal Bowel Sounds, Soft, No Tenderness Extremities: Other (trace edema both ankles) Neuro: Other (Weakness both legs as per H and P) Psych/Mental Status: Mental Status NL Assessment/Plan Assessment and Plan 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
[2018-06-12] MEDS: DILTIAZEM 120 MG (CARDIZEM CD) CAP PO SCH (08:26)
[2018-06-12] MEDS: ASPIRIN E.C. 81 MG (ECOTRIN) TAB PO SCH (08:26)
[2018-06-12] MEDS: APIXABAN 5 MG (ELIQUIS) TABLET PO SCH ×2 (08:27→20:36)
[2018-06-12] MEDS: HYDROcodone/APAP 5 MG/325 MG (LORTAB) TAB PO PRN ×4 (08:27→23:05)
--- NOTE | 2018-06-12 09:21 | Occupational Ther Daily Note ---
OT Current Status-Daily Note Subjective Pt seen in room, up in bed, agreeable to OT. Pt said that he hadn't had any pain for 11 hours but had just taken some pain mends. Appearance Alert, cooperative Mental Status/Objective Functional [place] Measure 0=Not Assessed/NA 4=Minimal Assistance 1=Total Assistance 5=Supervision or Setup 2=Maximal Assistance 6=Modified [place] 3=Moderate Assistance 7=Complete [place] ADL-Treatment He moved to sit EOB and noted that his back was starting to hurt. He stood up with CGA and said he urgently needed to go to the bathroom. Back pain continued to increase as he was up and walking to the bathroom. Transferred CGA, FWW ( with pt educ for technique) to BS over toilet, managing clothing. He was able to complete hygiene himself and pull up clothing. Transfer off BSC with CGA. Walked CGA, FWW to sink to wash hands with CGA. Walked back to bed CGA, FWW and was able to get into bed with SBA. Pt reported that heat felt better on his back than cold so warm blanket placed under low back as he lay supine. Pt reported pain was decreasing with the heat and the rest. He completed 15 reps bilat UE exercise with exercise bar, working on shoulders, elbows and wrists. A couple exercises caused his R shoulder to "pop out" so these were discontinued. Pt left up in bed, 4 rails up, pain decreasing, all needs met. Functional [place] Measure 0=Not Assessed/NA 4=Minimal Assistance 1=Total Assistance 5=Supervision or Setup 2=Maximal Assistance 6=Modified [place] 3=Moderate Assistance 7=Complete IndependenceIRFPAI Quality Coding Scale 6 Independent with activity with or without an assistive device 5 Patient requires set up or clean up by helper. Patient completes activity by themselves 4 Supervision or touching assist (CGA). [place] provide cues , steadying assist 3 The helper provides less than half the effort to complete the activity 2 The helper provides more than half the effort to complete the activity 1 Dependent. The helper does all the effort to complete an activity 7 Patient refused to complete or attempt activity 9 The patient did not perform the activity before the current illness or injury 88 Not attempted due to Medical conditions or safety concerns Toileting (FIM): 4 (CGA. BSC over toilet, grab bar, FWW. Managed clothing and hygiene) Toilet/Commode Transfer (FIM): 4 (CGA, BSC over toilet, FWW, grab bar) Education OT Patient Education: Exercise program, Progress toward Goal/Update tx plan, Purpose of tx/functional activities, Transfer techniques Teaching Recipient: Patient Teaching Methods: Demonstration, Discussion Response to Teaching: Verbalize Understanding, Return Demonstration, Reinforcement Needed OT Short Term Goals Short Term Goals Time Frame: Jun 17, 2018 Grooming(FIM): 5 Bathing(FIM): 5 Upper Body Dressing(FIM): 5 Lower Body Dressing(FIM): 5 Toileting(FIM): 5 Transfers (B,C,W/C) (FIM): 5 Toilet/Commode Transfer(FIM): 5 Shower Transfer(FIM): 5 Additional Short Term Goals: 1-Demonstrate ADL Tasks, 2-Verbalize Understanding , 3-ImproveStrength/Dean 1=Demonstrate adherence to instructed precautions during ADL tasks. 2=Patient will verbalize/demonstrate understanding of assistive devices/ modifications for ADL. 3=Patient will improve strength/tolerance for activity to enable patient to perform ADL's. OT Billing Services Manager Goals Care Home Goals Time Frame: Jul 01, 2018 Eating (FIM): 6 Eating (QC): 6 Groomin Oral Hygiene (QC): 6 Bathing(FIM): 6 Shower/Bathe Self (QC): 6 Upper Body Dressing(FIM): 6 Upper Body Dressing (QC): 6 Lower Body Dressing(FIM): 6 Lower Body Dressing (QC): 6 On/Off Footwear (QC): 6 Toileting(FIM): 6 Toileting Hygiene (QC): 6 Toilet/Commode Transfer(FIM): 6 Toilet/Commode Transfer (QC): 6 Tub Transfer(FIM): 5 (or shower) Shower Transfer(FIM): 5 Additional Goals: 1-Demonstrate ADL Tasks, 2-Verbalize Understanding, 3- ImproveStrength/Dean 1=Demonstrate adherence to instructed precautions during ADL tasks. 2=Patient will verbalize/demonstrate understanding of assistive devices/ modifications for ADL. 3=Patient will improve strength/tolerance for activity to enable patient to perform ADL's. OT Education/Plan Problem List/Assessment Pt would benefit from skilled OT to increase his independence in basic self care. Discharge Recommendations Plan/Recommendations: Continue POC Treatment Plan/Plan of Care Patient would benefit from OT for education, treatment and training to promote independence in ADL's, mobility, safety and/or upper extremity function for ADL' s. Plan of Care: ADL Retraining, Functional Mobility, Group Exercise/Act as Ind ( education, exercise, activity tolerance, functional activities, socialization), UE Funct Exercise/Act, UE Neuromus Re-Ed/Coord, OTHER (energy conservation education) Treatment Duration: Jul 01, 2018 Frequency: At least 5 of 7 days/Wk (IRF) Estimated Hrs Per Day: 1.5 hours per day Rehab Potential: Fair Time/GCodes Start Time: 08:30 Stop Time: 09:15 Total Time Billed (hr/min): 45 Billed Treatment Time visit, 30 minutes ADL, 15 minutes exercise SASCHA BLAKE OT Jun 12, 2018 09:21
[2018-06-12] MEDS: LEVOFLOXACIN 750 MG TAB (LEVAQUIN) PO SCH (11:37)
--- NOTE | 2018-06-12 12:08 | Physical Therapy Daily Note ---
PT Daily Note-Current Subjective Pt laying Supine in bed upon arrival. Pt reports pain at 10/10 and has been since this morning because he had not taken pain med for 12 hrs. BREED TO WEAN PRODUCTION TECHNICIAN checked with Nurse and confirmed. BREED TO WEAN PRODUCTION TECHNICIAN advised that per Nurse, pt can have pain med every 4 hrs and last given at 830 but must ask for it since it is not scheduled. Pain Numeric Pain Scale: 10-Worst Possible Pain Location Body Site: Back Pain Description: Stabbing, Sharp Comment: Pain decreases to 6/10 by end of tx. Mental Status Patient Orientation: Person, Place Transfers Functional [place] Measure 0=Not Assessed/NA 4=Minimal Assistance 1=Total Assistance 5=Supervision or Setup 2=Maximal Assistance 6=Modified [place] 3=Moderate Assistance 7=Complete IndependenceIRFPAI Quality Coding Scale 6 Independent with activity with or without an assistive device 5 Patient requires set up or clean up by helper. Patient completes activity by themselves 4 Supervision or touching assist (CGA). [place] provide cues , steadying assist 3 The helper provides less than half the effort to complete the activity 2 The helper provides more than half the effort to complete the activity 1 Dependent. The helper does all the effort to complete an activity 7 Patient refused to complete or attempt activity 9 The patient did not perform the activity before the current illness or injury 88 Not attempted due to Medical conditions or safety concerns Weight Bearing Right Lower Extremity: Right Partial Weight Bearing Left Lower Extremity: Left Weight Bearing/Tolerated Gait Training Does the Patient Walk?: Yes Distance (FIM): 3=150 ft Distance: 150' Walk 10 feet (QC): 4 Walk 50 ft with 2 Turns(QC): 4 Walk 150 ft (QC): 4 Gait Level of Assist: 4 Gait Persons Needed: 1 Gait Assistive Device: FWW Pt walks with flexed L knee and pt reports its due to weakness and has been his bad knee for more than 30 yrs. Pt fatigues and needs occasional rest breaks. Wheelchair Training Does the Pt Use a Wheelchair?: No Exercises Supine Ex: Glut sets Seated Therapy Exercises: Ankle pumps, Long arc quads, Hip flexion, Kicking activity Seated Reps: 15 Treatments Pt tries to reposition in bed and attempts to complete Bed Mobility but reports that pain is too high so BREED TO WEAN PRODUCTION TECHNICIAN will come back to complete tx. BREED TO WEAN PRODUCTION TECHNICIAN arrives to complete tx and pt transfers from supine to EOB then standing at CGA. Pt ambulates in hallway with a couple short rest breaks. Pt completes Seated Ex in chair before return to room to rest in bed. Pt has all needs met. Assessment Current Status: Fair Progress Pt has limited some tx but pt seems to be better with later tx. PT Short Term Goals Short Term Goals Time Frame: Jun 17, 2018 Transfers (B,C,W/C) (FIM): 5 Gait (FIM): 5 Gait Distance Comment: 300' Gait Level of Assist: 5 Gait Assistive Device: FWW PT Group Home Goals Pc Support Specialist Goals PT Pc Support Specialist Goals Time Frame: Jul 01, 2018 Transfers (B,C,W/C) (FIM): 6 Sit to Lying (QC): 6 Lying-Sitting on Side/Bed(QC): 6 Sit to Stand (QC): 6 Rollin Roll Left to Right (QC): 6 Chair/Gmy-ai-Kfudf Xfer(QC): 6 Car Transfer (QC): 6 Gait (FIM): 6 Distance: 300' Walk 10 feet (QC): 6 Walk 10ft-Uneven Surface(QC): 6 Walk 50ft with 2 Turns (QC): 6 Walk 150 ft (QC): 6 Gait Assistive Device: FWW Stairs (FIM): 2 # of Steps: 8 1 Step (curb) (QC): 6 4 Steps (QC): 6 PT Plan Problem List Problem List: Activity Tolerance, Functional Strength, Safety, Balance, Gait, Transfer Treatment/Plan Treatment Plan: Continue Plan of Care Treatment Plan: Bed Mobility, Education, Functional Activity Dean, Functional Strength, Group Therapy, Gait, Safety, Therapeutic Exercise, Transfers Treatment Duration: Jul 01, 2018 Frequency: At least 5 of 7 days/Wk (IRF) Estimated Hrs Per Day: 1.5 hours per day Patient and/or Family Agrees t: Yes Safety Risks/Education Patient Education: Gait Training, Transfer Techniques, Correct Positioning, Safety Issues Teaching Recipient: Patient Teaching Methods: Discussion Response to Teaching: Verbalize Understanding Time/GCodes Time In: 930 Time Out: 1145 Total Billed Treatment Time: 45 Total Billed Treatment Tx Time: 930-950, [id number] 1,FA (20m), 1,GT (15m) & EX (10m) G Codes Necessary: RAMONA Champion BREED TO WEAN PRODUCTION TECHNICIAN Jun 12, 2018 12:08
--- NOTE | 2018-06-12 13:44 | Speech Therapy Daily Note ---
Speech Daily Progress Note Subjective Date Seen by Provider: Jun 12, 2018 Time Seen by Provider: 10:30 Pt pleasant and cooperative. Pain Numeric Pain Scale: 0-No Pain Objective Memory - Picture recall; pt verbalized out loud what he sees in the picture to facilitate recall. Pt was 80% accurate. Problem Solving - Add to the [place] Pt provided 3 words and he was to determine what the 3 words had in common and then provided an additional example. Pt completed with 85% accuracy and mod assist. Pt required frequent re- instruction of directions as he could not recall task initial instructions. Assessment Assessment Current Status: Fair Progress Treatment Plan Continue Plan of Care Communication Comprehension: 7 Expression: 7 Social Cognition Social Interaction: 7 Problem Solvin Memory: 4 Speech Short Term Goals Short Term Goals Short Term Goals 1. Pt will complete various auditory/visual memory activities with at least 85 % accuracy. 2. Pt will be educated regarding compensatory memory strategies and be able to recall at least 3. 3. Pt will complete problem solving activities with at least 80% and min assist. Time Frame-ST week Speech Blind Hanger Goals Assisted Goals Pt will demonstrate functional cognition for safety and maximum independence for the home setting. Time Frame: 2 weeks Speech-Plan Patient/Family Goals Patient/Family Goals: to return home Treatment Plan Speech Therapy Treatment Plan: Continue Plan of Care pt very cooperative Treatment Duration: Jun 11, 2018 Frequency: 5 times per week Estimated Hrs Per Day: .5 hour per day Rehab Potential: Fair Pt/Family Agrees to Plan: Yes Safety Risks/Education Teaching Recipient: Patient Teaching Methods: Discussion Response to Teaching: Verbalize Understanding Time Speech Therapy Time In: 10:30 Speech Therapy Time Out: 11:00 Total Billed Time: 30 Billed Treatment Time [address] Jun 12, 2018 13:44
--- NOTE | 2018-06-12 14:52 | Therapy Group Daily Note ---
Therapy Daily Group Note Patient Education Topic Other List Below (memory, ARU description/expectations) Exercises LE Seated Exercise, UE Exercise Other/Notes Pt ambulated using FWW to OT/PT group in [facility]. Group consisted of introductions (name, place living, most ornery trick), ARU description/ expectations, UE/LE seated exercises, memory strategy education and memory activity. Pt introduced self appropriately and actively listened to peers. Pt contributed to and initiated conversations throughout group. Pt was able to complete UE/LE exercises, fatigued easily. Verbalized understanding and was able to give examples from personal experience. Pt was able to toss kim bags at designated areas from a seated position. Completed memory activity appropriately and was able to match like pictures. Pt then ambulated back to room and laid down after therapy. Call light/phone in reach, all needs met in room. Start Time: 13:00 Stop Time: 14:20 Total Billed Treatment Time: 80 Total Billed Treatment 1-GRP SAGRARIO PHAM Jun 12, 2018 14:52
[2018-06-12 17:19] VITALS: BP 130/75
[2018-06-13] MEDS: HYDROcodone/APAP 5 MG/325 MG (LORTAB) TAB PO PRN ×4 (04:18→19:05)
[2018-06-13 05:05] VITALS: BP 147/76
[2018-06-13] MEDS: DILTIAZEM 120 MG (CARDIZEM CD) CAP PO SCH (08:40)
[2018-06-13] MEDS: ASPIRIN E.C. 81 MG (ECOTRIN) TAB PO SCH (08:41)
[2018-06-13] MEDS: APIXABAN 5 MG (ELIQUIS) TABLET PO SCH ×2 (08:41→20:48)
--- NOTE | 2018-06-13 10:32 | Cardiology Progress Note ---
Cardiology SOAP Progress Note Subjective: No cardiac symptoms. Objective: I&O/Vital Signs 06/13/18 06/13/18 05:05 09:00 Temp 97.4 Pulse 70 Resp 18 B/P (MAP) 147/76 (99) Pulse Ox 94 O2 Delivery Room Air Room Air 06/13/18 00:00 Intake Total 800 ml Output Total 350 ml Balance 450 ml Weight (Pounds): 167 Weight (Ounces): 4.0 Weight (Calculated Kilograms): 75.356637 Constitutional: No appears stated age; AAO x 3; No apparent distress, No PERRL , No well-developed, No well-nourished, No other Respiratory: No accessory muscle use, No respiratory distress, No chest tender , No chest expansion is symmetric; chest is bilaterally symmetric; No lungs clear to percussion; lungs clear to auscultation; No crackles, No rhonchi, No rales, No stridor, No wheezing, No pleural rub, No other Cardiovascular: regular rate-rhythm; No irregularly irregular, No extra beats, No parasternal heave is noted, No JVD, No edema, No bradycardia, No tachycardia , No point of maximal impulse, No cardiac thrills are palpable; S1 and S2; No gallop/S3, No gallop/S4, No diastolic murmur, No systolic murmur, No friction rub, No click, No other Gastrointestional: No tender, No soft, No round, No distended, No pulsatile mass, No organomegaly, No guarding, No rebound, No tenderness, No hernia, No mass, No audible bowel sounds, No abnormal bowel sounds, No abdominal bruits, No spleenomegaly, No other Extremities: No normal range of motion, No non-tender, No normal inspection, No pedal edema, No calf tenderness, No normal capillary refill, No pelvis stable , No calf tenderness, No inflammation, No pedal edema, No slow capillary refill , No swelling, No other, No abrasion, No clubbing, No cyanosis, No ecchymosis, No laceration, No no lower extremity edema bilateral, No significant edema, No tenderness, No wound Neurologic/Psychiatric: no motor/sensory deficits, alert, normal mood/affect, oriented x 3 Skin: No normal color, No warm/dry, No cyanosis, No cool, No diaphoresis, No damp, No ecchymosis, No jaundice, No mottled, No pallor, No rash, No tattoos/ piercings, No ulcerations, No rash on exposed areas, No ulcerations on exposed areas, No other A/P: Assessment/Dx: Assessment/Admission Diagnosis Typical atrial flutter with rapid ventricular rate, converted to sinus rhythm with cardioversion. Pneumonia, resolved. Lactic acidosis, resolved. Nausea vomiting diarrhea, Stage IV colon cancer, Type II myocardial infarction Plan: Plan Typical atrial flutter with rapid ventricular rate, symptomatic typical atrial flutter with rapid ventricular rate. Successful transesophageal echocardiogram assisted cardioversion. Continues to be in sinus rhythm. On Eliquis. Likely atrial flutter typical ablation on June 21. Type 2 myocardial infarction: Borderline elevated troponin which have stayed almost at similar levels. Likely due to severe sepsis and atrial flutter. No further chest pain. Pneumonia, on IV antibiotics. Resolved. Lactic acidosis, likely due to sepsis. Resolved. Nausea vomiting diarrhea, multifactorial with contribution from sepsis and atrial flutter. No further nausea, vomiting, diarrhea. Stage IV colon cancer, deferred to Dr. Flanagan. Patient was on adjuvant chemotherapy. Thank you for your consultation. Please call me if you have any questions. Mitch Montes MD, FACP, FACC, [facility], FHRS, CCDS Interventional Cardiology Cardiac Electrophysiology Vascular Medicine and Endovascular Interventions Ricki MONTES MD Jun 13, 2018 10:32 am
--- NOTE | 2018-06-13 11:10 | Physical Therapy Daily Note ---
PT Daily Note-Current Subjective Pt sitting up in bed upon arrival. Pt agrees to PT. Pt reports taking pain pill earlier and staying on top of pain better than yesterday. Pain Numeric Pain Scale: 3 Location Body Site: Back Pain Description: Ache Mental Status Patient Orientation: Person, Place, Situation Transfers Functional [place] Measure 0=Not Assessed/NA 4=Minimal Assistance 1=Total Assistance 5=Supervision or Setup 2=Maximal Assistance 6=Modified [place] 3=Moderate Assistance 7=Complete IndependenceIRFPAI Quality Coding Scale 6 Independent with activity with or without an assistive device 5 Patient requires set up or clean up by helper. Patient completes activity by themselves 4 Supervision or touching assist (CGA). [place] provide cues , steadying assist 3 The helper provides less than half the effort to complete the activity 2 The helper provides more than half the effort to complete the activity 1 Dependent. The helper does all the effort to complete an activity 7 Patient refused to complete or attempt activity 9 The patient did not perform the activity before the current illness or injury 88 Not attempted due to Medical conditions or safety concerns [place]in Supine to/from Sit: 5 Sit to/from Stand: 5 Sit to Stand (QC): 5 Weight Bearing Right Lower Extremity: Right Partial Weight Bearing Left Lower Extremity: Left Weight Bearing/Tolerated Gait Training Does the Patient Walk?: Yes Distance (FIM): 3=150 ft Distance: 250' Walk 10 feet (QC): 5 Walk 50 ft with 2 Turns(QC): 5 Walk 150 ft (QC): 5 Gait Level of Assist: 5 Gait Persons Needed: 1 Gait Assistive Device: FWW QUARANTINE OFFICER stays at close SBA due to pt walking with flexed L knee. Pt states it has been this way for years but appears unstable. Wheelchair Training Does the Pt Use a Wheelchair?: No Exercises NuStep Minutes: 13 NuStep Workload: 5 Treatments Pt transfers from bed to standing using FWW at SBA. Pt ambulates in hallway using FWW at SBA. Pt uses NuStep for 13m at WL 5. Pt returns to room at end of tx to rest in bed with all needs met. Assessment Current Status: Good Progress Pt reports less pain during tx as compared to yesterday's tx. Pt reports feeling better. PT Short Term Goals Short Term Goals Time Frame: Jun 17, 2018 Transfers (B,C,W/C) (FIM): 5 Gait (FIM): 5 Gait Distance Comment: 300' Gait Level of Assist: 5 Gait Assistive Device: FWW PT Medical Apparatus Model Maker Goals Medical Apparatus Model Maker Goals PT [facility] Goals Time Frame: Jul 01, 2018 Transfers (B,C,W/C) (FIM): 6 Sit to Lying (QC): 6 Lying-Sitting on Side/Bed(QC): 6 Sit to Stand (QC): 6 Rollin Roll Left to Right (QC): 6 Chair/Aum-wv-Qztar Xfer(QC): 6 Car Transfer (QC): 6 Gait (FIM): 6 Distance: 300' Walk 10 feet (QC): 6 Walk 10ft-Uneven Surface(QC): 6 Walk 50ft with 2 Turns (QC): 6 Walk 150 ft (QC): 6 Gait Assistive Device: FWW Stairs (FIM): 2 # of Steps: 8 1 Step (curb) (QC): 6 4 Steps (QC): 6 PT Plan Problem List Problem List: Activity Tolerance, Functional Strength, Gait Treatment/Plan Treatment Plan: Continue Plan of Care Treatment Plan: Bed Mobility, Education, Functional Activity Dean, Functional Strength, Group Therapy, Gait, Safety, Therapeutic Exercise, Transfers Treatment Duration: Jul 01, 2018 Frequency: At least 5 of 7 days/Wk (IRF) Estimated Hrs Per Day: 1.5 hours per day Patient and/or Family Agrees t: Yes Safety Risks/Education Patient Education: Gait Training, Transfer Techniques, Correct Positioning, Safety Issues Teaching Recipient: Patient Teaching Methods: Discussion Response to Teaching: Verbalize Understanding Time/GCodes Time In: 930 Time Out: 1015 Total Billed Treatment Time: 45 Total Billed Treatment 1, GT x2 (30m) & EX (15m) G Codes Necessary: RAMONA Champion QUARANTINE OFFICER Jun 13, 2018 11:10
[2018-06-13] MEDS: LEVOFLOXACIN 750 MG TAB (LEVAQUIN) PO SCH (11:12)
--- NOTE | 2018-06-13 13:31 | Occupational Ther Daily Note ---
OT Current Status-Daily Note Subjective Pt seen in room, up in bed, agreeable to OT. Pt waiting for pain meds but said he feels much better than yesterday. Appearance Alert, cooperative Mental Status/Objective Functional [place] Measure 0=Not Assessed/NA 4=Minimal Assistance 1=Total Assistance 5=Supervision or Setup 2=Maximal Assistance 6=Modified [place] 3=Moderate Assistance 7=Complete [place] ADL-Treatment Pt said that he would like to shower today. Port covered with plastic. Pt moved to sit EOB without help and needed cues for hand placement for sit to stand. Walked with CGA, FWW to bathroom and got on/off BSC with CGA. Managed clothing and hygiene with CGA. Walked to shower and transferred in/out of shower stall and on/off shower bench with SBA, using grab bars. Pt able to wash and dry all parts but CGA to dry bottom. Sat EOB to dress. Able to get pants on over feet with close SBA for sitting balance and CGA when standing to pull pants up. Pt able to get both legs into bed without help. Pt left up in bed, 4 rails up, all needs met. Functional [place] Measure 0=Not Assessed/NA 4=Minimal Assistance 1=Total Assistance 5=Supervision or Setup 2=Maximal Assistance 6=Modified [place] 3=Moderate Assistance 7=Complete IndependenceIRFPAI Quality Coding Scale 6 Independent with activity with or without an assistive device 5 Patient requires set up or clean up by helper. Patient completes activity by themselves 4 Supervision or touching assist (CGA). [place] provide cues , steadying assist 3 The helper provides less than half the effort to complete the activity 2 The helper provides more than half the effort to complete the activity 1 Dependent. The helper does all the effort to complete an activity 7 Patient refused to complete or attempt activity 9 The patient did not perform the activity before the current illness or injury 88 Not attempted due to Medical conditions or safety concerns Bathing (FIM): 4 (Washed and dried all parts but CGA to stand to dry bottom. Shower bench, grab bars, hand held shower.) Upper Body (FIM): 5 (setup to doff and don t-shirt) Lower Body Dressing (FIM): 4 (Able to get pants over feet with difficulty but CGA when standing to pull them up, FWW. Help to take TEDs off. ) Toileting (FIM): 4 (CGA managing clothing and hygiene, BSC over toilet) Toilet/Commode Transfer (FIM): 4 (CGA getting on/off BSC over toilet, FWW) Education OT Patient Education: Modified ADL techniques, Progress toward Goal/Update tx plan, Purpose of tx/functional activities, Safety issues, Transfer techniques Teaching Recipient: Patient Teaching Methods: Discussion Response to Teaching: Verbalize Understanding, Return Demonstration, Reinforcement Needed OT Short Term Goals Short Term Goals Time Frame: Jun 17, 2018 Grooming(FIM): 5 Bathing(FIM): 5 Upper Body Dressing(FIM): 5 Lower Body Dressing(FIM): 5 Toileting(FIM): 5 Transfers (B,C,W/C) (FIM): 5 Toilet/Commode Transfer(FIM): 5 Shower Transfer(FIM): 5 Additional Short Term Goals: 1-Demonstrate ADL Tasks, 2-Verbalize Understanding , 3-ImproveStrength/Dean 1=Demonstrate adherence to instructed precautions during ADL tasks. 2=Patient will verbalize/demonstrate understanding of assistive devices/ modifications for ADL. 3=Patient will improve strength/tolerance for activity to enable patient to perform ADL's. OT Longterm Goals Longterm Goals Time Frame: Jul 01, 2018 Eating (FIM): 6 Eating (QC): 6 Groomin Oral Hygiene (QC): 6 Bathing(FIM): 6 Shower/Bathe Self (QC): 6 Upper Body Dressing(FIM): 6 Upper Body Dressing (QC): 6 Lower Body Dressing(FIM): 6 Lower Body Dressing (QC): 6 On/Off Footwear (QC): 6 Toileting(FIM): 6 Toileting Hygiene (QC): 6 Toilet/Commode Transfer(FIM): 6 Toilet/Commode Transfer (QC): 6 Tub Transfer(FIM): 5 (or shower) Shower Transfer(FIM): 5 Additional Goals: 1-Demonstrate ADL Tasks, 2-Verbalize Understanding, 3- ImproveStrength/Dean 1=Demonstrate adherence to instructed precautions during ADL tasks. 2=Patient will verbalize/demonstrate understanding of assistive devices/ modifications for ADL. 3=Patient will improve strength/tolerance for activity to enable patient to perform ADL's. OT Education/Plan Problem List/Assessment Pt would benefit from skilled OT to increase his independence in basic self care. Discharge Recommendations Plan/Recommendations: Continue POC Treatment Plan/Plan of Care Patient would benefit from OT for education, treatment and training to promote independence in ADL's, mobility, safety and/or upper extremity function for ADL' s. Plan of Care: ADL Retraining, Functional Mobility, Group Exercise/Act as Ind ( education, exercise, activity tolerance, functional activities, socialization), UE Funct Exercise/Act, UE Neuromus Re-Ed/Coord, OTHER (energy conservation education) Treatment Duration: Jul 01, 2018 Frequency: At least 5 of 7 days/Wk (IRF) Estimated Hrs Per Day: 1.5 hours per day Rehab Potential: Fair Time/GCodes Start Time: 08:15 Stop Time: 09:00 Total Time Billed (hr/min): 45 Billed Treatment Time visit, 45 minutes ADL SASCHA BLAKE OT Jun 13, 2018 13:31
--- NOTE | 2018-06-13 15:07 | Therapy Group Daily Note ---
Therapy Daily Group Note Patient Education Topic Home Safety Exercises LE Seated Exercise, UE Exercise Other/Notes Pt ambulated using FWW to OT/PT group in [facility]. Group consisted of introductions (name, place living, have you ever fallen), UE/LE seated exercises , home safety education and pt experiences/strategies for being safe at home.. Pt introduced self appropriately and actively listened to peers. Pt contributed to and initiated conversations throughout group. Pt was able to complete UE/LE exercises, fatigued easily. Verbalized understanding topics and was able to give examples from personal experience. Pt was able to stand for positioning change. Pt verbalized understanding of educational topic and discuss alternatives for home safety . Pt then ambulated using FWW back to room and laid down in bed after therapy. Call light/phone in reach, all needs met in room. Start Time: 13:00 Stop Time: 14:20 Total Billed Treatment Time: 80 Total Billed Treatment 1-GRP SAGRARIO PHAM Jun 13, 2018 15:07
--- NOTE | 2018-06-13 15:23 | Speech Therapy Daily Note ---
Speech Daily Progress Note Subjective Date Seen by Provider: Jun 13, 2018 Time Seen by Provider: 10:15 Pt up in chair. Cooperative. Pain Numeric Pain Scale: 0-No Pain Objective Memory - Picture recall after 20 minutes. Pt verbalized out loud what he sees in the picture to facilitate recall later. Pt was 100% accurate. Problem Solving - Naming Object by Attribute. Pt provided with various attributes such as "What can be red or green?" Pts responses were 75% accurate. Again pt tends to provide lengthy responses rather than providing 1- 2 word responses. Assessment Assessment Current Status: Fair Progress Treatment Plan Continue Plan of Care Communication Comprehension: 7 Expression: 7 Social Cognition Social Interaction: 7 Problem Solvin Memory: 4 Speech Short Term Goals Short Term Goals Short Term Goals 1. Pt will complete various auditory/visual memory activities with at least 85 % accuracy. 2. Pt will be educated regarding compensatory memory strategies and be able to recall at least 3. 3. Pt will complete problem solving activities with at least 80% and min assist. Time Frame-ST week Speech [facility] Goals Quality Tech Goals Pt will demonstrate functional cognition for safety and maximum independence for the home setting. Time Frame: 2 weeks Speech-Plan Patient/Family Goals Patient/Family Goals: to return home Treatment Plan Speech Therapy Treatment Plan: Continue Plan of Care pt very cooperative in tx. Treatment Duration: Jun 11, 2018 Frequency: 5 times per week Estimated Hrs Per Day: .5 hour per day Rehab Potential: Fair Pt/Family Agrees to Plan: Yes Time Speech Therapy Time In: 10:15 Speech Therapy Time Out: 10:45 Total Billed Time: 30 Billed Treatment Time 1, TAL Leung Jun 13, 2018 15:23
[2018-06-13 16:16] VITALS: BP 130/72
--- NOTE | 2018-06-13 19:56 | PM & R (SOAP) Progress Note ---
Subjective This was a face to face visit with the patient. Date Seen by Provider: Jun 13, 2018 Time Seen by Provider: 19:45 Subjective/Events-last exam Patient was seen in his room this Evening Patient SBA for transfers Objective Physician Exam Last Set of Vital Signs Vital Signs Date Time Temp Pulse Resp B/P (MAP) Pulse Ox O2 Delivery O2 Flow Rate FiO2 06/13/18 16:16 97.8 71 16 130/72 (91) 94 Room Air Capillary Refill : I&O Intake and Output 06/13/18 00:00 Intake Total 1150 ml Output Total 600 ml Balance 550 ml Intake Oral 1150 ml Output Urine Total 600 ml # Voids 1 # Bowel Movements 1 General: Alert, Oriented X3, Cooperative, No Acute Distress HEENT: Atraumatic, PERRLA, EOMI, Mucous Memb Moist/[place] Neck: Supple, No JVD Lungs: Clear to Auscultation Heart: Regular Rate Abdomen: Normal Bowel Sounds, Soft, No Tenderness Extremities: Other (trace edema both ankles) Neuro: Other (Weakness both legs as per H and P) Psych/Mental Status: Mental Status NL Assessment/Plan Assessment and Plan 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
[2018-06-13] MEDS: fentaNYL PATCH 25 MCG (DURAGESIC) TD SCH (20:48)
[2018-06-14] MEDS: HYDROcodone/APAP 5 MG/325 MG (LORTAB) TAB PO PRN ×4 (00:34→18:39)
[2018-06-14 05:45] VITALS: BP 150/79
--- NOTE | 2018-06-14 08:39 | Occupational Ther Daily Note ---
OT Current Status-Daily Note Subjective Pt seen inroom, up in bed, agreeable to OT. Reported he felt pretty good and had taken his pain meds already. Appearance Alert, cooperative Mental Status/Objective Functional [place] Measure 0=Not Assessed/NA 4=Minimal Assistance 1=Total Assistance 5=Supervision or Setup 2=Maximal Assistance 6=Modified [place] 3=Moderate Assistance 7=Complete [place] ADL-Treatment Pt was able to move from supine to sit EOB and it was discovered that he had been incontinent of stool (he thought it was only gas). He got up from the bed without cues and walked to bathroom with SBA, FWW. He got on/off BSC over toilet with SBA and was able to manage his clothing but he needed help to wash bottom. He stood at the sink with SBA, FWW to wash his hands with no LOB. Functional [place] Measure 0=Not Assessed/NA 4=Minimal Assistance 1=Total Assistance 5=Supervision or Setup 2=Maximal Assistance 6=Modified [place] 3=Moderate Assistance 7=Complete IndependenceIRFPAI Quality Coding Scale 6 Independent with activity with or without an assistive device 5 Patient requires set up or clean up by helper. Patient completes activity by themselves 4 Supervision or touching assist (CGA). [place] provide cues , steadying assist 3 The helper provides less than half the effort to complete the activity 2 The helper provides more than half the effort to complete the activity 1 Dependent. The helper does all the effort to complete an activity 7 Patient refused to complete or attempt activity 9 The patient did not perform the activity before the current illness or injury 88 Not attempted due to Medical conditions or safety concerns Grooming (FIM): 5 Toileting (FIM): 3 Toilet/Commode Transfer (FIM): 5 Other Treatment He walked over 100 ft to gym with SBA, FWW and was able to get into chair with arms with SBA. He did 12 minutes bilat UE exercise with arm bike set at 15W resistance, taking no breaks and working at a steady pace. He said this activity did not cause any discomfort at his R shoulder. He also did 15 reps bilat UE exercise with 1# exercise bar, working on shoulder, elbows and wrists. ALl these were to strengthen arms to help with ADLs and transfers. He was able to push up from chair with arms, although slowly, and walked back to his room with SBA, FWW. he was left up in recliner, all needs met. Education OT Patient Education: Exercise program, Progress toward Goal/Update tx plan, Purpose of tx/functional activities, Transfer techniques Teaching Recipient: Patient Teaching Methods: Demonstration, Discussion Response to Teaching: Verbalize Understanding, Return Demonstration, Reinforcement Needed OT Short Term Goals Short Term Goals Time Frame: Jun 17, 2018 Grooming(FIM): 5 Bathing(FIM): 5 Upper Body Dressing(FIM): 5 Lower Body Dressing(FIM): 5 Toileting(FIM): 5 Transfers (B,C,W/C) (FIM): 5 Toilet/Commode Transfer(FIM): 5 Shower Transfer(FIM): 5 Additional Short Term Goals: 1-Demonstrate ADL Tasks, 2-Verbalize Understanding , 3-ImproveStrength/Dean 1=Demonstrate adherence to instructed precautions during ADL tasks. 2=Patient will verbalize/demonstrate understanding of assistive devices/ modifications for ADL. 3=Patient will improve strength/tolerance for activity to enable patient to perform ADL's. OT Senior Technical Support Analyst Goals Alf Goals Time Frame: Jul 01, 2018 Eating (FIM): 6 Eating (QC): 6 Groomin Oral Hygiene (QC): 6 Bathing(FIM): 6 Shower/Bathe Self (QC): 6 Upper Body Dressing(FIM): 6 Upper Body Dressing (QC): 6 Lower Body Dressing(FIM): 6 Lower Body Dressing (QC): 6 On/Off Footwear (QC): 6 Toileting(FIM): 6 Toileting Hygiene (QC): 6 Toilet/Commode Transfer(FIM): 6 Toilet/Commode Transfer (QC): 6 Tub Transfer(FIM): 5 (or shower) Shower Transfer(FIM): 5 Additional Goals: 1-Demonstrate ADL Tasks, 2-Verbalize Understanding, 3- ImproveStrength/Dean 1=Demonstrate adherence to instructed precautions during ADL tasks. 2=Patient will verbalize/demonstrate understanding of assistive devices/ modifications for ADL. 3=Patient will improve strength/tolerance for activity to enable patient to perform ADL's. OT Education/Plan Problem List/Assessment Pt would benefit from skilled OT to increase his independence in basic self care. Discharge Recommendations Plan/Recommendations: Continue POC Treatment Plan/Plan of Care Patient would benefit from OT for education, treatment and training to promote independence in ADL's, mobility, safety and/or upper extremity function for ADL' s. Plan of Care: ADL Retraining, Functional Mobility, Group Exercise/Act as Ind ( education, exercise, activity tolerance, functional activities, socialization), UE Funct Exercise/Act, UE Neuromus Re-Ed/Coord, OTHER (energy conservation education) Treatment Duration: Jul 01, 2018 Frequency: At least 5 of 7 days/Wk (IRF) Estimated Hrs Per Day: 1.5 hours per day Rehab Potential: Fair Time/GCodes Start Time: 08:15 Stop Time: 09:00 Total Time Billed (hr/min): 45 Billed Treatment Time visit, 15 minutes ADL, 30 minutes exercise SASCHA BLAKE OT Jun 14, 2018 08:39
[2018-06-14] MEDS: DILTIAZEM 120 MG (CARDIZEM CD) CAP PO SCH (09:00)
[2018-06-14] MEDS: APIXABAN 5 MG (ELIQUIS) TABLET PO SCH ×2 (09:00→20:03)
[2018-06-14] MEDS: ASPIRIN E.C. 81 MG (ECOTRIN) TAB PO SCH (09:00)
[2018-06-14] MEDS: LEVOFLOXACIN 750 MG TAB (LEVAQUIN) PO SCH (10:45)
--- NOTE | 2018-06-14 11:54 | Physical Therapy Daily Note ---
PT Daily Note-Current Subjective Patient in bed pre tx, agrees to PT, no complaints of pain. Appearance Patient in bed post tx with nurse call, phone, tray, all needs met. Mental Status Patient Orientation: Normal For Age Transfers Functional [place] Measure 0=Not Assessed/NA 4=Minimal Assistance 1=Total Assistance 5=Supervision or Setup 2=Maximal Assistance 6=Modified [place] 3=Moderate Assistance 7=Complete IndependenceIRFPAI Quality Coding Scale 6 Independent with activity with or without an assistive device 5 Patient requires set up or clean up by helper. Patient completes activity by themselves 4 Supervision or touching assist (CGA). [place] provide cues , steadying assist 3 The helper provides less than half the effort to complete the activity 2 The helper provides more than half the effort to complete the activity 1 Dependent. The helper does all the effort to complete an activity 7 Patient refused to complete or attempt activity 9 The patient did not perform the activity before the current illness or injury 88 Not attempted due to Medical conditions or safety concerns Transfers (B, C, W/C) (FIM): 5 Scootin Rollin Supine to/from Sit: 6 Sit to/from Stand: 5 Bed to/from Chair: 5 Patient has some difficulty getting his leg into bed but can do so without assist. Weight Bearing Right Lower Extremity: Right Partial Weight Bearing Left Lower Extremity: Left Weight Bearing/Tolerated Gait Training Gait (FIM): 5 Distance: 200'x2, 150' Gait Level of Assist: 5 Gait Persons Needed: 1 Gait Assistive Device: FWW Patient ambulates with forward lean, flexed bilateral knees and has bilateral knee varus. Exercises Standing: Hip Abduction, Hamstring curls, Heel/toe raises, Marching, Mini squats Standing Reps: 20 NuStep Minutes: 15 NuStep Workload: 5 Treatments bed mobility and transfers, ambulation, functional strengthening. Patient needed to urinate during treatment, ambulated back to his room and he wanted to sit on the edge of the bed and use the urinal, he could not urinate so he went to the bathroom to sit on the toilet and he was able to urinate, patient did not need any assist with pants or urinal. Assessment Current Status: Fair Progress improving general mobility and endurance PT Short Term Goals Short Term Goals Time Frame: Jun 17, 2018 Transfers (B,C,W/C) (FIM): 5 Gait (FIM): 5 Gait Distance Comment: 300' Gait Level of Assist: 5 Gait Assistive Device: FWW PT Custodial Goals Calender Supervisor Goals PT Calender Supervisor Goals Time Frame: Jul 01, 2018 Transfers (B,C,W/C) (FIM): 6 Sit to Lying (QC): 6 Lying-Sitting on Side/Bed(QC): 6 Sit to Stand (QC): 6 Rollin Roll Left to Right (QC): 6 Chair/[id number] Xfer(QC): 6 Car Transfer (QC): 6 Gait (FIM): 6 Distance: 300' Walk 10 feet (QC): 6 Walk 10ft-Uneven Surface(QC): 6 Walk 50ft with 2 Turns (QC): 6 Walk 150 ft (QC): 6 Gait Assistive Device: FWW Stairs (FIM): 2 # of Steps: 8 1 Step (curb) (QC): 6 4 Steps (QC): 6 PT Plan Problem List Problem List: Activity Tolerance, Functional Strength, Safety, Balance, Gait, Transfer, Bed Mobility, ROM Treatment/Plan Treatment Plan: Continue Plan of Care Treatment Plan: Bed Mobility, Education, Functional Activity Dean, Functional Strength, Group Therapy, Gait, Safety, Therapeutic Exercise, Transfers Treatment Duration: Jul 01, 2018 Frequency: At least 5 of 7 days/Wk (IRF) Estimated Hrs Per Day: 1.5 hours per day Patient and/or Family Agrees t: Yes Safety Risks/Education Patient Education: Gait Training, Transfer Techniques, Correct Positioning, Safety Issues Teaching Recipient: Patient Teaching Methods: Demonstration, Discussion Response to Teaching: Reinforcement Needed Time/GCodes Time In: 1100 Time Out: 1200 Total Billed Treatment Time: 60 Total Billed Treatment 1 visit EX 30' GT 20' FA 10' ELISABETH GIRALDO PT Jun 14, 2018 11:54
--- NOTE | 2018-06-14 14:01 | Cardiology Progress Note ---
Cardiology SOAP Progress Note Subjective: No further cardiac complaints. Objective: I&O/Vital Signs 06/14/18 06/14/18 15:46 20:09 Temp 97.0 Pulse 83 Resp 16 B/P (MAP) 136/71 (92) Pulse Ox 94 O2 Delivery Room Air Room Air 06/14/18 00:00 Intake Total 800 ml Output Total 125 ml Balance 675 ml Weight (Pounds): 167 Weight (Ounces): 4.0 Weight (Calculated Kilograms): 75.016807 Constitutional: No appears stated age; AAO x 3; No apparent distress, No PERRL , No well-developed, No well-nourished, No other Respiratory: No accessory muscle use, No respiratory distress, No chest tender , No chest expansion is symmetric; chest is bilaterally symmetric; No lungs clear to percussion; lungs clear to auscultation; No crackles, No rhonchi, No rales, No stridor, No wheezing, No pleural rub, No other Cardiovascular: regular rate-rhythm; No irregularly irregular, No extra beats, No parasternal heave is noted, No JVD, No edema, No bradycardia, No tachycardia , No point of maximal impulse, No cardiac thrills are palpable; S1 and S2; No gallop/S3, No gallop/S4, No diastolic murmur, No systolic murmur, No friction rub, No click, No other Gastrointestional: No tender, No soft, No round, No distended, No pulsatile mass, No organomegaly, No guarding, No rebound, No tenderness, No hernia, No mass, No audible bowel sounds, No abnormal bowel sounds, No abdominal bruits, No spleenomegaly, No other Extremities: No normal range of motion, No non-tender, No normal inspection, No pedal edema, No calf tenderness, No normal capillary refill, No pelvis stable , No calf tenderness, No inflammation, No pedal edema, No slow capillary refill , No swelling, No other, No abrasion, No clubbing, No cyanosis, No ecchymosis, No laceration, No no lower extremity edema bilateral, No significant edema, No tenderness, No wound Neurologic/Psychiatric: no motor/sensory deficits, alert, normal mood/affect, oriented x 3 Skin: No normal color, No warm/dry, No cyanosis, No cool, No diaphoresis, No damp, No ecchymosis, No jaundice, No mottled, No pallor, No rash, No tattoos/ piercings, No ulcerations, No rash on exposed areas, No ulcerations on exposed areas, No other A/P: Assessment/Dx: Assessment/Admission Diagnosis Typical atrial flutter with rapid ventricular rate, converted to sinus rhythm with cardioversion. Pneumonia, resolved. Lactic acidosis, resolved. Nausea vomiting diarrhea, Stage IV colon cancer, Type II myocardial infarction Plan: Plan Typical atrial flutter with rapid ventricular rate, symptomatic typical atrial flutter with rapid ventricular rate. Successful transesophageal echocardiogram assisted cardioversion. Continues to be in sinus rhythm. On Eliquis. Likely atrial flutter typical ablation on June 21. Type 2 myocardial infarction: Borderline elevated troponin which have stayed almost at similar levels. Likely due to severe sepsis and atrial flutter. No further chest pain. Pneumonia, on IV antibiotics. Resolved. Lactic acidosis, likely due to sepsis. Resolved. Nausea vomiting diarrhea, multifactorial with contribution from sepsis and atrial flutter. No further nausea, vomiting, diarrhea. Stage IV colon cancer, deferred to Dr. Flanagan. Patient was on adjuvant chemotherapy. Thank you for your consultation. Please call me if you have any questions. Mitch Montes MD, FACP, FACC, [facility], [facility], CCDS Interventional Cardiology Cardiac Electrophysiology Vascular Medicine and Endovascular Interventions Ricki MONTES MD Jun 14, 2018 2:01 pm
--- NOTE | 2018-06-14 14:33 | Therapy Group Daily Note ---
Therapy Daily Group Note Other/Notes Each patient participated in group therapy in the common area of rehab. Each patient sat in a quinault and first had to introduce themselves, state where they were from and recall a specific memory to share with the group. Then, during group therapy each patient had to participate in seated UE and LE exercises and were educated on energy conservation, the benefits of exercise. Patients were encouraged to not only participate but to interact and participate with other group therapy patients. Afterwards, patients ambulated or were transported back to bed or chair with nurse call, phone, tray, all needs met. Start Time: 13:00 Stop Time: 14:10 Total Billed Treatment Time: 70 Total Billed Treatment 1 visit GRP 70' ELISABETH GIRALDO PT Jun 14, 2018 14:33
--- NOTE | 2018-06-14 14:47 | Speech Therapy Daily Note ---
Speech Daily Progress Note Subjective Date Seen by Provider: Jun 14, 2018 Time Seen by Provider: 10:15 Pt pleasant and cooperative. Pain Numeric Pain Scale: 0-No Pain Objective Memory - Picture recall was 90% accurate today using same technique of verbalizing the contents of the picture out loud. Problem Solving: Convergent naming in which pt given three clues and he has to name the object. The pt was 93% accurate. Assessment Assessment Current Status: Fair Progress Treatment Plan Continue Plan of Care Communication Comprehension: 7 Expression: 7 Social Cognition Social Interaction: 7 Problem Solvin Memory: 4 Speech Short Term Goals Short Term Goals Short Term Goals 1. Pt will complete various auditory/visual memory activities with at least 85 % accuracy. 2. Pt will be educated regarding compensatory memory strategies and be able to recall at least 3. 3. Pt will complete problem solving activities with at least 80% and min assist. Time Frame-ST week Speech Exercise Science Internship Goals Exercise Science Internship Goals Pt will demonstrate functional cognition for safety and maximum independence for the home setting. Time Frame: 2 weeks Speech-Plan Patient/Family Goals Patient/Family Goals: to return home Treatment Plan Speech Therapy Treatment Plan: Continue Plan of Care pt motivated to improve Treatment Duration: Jun 11, 2018 Frequency: 5 times per week Estimated Hrs Per Day: .5 hour per day Rehab Potential: Fair Pt/Family Agrees to Plan: Yes Time Speech Therapy Time In: 10:15 Speech Therapy Time Out: 10:45 Total Billed Time: 30 Billed Treatment Time 1, TAL BRADFORD Jun 14, 2018 14:47
[2018-06-14 15:46] VITALS: BP 136/71
--- NOTE | 2018-06-14 17:29 | PM & R (SOAP) Progress Note ---
Subjective This was a face to face visit with the patient. Date Seen by Provider: Jun 14, 2018 Time Seen by Provider: 12:00 Subjective/Events-last exam Patient was seen in his room this Noon hour Progressing well with therapies Patient SBA for transfers.Current meds and labs reviewed Objective Physician Exam Last Set of Vital Signs Vital Signs Date Time Temp Pulse Resp B/P (MAP) Pulse Ox O2 Delivery O2 Flow Rate FiO2 06/14/18 15:46 97.0 83 16 136/71 (92) 94 Room Air Capillary Refill : I&O Intake and Output 06/14/18 00:00 Intake Total 1150 ml Output Total 475 ml Balance 675 ml Intake Oral 1150 ml Output Urine Total 475 ml # Voids 2 # Bowel Movements 1 General: Alert, Oriented X3, Cooperative, No Acute Distress HEENT: Atraumatic, PERRLA, EOMI, Mucous Memb Moist/[place] Neck: Supple, No JVD Lungs: Clear to Auscultation Heart: Regular Rate Abdomen: Normal Bowel Sounds, Soft, No Tenderness Extremities: Other (trace edema both ankles) Neuro: Other (Weakness both legs as per H and P) Psych/Mental Status: Mental Status NL Assessment/Plan Assessment and Plan 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
[2018-06-15] MEDS: HYDROcodone/APAP 5 MG/325 MG (LORTAB) TAB PO PRN ×4 (04:27→16:02)
[2018-06-15 05:20] VITALS: BP 165/87
--- NOTE | 2018-06-15 07:57 | PM & R (SOAP) Progress Note ---
Subjective This was a face to face visit with the patient. Date Seen by Provider: Jun 15, 2018 Time Seen by Provider: 07:30 Subjective/Events-last exam Patient was seen in his room this AM Patient SBA for transfers Objective Physician Exam Last Set of Vital Signs Vital Signs Date Time Temp Pulse Resp B/P (MAP) Pulse Ox O2 Delivery O2 Flow Rate FiO2 06/15/18 05:20 98.3 87 18 165/87 (113) 94 Room Air Capillary Refill : I&O Intake and Output 06/15/18 00:00 Intake Total 120 ml Output Total 825 ml Balance -705 ml Intake Oral 120 ml Output Urine Total 825 ml General: Alert, Oriented X3, Cooperative, No Acute Distress HEENT: Atraumatic, PERRLA, EOMI, Mucous Memb Moist/[place] Neck: Supple, No JVD Lungs: Clear to Auscultation Heart: Regular Rate Abdomen: Normal Bowel Sounds, Soft, No Tenderness Extremities: Other (trace edema both ankles) Neuro: Other (Weakness both legs as per H and P) Psych/Mental Status: Mental Status NL Assessment/Plan Assessment and Plan Critical illness myopathy due to Pneumonia associated with sepsis and recent chemo A FIB controlled with med Metastatic Colon CA s/p colon surgery 02-11-18 DR Astudillo with 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
[2018-06-15] MEDS: APIXABAN 5 MG (ELIQUIS) TABLET PO SCH ×2 (08:07→20:01)
[2018-06-15] MEDS: ASPIRIN E.C. 81 MG (ECOTRIN) TAB PO SCH (08:07)
[2018-06-15] MEDS: DILTIAZEM 120 MG (CARDIZEM CD) CAP PO SCH (08:07)
--- NOTE | 2018-06-15 10:14 | Physical Therapy Daily Note ---
PT Daily Note-Current Subjective Patient in bed pre tx, agrees to PT, has no complaints of pain at rest. Patient wants to use the urinal at the side of the bed. Appearance Patient BTB post tx with nurse call, phone, tray, all needs met. Mental Status Patient Orientation: Normal For Age Transfers Functional [place] Measure 0=Not Assessed/NA 4=Minimal Assistance 1=Total Assistance 5=Supervision or Setup 2=Maximal Assistance 6=Modified [place] 3=Moderate Assistance 7=Complete IndependenceIRFPAI Quality Coding Scale 6 Independent with activity with or without an assistive device 5 Patient requires set up or clean up by helper. Patient completes activity by themselves 4 Supervision or touching assist (CGA). [place] provide cues , steadying assist 3 The helper provides less than half the effort to complete the activity 2 The helper provides more than half the effort to complete the activity 1 Dependent. The helper does all the effort to complete an activity 7 Patient refused to complete or attempt activity 9 The patient did not perform the activity before the current illness or injury 88 Not attempted due to Medical conditions or safety concerns Transfers (B, C, W/C) (FIM): 5 Scootin Rollin Supine to/from Sit: 5 Sit to/from Stand: 5 Bed to/from Chair: 5 Weight Bearing Right Lower Extremity: Right Partial Weight Bearing Left Lower Extremity: Left Weight Bearing/Tolerated Gait Training Gait (FIM): 5 Distance: 200', 150' Gait Level of Assist: 5 Gait Persons Needed: 1 Gait Assistive Device: FWW Exercises NuStep Minutes: 10 NuStep Workload: 5 Treatments bed mobility and transfers, ambulation, functional strengthening, patient also stood at the sink to brush his teeth Assessment Current Status: Fair Progress improving transfers PT Short Term Goals Short Term Goals Time Frame: Jun 17, 2018 Transfers (B,C,W/C) (FIM): 5 Gait (FIM): 5 Gait Distance Comment: 300' Gait Level of Assist: 5 Gait Assistive Device: FWW PT Care Home Goals Metal Machinist Goals PT Metal Machinist Goals Time Frame: Jul 01, 2018 Transfers (B,C,W/C) (FIM): 6 Sit to Lying (QC): 6 Lying-Sitting on Side/Bed(QC): 6 Sit to Stand (QC): 6 Rollin Roll Left to Right (QC): 6 Chair/[id number] Xfer(QC): 6 Car Transfer (QC): 6 Gait (FIM): 6 Distance: 300' Walk 10 feet (QC): 6 Walk 10ft-Uneven Surface(QC): 6 Walk 50ft with 2 Turns (QC): 6 Walk 150 ft (QC): 6 Gait Assistive Device: FWW Stairs (FIM): 2 # of Steps: 8 1 Step (curb) (QC): 6 4 Steps (QC): 6 PT Plan Problem List Problem List: Activity Tolerance, Functional Strength, Safety, Balance, Gait, Transfer, Bed Mobility, ROM Treatment/Plan Treatment Plan: Continue Plan of Care Treatment Plan: Bed Mobility, Education, Functional Activity Dean, Functional Strength, Group Therapy, Gait, Safety, Therapeutic Exercise, Transfers Treatment Duration: Jul 01, 2018 Frequency: At least 5 of 7 days/Wk (IRF) Estimated Hrs Per Day: 1.5 hours per day Patient and/or Family Agrees t: Yes Safety Risks/Education Patient Education: Gait Training, Transfer Techniques, Correct Positioning, Safety Issues Teaching Recipient: Patient Teaching Methods: Demonstration, Discussion Response to Teaching: Reinforcement Needed Time/GCodes Time In: 0945 Time Out: 1010 Total Billed Treatment Time: 25 Total Billed Treatment 1 visit EX 10' GT 15' ELISABETH GIRALDO PT Jun 15, 2018 10:14
[2018-06-15] MEDS: LEVOFLOXACIN 750 MG TAB (LEVAQUIN) PO SCH (10:28)
--- NOTE | 2018-06-15 14:13 | Cardiology Progress Note ---
Cardiology SOAP Progress Note Subjective: No cardiac complaints. Objective: I&O/Vital Signs 06/15/18 06/15/18 05:20 08:30 Temp 98.3 Pulse 87 Resp 18 B/P (MAP) 165/87 (113) Pulse Ox 94 O2 Delivery Room Air Room Air 06/15/18 00:00 Intake Total 20 ml Output Total 275 ml Balance -255 ml Weight (Pounds): 167 Weight (Ounces): 4.0 Weight (Calculated Kilograms): 75.390003 Constitutional: No appears stated age; AAO x 3; No apparent distress, No PERRL , No well-developed, No well-nourished, No other Respiratory: No accessory muscle use, No respiratory distress, No chest tender , No chest expansion is symmetric; chest is bilaterally symmetric; No lungs clear to percussion; lungs clear to auscultation; No crackles, No rhonchi, No rales, No stridor, No wheezing, No pleural rub, No other Cardiovascular: regular rate-rhythm; No irregularly irregular, No extra beats, No parasternal heave is noted, No JVD, No edema, No bradycardia, No tachycardia , No point of maximal impulse, No cardiac thrills are palpable; S1 and S2; No gallop/S3, No gallop/S4, No diastolic murmur, No systolic murmur, No friction rub, No click, No other Gastrointestional: No tender, No soft, No round, No distended, No pulsatile mass, No organomegaly, No guarding, No rebound, No tenderness, No hernia, No mass, No audible bowel sounds, No abnormal bowel sounds, No abdominal bruits, No spleenomegaly, No other Extremities: No normal range of motion, No non-tender, No normal inspection, No pedal edema, No calf tenderness, No normal capillary refill, No pelvis stable , No calf tenderness, No inflammation, No pedal edema, No slow capillary refill , No swelling, No other, No abrasion, No clubbing, No cyanosis, No ecchymosis, No laceration, No no lower extremity edema bilateral, No significant edema, No tenderness, No wound Neurologic/Psychiatric: no motor/sensory deficits, alert, normal mood/affect, oriented x 3 Skin: No normal color, No warm/dry, No cyanosis, No cool, No diaphoresis, No damp, No ecchymosis, No jaundice, No mottled, No pallor, No rash, No tattoos/ piercings, No ulcerations, No rash on exposed areas, No ulcerations on exposed areas, No other A/P: Assessment/Dx: Assessment/Admission Diagnosis Typical atrial flutter with rapid ventricular rate, converted to sinus rhythm with cardioversion. Pneumonia, resolved. Lactic acidosis, resolved. Nausea vomiting diarrhea, Stage IV colon cancer, Type II myocardial infarction Plan: Plan Typical atrial flutter with rapid ventricular rate, symptomatic typical atrial flutter with rapid ventricular rate. Successful transesophageal echocardiogram assisted cardioversion. Continues to be in sinus rhythm. On Eliquis. Likely atrial flutter typical ablation on June 21. Type 2 myocardial infarction: Borderline elevated troponin which have stayed almost at similar levels. Likely due to severe sepsis and atrial flutter. No further chest pain. Pneumonia, on IV antibiotics. Resolved. Lactic acidosis, likely due to sepsis. Resolved. Nausea vomiting diarrhea, multifactorial with contribution from sepsis and atrial flutter. No further nausea, vomiting, diarrhea. Stage IV colon cancer, deferred to Dr. Flanagan. Patient was on adjuvant chemotherapy. Thank you for your consultation. Please call me if you have any questions. Mitch Montes MD, FACP, FACC, [facility] [place], FHRS, CCDS Interventional Cardiology Cardiac Electrophysiology Vascular Medicine and Endovascular Interventions Ricki MONTES MD Jun 15, 2018 2:13 pm
[2018-06-15 18:58] VITALS: BP 122/70
[2018-06-16] MEDS: HYDROcodone/APAP 5 MG/325 MG (LORTAB) TAB PO PRN ×5 (03:59→22:40)
[2018-06-16 05:00] VITALS: BP 148/79
[2018-06-16] MEDS: ASPIRIN E.C. 81 MG (ECOTRIN) TAB PO SCH (08:21)
[2018-06-16] MEDS: DILTIAZEM 120 MG (CARDIZEM CD) CAP PO SCH (08:21)
[2018-06-16] MEDS: APIXABAN 5 MG (ELIQUIS) TABLET PO SCH ×2 (08:21→20:38)
--- NOTE | 2018-06-16 12:37 | Cardiology Progress Note ---
Cardiology SOAP Progress Note Subjective: No cardiac complaints. Objective: I&O/Vital Signs 06/16/18 06/16/18 05:00 09:00 Temp 98.4 Pulse 87 Resp 16 B/P (MAP) 148/79 (102) Pulse Ox 97 O2 Delivery Room Air Room Air 06/16/18 00:00 Intake Total 200 ml Output Total 350 ml Balance -150 ml Weight (Pounds): 167 Weight (Ounces): 4.0 Weight (Calculated Kilograms): 75.192641 Constitutional: No appears stated age; AAO x 3; No apparent distress, No PERRL , No well-developed, No well-nourished, No other Respiratory: No accessory muscle use, No respiratory distress, No chest tender , No chest expansion is symmetric; chest is bilaterally symmetric; No lungs clear to percussion; lungs clear to auscultation; No crackles, No rhonchi, No rales, No stridor, No wheezing, No pleural rub, No other Cardiovascular: regular rate-rhythm; No irregularly irregular, No extra beats, No parasternal heave is noted, No JVD, No edema, No bradycardia, No tachycardia , No point of maximal impulse, No cardiac thrills are palpable; S1 and S2; No gallop/S3, No gallop/S4, No diastolic murmur, No systolic murmur, No friction rub, No click, No other Gastrointestional: No tender, No soft, No round, No distended, No pulsatile mass, No organomegaly, No guarding, No rebound, No tenderness, No hernia, No mass, No audible bowel sounds, No abnormal bowel sounds, No abdominal bruits, No spleenomegaly, No other Extremities: No normal range of motion, No non-tender, No normal inspection, No pedal edema, No calf tenderness, No normal capillary refill, No pelvis stable , No calf tenderness, No inflammation, No pedal edema, No slow capillary refill , No swelling, No other, No abrasion, No clubbing, No cyanosis, No ecchymosis, No laceration, No no lower extremity edema bilateral, No significant edema, No tenderness, No wound Neurologic/Psychiatric: no motor/sensory deficits, alert, normal mood/affect, oriented x 3 Skin: No normal color, No warm/dry, No cyanosis, No cool, No diaphoresis, No damp, No ecchymosis, No jaundice, No mottled, No pallor, No rash, No tattoos/ piercings, No ulcerations, No rash on exposed areas, No ulcerations on exposed areas, No other A/P: Assessment/Dx: Assessment/Admission Diagnosis Typical atrial flutter with rapid ventricular rate, converted to sinus rhythm with cardioversion. Pneumonia, resolved. Lactic acidosis, resolved. Nausea vomiting diarrhea, Stage IV colon cancer, Type II myocardial infarction Plan: Plan Typical atrial flutter with rapid ventricular rate, symptomatic typical atrial flutter with rapid ventricular rate. Successful transesophageal echocardiogram assisted cardioversion. Continues to be in sinus rhythm. On Eliquis. Likely atrial flutter typical ablation on June 21. Type 2 myocardial infarction: Borderline elevated troponin which have stayed almost at similar levels. Likely due to severe sepsis and atrial flutter. No further chest pain. Pneumonia, on IV antibiotics. Resolved. Lactic acidosis, likely due to sepsis. Resolved. Nausea vomiting diarrhea, multifactorial with contribution from sepsis and atrial flutter. No further nausea, vomiting, diarrhea. Stage IV colon cancer, deferred to Dr. Flanagan. Patient was on adjuvant chemotherapy. Thank you for your consultation. Please call me if you have any questions. Mitch Montes MD, FACP, FACC, [facility] [place] [facility], CCDS Interventional Cardiology Cardiac Electrophysiology Vascular Medicine and Endovascular Interventions Ricki MONTES MD Jun 16, 2018 12:37
[2018-06-16 17:40] VITALS: BP 147/81
[2018-06-16] MEDS: fentaNYL PATCH 25 MCG (DURAGESIC) TD SCH (20:38)
[2018-06-17] MEDS: HYDROcodone/APAP 5 MG/325 MG (LORTAB) TAB PO PRN ×4 (02:33→20:51)
[2018-06-17 05:37] VITALS: BP 170/88
[2018-06-17] MEDS: ASPIRIN E.C. 81 MG (ECOTRIN) TAB PO SCH (08:36)
[2018-06-17] MEDS: APIXABAN 5 MG (ELIQUIS) TABLET PO SCH ×2 (08:36→20:50)
[2018-06-17] MEDS: DILTIAZEM 120 MG (CARDIZEM CD) CAP PO SCH (08:36)
--- NOTE | 2018-06-17 08:50 | Physical Therapy Daily Note ---
PT Daily Note-Current Subjective Pt was awake in bed and watching tv. Misael agreed to morning PT. Pain Numeric Pain Scale: 0-No Pain Location: No Pain Reported Transfers Functional [place] Measure 0=Not Assessed/NA 4=Minimal Assistance 1=Total Assistance 5=Supervision or Setup 2=Maximal Assistance 6=Modified [place] 3=Moderate Assistance 7=Complete IndependenceIRFPAI Quality Coding Scale 6 Independent with activity with or without an assistive device 5 Patient requires set up or clean up by helper. Patient completes activity by themselves 4 Supervision or touching assist (CGA). [place] provide cues , steadying assist 3 The helper provides less than half the effort to complete the activity 2 The helper provides more than half the effort to complete the activity 1 Dependent. The helper does all the effort to complete an activity 7 Patient refused to complete or attempt activity 9 The patient did not perform the activity before the current illness or injury 88 Not attempted due to Medical conditions or safety concerns Transfers (B, C, W/C) (FIM): 5 Scootin Rollin Supine to/from Sit: 5 Sit to/from Stand: 5 Sit to Stand (QC): 5 Weight Bearing Right Lower Extremity: Right Partial Weight Bearing Left Lower Extremity: Left Weight Bearing/Tolerated Gait Training Gait (FIM): 6 Distance (FIM): 3=150 ft Distance: 500' Walk 10 feet (QC): 6 Walk 150 ft (QC): 6 Gait Level of Assist: 6 Gait Assistive Device: FWW Exercises Supine Ex: Rolling, Scooting Seated Therapy Exercises: Long arc quads, Hip flexion, Hamstring Curls Seated Reps: 10 Standing: Marching Assessment Pt was tolerated therapy well. Pt was able to ambulate for 500ft, showing fatigue but remained safe through activity. He then completed marching in parallel bars and seated LE mobility exercises. Patient will continue to work on functional activities to improve overall strength and endurance for daily activities. PT Short Term Goals Short Term Goals Time Frame: Jun 17, 2018 Transfers (B,C,W/C) (FIM): 5 Gait (FIM): 5 Gait Distance Comment: 300' Gait Level of Assist: 5 Gait Assistive Device: FWW PT Longterm Goals Longterm Goals PT Prize Fighter Goals Time Frame: Jul 01, 2018 Transfers (B,C,W/C) (FIM): 6 Sit to Lying (QC): 6 Lying-Sitting on Side/Bed(QC): 6 Sit to Stand (QC): 6 Rollin Roll Left to Right (QC): 6 Chair/Kzl-wt-Knspa Xfer(QC): 6 Car Transfer (QC): 6 Gait (FIM): 6 Distance: 300' Walk 10 feet (QC): 6 Walk 10ft-Uneven Surface(QC): 6 Walk 50ft with 2 Turns (QC): 6 Walk 150 ft (QC): 6 Gait Assistive Device: FWW Stairs (FIM): 2 # of Steps: 8 1 Step (curb) (QC): 6 4 Steps (QC): 6 PT Plan Treatment/Plan Treatment Plan: Continue Plan of Care Treatment Plan: Bed Mobility, Education, Functional Activity Dean, Functional Strength, Group Therapy, Gait, Safety, Therapeutic Exercise, Transfers Treatment Duration: Jul 01, 2018 Frequency: At least 5 of 7 days/Wk (IRF) Estimated Hrs Per Day: 1.5 hours per day Patient and/or Family Agrees t: Yes Time/GCodes Time In: 745 Time Out: 845 Total Billed Treatment Time: 60 Total Billed Treatment 1 visit FA x 2 35 mins EX x 2 25mins LORE ALLEN PT Jun 17, 2018 08:50
--- NOTE | 2018-06-17 09:37 | Speech Therapy Daily Note ---
Speech Daily Progress Note Subjective Date Seen by Provider: Jun 17, 2018 Time Seen by Provider: 09:00 Pt up in chair. Pleasant and cooperative. Pain Numeric Pain Scale: 0-No Pain Objective Memory - Picture Recall after 20 minutes was 100% accurate. Pt uses the technique of describing out loud what he sees before hand. Problem Solving - Which word does not belong in a group of 4. Pt has had difficulty with this activity in the past. Pt was able to complete with 75% accuracy and min assist. Assessment Assessment Current Status: Fair Progress Treatment Plan Continue Plan of Care Communication Comprehension: 7 Expression: 7 Social Cognition Social Interaction: 7 Problem Solvin Memory: 4 Speech Short Term Goals Short Term Goals Short Term Goals 1. Pt will complete various auditory/visual memory activities with at least 85 % accuracy. 2. Pt will be educated regarding compensatory memory strategies and be able to recall at least 3. 3. Pt will complete problem solving activities with at least 80% and min assist. Time Frame-ST week Speech Blind Hooker Goals Blind Hooker Goals Pt will demonstrate functional cognition for safety and maximum independence for the home setting. Time Frame: 2 weeks Speech-Plan Patient/Family Goals Patient/Family Goals: to return home Treatment Plan Speech Therapy Treatment Plan: Continue Plan of Care pt very cooperative Treatment Duration: Jun 11, 2018 Frequency: 5 times per week Estimated Hrs Per Day: .5 hour per day Rehab Potential: Fair Pt/Family Agrees to Plan: Yes Safety Risks/Education Teaching Recipient: Patient Teaching Methods: Discussion Response to Teaching: Verbalize Understanding Time Speech Therapy Time In: 09:00 Speech Therapy Time Out: 09:30 Total Billed Time: 30 Billed Treatment Time 1, SLTS TAL Crook Jun 17, 2018 09:37
--- NOTE | 2018-06-17 09:47 | Progress Note-Hospitalist ---
Subjective HPI/CC On Admission Date Seen by Provider: Jun 17, 2018 Time Seen by Provider: 09:30 Subjective/Events-last exam Patient feels well Loose stools improved Getting ready to take a shower Overall feels like he is getting stronger Review of Systems Neurological: Weakness Objective Exam Vital Signs Vital Signs Date Time Temp Pulse Resp B/P (MAP) Pulse Ox O2 Delivery O2 Flow Rate FiO2 06/17/18 07:33 92 Room Air 06/17/18 05:37 97.8 85 18 170/88 (115) Capillary Refill : General Appearance: No Apparent Distress, WD/WN, Chronically ill, Thin HEENT: PERRL/EOMI, TMs Normal, Normal ENT Inspection, Pharynx Normal, Moist Mucous Membranes Neck: Full Range of Motion, Normal Inspection, Non Tender, Supple, Carotid Bruit Respiratory: Chest Non Tender, Lungs Clear, Normal Breath Sounds, No Accessory Muscle Use, No Respiratory Distress Cardiovascular: Regular Rate, Rhythm, No Edema, No Gallop, No JVD, No Murmur, Normal Peripheral Pulses Gastrointestinal: Normal Bowel Sounds, No Organomegaly, No Pulsatile Mass, Non Tender, Soft Back: Normal Inspection, No CVA Tenderness, No Vertebral Tenderness Extremity: Normal Capillary Refill, Normal Inspection, Normal Range of Motion, Non Tender, No Calf Tenderness, No Pedal Edema Neurologic/Psychiatric: Alert, Oriented x3, No Motor/Sensory Deficits, Normal Mood/Affect Skin: Normal Color, Warm/Dry Lymphatic: No Adenopathy Results/Procedures Lab Patient resulted labs reviewed. Assessment/Plan Assessment and Plan Assess & Plan/Chief Complaint Assessment: Severe debility Loose stools Atrial flutter Anticoagulation for stroke prophylaxis History of colon cancer with metastases Recent pneumonia COPD Plan: Physical therapy and outpatient therapy per inpatient rehabilitation protocol Monitor loose stools Diagnosis/Problems Diagnosis/Problems (1) DEBILITY Status: Acute (2) Prostate hypertrophy Status: Chronic (3) Atrial flutter with rapid ventricular response Status: Resolved (4) CAD (coronary artery disease) Status: Chronic Qualifiers: Coronary Disease-Associated Artery/Lesion type: [place] artery [place] vs. transplanted heart: [place] heart Associated angina: without angina Qualified Codes: I25.10 - Atherosclerotic heart disease of [place] coronary artery without angina pectoris (5) Pathologic lumbar vertebral fracture Status: Acute Qualifiers: Encounter type: sequela Qualified Codes: M84.48XS - Pathological fracture , other site, sequela (6) DVT prophylaxis Status: Acute (7) Pneumonia Status: Acute (8) Colon cancer Status: Acute (9) Nausea vomiting and diarrhea Status: Resolved Clinical Quality Measures DVT/VTE Risk/Contraindication: Risk Factor Score Per Nursin RFS Level Per Nursing on Admit: 4+=Very High RADHA JEAN BAPTISTE DO Jun 17, 2018 09:47
--- NOTE | 2018-06-17 11:42 | Cardiology Progress Note ---
Cardiology SOAP Progress Note Subjective: No Cardiac symptoms. Objective: I&O/Vital Signs 06/17/18 06/17/18 06/17/18 05:37 07:33 09:00 Temp 97.8 Pulse 85 Resp 18 B/P (MAP) 170/88 (115) Pulse Ox 94 92 O2 Delivery Room Air Room Air Room Air 06/17/18 00:00 Intake Total 400 ml Output Total 450 ml Balance -50 ml Weight (Pounds): 167 Weight (Ounces): 4.0 Weight (Calculated Kilograms): [id number] Constitutional: No appears stated age; AAO x 3; No apparent distress, No PERRL , No well-developed, No well-nourished, No other Respiratory: No accessory muscle use, No respiratory distress, No chest tender , No chest expansion is symmetric; chest is bilaterally symmetric; No lungs clear to percussion; lungs clear to auscultation; No crackles, No rhonchi, No rales, No stridor, No wheezing, No pleural rub, No other Cardiovascular: regular rate-rhythm; No irregularly irregular, No extra beats, No parasternal heave is noted, No JVD, No edema, No bradycardia, No tachycardia , No point of maximal impulse, No cardiac thrills are palpable; S1 and S2; No gallop/S3, No gallop/S4, No diastolic murmur, No systolic murmur, No friction rub, No click, No other Gastrointestional: No tender, No soft, No round, No distended, No pulsatile mass, No organomegaly, No guarding, No rebound, No tenderness, No hernia, No mass, No audible bowel sounds, No abnormal bowel sounds, No abdominal bruits, No spleenomegaly, No other Extremities: No normal range of motion, No non-tender, No normal inspection, No pedal edema, No calf tenderness, No normal capillary refill, No pelvis stable , No calf tenderness, No inflammation, No pedal edema, No slow capillary refill , No swelling, No other, No abrasion, No clubbing, No cyanosis, No ecchymosis, No laceration, No no lower extremity edema bilateral, No significant edema, No tenderness, No wound Neurologic/Psychiatric: no motor/sensory deficits, alert, normal mood/affect, oriented x 3 Skin: No normal color, No warm/dry, No cyanosis, No cool, No diaphoresis, No damp, No ecchymosis, No jaundice, No mottled, No pallor, No rash, No tattoos/ piercings, No ulcerations, No rash on exposed areas, No ulcerations on exposed areas, No other A/P: Assessment/Dx: Assessment/Admission Diagnosis Typical atrial flutter with rapid ventricular rate, converted to sinus rhythm with cardioversion. Pneumonia, resolved. Lactic acidosis, resolved. Nausea vomiting diarrhea, Stage IV colon cancer, Type II myocardial infarction Plan: Plan Typical atrial flutter with rapid ventricular rate, symptomatic typical atrial flutter with rapid ventricular rate. Successful transesophageal echocardiogram assisted cardioversion. Continues to be in sinus rhythm. On Eliquis. Likely atrial flutter typical ablation on June 21. Type 2 myocardial infarction: Borderline elevated troponin which have stayed almost at similar levels. Likely due to severe sepsis and atrial flutter. No further chest pain. Pneumonia, on IV antibiotics. Resolved. Lactic acidosis, likely due to sepsis. Resolved. Nausea vomiting diarrhea, multifactorial with contribution from sepsis and atrial flutter. No further nausea, vomiting, diarrhea. Stage IV colon cancer, deferred to Dr. Flanagan. Patient was on adjuvant chemotherapy. Thank you for your consultation. Please call me if you have any questions. Mitch Montes MD, FACP, FACC, FSCAI, FHRS, CCDS Interventional Cardiology Cardiac Electrophysiology Vascular Medicine and Endovascular Interventions Ricki MONTES MD Jun 17, 2018 11:42 am
--- NOTE | 2018-06-17 13:21 | Physical Therapy Daily Note ---
PT Daily Note-Current Subjective Patient was up in bed and reported that he just took his pills that help him go to sleep. Patient agreed to go to therapy. Pain Numeric Pain Scale: 0-No Pain Location: No Pain Reported Mental Status Patient Orientation: Normal For Age Transfers Functional [place] Measure 0=Not Assessed/NA 4=Minimal Assistance 1=Total Assistance 5=Supervision or Setup 2=Maximal Assistance 6=Modified [place] 3=Moderate Assistance 7=Complete IndependenceIRFPAI Quality Coding Scale 6 Independent with activity with or without an assistive device 5 Patient requires set up or clean up by helper. Patient completes activity by themselves 4 Supervision or touching assist (CGA). [place] provide cues , steadying assist 3 The helper provides less than half the effort to complete the activity 2 The helper provides more than half the effort to complete the activity 1 Dependent. The helper does all the effort to complete an activity 7 Patient refused to complete or attempt activity 9 The patient did not perform the activity before the current illness or injury 88 Not attempted due to Medical conditions or safety concerns Transfers (B, C, W/C) (FIM): 5 Scootin Rollin Supine to/from Sit: 5 Sit to/from Stand: 5 Weight Bearing Right Lower Extremity: Right Partial Weight Bearing Left Lower Extremity: Left Weight Bearing/Tolerated Gait Training Gait (FIM): 6 Distance (FIM): 3=150 ft Distance: 2x 250 Gait Level of Assist: 5 Gait Persons Needed: 1 Exercises NuStep Minutes: 15 NuStep Workload: 4 Assessment Misael tolerated ambulating 250ft but needed a rest break from the fatigue due to his medication. Pt then used nustep for 15 mins before returning to room. PT Short Term Goals Short Term Goals Time Frame: Jun 17, 2018 Transfers (B,C,W/C) (FIM): 5 Gait (FIM): 5 Gait Distance Comment: 300' Gait Level of Assist: 5 Gait Assistive Device: FWW PT Half-Way Goals Snagger Goals PT Half-Way Goals Time Frame: Jul 01, 2018 Transfers (B,C,W/C) (FIM): 6 Gait (FIM): 6 Distance: 300' Gait Assistive Device: FWW Stairs (FIM): 2 # of Steps: 8 PT Plan Treatment/Plan Treatment Plan: Continue Plan of Care Treatment Plan: Bed Mobility, Education, Functional Activity Dean, Functional Strength, Group Therapy, Gait, Safety, Therapeutic Exercise, Transfers Treatment Duration: Jul 01, 2018 Frequency: At least 5 of 7 days/Wk (IRF) Estimated Hrs Per Day: 1.5 hours per day Patient and/or Family Agrees t: Yes Time/GCodes Time In: 1245 Time Out: 1315 Total Billed Treatment Time: 30 Total Billed Treatment 1 visit FA 15mins EX 15 mins LORE ALLEN PT Jun 17, 2018 13:21
--- NOTE | 2018-06-17 13:31 | Physical Therapy Daily Note ---
PT Daily Note-Current Subjective Pt was awake in bed and reported that he just took his pills to help him go to bed. Pt agreed to to therapy. Pain Numeric Pain Scale: 0-No Pain Location: No Pain Reported Transfers Functional [place] Measure 0=Not Assessed/NA 4=Minimal Assistance 1=Total Assistance 5=Supervision or Setup 2=Maximal Assistance 6=Modified [place] 3=Moderate Assistance 7=Complete IndependenceIRFPAI Quality Coding Scale 6 Independent with activity with or without an assistive device 5 Patient requires set up or clean up by helper. Patient completes activity by themselves 4 Supervision or touching assist (CGA). [place] provide cues , steadying assist 3 The helper provides less than half the effort to complete the activity 2 The helper provides more than half the effort to complete the activity 1 Dependent. The helper does all the effort to complete an activity 7 Patient refused to complete or attempt activity 9 The patient did not perform the activity before the current illness or injury 88 Not attempted due to Medical conditions or safety concerns Transfers (B, C, W/C) (FIM): 5 Scootin Rollin Supine to/from Sit: 5 Sit to/from Stand: 5 Sit to Stand (QC): 5 Weight Bearing Right Lower Extremity: Right Partial Weight Bearing Left Lower Extremity: Left Weight Bearing/Tolerated Gait Training Gait (FIM): 6 Distance (FIM): 3=150 ft Distance: 2x 250' Walk 10 feet (QC): 5 Walk 50 ft with 2 Turns(QC): 5 Walk 150 ft (QC): 5 Gait Assistive Device: FWW Exercises NuStep Minutes: 15 NuStep Workload: 4 Assessment Patient ambulated for 250'ft before needing to a take a break due to fatigue. Patient reported that his medication was making him feel tired. Patient then used nustep for 15 mins before returning to his room. PT Short Term Goals Short Term Goals Time Frame: Jun 17, 2018 Transfers (B,C,W/C) (FIM): 5 Gait (FIM): 5 Gait Distance Comment: 300' Gait Level of Assist: 5 Gait Assistive Device: FWW PT Service Member Goals Nursing Home Goals PT Service Member Goals Time Frame: Jul 01, 2018 Transfers (B,C,W/C) (FIM): 6 Sit to Lying (QC): 6 Lying-Sitting on Side/Bed(QC): 6 Sit to Stand (QC): 6 Rollin Roll Left to Right (QC): 6 Chair/Fgn-na-Bbnbs Xfer(QC): 6 Car Transfer (QC): 6 Gait (FIM): 6 Distance: 300' Walk 10 feet (QC): 6 Walk 10ft-Uneven Surface(QC): 6 Walk 50ft with 2 Turns (QC): 6 Walk 150 ft (QC): 6 Gait Assistive Device: FWW Stairs (FIM): 2 # of Steps: 8 1 Step (curb) (QC): 6 4 Steps (QC): 6 PT Plan Treatment/Plan Treatment Plan: Continue Plan of Care Treatment Plan: Bed Mobility, Education, Functional Activity Dean, Functional Strength, Group Therapy, Gait, Safety, Therapeutic Exercise, Transfers Treatment Duration: Jul 01, 2018 Frequency: At least 5 of 7 days/Wk (IRF) Estimated Hrs Per Day: 1.5 hours per day Patient and/or Family Agrees t: Yes Time/GCodes Time In: 1245 Time Out: 1315 Total Billed Treatment Time: 30 Total Billed Treatment 1 visit FA 15 mins EX 15 mins LORE ALLEN PT Jun 17, 2018 13:31
--- NOTE | 2018-06-17 15:21 | Occupational Ther Daily Note ---
OT Current Status-Daily Note Subjective Pt seen in room, up in recliner, agreeable to OT. Would like to shower today Appearance Alert, cooperative Mental Status/Objective Functional [place] Measure 0=Not Assessed/NA 4=Minimal Assistance 1=Total Assistance 5=Supervision or Setup 2=Maximal Assistance 6=Modified [place] 3=Moderate Assistance 7=Complete [place] ADL-Treatment Central line covered for shower. Pt got up from recliner with SBA and walked SBA / FWW to bathroom. He was able to get on/off BSC over toilet with Mod I and managed clothing and hygiene with mod I. He walked SBA, FWW to bathroom and go into shower with SBA. He was able to wash and dry all parts with setup, uisng shower bench, grab bars, hand held shower. When he stood up from shower bench, he lost his balance and required a second attempt to get up, using grab bars. He walked SBA, FWW to bed to dress. Pt stood SBA to undress lower body but needed help to get TEDs off (setup). Help to get TEDS back on as well. Undressed /dressed upper body with setup. Pt left up in bed, 4 rails up, all needs met. Functional [place] Measure 0=Not Assessed/NA 4=Minimal Assistance 1=Total Assistance 5=Supervision or Setup 2=Maximal Assistance 6=Modified [place] 3=Moderate Assistance 7=Complete IndependenceIRFPAI Quality Coding Scale 6 Independent with activity with or without an assistive device 5 Patient requires set up or clean up by helper. Patient completes activity by themselves 4 Supervision or touching assist (CGA). [place] provide cues , steadying assist 3 The helper provides less than half the effort to complete the activity 2 The helper provides more than half the effort to complete the activity 1 Dependent. The helper does all the effort to complete an activity 7 Patient refused to complete or attempt activity 9 The patient did not perform the activity before the current illness or injury 88 Not attempted due to Medical conditions or safety concerns Bathing (FIM): 5 (Washed and dried all parts except back. Shower bench, grab bar, hand held shower) Upper Body (FIM): 5 (setup) Lower Body Dressing (FIM): 5 (SBA, setup (TEDS). FWW.) Toileting (FIM): 6 (Mod I to manage clothing and hygiene with BSC over toilet) Toilet/Commode Transfer (FIM): 6 (Mod I on/off BSC over toilet, with grab bar and FWW) Education OT Patient Education: Progress toward Goal/Update tx plan, Purpose of tx/ functional activities, Safety issues, Transfer techniques Teaching Recipient: Patient Teaching Methods: Discussion Response to Teaching: Verbalize Understanding, Return Demonstration OT Short Term Goals Short Term Goals Time Frame: Jun 17, 2018 Grooming(FIM): 5 Bathing(FIM): 5 Upper Body Dressing(FIM): 5 Lower Body Dressing(FIM): 5 Toileting(FIM): 5 Transfers (B,C,W/C) (FIM): 5 Toilet/Commode Transfer(FIM): 5 Shower Transfer(FIM): 5 Additional Short Term Goals: 1-Demonstrate ADL Tasks, 2-Verbalize Understanding , 3-ImproveStrength/Dean 1=Demonstrate adherence to instructed precautions during ADL tasks. 2=Patient will verbalize/demonstrate understanding of assistive devices/ modifications for ADL. 3=Patient will improve strength/tolerance for activity to enable patient to perform ADL's. OT Senior Living Goals Blown Film Extrusion Operator Goals Time Frame: Jul 01, 2018 Eating (FIM): 6 Eating (QC): 6 Groomin Oral Hygiene (QC): 6 Bathing(FIM): 6 Shower/Bathe Self (QC): 6 Upper Body Dressing(FIM): 6 Upper Body Dressing (QC): 6 Lower Body Dressing(FIM): 6 Lower Body Dressing (QC): 6 On/Off Footwear (QC): 6 Toileting(FIM): 6 Toileting Hygiene (QC): 6 Toilet/Commode Transfer(FIM): 6 Toilet/Commode Transfer (QC): 6 Tub Transfer(FIM): 5 (or shower) Shower Transfer(FIM): 5 Additional Goals: 1-Demonstrate ADL Tasks, 2-Verbalize Understanding, 3- ImproveStrength/Dean 1=Demonstrate adherence to instructed precautions during ADL tasks. 2=Patient will verbalize/demonstrate understanding of assistive devices/ modifications for ADL. 3=Patient will improve strength/tolerance for activity to enable patient to perform ADL's. OT Education/Plan Problem List/Assessment Pt would benefit from skilled OT to increase his independence in basic self care. Discharge Recommendations Plan/Recommendations: Continue POC Treatment Plan/Plan of Care Patient would benefit from OT for education, treatment and training to promote independence in ADL's, mobility, safety and/or upper extremity function for ADL' s. Plan of Care: ADL Retraining, Functional Mobility, Group Exercise/Act as Ind ( education, exercise, activity tolerance, functional activities, socialization), UE Funct Exercise/Act, UE Neuromus Re-Ed/Coord, OTHER (energy conservation education) Treatment Duration: Jul 01, 2018 Frequency: At least 5 of 7 days/Wk (IRF) Estimated Hrs Per Day: 1.5 hours per day Rehab Potential: Fair Time/GCodes Start Time: 09:35 Stop Time: 10:30 Total Time Billed (hr/min): 55 Billed Treatment Time visit, 55 minutes SASCHA SANTIAGO OT Jun 17, 2018 15:21
--- NOTE | 2018-06-17 15:29 | Occupational Ther Daily Note ---
OT Current Status-Daily Note Subjective Pt seen in room, up in bed, reluctantly agreeable to OT. Said he had just gotten pain meds Appearance Alert, cooperative Mental Status/Objective Functional [place] Measure 0=Not Assessed/NA 4=Minimal Assistance 1=Total Assistance 5=Supervision or Setup 2=Maximal Assistance 6=Modified [place] 3=Moderate Assistance 7=Complete [place] ADL-Treatment Functional [place] Measure 0=Not Assessed/NA 4=Minimal Assistance 1=Total Assistance 5=Supervision or Setup 2=Maximal Assistance 6=Modified [place] 3=Moderate Assistance 7=Complete IndependenceIRFPAI Quality Coding Scale 6 Independent with activity with or without an assistive device 5 Patient requires set up or clean up by helper. Patient completes activity by themselves 4 Supervision or touching assist (CGA). [place] provide cues , steadying assist 3 The helper provides less than half the effort to complete the activity 2 The helper provides more than half the effort to complete the activity 1 Dependent. The helper does all the effort to complete an activity 7 Patient refused to complete or attempt activity 9 The patient did not perform the activity before the current illness or injury 88 Not attempted due to Medical conditions or safety concerns Other Treatment Pt agreed to UE functional activities for strengthening. Able to move from supine to sit EOB but needed a couple trials to be able to get up from bed to stand, using FWW. Walked SBA, FWW to commons area and able to get up/down from chair with arms with SBA. Pt did card activity with 1# weight on each arm, remarking "I can really feel that in my shoulder!" To strengthen arms to help with sit to stand and other transfers. Pt returned to room and left up in bed with all needs met. Education OT Patient Education: Progress toward Goal/Update tx plan, Purpose of tx/ functional activities Teaching Recipient: Patient Teaching Methods: Discussion Response to Teaching: Verbalize Understanding, Return Demonstration OT Short Term Goals Short Term Goals Time Frame: Jun 17, 2018 Grooming(FIM): 5 Bathing(FIM): 5 Upper Body Dressing(FIM): 5 Lower Body Dressing(FIM): 5 Toileting(FIM): 5 Transfers (B,C,W/C) (FIM): 5 Toilet/Commode Transfer(FIM): 5 Shower Transfer(FIM): 5 Additional Short Term Goals: 1-Demonstrate ADL Tasks, 2-Verbalize Understanding , 3-ImproveStrength/Dean 1=Demonstrate adherence to instructed precautions during ADL tasks. 2=Patient will verbalize/demonstrate understanding of assistive devices/ modifications for ADL. 3=Patient will improve strength/tolerance for activity to enable patient to perform ADL's. OT Fdc Goals Fdc Goals Time Frame: Jul 01, 2018 Eating (FIM): 6 Eating (QC): 6 Groomin Oral Hygiene (QC): 6 Bathing(FIM): 6 Shower/Bathe Self (QC): 6 Upper Body Dressing(FIM): 6 Upper Body Dressing (QC): 6 Lower Body Dressing(FIM): 6 Lower Body Dressing (QC): 6 On/Off Footwear (QC): 6 Toileting(FIM): 6 Toileting Hygiene (QC): 6 Toilet/Commode Transfer(FIM): 6 Toilet/Commode Transfer (QC): 6 Tub Transfer(FIM): 5 (or shower) Shower Transfer(FIM): 5 Additional Goals: 1-Demonstrate ADL Tasks, 2-Verbalize Understanding, 3- ImproveStrength/Dean 1=Demonstrate adherence to instructed precautions during ADL tasks. 2=Patient will verbalize/demonstrate understanding of assistive devices/ modifications for ADL. 3=Patient will improve strength/tolerance for activity to enable patient to perform ADL's. OT Education/Plan Problem List/Assessment Pt would benefit from skilled OT to increase his independence in basic self care. Discharge Recommendations Plan/Recommendations: Continue POC Treatment Plan/Plan of Care Patient would benefit from OT for education, treatment and training to promote independence in ADL's, mobility, safety and/or upper extremity function for ADL' s. Plan of Care: ADL Retraining, Functional Mobility, Group Exercise/Act as Ind ( education, exercise, activity tolerance, functional activities, socialization), UE Funct Exercise/Act, UE Neuromus Re-Ed/Coord, OTHER (energy conservation education) Treatment Duration: Jul 01, 2018 Frequency: At least 5 of 7 days/Wk (IRF) Estimated Hrs Per Day: 1.5 hours per day Rehab Potential: Fair Time/GCodes Start Time: 14:05 Stop Time: 14:40 Total Time Billed (hr/min): 25 Billed Treatment Time visit, 25 minutes exercise (10 minutes subtracted for anesthesia visit) SASCHA BLAKE OT Jun 17, 2018 15:29
[2018-06-17 18:48] VITALS: BP 125/72
--- NOTE | 2018-06-17 19:32 | PM & R (SOAP) Progress Note ---
Subjective This was a face to face visit with the patient. Date Seen by Provider: Jun 17, 2018 Time Seen by Provider: 18:55 Subjective/Events-last exam Patient was seen in his room this evening Patient SBA for transfers reports good pain control Objective Physician Exam Last Set of Vital Signs Vital Signs Date Time Temp Pulse Resp B/P (MAP) Pulse Ox O2 Delivery O2 Flow Rate FiO2 06/17/18 18:49 Room Air 06/17/18 18:48 97.3 94 16 125/72 (89) 94 Capillary Refill : I&O Intake and Output 06/17/18 00:00 Intake Total 890 ml Output Total 700 ml Balance 190 ml Intake Oral 890 ml Output Urine Total 700 ml # Bowel Movements 1 General: Alert, Oriented X3, Cooperative, No Acute Distress HEENT: Atraumatic, PERRLA, EOMI, Mucous Memb Moist/[place]: Supple, No JVD Lungs: Clear to Auscultation Heart: Regular Rate Abdomen: Normal Bowel Sounds, Soft, No Tenderness Extremities: Other (trace edema both ankles) Neuro: Other (Weakness both legs as per H and P) Psych/Mental Status: Mental Status NL Assessment/Plan Assessment and Plan 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
[2018-06-18] MEDS: HYDROcodone/APAP 5 MG/325 MG (LORTAB) TAB PO PRN ×4 (03:30→23:15)
[2018-06-18 05:08] VITALS: BP 157/88
[2018-06-18] MEDS: ASPIRIN E.C. 81 MG (ECOTRIN) TAB PO SCH (07:49)
[2018-06-18] MEDS: APIXABAN 5 MG (ELIQUIS) TABLET PO SCH ×2 (07:49→20:09)
[2018-06-18] MEDS: DILTIAZEM 120 MG (CARDIZEM CD) CAP PO SCH (07:49)
--- NOTE | 2018-06-18 09:38 | Speech Therapy Daily Note ---
Speech Daily Progress Note Subjective Date Seen by Provider: Jun 18, 2018 Time Seen by Provider: 09:00 Pt in bed. Alert and cooperative. Pain Numeric Pain Scale: 0-No Pain Objective Memory - Picture recall. Using the same strategy the pt verbalizes out loud what he sees. With a 20 minute delay the responded to questions regarding the picture and was 90% accurate. Problem Solving - Inferences - Pt read 3 clues and he is to determine what object is being described. The pt tends to "over think" on this activity provided information this is not needed. He was 75% accurate with min to mod assist. Assessment Assessment Current Status: Fair Progress Treatment Plan Continue Plan of Care Communication Comprehension: 7 Expression: 7 Social Cognition Social Interaction: 7 Problem Solvin Memory: 5 Speech Short Term Goals Short Term Goals Short Term Goals 1. Pt will complete various auditory/visual memory activities with at least 85 % accuracy. 2. Pt will be educated regarding compensatory memory strategies and be able to recall at least 3. 3. Pt will complete problem solving activities with at least 80% and min assist. Goals # 1 and 2 were met 06/18/2018 Time Frame-ST week Comprehension: 7 Expression: 7 Social Interaction: 7 Problem Solvin Memory: 5 Speech Aluminum Sheet Cutter Goals Assisted Goals Pt will demonstrate functional cognition for safety and maximum independence for the home setting. Goal partially achieved due to a short rehab stay. Time Frame: 2 weeks Comprehension: 7 Expression: 7 Social Interaction: 7 Problem Solvin Memory: 6 Speech-Plan Patient/Family Goals Patient/Family Goals: to return home Treatment Plan Speech Therapy Treatment Plan: Discontinue ST Pt is being dc'd to home on Sunday06/19/2018. Treatment Duration: Jun 11, 2018 Frequency: Modified Program (IRF) (0) Estimated Hrs Per Day: Other (o) Rehab Potential: Fair Pt/Family Agrees to Plan: Yes Safety Risks/Education Teaching Recipient: Patient Teaching Methods: Discussion Response to Teaching: Verbalize Understanding Discharge Recommendations Home w/ Family Support Time Speech Therapy Time In: 09:00 Speech Therapy Time Out: 09:30 Total Billed Time: 30 Billed Treatment Time 1, TAL Leung Jun 18, 2018 09:38
--- NOTE | 2018-06-18 10:10 | Cardiology Progress Note ---
Cardiology SOAP Progress Note Subjective: No cardiac complaints. Objective: I&O/Vital Signs 06/18/18 06/18/18 06/18/18 05:08 06:56 09:02 Temp 98.0 Pulse 93 Resp 16 B/P (MAP) 157/88 (111) Pulse Ox 94 91 O2 Delivery Room Air Room Air Room Air 06/18/18 00:00 Intake Total 800 ml Balance 800 ml Weight (Pounds): 167 Weight (Ounces): 4.0 Weight (Calculated Kilograms): [id number] Constitutional: No appears stated age; AAO x 3; No apparent distress, No PERRL , No well-developed, No well-nourished, No other Respiratory: No accessory muscle use, No respiratory distress, No chest tender , No chest expansion is symmetric; chest is bilaterally symmetric; No lungs clear to percussion; lungs clear to auscultation; No crackles, No rhonchi, No rales, No stridor, No wheezing, No pleural rub, No other Cardiovascular: regular rate-rhythm; No irregularly irregular, No extra beats, No parasternal heave is noted, No JVD, No edema, No bradycardia, No tachycardia , No point of maximal impulse, No cardiac thrills are palpable; S1 and S2; No gallop/S3, No gallop/S4, No diastolic murmur, No systolic murmur, No friction rub, No click, No other Gastrointestional: No tender, No soft, No round, No distended, No pulsatile mass, No organomegaly, No guarding, No rebound, No tenderness, No hernia, No mass, No audible bowel sounds, No abnormal bowel sounds, No abdominal bruits, No spleenomegaly, No other Extremities: No normal range of motion, No non-tender, No normal inspection, No pedal edema, No calf tenderness, No normal capillary refill, No pelvis stable , No calf tenderness, No inflammation, No pedal edema, No slow capillary refill , No swelling, No other, No abrasion, No clubbing, No cyanosis, No ecchymosis, No laceration, No no lower extremity edema bilateral, No significant edema, No tenderness, No wound Neurologic/Psychiatric: no motor/sensory deficits, alert, normal mood/affect, oriented x 3 Skin: No normal color, No warm/dry, No cyanosis, No cool, No diaphoresis, No damp, No ecchymosis, No jaundice, No mottled, No pallor, No rash, No tattoos/ piercings, No ulcerations, No rash on exposed areas, No ulcerations on exposed areas, No other A/P: Assessment/Dx: Assessment/Admission Diagnosis Typical atrial flutter with rapid ventricular rate, converted to sinus rhythm with cardioversion. Pneumonia, resolved. Lactic acidosis, resolved. Nausea vomiting diarrhea, Stage IV colon cancer, Type II myocardial infarction Plan: Plan Typical atrial flutter with rapid ventricular rate, symptomatic typical atrial flutter with rapid ventricular rate. Successful transesophageal echocardiogram assisted cardioversion. Continues to be in sinus rhythm. On Eliqu. Likely atrial flutter typical ablation on June 21. Type 2 myocardial infarction: Borderline elevated troponin which have stayed almost at similar levels. Likely due to severe sepsis and atrial flutter. No further chest pain. Pneumonia, on IV antibiotics. Resolved. Lactic acidosis, likely due to sepsis. Resolved. Nausea vomiting diarrhea, multifactorial with contribution from sepsis and atrial flutter. No further nausea, vomiting, diarrhea. Stage IV colon cancer, deferred to Dr. Flanagan. Patient was on adjuvant chemotherapy. Thank you for your consultation. Please call me if you have any questions. Mitch Montes MD, FACP, FACC, FSCAI, FHRS, CCDS Interventional Cardiology Cardiac Electrophysiology Vascular Medicine and Endovascular Interventions Ricki MONTES MD Jun 18, 2018 10:10
--- NOTE | 2018-06-18 11:58 | Physical Therapy Daily Note ---
PT Daily Note-Current Subjective Pt sitting up in bed upon arrival. Pt agrees to PT for FIM scoring. Pain Numeric Pain Scale: 3 Location: Lower Location Body Site: Back Pain Description: Ache Mental Status Patient Orientation: Person, Place Transfers Functional [place] Measure 0=Not Assessed/NA 4=Minimal Assistance 1=Total Assistance 5=Supervision or Setup 2=Maximal Assistance 6=Modified [place] 3=Moderate Assistance 7=Complete IndependenceIRFPAI Quality Coding Scale 6 Independent with activity with or without an assistive device 5 Patient requires set up or clean up by helper. Patient completes activity by themselves 4 Supervision or touching assist (CGA). [place] provide cues , steadying assist 3 The helper provides less than half the effort to complete the activity 2 The helper provides more than half the effort to complete the activity 1 Dependent. The helper does all the effort to complete an activity 7 Patient refused to complete or attempt activity 9 The patient did not perform the activity before the current illness or injury 88 Not attempted due to Medical conditions or safety concerns Transfers (B, C, W/C) (FIM): 5 Scootin Rollin Roll Left to Right (QC): 6 Supine to/from Sit: 5 Sit to/from Stand: 5 Sit to Lying (QC): 6 Sit to Stand (QC): 5 Chair/Gyh-iq-Wxuhz Xfer(QC): 5 Bed to/from Chair: 5 Car Transfer (QC): 4 Pt has occasional difficulty with dizziness in transferring from Supine- Sitting. Pt has more difficulty transferring from EOB to Standing when stationary for a while, Pt gets stiff. Pt needs some assistance lifting BLE into car. Pt states this has been going on previous to hospital stay. Weight Bearing Right Lower Extremity: Right Partial Weight Bearing Left Lower Extremity: Left Weight Bearing/Tolerated Gait Training Does the Patient Walk?: Yes Gait (FIM): 5 Distance (FIM): 3=150 ft Distance: 225' Walk 10 feet (QC): 5 Walk 50 ft with 2 Turns(QC): 5 Walk 150 ft (QC): 5 Walking 10ft/uneven surface-QC: 5 Gait Level of Assist: 5 Gait Persons Needed: 1 Gait Assistive Device: FWW Pt needs occasional standing rest breaks as he fatigues. Wheelchair Training Does the Pt Use a Wheelchair?: No Stair Training Stair Training: Handrails/: 1 handrail Stairs (FIM): 2 #of Steps: 4 1 Step (curb) (QC): 4 4 Steps (QC): 4 12 Steps (QC): 88 Stairs: Pattern: Step to Level of Assist: 4 Pt was informed will either need second hand rail or would be better to use ramp to get into house. Balance Picking up an Object (QC): 88 Special Test Comments This is not attempted due to dizziness with changes of position. Pt has country printer /grabber at home to assist with picking up items. Treatments Pt completes bed mobility, transfers including car transfer, stairs, walking across varying surface, & ambulation. Pt returns to room to use restroom at end of tx with all needs met. Son in law is present. Assessment Pt has moments of confusion, more so than previous tx with MOBILE MARKETING MANAGER. Pt was informed ramp should be used instead of stairs at home since only 1 hand rail. MOBILE MARKETING MANAGER will practice ramp in pm. PT Short Term Goals Short Term Goals Time Frame: Jun 17, 2018 Transfers (B,C,W/C) (FIM): 5 Gait (FIM): 5 Gait Distance Comment: 300' Gait Level of Assist: 5 Gait Assistive Device: FWW PT Halfway Goals Halfway Goals PT Halfway Goals Time Frame: Jul 01, 2018 Transfers (B,C,W/C) (FIM): 6 Sit to Lying (QC): 6 Lying-Sitting on Side/Bed(QC): 6 Sit to Stand (QC): 6 Rollin Roll Left to Right (QC): 6 Chair/Ecs-mv-Bibko Xfer(QC): 6 Car Transfer (QC): 6 Gait (FIM): 6 Distance: 300' Walk 10 feet (QC): 6 Walk 10ft-Uneven Surface(QC): 6 Walk 50ft with 2 Turns (QC): 6 Walk 150 ft (QC): 6 Gait Assistive Device: FWW Stairs (FIM): 2 # of Steps: 8 1 Step (curb) (QC): 6 4 Steps (QC): 6 PT Plan Problem List Problem List: Activity Tolerance, Functional Strength, Gait Treatment/Plan Treatment Plan: Continue Plan of Care Treatment Plan: Bed Mobility, Education, Functional Activity Dean, Functional Strength, Group Therapy, Gait, Safety, Therapeutic Exercise, Transfers Treatment Duration: Jul 01, 2018 Frequency: At least 5 of 7 days/Wk (IRF) Estimated Hrs Per Day: 1.5 hours per day Patient and/or Family Agrees t: Yes Safety Risks/Education Patient Education: Transfer Techniques, Steps, Correct Positioning, Safety Issues Teaching Recipient: Patient Teaching Methods: Discussion Response to Teaching: Verbalize Understanding Time/GCodes Time In: 930 Time Out: 1015 Total Billed Treatment Time: 45 Total Billed Treatment 1, GT (15m) & FA x2 (30m) G Codes Necessary: RAMONA Champion MOBILE MARKETING MANAGER Jun 18, 2018 11:58
--- NOTE | 2018-06-18 12:27 | Occupational Ther Daily Note ---
OT Current Status-Daily Note Subjective No pain reported. Appearance Pt. in bed. Adamantly declines showering or spongebathing. States that he showered yesterday. Pt. does agree to undress/dress. Mental Status/Objective Patient Orientation: Person Functional [place] Measure 0=Not Assessed/NA 4=Minimal Assistance 1=Total Assistance 5=Supervision or Setup 2=Maximal Assistance 6=Modified [place] 3=Moderate Assistance 7=Complete [place] ADL-Treatment Functional [place] Measure 0=Not Assessed/NA 4=Minimal Assistance 1=Total Assistance 5=Supervision or Setup 2=Maximal Assistance 6=Modified [place] 3=Moderate Assistance 7=Complete IndependenceIRFPAI Quality Coding Scale 6 Independent with activity with or without an assistive device 5 Patient requires set up or clean up by helper. Patient completes activity by themselves 4 Supervision or touching assist (CGA). [place] provide cues , steadying assist 3 The helper provides less than half the effort to complete the activity 2 The helper provides more than half the effort to complete the activity 1 Dependent. The helper does all the effort to complete an activity 7 Patient refused to complete or attempt activity 9 The patient did not perform the activity before the current illness or injury 88 Not attempted due to Medical conditions or safety concerns Grooming (FIM): 5 (SBA standing at sink with walker.) Upper Body (FIM): 5 (Set up to doff/don shirt.) Upper Body Dressing (QC): 5 Lower Body Dressing (FIM): 5 (SBA to doff/don pants and socks. Pt. requires for bed to be elevated before standing each time. Pt. is able to pull feet up to himself to doff/don socks.) Lower Body Dressing (QC): 4 On/Off Footwear (QC): 5 Toileting (FIM): 6 (Pt. is able to clean self after having BM.) Toileting Hygiene (QC): 6 Transfers (B, C, W/C) (FIM): 5 (SBA while ambulating with walker.) Toilet/Commode Transfer (FIM): 5 Toilet Transfer (QC): 5 Other Treatment Pt. has some difficulty staying on task. Pt. is encouraged to shower/ spongebathe, but is adamant that he does not want to. Pt. agrees to practice dressing again even though he already has clean clothing on. Pt. transfers supine-sit with SBA and is able to stand with bed elevated. Pulls down pants over hips and sits back down. Able to doff pants and socks, and put them back on with SBA. Increased time needed. Bed is lowered each time pt. sits back down, and then elevated before standing up. States that his bed at home is about this same height. Pt. is asked if he has any concerns for home. Pt. states that his only concern is ambulating up steps, but that his family will assist him. Pt. states that he can do simple cooking such as using the microwave. However, will speak to family about capabilities. Pt. ambulates to bathroom and uses toilet with no difficulty. Ambulates to therapy gym with walker and SBA. Completed 10 minutes on armbike at min resistance to increase overall strength and endurance. Pt. able to push chair back from table after treatment. All needs met and pt. ambulated back to room. Transferred back to bed with Mod I. Education OT Patient Education: Correct positioning, Exercise program, Modified ADL techniques, Progress toward Goal/Update tx plan, Purpose of tx/functional activities, Reviewed precautions, Rehab process, Transfer techniques Teaching Recipient: Patient Teaching Methods: Demonstration, Discussion Response to Teaching: Verbalize Understanding, Return Demonstration OT Short Term Goals Short Term Goals Time Frame: Jun 17, 2018 Grooming(FIM): 5 Bathing(FIM): 5 Upper Body Dressing(FIM): 5 Lower Body Dressing(FIM): 5 Toileting(FIM): 5 Transfers (B,C,W/C) (FIM): 5 Toilet/Commode Transfer(FIM): 5 Shower Transfer(FIM): 5 Comprehension(FIM): 7 Expression(FIM): 7 Social Interaction(FIM): 7 Problem Solving(FIM): 5 Memory(FIM): 5 Additional Short Term Goals: 1-Demonstrate ADL Tasks, 2-Verbalize Understanding , 3-ImproveStrength/Dean 1=Demonstrate adherence to instructed precautions during ADL tasks. 2=Patient will verbalize/demonstrate understanding of assistive devices/ modifications for ADL. 3=Patient will improve strength/tolerance for activity to enable patient to perform ADL's. OT Job Molder Goals Mcfp Goals Time Frame: Jul 01, 2018 Eating (FIM): 6 Eating (QC): 6 Groomin Oral Hygiene (QC): 6 Bathing(FIM): 6 Shower/Bathe Self (QC): 6 Upper Body Dressing(FIM): 6 Upper Body Dressing (QC): 6 Lower Body Dressing(FIM): 6 Lower Body Dressing (QC): 6 On/Off Footwear (QC): 6 Toileting(FIM): 6 Toileting Hygiene (QC): 6 Toilet/Commode Transfer(FIM): 6 Toilet/Commode Transfer (QC): 6 Tub Transfer(FIM): 5 (or shower) Shower Transfer(FIM): 5 Comprehension(FIM): 7 Expression (FIM): 7 Social Interaction(FIM): 7 Problem Solving(FIM): 5 Memory(FIM): 6 Additional Goals: 1-Demonstrate ADL Tasks, 2-Verbalize Understanding, 3- ImproveStrength/Dean 1=Demonstrate adherence to instructed precautions during ADL tasks. 2=Patient will verbalize/demonstrate understanding of assistive devices/ modifications for ADL. 3=Patient will improve strength/tolerance for activity to enable patient to perform ADL's. OT Education/Plan Problem List/Assessment Assessment: Decreased Activ Tolerance, Impaired I ADL's Pt would benefit from skilled OT to increase his independence in basic self care. Discharge Recommendations Plan/Recommendations: Continue POC Therapy D/C Recommendations: Home w/ Family Support Treatment Plan/Plan of Care Treatment,Training & Education: Yes Patient would benefit from OT for education, treatment and training to promote independence in ADL's, mobility, safety and/or upper extremity function for ADL' s. Plan of Care: ADL Retraining, Functional Mobility, Group Exercise/Act as Ind ( education, exercise, activity tolerance, functional activities, socialization), UE Funct Exercise/Act, UE Neuromus Re-Ed/Coord, OTHER (energy conservation education) Treatment Duration: Jul 01, 2018 Frequency: At least 5 of 7 days/Wk (IRF) Estimated Hrs Per Day: 1.5 hours per day Agreement: Yes Rehab Potential: Fair Time/GCodes Start Time: 11:00 Stop Time: 12:00 Total Time Billed (hr/min): 60 Billed Treatment Time 1, ADL x 45minutes, Ex x 15minutes JOSIE ROACH OT Jun 18, 2018 12:27
--- NOTE | 2018-06-18 14:17 | PM & R (SOAP) Progress Note ---
Subjective This was a face to face visit with the patient. Date Seen by Provider: Jun 18, 2018 Time Seen by Provider: 08:05 Subjective/Events-last exam Patient was seen in his rrom this AM Patient SBA for transfers Discussed case with RN Patient to have cardiac procedure on 06-20-18 and discharge is set for tomorrow Labs preop to be drawn tomorrow. Objective Physician Exam Last Set of Vital Signs Vital Signs Date Time Temp Pulse Resp B/P (MAP) Pulse Ox O2 Delivery O2 Flow Rate FiO2 06/18/18 09:02 Room Air 06/18/18 06:56 91 06/18/18 05:08 98.0 93 16 157/88 (111) Capillary Refill : I&O Intake and Output 06/18/18 00:00 Intake Total 1290 ml Output Total 450 ml Balance 840 ml Intake Oral 1290 ml Output Urine Total 450 ml # Voids 5 # Bowel Movements 1 General: Alert, Oriented X3, Cooperative, No Acute Distress HEENT: Atraumatic, PERRLA, EOMI, Mucous Memb Moist/[place] Neck: Supple, No JVD Lungs: Clear to Auscultation Heart: Regular Rate Abdomen: Normal Bowel Sounds, Soft, No Tenderness Extremities: Other (trace edema both ankles) Neuro: Other (Weakness both legs as per H and P) Psych/Mental Status: Mental Status NL Assessment/Plan Assessment and Plan 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
--- NOTE | 2018-06-18 14:21 | Occupational Ther Daily Note ---
OT Current Status-Daily Note Subjective No pain reported. Appearance Pt. up with physical therapy. Agrees to work with OT. Mental Status/Objective Patient Orientation: Person Functional [place] Measure 0=Not Assessed/NA 4=Minimal Assistance 1=Total Assistance 5=Supervision or Setup 2=Maximal Assistance 6=Modified [place] 3=Moderate Assistance 7=Complete [place] ADL-Treatment Functional [place] Measure 0=Not Assessed/NA 4=Minimal Assistance 1=Total Assistance 5=Supervision or Setup 2=Maximal Assistance 6=Modified [place] 3=Moderate Assistance 7=Complete IndependenceIRFPAI Quality Coding Scale 6 Independent with activity with or without an assistive device 5 Patient requires set up or clean up by helper. Patient completes activity by themselves 4 Supervision or touching assist (CGA). [place] provide cues , steadying assist 3 The helper provides less than half the effort to complete the activity 2 The helper provides more than half the effort to complete the activity 1 Dependent. The helper does all the effort to complete an activity 7 Patient refused to complete or attempt activity 9 The patient did not perform the activity before the current illness or injury 88 Not attempted due to Medical conditions or safety concerns Transfers (B, C, W/C) (FIM): 5 (SBA with ambulation using walker due to balance at times. Transfers sit-stand with SBA.) Other Treatment Pt. up in dining area with PT. Agrees to work with OT. Pt. educated on kitchen safety, and kitchen tasks to make environment at home more efficient. Pt. practiced retrieving item from high and low cabinets. Educated on walker basket and walker tray. Pt. encouraged to not use stove/oven,and to have family assist him with making all needed items within arms reach. Pt. verbalizes understanding of this. Pt. is also educated about making sure items such as milk are bought in smaller size quantities for easier use. Pt. states that he will be using his microwave, and does not plan to use his oven. Verbalizes understanding of safety recommendations for easy food management and prep at home. Pt. ambulated back to room with all needs met in bed. Transferred to bed with SBA. Education OT Patient Education: Correct positioning, Modified ADL techniques, Progress toward Goal/Update tx plan, Purpose of tx/functional activities, Reviewed precautions, Rehab process, Transfer techniques Teaching Recipient: Patient Teaching Methods: Demonstration, Discussion Response to Teaching: Verbalize Understanding, Return Demonstration OT Short Term Goals Short Term Goals Time Frame: Jun 17, 2018 Grooming(FIM): 5 Bathing(FIM): 5 Upper Body Dressing(FIM): 5 Lower Body Dressing(FIM): 5 Toileting(FIM): 5 Transfers (B,C,W/C) (FIM): 5 Toilet/Commode Transfer(FIM): 5 Shower Transfer(FIM): 5 Comprehension(FIM): 7 Expression(FIM): 7 Social Interaction(FIM): 7 Problem Solving(FIM): 5 Memory(FIM): 5 Additional Short Term Goals: 1-Demonstrate ADL Tasks, 2-Verbalize Understanding , 3-ImproveStrength/Dean 1=Demonstrate adherence to instructed precautions during ADL tasks. 2=Patient will verbalize/demonstrate understanding of assistive devices/ modifications for ADL. 3=Patient will improve strength/tolerance for activity to enable patient to perform ADL's. OT Reproductive Surgeon Goals Reproductive Surgeon Goals Time Frame: Jul 01, 2018 Eating (FIM): 6 Eating (QC): 6 Groomin Oral Hygiene (QC): 6 Bathing(FIM): 6 Shower/Bathe Self (QC): 6 Upper Body Dressing(FIM): 6 Upper Body Dressing (QC): 6 Lower Body Dressing(FIM): 6 Lower Body Dressing (QC): 6 On/Off Footwear (QC): 6 Toileting(FIM): 6 Toileting Hygiene (QC): 6 Toilet/Commode Transfer(FIM): 6 Toilet/Commode Transfer (QC): 6 Tub Transfer(FIM): 5 (or shower) Shower Transfer(FIM): 5 Comprehension(FIM): 7 Expression (FIM): 7 Social Interaction(FIM): 7 Problem Solving(FIM): 5 Memory(FIM): 6 Additional Goals: 1-Demonstrate ADL Tasks, 2-Verbalize Understanding, 3- ImproveStrength/Dean 1=Demonstrate adherence to instructed precautions during ADL tasks. 2=Patient will verbalize/demonstrate understanding of assistive devices/ modifications for ADL. 3=Patient will improve strength/tolerance for activity to enable patient to perform ADL's. OT Education/Plan Problem List/Assessment Assessment: Decreased Activ Tolerance, Impaired I ADL's, Impaired Self-Care Skills Pt would benefit from skilled OT to increase his independence in basic self care. Discharge Recommendations Plan/Recommendations: Continue POC Therapy D/C Recommendations: Home w/ Family Support, Occupational Therapy Home Care Target Placement Home with family support. Treatment Plan/Plan of Care Treatment,Training & Education: Yes Patient would benefit from OT for education, treatment and training to promote independence in ADL's, mobility, safety and/or upper extremity function for ADL' s. Plan of Care: ADL Retraining, Functional Mobility, Group Exercise/Act as Ind ( education, exercise, activity tolerance, functional activities, socialization), UE Funct Exercise/Act, UE Neuromus Re-Ed/Coord, OTHER (energy conservation education) Treatment Duration: Jul 01, 2018 Frequency: At least 5 of 7 days/Wk (IRF) Estimated Hrs Per Day: 1.5 hours per day Agreement: Yes Rehab Potential: Fair Time/GCodes Start Time: 13:30 Stop Time: 14:00 Total Time Billed (hr/min): 30 Billed Treatment Time 1, ADL x 30minutes JOSIE ROACH OT Jun 18, 2018 14:21
[2018-06-18 16:10] VITALS: BP 120/68
--- NOTE | 2018-06-18 16:10 | Physical Therapy Daily Note ---
PT Daily Note-Current Subjective Pt laying Supine in bed upon arrival. Pt agrees to PT. Pt is very talkative and has to be kept on task. Pain Numeric Pain Scale: 3 Location: Lower Location Body Site: Back Pain Description: Ache Mental Status Patient Orientation: Person, Place Transfers Functional [place] Measure 0=Not Assessed/NA 4=Minimal Assistance 1=Total Assistance 5=Supervision or Setup 2=Maximal Assistance 6=Modified [place] 3=Moderate Assistance 7=Complete IndependenceIRFPAI Quality Coding Scale 6 Independent with activity with or without an assistive device 5 Patient requires set up or clean up by helper. Patient completes activity by themselves 4 Supervision or touching assist (CGA). Leopold provide cues , steadying assist 3 The helper provides less than half the effort to complete the activity 2 The helper provides more than half the effort to complete the activity 1 Dependent. The helper does all the effort to complete an activity 7 Patient refused to complete or attempt activity 9 The patient did not perform the activity before the current illness or injury 88 Not attempted due to Medical conditions or safety concerns Scootin Supine to/from Sit: 5 Sit to/from Stand: 5 Sit to Lying (QC): 5 Sit to Stand (QC): 5 Weight Bearing Right Lower Extremity: Right Partial Weight Bearing Left Lower Extremity: Left Weight Bearing/Tolerated Gait Training Does the Patient Walk?: Yes Distance (FIM): 3=150 ft Distance: 750' Walk 10 feet (QC): 5 Walk 50 ft with 2 Turns(QC): 5 Walk 150 ft (QC): 5 Gait Level of Assist: 5 Gait Persons Needed: 1 Gait Assistive Device: FWW Pt needs rest breaks occasionally for fatigue. Pt ambulates ramp for practice for home. Pt continues to walk more on toes than normalized gait. This has not changed even with VC to correct. Wheelchair Training Does the Pt Use a Wheelchair?: No Treatments Pt walks throughout hallway, on elevator & up & down ramp. Pt returns ARU after ambulation and OT starts tx. Assessment Current Status: Good Progress Pt fatigues and needs occasional rest breaks. Pt seems a little nervous about discharge to home. PT Short Term Goals Short Term Goals Time Frame: Jun 17, 2018 Transfers (B,C,W/C) (FIM): 5 Gait (FIM): 5 Gait Distance Comment: 300' Gait Level of Assist: 5 Gait Assistive Device: FWW PT Medical Instrument Cable Fabricator Goals Fci Goals PT Medical Instrument Cable Fabricator Goals Time Frame: Jul 01, 2018 Transfers (B,C,W/C) (FIM): 6 Sit to Lying (QC): 6 Lying-Sitting on Side/Bed(QC): 6 Sit to Stand (QC): 6 Rollin Roll Left to Right (QC): 6 Chair/Nmx-ug-Ghdyg Xfer(QC): 6 Car Transfer (QC): 6 Gait (FIM): 6 Distance: 300' Walk 10 feet (QC): 6 Walk 10ft-Uneven Surface(QC): 6 Walk 50ft with 2 Turns (QC): 6 Walk 150 ft (QC): 6 Gait Assistive Device: FWW Stairs (FIM): 2 # of Steps: 8 1 Step (curb) (QC): 6 4 Steps (QC): 6 PT Plan Problem List Problem List: Activity Tolerance, Functional Strength, Gait Treatment/Plan Treatment Plan: Continue Plan of Care Treatment Plan: Bed Mobility, Education, Functional Activity Dean, Functional Strength, Group Therapy, Gait, Safety, Therapeutic Exercise, Transfers Treatment Duration: Jul 01, 2018 Frequency: At least 5 of 7 days/Wk (IRF) Estimated Hrs Per Day: 1.5 hours per day Patient and/or Family Agrees t: Yes Safety Risks/Education Patient Education: Gait Training, Transfer Techniques, Correct Positioning, Safety Issues Teaching Recipient: Patient Teaching Methods: Discussion Response to Teaching: Verbalize Understanding Time/GCodes Time In: 1300 Time Out: 1330 Total Billed Treatment Time: 30 Total Billed Treatment 1, GT x2 (30m) G Codes Necessary: RAMONA Champion UNIT EDUCATOR Jun 18, 2018 16:10
[2018-06-18] MEDS ORDERED: HYDR-3812 PO (20:19)
[2018-06-18] MEDS ORDERED: ASPI-983 PO (20:19)
[2018-06-18] MEDS ORDERED: APIX5TAB PO (20:19)
[2018-06-18] MEDS ORDERED: DILT120C63 PO (20:19)
[2018-06-18] MEDS ORDERED: FENT1PAT8 TD (20:19)
[2018-06-19 05:29] LABS: HEMOGLOBIN 12.1 G/DL (13.3-17.7); MEAN PLATELET VOLUME 9.1 FL (7.4-10.4); RED BLOOD COUNT 4.34 10^6/uL (4.35-5.85); RED CELL DISTRIBUTION WIDTH 17.4 % (10.0-14.5); WHITE BLOOD COUNT 12.3 10^3/uL (4.3-11.0)
[2018-06-19 05:44] LABS: INR 1.3 (0.8-1.4); PROTHROMBIN TIME PATIENT 16.2 SEC (12.2-14.7)
[2018-06-19 05:52] LABS: ALANINE AMINOTRANSFERASE 17 U/L (0-55); ALBUMIN 2.5 GM/DL (3.2-4.5); ALKALINE PHOSPHATASE 508 U/L (40-136); BILIRUBIN,TOTAL 1.1 MG/DL (0.1-1.0); BUN/CREATININE RATIO 28; CALCIUM 8.7 MG/DL (8.5-10.1); CARBON DIOXIDE 23 MMOL/L (21-32); CHLORIDE 103 MMOL/L (98-107); CREATININE SERUM 0.61 MG/DL (0.60-1.30); GFR ESTIMATED > 60; GLUCOSE 76 MG/DL (70-105); POTASSIUM 3.1 MMOL/L (3.6-5.0); SODIUM 138 MMOL/L (135-145); TOTAL PROTEIN 4.8 GM/DL (6.4-8.2)
[2018-06-19 06:13] VITALS: BP 144/77
[2018-06-19] MEDS: DILTIAZEM 120 MG (CARDIZEM CD) CAP PO SCH (07:53)
[2018-06-19] MEDS: APIXABAN 5 MG (ELIQUIS) TABLET PO SCH (07:53)
[2018-06-19] MEDS: ASPIRIN E.C. 81 MG (ECOTRIN) TAB PO SCH (07:53)
[2018-06-19] MEDS: HYDROcodone/APAP 5 MG/325 MG (LORTAB) TAB PO PRN ×2 (07:54→16:30)
--- NOTE | 2018-06-19 08:16 | PM & R (SOAP) Progress Note ---
Subjective This was a face to face visit with the patient. Date Seen by Provider: Jun 19, 2018 Time Seen by Provider: 07:40 Subjective/Events-last exam Patient was seen in his room this AM Labs reviewed Discussed with MAXIMO dean ordered Objective Physician Exam Last Set of Vital Signs Vital Signs Date Time Temp Pulse Resp B/P (MAP) Pulse Ox O2 Delivery O2 Flow Rate FiO2 06/19/18 06:13 97.2 85 16 144/77 (99) 93 Room Air Capillary Refill : I&O Intake and Output 06/19/18 00:00 Intake Total 640 ml Output Total 1350 ml Balance -710 ml Intake Oral 640 ml Output Urine Total 1350 ml # Voids 1 # Bowel Movements 1 General: Alert, Oriented X3, Cooperative, No Acute Distress HEENT: Atraumatic, PERRLA, EOMI, Mucous Memb Moist/[place] Neck: Supple, No JVD Lungs: Clear to Auscultation Heart: Regular Rate Abdomen: Normal Bowel Sounds, Soft, No Tenderness Extremities: Other (trace edema both ankles) Neuro: Other (Weakness both legs as per H and P) Psych/Mental Status: Mental Status NL Results Lab Data Laboratory Tests 06/19/18 05:10: White Blood Count 12.3H, Red Blood Count 4.34L, Hemoglobin 12.1L, Hematocrit 38L , Mean Corpuscular Volume 86, Mean Corpuscular Hemoglobin 28, Mean Corpuscular Hemoglobin Concent 32, Red Cell Distribution Width 17.4H, Platelet Count 218, Mean Platelet Volume 9.1, Prothrombin Time 16.2H, INR Comment 1.3, Activated Partial Thromboplast Time 37H, Sodium Level 138, Potassium Level 3.1L, Chloride Level 103, Carbon Dioxide Level 23, Anion Gap 12, Blood Urea Nitrogen 17, Creatinine 0.61, Estimat Glomerular Filtration Rate > 60, BUN/Creatinine Ratio 28, Glucose Level 76, Calcium Level 8.7, Corrected Calcium 9.9, Total Bilirubin 1.1H, Aspartate Amino Transf (AST/SGOT) 38H, Alanine Aminotransferase (ALT/SGPT ) 17, Alkaline Phosphatase 508H, Total Protein 4.8L, Albumin 2.5L Assessment/Plan Assessment and Plan Home today with family replace K Discharge meds reviewed RX for D Patch provided F/U with DR Montes tomorrow for ablation F/U with PCP See orders Co-Morbidities that are continuing to impact the rehab process: (include details ) SARITA CONCEPCION MD Jun 19, 2018 08:16
[2018-06-19] MEDS ORDERED: KCL 20 MEQ TAB (K-DUR) PO ONE (08:30)
--- NOTE | 2018-06-19 10:40 | Progress Note-Hospitalist ---
Subjective HPI/CC On Admission Date Seen by Provider: Jun 19, 2018 Time Seen by Provider: 10:30 Subjective/Events-last exam Patient looking forward to going home today BM+ Urinating well No issues Objective Exam Vital Signs Vital Signs Date Time Temp Pulse Resp B/P (MAP) Pulse Ox O2 Delivery O2 Flow Rate FiO2 06/19/18 09:00 93 Room Air 06/19/18 06:13 97.2 85 16 144/77 (99) Capillary Refill : General Appearance: No Apparent Distress, WD/WN, Chronically ill, Cachetic Respiratory: Chest Non Tender, Lungs Clear, Normal Breath Sounds, No Accessory Muscle Use, No Respiratory Distress Cardiovascular: Regular Rate, Rhythm, No Edema, No Gallop, No JVD, No Murmur, Normal Peripheral Pulses Neurologic/Psychiatric: Alert, Oriented x3, No Motor/Sensory Deficits, Normal Mood/Affect Skin: Normal Color, Warm/Dry Results/Procedures Lab Laboratory Tests 06/19/18 05:10 Patient resulted labs reviewed. Assessment/Plan Assessment and Plan Assess & Plan/Chief Complaint Assessment: Severe debility Loose stools Atrial flutter Anticoagulation for stroke prophylaxis History of colon cancer with metastases Recent pneumonia COPD Plan: [facility] Diagnosis/Problems Diagnosis/Problems (1) DEBILITY Status: Acute (2) Prostate hypertrophy Status: Chronic (3) Atrial flutter with rapid ventricular response Status: Resolved (4) CAD (coronary artery disease) Status: Chronic Qualifiers: Coronary Disease-Associated Artery/Lesion type: [place] artery [place] vs. transplanted heart: [place] heart Associated angina: without angina Qualified Codes: I25.10 - Atherosclerotic heart disease of [place] coronary artery without angina pectoris (5) Pathologic lumbar vertebral fracture Status: Acute Qualifiers: Encounter type: sequela Qualified Codes: M84.48XS - Pathological fracture , other site, sequela (6) DVT prophylaxis Status: Acute (7) Pneumonia Status: Acute (8) Colon cancer Status: Acute (9) Nausea vomiting and diarrhea Status: Resolved Clinical Quality Measures DVT/VTE Risk/Contraindication: Risk Factor Score Per Nursin RFS Level Per Nursing on Admit: 4+=Very High RADHA JEAN BAPTISTE DO Jun 19, 2018 10:40
--- NOTE | 2018-06-19 12:07 | D/C HH Face to Face Order ---
D/C Face to Face Orders Instructions for Patient Via [facility], Patient Instructions/FollowUp: [facility] Dr. Carter Physician to follow Patient: [facility] Discharge Diet for Home: Regular Diet Patient Data-Allergies,Ht & Wt Patient Allergies: Coded Allergies: No Known Drug Allergies (Unverified , 03/25/18) Height (Feet): 6 Height (Inches): 4.00 Weight (Pounds): 167 Weight (Ounces): 4.0 Home Health Need/Face to Face Date of Face to Face: Jun 19, 2018 Clinical Findings: Generalized weakness and fatigue, Muscle weakness, Unsteady gait I have seen Pt [id number]: Yes Discharged To: Home Diagnosis/Conditions: Debility Patient is Homebound due to: CognItive deficits, Muscle weakness Homebound Status Due to the above stated illness, injury or surgical procedure (medical condition or diagnosis) and associated clinical findings, the patient is homebound because of his/her inability to leave home except with aid of a supportive device and/or person AND leaving the home requires a considerable and taxing effort or is medically contraindicated. Pt req the following assistanc: Walker Home Health Nursing Orders Home Health Services Order: Nursing Services, Trailer Assembler-Evaluate & Treat, Physical Therapy-Evaluate & Treat RN for med mangement. Start of care on 06/22 due to cardiac outpatient procedure on 06/21 Therapy Orders Therapy Orders: OT (must have SN or PT order), Physical Therapy Therapy Specific Orders: Eval assistive deivces, Teach enviro modifications/ safety, Gait training, Increase strength/endurance, Restore ROM Certify Stmt I certify that this patient is under my care and that I, a nurse practitioner or a physician; a malt specifications control assistant working with me, had a face to face encounter that - meets the physician face to face encounter requirements with this patient as dated. I personally scribed for SARITA CONCEPCION MD ([facility]) on 06/19/18 at 12:07. Electronically submitted by Kristal Acosta ([id number]). SARITA CONCEPCION MD Jun 19, 2018 12:07
--- NOTE | 2018-06-19 13:22 | Cardiology Progress Note ---
Cardiology SOAP Progress Note Subjective: No cardiac complaints. Objective: I&O/Vital Signs 06/19/18 06/19/18 06:13 09:00 Temp 97.2 Pulse 85 Resp 16 B/P (MAP) 144/77 (99) Pulse Ox 93 93 O2 Delivery Room Air Room Air 06/19/18 00:00 Intake Total 440 ml Output Total 400 ml Balance 40 ml Weight (Pounds): 167 Weight (Ounces): 4.0 Weight (Calculated Kilograms): 75.384156 Constitutional: No appears stated age; AAO x 3; No apparent distress, No PERRL , No well-developed, No well-nourished, No other Respiratory: No accessory muscle use, No respiratory distress, No chest tender , No chest expansion is symmetric; chest is bilaterally symmetric; No lungs clear to percussion; lungs clear to auscultation; No crackles, No rhonchi, No rales, No stridor, No wheezing, No pleural rub, No other Cardiovascular: regular rate-rhythm; No irregularly irregular, No extra beats, No parasternal heave is noted, No JVD, No edema, No bradycardia, No tachycardia , No point of maximal impulse, No cardiac thrills are palpable; S1 and S2; No gallop/S3, No gallop/S4, No diastolic murmur, No systolic murmur, No friction rub, No click, No other Gastrointestional: No tender, No soft, No round, No distended, No pulsatile mass, No organomegaly, No guarding, No rebound, No tenderness, No hernia, No mass, No audible bowel sounds, No abnormal bowel sounds, No abdominal bruits, No spleenomegaly, No other Extremities: No normal range of motion, No non-tender, No normal inspection, No pedal edema, No calf tenderness, No normal capillary refill, No pelvis stable , No calf tenderness, No inflammation, No pedal edema, No slow capillary refill , No swelling, No other, No abrasion, No clubbing, No cyanosis, No ecchymosis, No laceration, No no lower extremity edema bilateral, No significant edema, No tenderness, No wound Neurologic/Psychiatric: no motor/sensory deficits, alert, normal mood/affect, oriented x 3 Skin: No normal color, No warm/dry, No cyanosis, No cool, No diaphoresis, No damp, No ecchymosis, No jaundice, No mottled, No pallor, No rash, No tattoos/ piercings, No ulcerations, No rash on exposed areas, No ulcerations on exposed areas, No other Results/Procedures: Labs Laboratory Tests 06/19/18 05:10: White Blood Count 12.3H, Red Blood Count 4.34L, Hemoglobin 12.1L, Hematocrit 38L , Mean Corpuscular Volume 86, Mean Corpuscular Hemoglobin 28, Mean Corpuscular Hemoglobin Concent 32, Red Cell Distribution Width 17.4H, Platelet Count 218, Mean Platelet Volume 9.1, Prothrombin Time 16.2H, INR Comment 1.3, Activated Partial Thromboplast Time 37H, Sodium Level 138, Potassium Level 3.1L, Chloride Level 103, Carbon Dioxide Level 23, Anion Gap 12, Blood Urea Nitrogen 17, Creatinine 0.61, Estimat Glomerular Filtration Rate > 60, BUN/Creatinine Ratio 28, Glucose Level 76, Calcium Level 8.7, Corrected Calcium 9.9, Total Bilirubin 1.1H, Aspartate Amino Transf (AST/SGOT) 38H, Alanine Aminotransferase (ALT/SGPT ) 17, Alkaline Phosphatase 508H, Total Protein 4.8L, Albumin 2.5L A/P: Assessment/Dx: Assessment/Admission Diagnosis Typical atrial flutter with rapid ventricular rate, converted to sinus rhythm with cardioversion. Pneumonia, resolved. Lactic acidosis, resolved. Nausea vomiting diarrhea, Stage IV colon cancer, Type II myocardial infarction Plan: Plan Typical atrial flutter with rapid ventricular rate, symptomatic typical atrial flutter with rapid ventricular rate. Successful transesophageal echocardiogram assisted cardioversion. Continues to be in sinus rhythm. On Eliquis. atrial flutter typical ablation planned on June 21. Type 2 myocardial infarction: Borderline elevated troponin which have stayed almost at similar levels. Likely due to severe sepsis and atrial flutter. No further chest pain. Pneumonia, on IV antibiotics. Resolved. Lactic acidosis, likely due to sepsis. Resolved. Nausea vomiting diarrhea, multifactorial with contribution from sepsis and atrial flutter. No further nausea, vomiting, diarrhea. Stage IV colon cancer, deferred to Dr. Flanagan. Patient was on adjuvant chemotherapy. Thank you for your consultation. Please call me if you have any questions. Mitch Montes MD, FACP, FACC, FSCAI, FHRS, CCDS Interventional Cardiology Cardiac Electrophysiology Vascular Medicine and Endovascular Interventions Ricki MONTES MD Jun 19, 2018 1:22 pm
--- NOTE | 2018-06-19 16:10 | Therapy Team Discharge Summary ---
Therapy Discharge Summary Discharge Recommendations Date of Discharge Therapy D/C Recommendations: Home w/ Family Support, Occupational Therapy Home Care Physical Therapy Patient came to rehab with a-fib with RVR. Upon evaluation patient performed bed mobility with SBA, sit to stand with CGA, transfers with CGA, car transfer with CGA, ambulated 200' with a rolling walker with SBA, including 50' with at least 2 turns of 90 degrees and 10' over an uneven surface, and went up and down 4 steps using 2 handrails with CGA. Patient has been performing bed mobility and transfer training, balance and endurance training, functional strengthening, stair training, gait training, and education. Patient has made fair progress but has only met his long wall shear operator goals for bed mobility. Now, patient performs bed mobility with mod I, sit to stand and transfers with SBA, car transfer SBA, ambulates 225' with a rolling walker with SBA (including 50' with at least 2 turns of 90 degrees and 10' over an uneven surface, and can go up and down 4 steps using 1 handrail with CGA. Patient is being discharged from this facility today and will be discharged from PT at this time. Occupational Therapy Decreased Activ Tolerance, Impaired I ADL's, Impaired Self-Care Skills PT Group Home Goals Group Home Goals PT Preforms Laminator Goals Time Frame: Jul 01, 2018 Transfers (B,C,W/C) (FIM): 6 Roll Left to Right (QC): 6 Sit to Lying (QC): 6 Lying-Sitting on Side/Bed(QC): 6 Sit to Stand (QC): 6 Chair/Fsa-wk-Aojqk Xfer(QC): 6 Car Transfer (QC): 6 Gait (FIM): 6 Distance: 300' Walk 10 feet (QC): 6 Walk 10ft-Uneven Surface(QC): 6 Walk 50ft with 2 Turns (QC): 6 Walk 150 ft (QC): 6 Gait Assistive Device: FWW Stairs (FIM): 2 # of Steps: 8 1 Step (curb) (QC): 6 4 Steps (QC): 6 OT Preforms Laminator Goals Group Home Goals Time Frame: Jul 01, 2018 Eating (FIM): 6 Eating (QC): 6 Oral Hygiene (QC): 6 Grooming(FIM): 6 Bathing(FIM): 6 Shower/Bathe Self (QC): 6 Upper Body Dressing(FIM): 6 Upper Body Dressing (QC): 6 Lower Body Dressing(FIM): 6 Lower Body Dressing (QC): 6 On/Off Footwear (QC): 6 Toileting(FIM): 6 Toileting Hygiene (QC): 6 Toilet/Commode Transfer(FIM): 6 Toilet/Commode Transfer (QC): 6 Tub Transfer(FIM): 5 (or shower) Shower Transfer(FIM): 5 Comprehension(FIM): 7 Expression (FIM): 7 Social Interaction(FIM): 7 Problem Solving(FIM): 5 Memory(FIM): 6 Additional Goals: 1-Demonstrate ADL Tasks, 2-Verbalize Understanding, 3- ImproveStrength/Dean 1=Demonstrate adherence to instructed precautions during ADL tasks. 2=Patient will verbalize/demonstrate understanding of assistive devices/ modifications for ADL. 3=Patient will improve strength/tolerance for activity to enable patient to perform ADL's. Speech Preforms Laminator Goals Group Home Goals Pt will demonstrate functional cognition for safety and maximum independence for the home setting. Goal partially achieved due to a short rehab stay. Time Frame: 2 weeks Comprehension: 7 Expression: 7 Social Interaction: 7 Problem Solvin Memory: 6 ELISABETH GIRALDO PT Jun 19, 2018 16:10
[2018-06-19 16:50] VITALS: BP 144/77
--- NOTE | 2018-06-20 13:38 | Therapy Team Discharge Summary ---
Therapy Discharge Summary Discharge Recommendations Date of Discharge Jun 19, 2018 at 16:50 Therapy D/C Recommendations: Home w/ Family Support, Occupational Therapy Home Care Occupational Therapy Pt. has been seen by occupational therapy to increase overall strength and independence with daily tasks. Pt. has made progress but continues to require assistance with all tasks. Pt. demonstrates decreased ability to complete ADLS with full independence or Mod I. Pt. is discharging home with family support and care. Recommend further OT care. Decreased Activ Tolerance, Impaired I ADL's, Impaired Self-Care Skills PT Snf Goals Snf Goals PT Snf Goals Time Frame: Jul 01, 2018 Transfers (B,C,W/C) (FIM): 6 Roll Left to Right (QC): 6 Sit to Lying (QC): 6 Lying-Sitting on Side/Bed(QC): 6 Sit to Stand (QC): 6 Chair/Paw-lw-Yjaqv Xfer(QC): 6 Car Transfer (QC): 6 Gait (FIM): 6 Distance: 300' Walk 10 feet (QC): 6 Walk 10ft-Uneven Surface(QC): 6 Walk 50ft with 2 Turns (QC): 6 Walk 150 ft (QC): 6 Gait Assistive Device: FWW Stairs (FIM): 2 # of Steps: 8 1 Step (curb) (QC): 6 4 Steps (QC): 6 OT Customer Service Representative Goals Snf Goals Time Frame: Jul 01, 2018 Eating (FIM): 6 (met) Eating (QC): 6 (met) Oral Hygiene (QC): 6 (no met) Grooming(FIM): 6 (not met) Bathing(FIM): 6 (not met) Shower/Bathe Self (QC): 6 (not met) Upper Body Dressing(FIM): 6 (not met) Upper Body Dressing (QC): 6 (not met) Lower Body Dressing(FIM): 6 (not met) Lower Body Dressing (QC): 6 (not met) On/Off Footwear (QC): 6 (not met) Toileting(FIM): 6 (not met) Toileting Hygiene (QC): 6 (not met) Toilet/Commode Transfer(FIM): 6 (not met) Toilet/Commode Transfer (QC): 6 (not met) Tub Transfer(FIM): 5 (or shower) Shower Transfer(FIM): 5 Comprehension(FIM): 7 Expression (FIM): 7 Social Interaction(FIM): 7 Problem Solving(FIM): 5 Memory(FIM): 6 Additional Goals: 1-Demonstrate ADL Tasks, 2-Verbalize Understanding, 3- ImproveStrength/Dean 1=Demonstrate adherence to instructed precautions during ADL tasks. 2=Patient will verbalize/demonstrate understanding of assistive devices/ modifications for ADL. 3=Patient will improve strength/tolerance for activity to enable patient to perform ADL's. Speech Customer Service Representative Goals Customer Service Representative Goals Pt will demonstrate functional cognition for safety and maximum independence for the home setting. Goal partially achieved due to a short rehab stay. Time Frame: 2 weeks Comprehension: 7 Expression: 7 Social Interaction: 7 Problem Solvin Memory: 6 JOSIE ROACH OT Jun 20, 2018 13:38
--- NOTE | 2018-06-20 15:44 | Therapy Team Discharge Summary ---
Therapy Discharge Summary Discharge Recommendations Date of Discharge Jun 19, 2018 at 16:50 Therapy D/C Recommendations: Home w/ Family Support, Occupational Therapy Home Care Occupational Therapy Decreased Activ Tolerance, Impaired I ADL's, Impaired Self-Care Skills Speech-Language Pathology Pt was seen for skilled ST for memory and problem solving deficits. Pt met his STGs. LTGs unsure as pt was on ARU for a shorter than expected time. Pt is dc 'd from skilled ST services. PT Addresser Goals Addresser Goals PT Addresser Goals Time Frame: Jul 01, 2018 Transfers (B,C,W/C) (FIM): 6 Roll Left to Right (QC): 6 Sit to Lying (QC): 6 Lying-Sitting on Side/Bed(QC): 6 Sit to Stand (QC): 6 Chair/Don-ed-Vtqaq Xfer(QC): 6 Car Transfer (QC): 6 Gait (FIM): 6 Distance: 300' Walk 10 feet (QC): 6 Walk 10ft-Uneven Surface(QC): 6 Walk 50ft with 2 Turns (QC): 6 Walk 150 ft (QC): 6 Gait Assistive Device: FWW Stairs (FIM): 2 # of Steps: 8 1 Step (curb) (QC): 6 4 Steps (QC): 6 OT Chcf Goals Addresser Goals Time Frame: Jul 01, 2018 Eating (FIM): 6 (met) Eating (QC): 6 (met) Oral Hygiene (QC): 6 (no met) Grooming(FIM): 6 (not met) Bathing(FIM): 6 (not met) Shower/Bathe Self (QC): 6 (not met) Upper Body Dressing(FIM): 6 (not met) Upper Body Dressing (QC): 6 (not met) Lower Body Dressing(FIM): 6 (not met) Lower Body Dressing (QC): 6 (not met) On/Off Footwear (QC): 6 (not met) Toileting(FIM): 6 (not met) Toileting Hygiene (QC): 6 (not met) Toilet/Commode Transfer(FIM): 6 (not met) Toilet/Commode Transfer (QC): 6 (not met) Tub Transfer(FIM): 5 (or shower) Shower Transfer(FIM): 5 Comprehension(FIM): 7 Expression (FIM): 7 Social Interaction(FIM): 7 Problem Solving(FIM): 5 Memory(FIM): 6 Additional Goals: 1-Demonstrate ADL Tasks, 2-Verbalize Understanding, 3- ImproveStrength/Dean 1=Demonstrate adherence to instructed precautions during ADL tasks. 2=Patient will verbalize/demonstrate understanding of assistive devices/ modifications for ADL. 3=Patient will improve strength/tolerance for activity to enable patient to perform ADL's. Speech Chcf Goals Chcf Goals Pt will demonstrate functional cognition for safety and maximum independence for the home setting. Goal partially achieved due to a short rehab stay. Time Frame: 2 weeks Comprehension: 7 Expression: 7 Social Interaction: 7 Problem Solvin Memory: 6 TAL KINNEY Jun 20, 2018 15:44
== END 2018-06-19 16:50 | disposition home health service (06) | DRG 91 ==
PROVIDERS: ADMIT Physical Medicine & Rehabilitation; ATTEND Physical Medicine & Rehabilitation
DX: G72.81 Critical illness myopathy (principal); J18.9 Pneumonia, unspecified organism; I48.91 Unspecified atrial fibrillation; I48.3 Typical atrial flutter; C79.51 Secondary malignant neoplasm of bone; I21.A1 Myocardial infarction type 2; M17.0 Bilateral primary osteoarthritis of knee; M84.58XD Pathological fracture in neoplastic disease, other specified site, subsequent encounter for fracture with routine healing; G89.3 Neoplasm related pain (acute) (chronic); J44.9 Chronic obstructive pulmonary disease, unspecified; R53.81 Other malaise; Z85.038 Personal history of other malignant neoplasm of large intestine; Z92.21 Personal history of antineoplastic chemotherapy; Z79.01 Long term (current) use of anticoagulants
CPT/HCPCS: 36415; 80053; 85027; 85610; 85730; 93005; 94760

== ENCOUNTER → 2018-06-17 | Outpatient (CLI) | payer MEDICARE ==
[~2018-06-17] MED LIST changes: +FENT1PAT8 TD
== END | disposition home or self-care (01) ==
LOC: PREOP 06:08
PROVIDERS: ATTEND Internal Medicine Interventional Cardiology
DX: Z01.818 Encounter for other preprocedural examination (principal)

== ENCOUNTER 2018-06-20 09:43 | Emergency (ER) | payer MEDICARE ==
[~2018-06-20] VITALS: Ht 193 cm; Wt 75.9 kg
--- OUTSIDE RECORDS SUMMARY | 2018-06-20 10:01 | XMS REPORT ---
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 [id number] Problem Colon cancer metastasized to multiple sites C18.9 Active 90188823 ALLERGIES No Information ENCOUNTERS Encounter Location Date Diagnosis [place] [id number] [place] [phone] May, [place] [address] [place] [id number] [place] [phone] Mar, 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2 and Colon cancer metastasized to multiple sites C18.9 [place] [address] [facility] [id number] [id number] Jan, [place] [address] [place] [id number] [address] Sep, Osteoarthritis M19.90 [place] [address] [place] [id number] [address] May, Establishing care with new doctor, encounter for Z71.89 ; BPH (benign prostatic hypertrophy) with urinary obstruction N40.1 and Disappearance and of family member Z63.4 [place] [address] [address] [facility] [id number] [address] Apr, IMMUNIZATIONS No Known Immunizations SOCIAL HISTORY Never Assessed REASON FOR VISIT Referral to ER PLAN OF CARE VITAL SIGNS MEDICATIONS Unknown Medications RESULTS No Results PROCEDURES No Known procedures INSTRUCTIONS MEDICATIONS ADMINISTERED No Known Medications MEDICAL (GENERAL) HISTORY Type Description Date Medical History Benign Prostatic Hypertrophy Surgical History appendectomy 1963 Surgical History colectomy 01/2018 Hospitalization History pyelonephritis, dehydration, renal insufficiency
--- OUTSIDE RECORDS SUMMARY | 2018-06-20 10:04 | XMS REPORT | Continuity of Care Document ---
Author Author [facility] Organization [facility] Address Unknown Phone Unavailable Allergies Active Description Code Type Severity Reaction Onset Reported/Identified Relationship to Patient Clinical Status Yes NKANo Known Allergies NKA Miscellaneous Allergy Mild N/A 12/27/2009 Yes No Known Drug Allergies [id number] Drug Allergy Unknown N/A 03/25/2018 Medications There [...] MALIGNANT NEOPLASM OF SIGMOID COLON 02/05/2018 LANDERS DOKAYYLNA K Ot C78.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 OF [...] HISTORY OF NICOTINE DEPENDENCE 05/26/2018 YARA JENNINGS MD Ot C18.7 MALIGNANT NEOPLASM OF SIGMOID COLON 05/26/2018 YARA JENNINGS MD Ot 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 05/26/2018 YARA JENNINGS MD Ot C78.7 SECONDARY MALIG NEOPLASM OF LIVER AND IN 05/26/2018 YARA JENNINGS MD, Ot 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 05/26/2018 YARA JENNINGS MD, Ot Z51.11 ENCOUNTER FOR ANTINEOPLASTIC CHEMOTHERAP 05/26/2018 YARA JENNINGS MD, Ot Z87.891 PERSONAL HISTORY OF NICOTINE DEPENDENCE 05/27/2018 YARA JENNINGS MD, Ot C18.7 MALIGNANT NEOPLASM OF SIGMOID COLON 05/27/2018 YARA JENNINGS MD Ot 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 05/27/2018 YARA JENNINGS MD, Ot C78.7 SECONDARY MALIG NEOPLASM OF LIVER AND IN 05/27/2018 YARA JENNINGS MD Ot 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 05/27/2018 YARA JENNINGS MD, Ot Z87.891 PERSONAL HISTORY OF NICOTINE DEPENDENCE 06/06/2018 JAMAR JACKSON MD Ot A41.9 SEPSIS, UNSPECIFIED ORGANISM 06/06/2018 JAMAR JACKSON MD Ot 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 06/06/2018 JAMAR JACKSON MD Ot 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 06/06/2018 JAMAR JACKSON MD Ot C78.7 SECONDARY MALIG NEOPLASM OF LIVER AND IN 06/06/2018 JAMAR JACKSON MD Ot C79.51 SECONDARY MALIGNANT NEOPLASM OF BONE 06/06/2018 JAMAR JACKSON MD Ot I21.A1 MYOCARDIAL INFARCTION TYPE 2 06/06/2018 JAMAR JACKSON MD Ot I47.1 SUPRAVENTRICULAR TACHYCARDIA 06/06/2018 JAMAR JACKSON MD Ot I48.91 UNSPECIFIED ATRIAL FIBRILLATION 06/06/2018 JAMAR JACKSON MD Ot I48.92 UNSPECIFIED ATRIAL FLUTTER 06/06/2018 JAMAR JACKSON MD Ot J18.9 PNEUMONIA, UNSPECIFIED ORGANISM 06/06/2018 JAMAR JACKSON MD Ot M84.58XA PATHOLOGICAL FRACTURE IN NEOPLASTIC DISE 06/06/2018 JAMAR JACKSON MD Ot N40.1 BENIGN PROSTATIC HYPERPLASIA WITH LOWER 06/06/2018 JAMAR JACKSON MD Ot R33.9 RETENTION OF URINE, UNSPECIFIED 06/06/2018 JAMAR JACKSON MD Ot Z85.038 PERSONAL HISTORY OF MALIGNANT NEOPLASM O 06/06/2018 JAMAR JACKSON MD Ot Z87.891 PERSONAL HISTORY OF NICOTINE DEPENDENCE 06/07/2018 JAMAR JACKSON MD Ot A41.9 SEPSIS, UNSPECIFIED ORGANISM 06/07/2018 JAMAR JACKSON MD Ot 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 06/07/2018 JAMAR JACKSON MD Ot 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 06/07/2018 JAMAR JACKSON MD Ot C78.7 SECONDARY MALIG NEOPLASM OF LIVER AND IN 06/07/2018 JAMAR JACKSON MD Ot C79.51 SECONDARY MALIGNANT NEOPLASM OF BONE 06/07/2018 JAMAR JACKSON MD Ot I21.A1 MYOCARDIAL INFARCTION TYPE 2 06/07/2018 JAMAR JACKSON MD Ot I47.1 SUPRAVENTRICULAR TACHYCARDIA 06/07/2018 JAMAR JACKSON MD Ot I48.91 UNSPECIFIED ATRIAL FIBRILLATION 06/07/2018 JAMAR JACKSON MD Ot I48.92 UNSPECIFIED ATRIAL FLUTTER 06/07/2018 JAMAR JACKSON MD Ot J18.9 PNEUMONIA, UNSPECIFIED ORGANISM 06/07/2018 JAMAR JACKSON MD Ot M84.58XA PATHOLOGICAL FRACTURE IN NEOPLASTIC DISE 06/07/2018 JAMAR JACKSON MD, Ot N40.1 BENIGN PROSTATIC HYPERPLASIA WITH LOWER 06/07/2018 JAMAR JACKSON MD Ot R33.9 RETENTION OF URINE, UNSPECIFIED 06/07/2018 JAMAR JACKSON MD Ot Z85.038 PERSONAL HISTORY OF MALIGNANT NEOPLASM O 06/07/2018 JAMAR JACKSON MD Ot Z87.891 PERSONAL HISTORY OF NICOTINE DEPENDENCE 06/08/2018 JAMAR JACKSON MD Ot A41.9 SEPSIS, UNSPECIFIED ORGANISM 06/08/2018 JAMAR JACKSON MD Ot 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 06/08/2018 JAMAR JACKSON MD Ot 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 06/08/2018 JAMAR JACKSON MD Ot C78.7 SECONDARY MALIG NEOPLASM OF LIVER AND IN 06/08/2018 JAMAR JACKSON MD Ot C79.51 SECONDARY MALIGNANT NEOPLASM OF BONE 06/08/2018 JAMAR JACKSON MD Ot I21.A1 MYOCARDIAL INFARCTION TYPE 2 06/08/2018 JAMAR JACKSON MD Ot I47.1 SUPRAVENTRICULAR TACHYCARDIA 06/08/2018 JAMAR JACKSON MD Ot I48.91 UNSPECIFIED ATRIAL FIBRILLATION 06/08/2018 JAMAR JACKSON MD Ot I48.92 UNSPECIFIED ATRIAL FLUTTER 06/08/2018 JAMAR JACKSON MD Ot J18.9 PNEUMONIA, UNSPECIFIED ORGANISM 06/08/2018 JAMAR JACKSON MD Ot M84.58XA PATHOLOGICAL FRACTURE IN NEOPLASTIC DISE 06/08/2018 JAMAR JACKSON MD Ot N40.1 BENIGN PROSTATIC HYPERPLASIA WITH LOWER 06/08/2018 JAMAR JACKSON MD Ot R33.9 RETENTION OF URINE, UNSPECIFIED 06/08/2018 JAMAR JACKSON MD Ot Z85.038 PERSONAL HISTORY OF MALIGNANT NEOPLASM O 06/08/2018 JAMAR JACKSON MD Ot Z87.891 PERSONAL HISTORY OF NICOTINE DEPENDENCE 06/09/2018 JAMAR JACKSON MD Ot A41.9 SEPSIS, UNSPECIFIED ORGANISM 06/09/2018 JAMAR JACKSON MD Ot 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 06/09/2018 JAMAR JACKSON MD Ot 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 06/09/2018 JAMAR JACKSON MD Ot C78.7 SECONDARY MALIG NEOPLASM OF LIVER AND IN 06/09/2018 JAMAR JACKSON MD Ot C79.51 SECONDARY MALIGNANT NEOPLASM OF BONE 06/09/2018 JAMAR JACKSON MD Ot I21.A1 MYOCARDIAL INFARCTION TYPE 2 06/09/2018 JAMAR JACKSON MD Ot I47.1 SUPRAVENTRICULAR TACHYCARDIA 06/09/2018 JAMAR JACKSON MD, Ot I48.91 UNSPECIFIED ATRIAL FIBRILLATION 06/09/2018 JAMAR JACKSON MD, Ot I48.92 UNSPECIFIED ATRIAL FLUTTER 06/09/2018 JAMAR JACKSON MD, Ot J18.9 PNEUMONIA, UNSPECIFIED ORGANISM 06/09/2018 JAMAR JACKSNO MD Ot M84.58XA PATHOLOGICAL FRACTURE IN NEOPLASTIC DISE 06/09/2018 JAMAR JACKSON MD, Ot N40.1 BENIGN PROSTATIC HYPERPLASIA WITH LOWER 06/09/2018 JAMAR JACKSON MD, Ot R33.9 RETENTION OF URINE, UNSPECIFIED 06/09/2018 JAMAR JACKSON MD, Ot Z85.038 PERSONAL HISTORY OF MALIGNANT NEOPLASM O 06/09/2018 JAMAR JACKSON MD, Ot Z87.891 PERSONAL HISTORY OF NICOTINE DEPENDENCE 06/09/2018 JAMAR JACKSON MD Ot A41.9 SEPSIS, UNSPECIFIED ORGANISM 06/09/2018 JAMAR JACKSON MD Ot B95.2 ENTEROCOCCUS THE CAUSE OF DISEASES CL 06/09/2018 JAMAR JACKSON MD Ot 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 06/09/2018 JAMAR JACKSON MD Ot 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 06/09/2018 JAMAR JACKSON MD Ot C78.7 SECONDARY MALIG NEOPLASM OF LIVER AND IN 06/09/2018 JAMAR JACKSON MD Ot C79.51 SECONDARY MALIGNANT NEOPLASM OF BONE 06/09/2018 JAMAR JACKSON MD Ot E83.42 HYPOMAGNESEMIA 06/09/2018 JAMAR JACKSON MD Ot E87.6 HYPOKALEMIA 06/09/2018 JAMAR JACKSON MD, Ot I21.A1 MYOCARDIAL INFARCTION TYPE 2 06/09/2018 JAMAR JACKSON MD Ot I47.1 SUPRAVENTRICULAR TACHYCARDIA 06/09/2018 JAMAR JACKSON MD, Ot I48.91 UNSPECIFIED ATRIAL FIBRILLATION 06/09/2018 JAMAR JACKSON MD Ot I48.92 UNSPECIFIED ATRIAL FLUTTER 06/09/2018 JAMAR JACKSON MD Ot I50.31 ACUTE DIASTOLIC (CONGESTIVE) HEART FAILU 06/09/2018 JAMAR JACKSON MD, Ot J18.9 PNEUMONIA, UNSPECIFIED ORGANISM 06/09/2018 JAMAR JACKSON MD, Ot M79.89 OTHER SPECIFIED SOFT TISSUE DISORDERS 06/09/2018 JAMAR JACKSON MD, Ot M84.58XA PATHOLOGICAL FRACTURE IN NEOPLASTIC DISE 06/09/2018 JAMAR JACKSON MD, Ot N39.0 URINARY TRACT INFECTION, SITE NOT SPECIF 06/09/2018 JAMAR JACKSON MD, Ot N40.1 BENIGN PROSTATIC HYPERPLASIA WITH LOWER 06/09/2018 JAMAR JACKSON MD, Ot R33.9 RETENTION OF URINE, UNSPECIFIED 06/09/2018 JAMAR JACKSON MD, Ot 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, BENZO 06/09/2018 JAMAR JACKSON MD, Ot Z85.038 PERSONAL HISTORY OF MALIGNANT NEOPLASM O 06/09/2018 JAMAR JACKSON MD, Ot Z87.891 PERSONAL HISTORY OF NICOTINE DEPENDENCE 06/18/2018 CURLY GARCIA, Ricki DORAN Ot Z01.818 ENCOUNTER FOR OTHER PREPROCEDURAL EXAMIN Procedures Code Description Performed By Performed On [id number] EXCISION OF SIGMOID COLON , OPEN APPROACH 02/07/2018 [id number] EXCISION OF RECTUM, OPEN APPROACH, DIAGN 02/07/2018 [id number] DILATION OF LEFT URETER WITH INTRALUMINA 02/07/2018 [id number] FLUOROSCOPY OF LEFT URETER USING LOW OSM 02/07/2018 [id number] BUDDHISM OF CARDIAC RHYTHM, SINGLE 06/04/2018 Results Test Result Range Complete blood count [...] microscopy 1+ NRG Comprehensive metabolic panel - 02/02/18 00:02 Serum [...] Magnesium 2.5 mg/dL 1.8-2.4 Serum or plasma ggxfm-2-iosxrjdvmky.tumor marker measurement (mass/volume) - 06:24 Serum or plasma oayxh-3-ujfdqeztdyo.tumor marker measurement (mass/volume) 4.2 % 0.0-8.8 Serum [...] culture - 02/03/18 07:51 Bacterial urine culture [id number] NRG COLONY COUNT >100,000/ML NR FTX;REPORTABLE RML REPORTED SENSITIVITY 02/05/18 14:05 NR [...] automated white blood cell (WBC) differential - 02/08/18 03:58 Blood leukocytes automated count (number/volume) 14.9 [...] resistant Staphylococcus aureus (MRSA) screening culture [facility] PT panel in platelet poor plasma by [...] i.cardiac measurement (mass/volume) 0.38 ng /mL <0.30 Bacterial blood culture - 06/03/18 14:31 Bacterial blood culture [facility] Influenza virus A and B antigen detection - 06/03/18 14:43 FLU RESULT NEGATIVE FOR INFLUENZA A AND B ANTIGENS BY [facility] Bacterial blood culture - 06/03/18 15:33 Bacterial blood culture NG NRG Serum or plasma lactate measurement (moles/volume) - 06/03/18 17:15 Serum or plasma lactate measurement (moles/volume) 1.44 mmol/L 0.50-2.00 Complete urinalysis with reflex to culture - 06/03/18 21:15 Urine color determination YELLOW NRG Urine clarity determination CLEAR NRG Urine pH measurement by test strip 5 5-9 Specific gravity of urine by test strip 1.020 1.016- 1.022 Urine protein assay by test strip, semi-quantitative 1+ NEGATIVE Urine glucose detection by automated test strip NEGATIVE NEGATIVE Erythrocytes detection in urine sediment by light microscopy NEGATIVE NEGATIVE Urine ketones detection by automated test strip 1+ NEGATIVE Urine nitrite detection by test strip NEGATIVE NEGATIVE Urine total bilirubin detection by test strip NEGATIVE NEGATIVE Urine urobilinogen measurement by automated test strip (mass/volume) NORMAL NORMAL Urine leukocyte esterase detection by dipstick 1+ NEGATIVE Automated urine sediment erythrocyte count by microscopy (number/high power field) NONE NRG Automated urine sediment leukocyte count by microscopy (number/high power field ) [HPF] NRG Bacteria detection in urine sediment by light microscopy NEGATIVE NRG Squamous epithelial cells detection in urine sediment by light microscopy 2-5 NRG Crystals detection in urine sediment by light microscopy NONE NRG Casts detection in urine sediment by light microscopy PRESENT NRG Mucus detection in urine sediment by light microscopy LARGE NRG Complete urinalysis with reflex to culture NO NRG Hyaline casts detection in urine sediment by light microscopy 10-25 NRG WBC casts detection in urine sediment by light microscopy RARE NRG Serum or plasma troponin i.cardiac measurement (mass/volume) - 06/03/18 21:15 Serum or plasma troponin i.cardiac measurement (mass/volume) 0.48 ng /mL <0.30 Bacterial urine culture - 06/03/18 21:15 Bacterial urine culture [id number] NRG COLONY COUNT >100,000/ML NRG FTX;REPORTABLE SUSCEPTIBILITY REPORTED 06-06-2018 09 [facility] Sensitivity Panel - 06/03/18 21:15 Vancomycin susceptibility test by minimum inhibitory concentration 1 NRG Levofloxacin susceptibility test by minimum inhibitory concentration <= NRG Ampicillin susceptibility test by minimum inhibitory concentration 1 NRG Nitrofurantoin susceptibility test by minimum inhibitory concentration <= NRG Linezolid susceptibility test by minimum inhibitory concentration < = NRG Daptomycin susc ELBA 2 NRG Complete blood count (CBC) with automated white blood cell (WBC) differential - 06/04/18 06:05 Blood leukocytes automated count (number/volume) 11.5 10*3/uL 4.3-11.0 Blood erythrocytes automated count (number/volume) 4.84 10*6/uL 4.35-5.85 Venous blood hemoglobin measurement (mass/volume) 13.3 g/dL 13.3-17.7 Blood hematocrit (volume fraction) 42 % 40-54 Automated erythrocyte mean corpuscular volume 86 [foz_us] 80-99 Automated erythrocyte mean corpuscular hemoglobin (mass per erythrocyte) 28 pg 25-34 Automated erythrocyte mean corpuscular hemoglobin concentration measurement ( mass/volume) 32 g/dL 32-36 Automated erythrocyte distribution width ratio 18.1 % 10.0-14.5 Automated blood platelet count (count/volume) 244 10*3/uL 130-400 Automated blood platelet mean volume measurement 9.9 [foz_us] 7.4-10.4 Automated blood neutrophils/100 leukocytes 69 % 42-75 Automated blood lymphocytes/100 leukocytes 16 % 12-44 Blood monocytes/100 leukocytes 7 % 0-12 Automated blood eosinophils/100 leukocytes 8 % 0-10 Automated blood basophils/100 leukocytes 0 % 0-10 Blood neutrophils automated count (number/volume) 8.0 10*3 1.8-7.8 Blood lymphocytes automated count (number/volume) 1.9 10*3 1.0-4.0 Blood monocytes automated count (number/volume) 0.8 10*3 0.0-1.0 Automated eosinophil count 0.9 10*3/uL 0.0-0.3 Automated blood basophil count (count/volume) 0.0 10*3/uL 0.0-0.1 Whole blood basic metabolic panel - 06/04/18 06:05 Serum or plasma sodium measurement (moles/volume) 138 mmol/L 135-145 Serum or plasma potassium measurement (moles/volume) 3.9 mmol/L 3.6-5.0 Serum or plasma chloride measurement (moles/volume) 112 mmol/L 98-107 Carbon dioxide 20 mmol/L 21-32 Serum or plasma anion gap determination (moles/volume) 6 mmol/L 5-14 Serum or plasma urea nitrogen measurement (mass/volume) 22 mg/dL 7-18 Serum or plasma creatinine measurement (mass/volume) 0.75 mg/dL 0.60-1.30 Serum or plasma urea nitrogen/creatinine mass ratio 29 NRG Serum or plasma creatinine measurement with calculation of estimated glomerular filtration rate > NRG Serum or plasma glucose measurement (mass/volume) 79 mg/dL 70-105 Serum or plasma calcium measurement (mass/volume) 8.3 mg/dL 8.5-10.1 Serum or plasma phosphate measurement (mass/volume) - 06/04/18 06:05 Serum or plasma phosphate measurement (mass/volume) 2.9 mg/dL 2.3-4.7 Magnesium - 06/04/18 06:05 Magnesium 1.7 mg/dL 1.8-2.4 Serum or plasma troponin i.cardiac measurement (mass/volume) - 06/04/18 06:05 Serum or plasma troponin i.cardiac measurement (mass/volume) 0.37 ng /mL <0.30 Complete blood count (CBC) with automated white blood cell (WBC) differential - 06/05/18 04:25 Blood leukocytes automated count (number/volume) 13.0 10*3/uL 4.3-11.0 Blood erythrocytes automated count (number/volume) 4.38 10*6/uL 4.35-5.85 Venous blood hemoglobin measurement (mass/volume) 12.5 g/dL 13.3-17.7 Blood hematocrit (volume fraction) 38 % 40-54 Automated erythrocyte mean corpuscular volume 87 [foz_us] 80-99 Automated erythrocyte mean corpuscular hemoglobin (mass per erythrocyte) 29 pg 25-34 Automated erythrocyte mean corpuscular hemoglobin concentration measurement ( mass/volume) 33 g/dL 32-36 Automated erythrocyte distribution width ratio 18.0 % 10.0-14.5 Automated blood platelet count (count/volume) 220 10*3/uL 130-400 Automated blood platelet mean volume measurement 9.8 [foz_us] 7.4-10.4 Automated blood neutrophils/100 leukocytes 79 % 42-75 Automated blood lymphocytes/100 leukocytes 11 % 12-44 Blood monocytes/100 leukocytes 6 % 0-12 Automated blood eosinophils/100 leukocytes 3 % 0-10 Automated blood basophils/100 leukocytes 0 % 0-10 Blood neutrophils automated count (number/volume) 10.3 10*3 1.8-7.8 Blood lymphocytes automated count (number/volume) 1.5 10*3 1.0-4.0 Blood monocytes automated count (number/volume) 0.8 10*3 0.0-1.0 Automated eosinophil count 0.4 10*3/uL 0.0-0.3 Automated blood basophil count (count/volume) 0.0 10*3/uL 0.0-0.1 Blood blood smear finding identification by light microscopy YES NRG Whole blood basic metabolic panel - 06/05/18 04:25 Serum or plasma sodium measurement (moles/volume) 137 mmol/L 135-145 Serum or plasma potassium measurement (moles/volume) 4.3 mmol/L 3.6-5.0 Serum or plasma chloride measurement (moles/volume) 113 mmol/L 98-107 Carbon dioxide 16 mmol/L 21-32 Serum or plasma anion gap determination (moles/volume) 8 mmol/L 5-14 Serum or plasma urea nitrogen measurement (mass/volume) 20 mg/dL 7-18 Serum or plasma creatinine measurement (mass/volume) 0.76 mg/dL 0.60-1.30 Serum or plasma urea nitrogen/creatinine mass ratio 26 NRG Serum or plasma creatinine measurement with calculation of estimated glomerular filtration rate > NRG Serum or plasma glucose measurement (mass/volume) 99 mg/dL 70-105 Serum or plasma calcium measurement (mass/volume) 8.1 mg/dL 8.5-10.1 Serum or plasma phosphate measurement (mass/volume) - 06/05/18 04:25 Serum or plasma phosphate measurement (mass/volume) 2.6 mg/dL 2.3-4.7 Magnesium - 06/05/18 04:25 Magnesium 1.8 mg/dL 1.8-2.4 Complete blood count (CBC) with automated white blood cell (WBC) differential - 06/06/18 04:15 Blood leukocytes automated count (number/volume) 10.5 10*3/uL 4.3-11.0 Blood erythrocytes automated count (number/volume) 4.41 10*6/uL 4.35-5.85 Venous blood hemoglobin measurement (mass/volume) 12.3 g/dL 13.3-17.7 Blood hematocrit (volume fraction) 38 % 40-54 Automated erythrocyte mean corpuscular volume 87 [foz_us] 80-99 Automated erythrocyte mean corpuscular hemoglobin (mass per erythrocyte) 28 pg 25-34 Automated erythrocyte mean corpuscular hemoglobin concentration measurement ( mass/volume) 32 g/dL 32-36 Automated erythrocyte distribution width ratio 18.3 % 10.0-14.5 Automated blood platelet count (count/volume) 201 10*3/uL 130-400 Automated blood platelet mean volume measurement 10.0 [foz_us] 7.4-10.4 Automated blood neutrophils/100 leukocytes 71 % 42-75 Automated blood lymphocytes/100 leukocytes 15 % 12-44 Blood monocytes/100 leukocytes 7 % 0-12 Automated blood eosinophils/100 leukocytes 7 % 0-10 Automated blood basophils/100 leukocytes 0 % 0-10 Blood neutrophils automated count (number/volume) 7.5 10*3 1.8-7.8 Blood lymphocytes automated count (number/volume) 1.5 10*3 1.0-4.0 Blood monocytes automated count (number/volume) 0.8 10*3 0.0-1.0 Automated eosinophil count 0.7 10*3/uL 0.0-0.3 Automated blood basophil count (count/volume) 0.0 10*3/uL 0.0-0.1 Magnesium - 06/06/18 04:15 Magnesium 1.7 mg/dL 1.8-2.4 Whole blood basic metabolic panel - 06/07/18 04:58 Serum or plasma sodium measurement (moles/volume) 137 mmol/L 135-145 Serum or plasma potassium measurement (moles/volume) 3.6 mmol/L 3.6-5.0 Serum or plasma chloride measurement (moles/volume) 109 mmol/L 98-107 Carbon dioxide 20 mmol/L 21-32 Serum or plasma anion gap determination (moles/volume) 8 mmol/L 5-14 Serum or plasma urea nitrogen measurement (mass/volume) 14 mg/dL 7-18 Serum or plasma creatinine measurement (mass/volume) 0.70 mg/dL 0.60-1.30 Serum or plasma urea nitrogen/creatinine mass ratio 20 NRG Serum or plasma creatinine measurement with calculation of estimated glomerular filtration rate > NRG Serum or plasma glucose measurement (mass/volume) 80 mg/dL 70-105 Serum or plasma calcium measurement (mass/volume) 8.2 mg/dL 8.5-10.1 Magnesium - 06/07/18 04:58 Magnesium 1.8 mg/dL 1.8-2.4 Whole blood basic metabolic panel - 06/08/18 05:15 Serum or plasma sodium measurement (moles/volume) 137 mmol/L 135-145 Serum or plasma potassium measurement (moles/volume) 3.3 mmol/L 3.6-5.0 Serum or plasma chloride measurement (moles/volume) 107 mmol/L 98-107 Carbon dioxide 20 mmol/L 21-32 Serum or plasma anion gap determination (moles/volume) 10 mmol/L 5-14 Serum or plasma urea nitrogen measurement (mass/volume) 15 mg/dL 7-18 Serum or plasma creatinine measurement (mass/volume) 0.63 mg/dL 0.60-1.30 Serum or plasma urea nitrogen/creatinine mass ratio 24 NRG Serum or plasma creatinine measurement with calculation of estimated glomerular filtration rate > NRG Serum or plasma glucose measurement (mass/volume) 75 mg/dL 70-105 Serum or plasma calcium measurement (mass/volume) 8.3 mg/dL 8.5-10.1 Magnesium - 06/08/18 05:15 Magnesium 1.6 mg/dL 1.8-2.4 Complete blood count (CBC) with automated white blood cell (WBC) differential - 06/09/18 04:55 Blood leukocytes automated count (number/volume) 10.4 10*3/uL 4.3-11.0 Blood erythrocytes automated count (number/volume) 4.40 10*6/uL 4.35-5.85 Venous blood hemoglobin measurement (mass/volume) 12.3 g/dL 13.3-17.7 Blood hematocrit (volume fraction) 38 % 40-54 Automated erythrocyte mean corpuscular volume 86 [foz_us] 80-99 Automated erythrocyte mean corpuscular hemoglobin (mass per erythrocyte) 28 pg 25-34 Automated erythrocyte mean corpuscular hemoglobin concentration measurement ( mass/volume) 33 g/dL 32-36 Automated erythrocyte distribution width ratio 17.9 % 10.0-14.5 Automated blood platelet count (count/volume) 189 10*3/uL 130-400 Automated blood platelet mean volume measurement 9.7 [foz_us] 7.4-10.4 Automated blood neutrophils/100 leukocytes 68 % 42-75 Automated blood lymphocytes/100 leukocytes 15 % 12-44 Blood monocytes/100 leukocytes 8 % 0-12 Automated blood eosinophils/100 leukocytes 9 % 0-10 Automated blood basophils/100 leukocytes 0 % 0-10 Blood neutrophils automated count (number/volume) 7.1 10*3 1.8-7.8 Blood lymphocytes automated count (number/volume) 1.6 10*3 1.0-4.0 Blood monocytes automated count (number/volume) 0.8 10*3 0.0-1.0 Automated eosinophil count 0.9 10*3/uL 0.0-0.3 Automated blood basophil count (count/volume) 0.0 10*3/uL 0.0-0.1 Comprehensive metabolic panel - 06/09/18 04:55 Serum or plasma sodium measurement (moles/volume) 138 mmol/L 135-145 Serum or plasma potassium measurement (moles/volume) 3.7 mmol/L 3.6-5.0 Serum or plasma chloride measurement (moles/volume) 109 mmol/L 98-107 Carbon dioxide 20 mmol/L 21-32 Serum or plasma anion gap determination (moles/volume) 9 mmol/L 5-14 Serum or plasma urea nitrogen measurement (mass/volume) 19 mg/dL 7-18 Serum or plasma creatinine measurement (mass/volume) 0.63 mg/dL 0.60-1.30 Serum or plasma urea nitrogen/creatinine mass ratio 30 NRG Serum or plasma creatinine measurement with calculation of estimated glomerular filtration rate > NRG Serum or plasma glucose measurement (mass/volume) 78 mg/dL 70-105 Serum or plasma calcium measurement (mass/volume) 8.2 mg/dL 8.5-10.1 Serum or plasma total bilirubin measurement (mass/volume) 0.9 mg/dL 0.1-1.0 Serum or plasma alkaline phosphatase measurement (enzymatic activity/volume) 394 U/L 40-136 Serum or plasma aspartate aminotransferase measurement (enzymatic activity/ volume) 40 U/L 5-34 Serum or plasma alanine aminotransferase measurement (enzymatic activity/volume ) 21 U/L 0-55 Serum or plasma protein measurement (mass/volume) 4.9 g/dL 6.4-8.2 Serum or plasma albumin measurement (mass/volume) 2.5 g/dL 3.2-4.5 CALCIUM CORRECTED 9.4 mg/dL 8.5-10.1 Magnesium - 06/09/18 04:55 Magnesium 1.8 mg/dL 1.8-2.4 Automated blood complete blood count (hemogram) panel - 06/19/18 05:10 Blood leukocytes automated count (number/volume) 12.3 10*3/uL 4.3-11.0 Blood erythrocytes automated count (number/volume) 4.34 10*6/uL 4.35-5.85 Venous blood hemoglobin measurement (mass/volume) 12.1 g/dL 13.3-17.7 Blood hematocrit (volume fraction) 38 % 40-54 Automated erythrocyte mean corpuscular volume 86 [foz_us] 80-99 Automated erythrocyte mean corpuscular hemoglobin (mass per erythrocyte) 28 pg 25-34 Automated erythrocyte mean corpuscular hemoglobin concentration measurement ( mass/volume) 32 g/dL 32-36 Automated erythrocyte distribution width ratio 17.4 % 10.0-14.5 Automated blood platelet count (count/volume) 218 10*3/uL 130-400 Automated blood platelet mean volume measurement 9.1 [foz_us] 7.4-10.4 PT panel in platelet poor plasma by coagulation assay - 06/19/18 05:10 Prothrombin time (PT) in platelet poor plasma by coagulation assay 16.2 s 12.2-14.7 INR in platelet poor plasma or blood by coagulation assay 1.3 0.8-1.4 Activated partial thromboplastin time (aPTT) in platelet poor plasma bycoagulation assay - 06/19/18 05:10 Activated partial thromboplastin time (aPTT) in platelet poor plasma bycoagulation assay 37 s 24-35 Comprehensive metabolic panel - 06/19/18 05:10 Serum or plasma sodium measurement (moles/volume) 138 mmol/L 135-145 Serum or plasma potassium measurement (moles/volume) 3.1 mmol/L 3.6-5.0 Serum or plasma chloride measurement (moles/volume) 103 mmol/L 98-107 Carbon dioxide 23 mmol/L 21-32 Serum or plasma anion gap determination (moles/volume) 12 mmol/L 5-14 Serum or plasma urea nitrogen measurement (mass/volume) 17 mg/dL 7-18 Serum or plasma creatinine measurement (mass/volume) 0.61 mg/dL 0.60-1.30 Serum or plasma urea nitrogen/creatinine mass ratio 28 NRG Serum or plasma creatinine measurement with calculation of estimated glomerular filtration rate > NRG Serum or plasma glucose measurement (mass/volume) 76 mg/dL 70-105 Serum or plasma calcium measurement (mass/volume) 8.7 mg/dL 8.5-10.1 Serum or plasma total bilirubin measurement (mass/volume) 1.1 mg/dL 0.1-1.0 Serum or plasma alkaline phosphatase measurement (enzymatic activity/volume) 508 U/L 40-136 Serum or plasma aspartate aminotransferase measurement (enzymatic activity/ volume) 38 U/L 5-34 Serum or plasma alanine aminotransferase measurement (enzymatic activity/volume ) 17 U/L 0-55 Serum or plasma protein measurement (mass/volume) 4.8 g/dL 6.4-8.2 Serum or plasma albumin measurement (mass/volume) 2.5 g/dL 3.2-4.5 CALCIUM CORRECTED 9.9 mg/dL 8.5-10.1 Encounters ACCT No. Visit Date/Time Discharge Status Pt. Type Provider Facility Loc./Unit Complaint [id number] 06/09/2018 11:18:00 06/19/2018 16:50:00 DIS Inpatient CARLENE GARCIA, SARITA E [facility] IRF DEBILITY [id number] 06/17/2018 06:08:00 06/17/2018 23:59:59 CLS Outpatient CURLY GARCIA, Ricki DORAN [facility] PREOP RIGHT EP [id number] 06/03/2018 16:00:00 06/09/2018 11:11:00 DIS Outpatient JAMAR JACKSON MD [facility] 4TH AFIB W/ RVR, NEW ONSET, ELEVATED TROPONIN [id number] 06/03/2018 12:42:00 06/03/2018 23:59:59 CLS Outpatient YARA JENNINGS MD [facility] ONC [id number] 05/20/2018 13:30:00 05/26/2018 00:01:00 DIS Outpatient YARA JENNINGS MD [facility] ONC [id number] 05/13/2018 09:04:00 05/13/2018 23:59:59 CLS Outpatient YARA JENNINGS MD [facility] ONC [id number] 04/22/2018 09:08:00 05/13/2018 08:41:00 DIS Outpatient SONU EASLEY [facility] ONC [id number] 03/28/2018 12:45:00 03/28/2018 23:59:59 CLS Outpatient JARAD VALENCIA MD [facility] SDC COLON CA [id number] 03/25/2018 05:31:00 03/25/2018 10:59:00 DIS Outpatient JARAD VALENCIA MD [facility] PREOP COLON CA [id number] 03/19/2018 09:38:00 03/19/2018 23:59:59 CLS Outpatient SONU EASLEY [facility] 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,CA OF SIGMOID COLON [id number] 02/03/2018 08:15:00 02/13/2018 15:25:00 DIS Inpatient RAVI LANDERS DO [facility] 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 , METASTIC CA,UTI [id number] 02/01/2018 21:37:00 02/02/2018 02:05:00 DIS Emergency MING ORONA DO [facility] ER NAUSEA [id number] 08/24/2015 11:31:00 08/24/2015 23:59:59 CLS Outpatient TONIA SIMS MD [facility] RAD BILATERAL HYDRONEPHROSIS [id number] 06/30/2015 06:24:00 07/01/2015 18:00:00 DIS Out[facility], URINARY RETENTION [id number] 06/25/2015 11:46:00 06/25/2015 23:59:59 CLS Outpatient TONIA SIMS MD [facility] PREOP BPH, URINARY RETENTION [id number] 06/11/2015 02:46:00 06/11/2015 04:04:00 DIS Emergency EDGAR CORBIN MD [facility] ER CAN'T URINATE [id number] 05/20/2015 11:45:00 05/21/2015 18:20:00 DIS Inpatient RAVI LANDERS DO [facility] 4TH PYELONEPHRITIS, DEHYDARTION,RENAL INSUFF,URINARY RE [id number] 06/21/2018 08:00:00 PEN Preadmit Ricki RAWLS MD [facility] CATH ATRIAL FLUTTER [id number] 12/27/2009 15:08:00 Document Registration
[2018-06-20] MEDS ORDERED: KETOROLAC 30 MG/ML VIAL IM ONE (10:45)
--- NOTE | 2018-06-20 11:01 | ED General ---
General Chief Complaint: General Problems/Pain Stated Complaint: BACK PAIN Nursing Triage Note: PT BROUGHT IN BY EMS WITH COMPLAINT OF BACK PAIN. STATES HE TOOK A HYDROCODONE AROUND 615 THIS MORNING. Nursing Sepsis Screen: No Definite Risk Source of Information: Patient, EMS, Old Records Exam Limitations: No Limitations History of Present Illness Date Seen by Provider: Jun 20, 2018 Time Seen by Provider: 09:45 Initial Comments This 82-year-old gentleman presents to the emergency room with complaints of back pain uncontrolled by his home medications. He has recently started a fentanyl patch. He also take hydrocodone as your 6:30. His pain is chronic but exacerbated this morning. It is primarily in the lower back and sacral area. He recently had a resection of colon cancer and had a stay of the acute rehabilitation unit for debility. He denies any acute injury this morning. Pain was rated as 10 over 10 at its worst and is now 5/10. 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 Allergies and Home Medications Allergies Coded Allergies: No Known Drug Allergies (Unverified , 06/21/18) Home Medications Apixaban 5 Mg Tablet, 5 MG PO BID, (Reported) Aspirin 81 Mg Tablet.dr, 81 MG PO DAILY, (Reported) Diltiazem HCl 120 Mg Cap.er.24h, 120 MG PO DAILY, (Reported) Fentanyl 1 Each Patch.td72, 25 MCG TD Q72H, (Reported) Hydrocodone/Acetaminophen 1 Each Tablet, 1 EACH PO Q4-6HR PRN for PAIN-MODERATE, (Reported) Ondansetron HCl 8 Mg Tablet, 8 MG PO Q8H PRN for NAUSEA/VOMITING-1ST LINE, ( Reported) Patient Home Medication List Home Medication List Reviewed: Yes Review of Systems Review of Systems Constitutional: no symptoms reported EENTM: no symptoms reported Respiratory: no symptoms reported Cardiovascular: no symptoms reported Gastrointestinal: see HPI Genitourinary: no symptoms reported Musculoskeletal: see HPI Skin: no symptoms reported Psychiatric/Neurological: No Symptoms Reported Hematologic/Lymphatic: No Symptoms Reported Immunological/Allergic: see HPI Past Sqcfaqw-Uiyakf-Vducqo Hx Past Med/Social Hx: Reviewed Nursing Past Med/Soc Hx Patient Social History Alcohol Use: Denies Use Number of Drinks Today: AA Alcohol Beverage of Choice: Beer Recreational Drug Use: No Smoking Status: Former Smoker Type Used: Cigarettes Former Smoker, Quit: Oct 11, 1961 Recent Foreign Travel: No Contact w/Someone Who Travel: No Recent Infectious Disease Expo: No Recent Hopitalizations: Yes (COLON SURGERY 02/07/18) Immunizations Up To Date Tetanus Booster (TDap): Unknown PED Vaccines UTD: No Seasonal Allergies Seasonal Allergies: No Past Medical History Surgeries: Yes (COLECTOMY, TURP) Appendectomy Respiratory: Yes (SPOT ON LUNG, states cancer) Pneumonia Currently Using CPAP: No Currently Using BIPAP: No Cardiac: Yes (dvt 1976 - left leg) Deep Vein Thrombosis Neurological: No Reproductive Disorders: No Sexually Transmitted Disease: No HIV/AIDS: No Genitourinary: Yes Benign Prostatic Hyperpl, Prostate Problems Gastrointestinal: Yes (SPOT ON LIVER states cancer) Liver Disease/Jaundice Musculoskeletal: Yes (2 BAD KNEES) Arthritis Endocrine: No HEENT: Yes Cataract Loss of Vision: Bilateral Hearing Impairment: Denies Cancer: Yes Colon Did You Recieve Any Treatments: Yes What Type of Treatment Did You: Chemotherapy, Surgical Intervention Psychosocial: No Integumentary: Yes (RASH ON MOUTH/BACK) Blood Disorders: No Adverse Reaction/Blood Tranf: No (N/A) Family Medical History Heart disease G8 BROTHER Liver cirrhosis G8 BROTHER Renal cancer 19 FATHER Heart Disease, GI Disease, Renal Disease Physical Exam Vital Signs Vital Signs - First Documented 06/20/18 09:45 Temp 96.6 Pulse 104 Resp 20 B/P (MAP) 125/84 (98) Pulse Ox 95 O2 Delivery Room Air Capillary Refill : Less Than 3 Seconds Height, Weight, BMI Height: 6'4.00" Weight: 167lbs. 4.0oz. 75.436559mb; 20.4 BMI Method:Stated General Appearance: WD/WN, Mild Distress, Thin HEENT: PERRL/EOMI, Normal ENT Inspection Neck: Normal Inspection Respiratory: Lungs Clear, Normal Breath Sounds, No Accessory Muscle Use, No Respiratory Distress Cardiovascular: No Edema, No Murmur, Irregularly Irregular Gastrointestinal: Normal Bowel Sounds, Non Tender, Soft Back: Normal Inspection, Vertebral Tenderness (minimal in the lower back), Other (patient complains of pain in the lower lumbar area and sacral region. He has mild skin erythema but no evidence of deep tissue breakdown. He is not significantly tender in this area.) Extremity: Normal Inspection Neurologic/Psychiatric: Alert, Oriented x3, No Motor/Sensory Deficits, Normal Mood/Affect, assembler camper II-XII Norm as Tested Skin: Normal Color, Warm/Dry Progress/Results/Core Measures Suspected Sepsis Recent Fever Within 48 Hours: No Infection Criteria Present: None New/Unexplained Altered Menta: No Sepsis Screen: No Definite Risk SIRS Temperature:96.6 Pulse: 104 Respiratory Rate: 20 Blood Pressure 125 /84 Mean: 98 Results/Orders My Orders Medications Given in ED Vital Signs/I&O Capillary Refill : Less Than 3 Seconds Blood Pressure Mean: 98 Progress Note : Time: 10:56 Progress Note Patient was given Toradol for treatment of his exacerbation of chronic pain. I was able to contact his pharmacy to confirm medications. Patient does take Eliquis so he cannot use NSAID medications long-term. Patient's pain calmed down considerably after arrival to the ER. At this time he is resting comfortably in his bed. We are checking with his family to determine how we can return him to home. Patient stated his pain originated in the sacral area. He was soiled and had a bandage in that area. We cleaned the area and remove the bandage. There is no evidence of deep tissue wound and he was not significantly tender in that region. For severe breakthrough pain, I will ask him to increase his hydrocodone to 2 tablets every 6 hours. This should control his pain better. Departure Impression Primary Impression: Exacerbation of chronic back pain Additional Impressions: Right shoulder pain Qualified Codes: M25.511 - Pain in right shoulder Colon cancer Qualified Codes: C18.9 - Malignant neoplasm of colon, unspecified Disposition: 01 HOME, SELF-CARE Condition: Improved Departure-Patient Inst. Decision time for Depature: 10:56 Referrals: [facility] (PCP/Family) Primary Care Physician Add. Discharge Instructions: Continue with your medications as prescribed. If you have severe pain that is not controlled with one hydrocodone tablet, increase your hydrocodone dose up to 2 tablets every 6 hours as needed. Follow up with your primary care provider as soon as possible. All discharge instructions reviewed with patient and/or family. Voiced understanding. Copy Copies To 1: RAVI LANDERS DO Copies To 2: SONU EASLEY JOSHUA T MD Jun 20, 2018 11:01
[2018-06-20 12:18] VITALS: BP 121/80
[2018-06-21] MEDS ORDERED: DILT120C63 PO (08:07)
[2018-06-21] MEDS ORDERED: HYDR-3812 PO (08:07)
[2018-06-21] MEDS ORDERED: ASPI-586 PO (08:07)
[2018-06-21] MEDS ORDERED: APIX5TAB PO (08:07)
[2018-06-21] MEDS ORDERED: FENT1PAT8 TD (08:07)
== END 2018-06-20 12:18 | disposition home or self-care (01) ==
LOC: EDUNIT# 09:43 → ER 09:45
DX: M54.9 Dorsalgia, unspecified (principal); G89.29 Other chronic pain; M25.511 Pain in right shoulder; C18.9 Malignant neoplasm of colon, unspecified; Z79.82 Long term (current) use of aspirin; Z79.01 Long term (current) use of anticoagulants; Z87.891 Personal history of nicotine dependence; Z90.89 Acquired absence of other organs; Z87.01 Personal history of pneumonia (recurrent); Z86.718 Personal history of other venous thrombosis and embolism; Z87.19 Personal history of other diseases of the digestive system; Z92.21 Personal history of antineoplastic chemotherapy; Z80.51 Family history of malignant neoplasm of kidney; Z82.49 Family history of ischemic heart disease and other diseases of the circulatory system
CPT/HCPCS: 96372; 99284

== ENCOUNTER 2018-06-21 07:20 | Day surgery (SDC) | payer MEDICARE ==
[~2018-06-21] VITALS: Ht 193 cm; Wt 68.0 kg
[2018-06-21] VITALS (11 sets, daily range): BP systolic 102–170; BP diastolic 63–103
[2018-06-21] MEDS ORDERED: NS IV 1000 ML 1,000 ML ONE ×2 (07:25→09:15)
[2018-06-21] MEDS ORDERED: LIDOCAINE 1% INJ 20 ML 20 ML VIAL ONE (07:25)
[2018-06-21] MEDS ORDERED: HEParin (CATH LAB) 2,000 ML IV ONE (07:25)
--- OUTSIDE RECORDS SUMMARY | 2018-06-21 07:27 | XMS REPORT | Continuity of Care Document ---
Author Author [facility] Organization [facility] Address Unknown Phone Unavailable Allergies Active Description Code Type Severity Reaction Onset Reported/Identified Relationship to Patient Clinical Status Yes NKANo Known Allergies NKA Miscellaneous Allergy Mild N/A 12/27/2009 Yes No Known Drug Allergies [id number] Drug Allergy Unknown N/A 03/25/2018 Medications There [...] ENLARGED PROSTATE WITHOUT LOWER URINARY 02/03/2018 TONIA SMIS MD Ot Z01.812 ENCOUNTER FOR PREPROCEDURAL LABORATORY [...] OF OTHER VENOUS THROMBO 02/13/2018 LANDERS DO, ARVI K Ot 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 COLI THE [...] Ot 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 04/22/2018 SONU EASLEY N Ot C78.7 SECONDARY [...] Ot 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 INNI 05/13/2018 YARA JENNINGS MD Ot C78.7 SECONDARY MALIG NEOPLASM OF LIVER AND IN 05/13/2018 YARA JENNINGS MD Ot 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 05/13/2018 YARA JENNINGS MD Ot Z87.891 PERSONAL HISTORY OF NICOTINE DEPENDENCE 05/13/2018 YARA JENINNGS MD Ot C18.7 MALIGNANT NEOPLASM OF SIGMOID COLON 05/13/2018 YARA JENNINGS MD Ot 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 05/13/2018 YARA JENNINGS MD Ot C78.7 SECONDARY MALIG NEOPLASM OF LIVER AND IN 05/13/2018 YARA JNENINGS MD Ot 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 OF [...] N28.1 CYST OF KIDNEY, ACQUIRED 05/20/2018 SONU EASLYE Ot C18.7 MALIGNANT NEOPLASM OF SIGMOID COLON [...] J18.9 PNEUMONIA, UNSPECIFIED ORGANISM 06/09/2018 JAMAR JACKSON MD Ot M84.58XA PATHOLOGICAL FRACTURE IN NEOPLASTIC DISE 06/09/2018 JAMAR JACKSON MD, Ot N40.1 BENIGN PROSTATIC HYPERPLASIA WITH LOWER 06/09/2018 JAMAR JACKSON MD, Ot R33.9 RETENTION OF URINE, UNSPECIFIED 06/09/2018 JAMAR JAKCSON MD, Ot Z85.038 PERSONAL HISTORY OF MALIGNANT [...] Procedures Code Description Performed By Performed On 2UXD3MF EXCISION OF SIGMOID COLON , OPEN APPROACH 02/07/2018 [id number] EXCISION OF RECTUM, OPEN APPROACH, DIAGN 02/07/2018 8X322NP DILATION OF LEFT URETER WITH INTRALUMINA 02/07/2018 SP921ST FLUOROSCOPY OF LEFT URETER USING LOW OSM 02/07/2018 1L4091N SPIRITISM OF CARDIAC RHYTHM, SINGLE 06/04/2018 Results Test [...] Magnesium 2.5 mg/dL 1.8-2.4 Serum or plasma nwtky-4-fxsmluchkrx.tumor marker measurement (mass/volume) - 06:24 Serum or plasma slhnq-5-whlmscugeuv.tumor marker measurement (mass/volume) 4.2 % 0.0-8.8 Serum [...] culture - 02/03/18 07:51 Bacterial urine culture [id number] NRG COLONY COUNT >100,000/ML NR FTX;REPORTABLE RML [...] resistant Staphylococcus aureus (MRSA) screening culture NEG [facility] PT panel in platelet poor plasma by [...] - 06/03/18 14:31 Bacterial blood culture NG [facility] Influenza virus A and B antigen detection - 06/03/18 14:43 FLU RESULT NEGATIVE FOR INFLUENZA A AND B ANTIGENS BY IA [facility] Bacterial blood culture - 06/03/18 15:33 Bacterial [...] culture - 06/03/18 21:15 Bacterial urine culture [id number] NRG COLONY COUNT >100,000/ML NRG FTX;REPORTABLE SUSCEPTIBILITY REPORTED 06-06-2018 [facility] - 06/03/18 21:15 Vancomycin susceptibility [...] Status Pt. Type Provider Facility Loc./Unit Complaint [id number] 06/09/2018 11:18:00 06/19/2018 16:50:00 DIS Inpatient CARLENE GARCIA, SARITA E [facility] IRF DEBILITY [id number] 06/17/2018 06:08:00 06/17/2018 23:59:59 CLS Outpatient CURLY GARCIA, Ricki DORAN [facility] PREOP RIGHT EP [id number] 06/03/2018 16:00:00 06/09/2018 11:11:00 DIS Outpatient JAMAR JACKSON MD [facility] 4TH AFIB W/ RVR, NEW ONSET, ELEVATED TROPONIN [id number] 06/03/2018 12:42:00 06/03/2018 23:59:59 CLS Outpatient YARA JENNINGS MD [facility] ONC [id number] 05/20/2018 13:30:00 05/26/2018 00:01:00 DIS Outpatient YARA JENNINGS MD [facility] ONC [id number] 05/13/2018 09:04:00 05/13/2018 23:59:59 CLS Outpatient YARA JENNINGS MD [facility] ONC [id number] 04/22/2018 09:08:00 05/13/2018 08:41:00 DIS Outpatient SONU EASLEY [facility] ONC [id number] 03/28/2018 12:45:00 03/28/2018 23:59:59 CLS Outpatient JARAD VALENCIA MD [facility] SDC COLON CA [id number] 03/25/2018 05:31:00 03/25/2018 10:59:00 DIS Outpatient JARAD VALENCIA MD [facility] PREOP COLON CA [id number] 03/19/2018 09:38:00 03/19/2018 23:59:59 CLS Outpatient SONU EASLEY [facility] 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 RETENT[facility] [id number] 06/25/2015 11:46:00 06/25/2015 23:59:59 CLS Outpatient TONIA SIMS MD [facility] PREOP BPH, URINARY RETENTION [id number] 06/11/2015 02:46:00 06/11/2015 04:04:00 DIS Emergency EDGAR CORBIN MD [facility] ER CAN'T URINATE [id number] 05/20/2015 11:45:00 05/21/2015 18:20:00 DIS Inpatient RAVI LANDERS DO [facility] 4TH PYELONEPHRITIS, DEHYDARTION,RENAL INSUFF,URINARY RE [id number] 06/21/2018 08:00:00 PEN Preadmit Ricki RAWLS MD [facility] CATH ATRIAL FLUTTER [id number] 12/27/2009 15:08:00 Document Registration
[2018-06-21] MEDS ORDERED: NS IV 1000 ML 1,000 ML IV SCH ×2 (07:32→11:13)
[2018-06-21] MEDS ORDERED: ISOPROTERENOL 0.2 MG/100 ML D5W IV ONE (07:45)
[2018-06-21] MEDS ORDERED: FENT1PAT8 TD (08:07)
[2018-06-21] MEDS ORDERED: DILT120C63 PO (08:07)
[2018-06-21] MEDS ORDERED: HYDR-3812 PO (08:07)
[2018-06-21] MEDS ORDERED: APIX5TAB PO (08:07)
[2018-06-21] MEDS ORDERED: ASPI-586 PO (08:07)
[2018-06-21] MEDS ORDERED: fentaNYL INJECTION 100 MCG/2 ML AMP ONE (08:08)
[2018-06-21] MEDS ORDERED: proPOfol 200 MG/20 ML (DIPRIVAN) VIAL IV ONE (08:08)
[2018-06-21] MEDS ORDERED: DEXAMETHASONE 10 MG/ML (DECADRON) 1 ML VIAL ONE (08:08)
[2018-06-21] MEDS ORDERED: ONDANSETRON 4 MG/2 ML (SDV) Z0FRAN ONE (08:09)
[2018-06-21] MEDS ORDERED: FLU QUADRIvalent (5+ YOA) 2018-2019 (AFLURIA) 0.5 ML IM ONE (08:15)
[2018-06-21] MEDS ORDERED: MIDAZOLAM 2 MG/2 ML (VERSED) VIAL ONE (08:18)
[2018-06-21] MEDS ORDERED: PHENYLEPHRINE 100 MCG/ML 10 ML (ANESTHESIA) SYR ONE (08:41)
[2018-06-21] MEDS ORDERED: NS (IVPB) 250 ML ONE (09:13)
[2018-06-21] MEDS ORDERED: PHENYLEPHRINE INJ 10 MG/ML (NEO-SYNEPHRINE 1%) ONE (09:13)
[2018-06-21] MEDS ORDERED: ROCURONIUM 10 MG/ML 5 ML SYRINGE IV ONE (10:45)
--- NOTE | 2018-06-21 11:13 | Cardiology Post Procedure Note ---
Post-Procedure Note Physician (s)/Associate Creative Director (s) Physician Ricki RAWLS MD Pre-Procedure Diagnosis Pre-Procedure Diagnosis: Typical atrial flutter, CTI dependent Post-Procedure Note Procedure Start Date: Jun 21, 2018 Procedure Start Time: 08:45 Name of Procedure: Diagnostic EP study, Isuprel infusion, comprehensive 3-D mapping, typical atrial flutter ablation. Findings/Procedure Note Typical atrial flutter ablation done successfully. Estimated blood loss (mL): 10 Contrast Amount: 0 Post-Procedure Diagnosis Post-operative diagnosis: Typical atrial flutter ablation. Ricki RAWLS MD Jun 21, 2018 11:13 am
[2018-06-21] MEDS ORDERED: PATIENT MAY USE OWN MEDS, ALL PO SCH (11:15)
[2018-06-21] MEDS ORDERED: MEPERIDINE (DEMEROL) INJ 50 MG/ML IVP ONE (11:45)
[2018-06-21] MEDS ORDERED: morphine INJ 10 MG/ML 1ML (SYR OR VIAL) IVP ONE (11:45)
--- NOTE | 2018-06-21 14:28 | Diagnostic Imaging Report ---
INDICATION: Fall with abrasion to the left shoulder. TIME OF EXAMINATION: 02:01 p.m. FINDINGS: Single view of the left shoulder was obtained. Glenohumeral and acromioclavicular alignment appear normal. Acromiohumeral space is normal. No fracture or dislocation is seen. IMPRESSION: No acute bony abnormality is detected. Dictated by: Dictated on workstation # [id number]
--- NOTE | 2018-06-21 15:37 | Discharge Inst-Post CATH ---
Discharge Inst-CATH Post Cardiac Cath D/C Inst Follow Up/Plan Dr Montes in 3-4 weeks. CARDIAC CATH DISCHARGE INSTRUCTIONS *Hold Metformin for 48 hours post heart cath. ACTIVITY * Go Home directly and rest. * Limit activity of the leg (or wrist if it was used) for 7 days including aerobics, swimming, jogging, bicycling, etc. * Restrict stair-climbing for 7 days if possible, if not, climb up with your non -cath leg, then bring together on the same step. * Avoid lifting, pushing, pulling or excessive movement of the affected extremity for 7 days. * Customary sexual activity may be resumed after 2 days-use caution not to use a position that strains or causes pain to the affected extremity. * No driving for 24 hours. * NO SMOKING. * Avoid straining for bowel movements for 7 days. * Gentle walking on level ground is allowed. * Returning to work will depend on the type of procedure and the results. Your doctor will discuss this with you. CALL YOUR DOCTOR FOR ANY OF THE FOLLOWING: *If bleeding from the puncture site occurs- Apply gentle pressure to site with clean cloth and call your doctor or EMS. * If a knot or lump forms under the skin, increases in size, or causes pain. * If bruising appears to be worsening or moving further down your leg instead of disappearing. * Temperature above 101 F. CARE OF YOUR GROIN INCISION; * Bruising or purple discoloration of the skin near the puncture site is common. * You may shower only, no bathtub bathing for 5 days. Be careful to avoid slipping as your leg may feel stiff. * If a closure device was used on your femoral artery, please see the attached guide regarding care of the device and your leg. * Leave the dressing on, until removed by office staff. CARE OF YOUR WRIST INCISION; * Bruising or purple discoloration of the skin near the puncture site is common. * You may shower. * DO NOT submerge wrist. * Leave dressing on, until removed by office staff.. Ricki MONTES MD Jun 21, 2018 3:37 pm
--- NOTE | 2018-06-21 15:40 | Cardiology Discharge Summary ---
Diagnosis/Chief Complaint Date of Admission 06/21/2018 Date of Discharge 06/22/2018 Admission Diagnosis Typical atrial flutter-CTI dependent. Final/Discharge Diagnosis Successful typical atrial flutter ablation Chief Complaint/HPI Chief Complaint/HPI This is a 82-year-old gentleman with metastatic colon cancer. He presented with poorly tolerated symptomatic typical atrial flutter that require transesophageal echocardiogram and cardioversion. He was scheduled for typical atrial flutter ablation. Discharge Summary Procedures Diagnostic EP study, comprehensive 3-D mapping, Isuprel infusion, successful typical atrial flutter ablation. Discharge Physical Examination Stable. Hospital Course Unremarkable. Pending Labs Laboratory Tests 06/21/18 07:53: Potassium Level 3.4 Discussion & Recommendations Discussion Discharge instructions will be discussed with the patient's family. Patient will continue Eliquis therapy for the next one week. Follow up appt.: Dr. Montes in 2-3 weeks. Dicharge Diet: Regular Diet Activity as Tolerated: Yes Home Medications Reviewed patient Home Medication Reconciliation performed by pharmacy medication reconciliations building maintenance technician and/or nursing. Patients Allergies have been reviewed. Discharge Home Medications: Reviewed and agree with Discharge Medication list on patient's Discharge Instruction sheet Condition at discharge Stable. Instructions to patient/family Dr Montes in 3-4 weeks. Ricki MONTES MD Jun 21, 2018 3:40 pm
--- NOTE | 2018-06-21 20:37 | OPERATIVE REPORT ---
DATE OF SERVICE: 06/21/2018 EP STUDY AND RIGHT-SIDED TYPICAL ATRIAL FLUTTER ABLATION CARDIAC CABLE DRILLER: Mitch Montes MD INDICATION: Typical atrial flutter - CTI dependent. PREOPERATIVE DIAGNOSIS: Typical atrial flutter - CTI dependent. POSTOPERATIVE DIAGNOSIS: Typical atrial flutter, status post cavotricuspid isthmus ablation. HISTORY: This is an 82-year-old gentleman, who has metastatic colon cancer. He presented with poorly tolerated symptomatic typical atrial flutter with hypotension. He required transesophageal echocardiogram and cardioversion. He was scheduled for typical atrial flutter ablation. PROCEDURE PERFORMED: 1. Comprehensive EP study with induction. 2. Fluoroscopy. 3. CS pacing. 4. Ablation of typical atrial flutter. 5. 3D mapping with carto. COMPLICATIONS: None. ESTIMATED BLOOD LOSS: 10 mL. CONTRAST USED: Zero. FLUOROSCOPY TIME: FLUOROSCOPY DOSE: SPECIMENS: None. ANESTHESIA: Done by the anesthesia colleagues, please see their note. ANTICOAGULATION: Eliquis. PROCEDURE IN DETAIL: After informed consent was obtained from the patient, the patient was brought to the EP lab in a fasting state. Anesthesia was provided by our anesthesia colleagues. The patient was draped and prepped in the usual sterile fashion. The patient presented to the EP lab in sinus rhythm. Two access were gained in the right femoral vein with 6-Zambian and 8-Zambian respectively. Two access were gained in the left femoral vein, which were 5-Zambian and 6-Zambian respectively. Catheters were placed in the high right atrium, right ventricle, His catheter and CS catheter. A comprehensive EP study was performed. Baseline measurement showed an AH of 76 milliseconds, HV 53 milliseconds, MS interval 137 milliseconds, QRS duration 63 milliseconds, QT interval 372 milliseconds, RR interval 683 milliseconds, AV Wenckebach was 340 milliseconds, retrograde Wenckebach was 340 milliseconds, AV allan ERP was 600/290 milliseconds. Atrial ERP was 600/230 milliseconds. Ventricular ERP was 600/250 milliseconds. Isuprel was started till maximum of 4 mcg per minute. Arrhythmia was non-inducible. Ablation was performed in the cavotricuspid isthmus. A CS pacing and pacing from the ablation catheter at different position on the lateral side of the ablation line were used to verify a bidirectional block. We waited for 30 minutes and rechecked the bidirectional block, which was still present. The patient tolerated the procedure well and did not have any complication. The patient left the lab in sinus rhythm. PLAN: The patient will be observed overnight and will be discharged home tomorrow with precise followup instructions. Job ID: [id number] DocumentID: [id number] Dictated Date: 06/21/2018 15:52:16 Adaptive Physical Education Specialist Date: 06/21/2018 20:36:28 Dictated By: TRI MONTES MD
[2018-06-21] MEDS ORDERED: APIXABAN 5 MG (ELIQUIS) TABLET ONE (22:03)
[2018-06-21] MEDS ORDERED: DILTIAZEM 120 MG (CARDIZEM CD) CAP PO ONE (22:12)
[2018-06-21] MEDS: HYDROcodone/APAP 5 MG/325 MG (LORTAB) TAB PO PRN (22:13)
[2018-06-21] MEDS: DILTIAZEM 120 MG (CARDIZEM CD) CAP PO SCH (22:14)
[2018-06-21] MEDS: APIXABAN 5 MG (ELIQUIS) TABLET PO SCH (22:14)
[2018-06-22 00:17] VITALS: BP 131/73
[2018-06-22 04:05] VITALS: BP 123/74
[2018-06-22] MEDS: HYDROcodone/APAP 5 MG/325 MG (LORTAB) TAB PO PRN ×3 (04:12→12:31)
[2018-06-22 08:00] VITALS: BP 136/77
[2018-06-22] MEDS: DILTIAZEM 120 MG (CARDIZEM CD) CAP PO SCH (08:30)
[2018-06-22] MEDS: APIXABAN 5 MG (ELIQUIS) TABLET PO SCH (08:30)
[2018-06-22] MEDS ORDERED: NON-FORMULARY MEDICATION 1 EA EA (Diltiazem HCl (Diltiazem 24Hr Cd) 120 MG) PO SCH (09:00)
[2018-06-22 12:00] VITALS: BP 113/67
[2018-06-22 13:54] VITALS: BP 113/67
--- NOTE | 2018-06-23 11:31 | Anesthesia-General Post-Op ---
General Patient Condition Mental Status/LOC: Same as Preop Cardiovascular: Satisfactory Nausea/Vomiting: Absent Respiratory: Satisfactory Pain: Controlled Complications: Absent Post Op Complications Complications None Follow Up Care/Instructions Patient Instructions None needed. Anesthesia/Patient Condition Patient Condition Patient is doing well, no complaints, stable vital signs, no apparent adverse anesthesia problems. No complications reported per nursing. D/C home per [facility] Criteria: Yes LEX PARADA CRNA Jun 23, 2018 11:31
== END 2018-06-22 13:10 | disposition home or self-care (01) ==
LOC: CATH 07:20 → ICU 12:28 → 4TH 20:53 → CATH 06-22 13:10
PROVIDERS: ATTEND Internal Medicine Interventional Cardiology
DX: I48.4 Atypical atrial flutter (principal); I08.3 Combined rheumatic disorders of mitral, aortic and tricuspid valves; K21.9 Gastro-esophageal reflux disease without esophagitis; C18.9 Malignant neoplasm of colon, unspecified; C78.7 Secondary malignant neoplasm of liver and intrahepatic bile duct; C78.00 Secondary malignant neoplasm of unspecified lung; Z79.82 Long term (current) use of aspirin; Z79.899 Other long term (current) drug therapy; Z87.891 Personal history of nicotine dependence
CPT/HCPCS: 36415; 73020; 84132; 93005; 93613; 93621; 93623; 93653

== ENCOUNTER → 2018-06-26 | Outpatient (CLI) | payer MEDICARE ==
[~2018-06-26] MED LIST changes: +ASPI-586 PO
--- NOTE | 2018-06-26 11:21 | Diagnostic Imaging Report ---
INDICATION: Left shoulder pain post fall. TECHNIQUE: AP and oblique views of the left shoulder were obtained. FINDINGS: No fracture or acute bony abnormality is seen. There is degenerative change of the AC joint. IMPRESSION: Degenerative change of the AC joint. No acute fracture or acute bony abnormality. Dictated by: Dictated on workstation # [id number]
--- NOTE | 2018-06-26 13:29 | Diagnostic Imaging Report ---
INDICATION: Bilateral hip pain. Known metastatic disease to the bones. COMPARISON: Radiographs dated 02/02/2018. FINDINGS: A frontal radiographic view of the pelvis and two radiographic views of each hip were obtained. There is nonacute chronic deformity involving the left inferior pubic ramus. Evaluation of the remainder of the pelvic osseous structures suggests subtle cortical irregularity involving the superior margins of the right superior pubic ramus, concerning for a hairline fracture. No other acute appearing osseous abnormalities are seen. The pubic symphysis is within normal limits. The SI joints are symmetric. The femoroacetabular joint spaces are maintained. The proximal portions of the bilateral femurs are intact. No unexpected radiopaque foreign bodies are seen. IMPRESSION: Findings concerning for a subtle hairline fracture of the right superior pubic ramus. Correlation with CT is recommended. Dictated by: Dictated on workstation # [id number]
== END ==
LOC: RAD 10:43
PROVIDERS: ATTEND Nurse Practitioner Adult Health
DX: C19 Malignant neoplasm of rectosigmoid junction (principal); C79.51 Secondary malignant neoplasm of bone; M19.012 Primary osteoarthritis, left shoulder; W19.XXXA Unspecified fall, initial encounter; M25.551 Pain in right hip
CPT/HCPCS: 73030; 73523

== ENCOUNTER → 2018-07-02 | Outpatient (CLI) | payer MEDICARE ==
[~2018-07-02] MED LIST changes: +BARIUM SUSPENSION 2.1% (VANILLA SILQ) 450 ML PO ONE; +IOHEXOL 350 MG/ML 100 ML (OMNIPAQUE 350) VIAL IV ONE; +NS 250 ML (IVPB) BAG IV ONE; +RECEIVED CONTRAST (Hold Metformin) IV SCH
--- NOTE | 2018-07-02 12:32 | Diagnostic Imaging Report ---
CLINICAL INDICATION: Patient with history colon cancer with metastases to bone, liver, and lung. EXAM: Axial CT scan of brain performed without and with 50 cc of Omnipaque 350 IV contrast. COMPARISON: None. FINDINGS: There is no evidence of acute cerebral infarct, intracranial hemorrhage, or gross mass effect. There is no abnormal IV contrast enhancement or evidence of metastatic disease. The brain parenchymal volume appears appropriate for patient's age. There are subtle patchy low-attenuation white matter changes in both cerebral hemispheres, likely representing chronic small vessel ischemic disease. There is normal romero-white matter distinction. There is no significant midline shift or herniation. The [place] vascular structures show no gross abnormality as visualized. There is no evidence of hydrocephalus. The basal cisterns are unremarkable. The skull, extracranial soft tissue, and orbits are unremarkable. There is minimal mucosal thickening in the ethmoid sinus. Temporal bones show no significant abnormality. IMPRESSION: Unremarkable CT scan of the brain for age with no evidence of metastatic disease. Dictated by: Dictated on workstation # [id number]
--- NOTE | 2018-07-02 13:36 | Diagnostic Imaging Report ---
PROCEDURE: CT chest with contrast, CT abdomen and pelvis with and without contrast. TECHNIQUE: Pre and post intravenous contrast axial imaging of the abdomen and pelvis and post contrast axial imaging of the chest were performed. INDICATION: Colon carcinoma. FINDINGS: The previous PET/CT exam performed on 03/19/2018 did note numerous hypermetabolic lesions involving the liver. This appearance was felt to be related to metastatic disease. There were also areas of abnormal hypermetabolic activity in the right kidney, the lungs, and the thoracic spine and these too were felt to be neoplastic in nature. On this exam, there has been an increase in the size and the number of lesions involving the liver. There is now 6.3 x 8.0 cm area of low density in the dome of the liver. Previously, this area measured 5.1 x 5.6 cm. The 4.9 x 7.5 cm lesion in the inferomedial portion of the right lobe of the liver seen on the prior exam has also increased in size and now measures 6.2 x 9.3 cm. These findings do suggest progressive neoplastic disease. Furthermore, there are two new contiguous areas of low density in the spleen. These have a conglomerate size of approximately 3.2 x 4.9 cm and should also be considered neoplastic. The right adrenal mass has also increased in size and now measures 2.3 x 4.0 cm as opposed to 2.2 x 3.2 cm previously. There also appears to be a new 1.4 x 2.2 cm mass associated with the left adrenal gland. Furthermore, a destructive mass involving the right ilium has developed. This mass measures 4.6 x 5.5 cm. There is also a new bony lesion of the left sacrum measuring 3.6 x 4.1 cm. In addition, there are other areas of altered density in the lumbar spine which were not present on the prior study. The largest of these involves the anterolateral aspect of L2 on the left and measures 1.7 x 3.5 cm. There is also a large soft tissue mass anterior to the right hip measuring 6.2 x 11.8 cm. This could be related to a hematoma. The possibility that there is an underlying malignancy in this area should certainly be considered. The images through the thorax reveal that in the interval since the prior exam, bibasilar atelectasis/infiltrate and bilateral pleural effusions have developed. The effusion on the right measures approximately 4.4 cm in maximum depth while the left-sided effusion is 4.6 cm. The parenchymal lung masses in the upper lobes noted previously are also somewhat larger. The node in the left upper lung now measures 3.1 cm in maximum diameter as opposed to 2.3 cm on the prior exam. The node in the right middle lobe measuring 2 cm in maximum diameter now measures 2.1 cm. Furthermore, there are destructive lesions involving the proximal right eighth rib at the costovertebral junction. This measures 2.8 x 3.0 cm. There is also a destructive lesion along the right lateral aspect of the vertebral body of T7 and there is destruction of the right sixth rib by a metastatic focus as well. Other smaller rib lesions are also seen bilaterally. The heart is stable in size. There is no dissection of the aorta. The pulmonary arteries are not fully opacified but there is no definite defect to suggest a pulmonary embolus. IMPRESSION: 1. The appearance of the chest, abdomen, and pelvis has worsened since the prior study as the metastatic disease seen on the prior exam has progressed. There is greater involvement of the liver, right adrenal gland, the lungs, and osseous structures by neoplastic disease. New areas of neoplastic disease have also developed in the left adrenal gland, the spleen, and in the soft tissues anterior to the right hip. 2. There is bibasilar pneumonia/atelectasis and bilateral pleural effusions. Dictated by: Dictated on workstation # [id number]
== END ==
LOC: RAD 10:55
PROVIDERS: ATTEND Nurse Practitioner Adult Health
DX: C19 Malignant neoplasm of rectosigmoid junction (principal); C79.51 Secondary malignant neoplasm of bone; C78.7 Secondary malignant neoplasm of liver and intrahepatic bile duct; C78.00 Secondary malignant neoplasm of unspecified lung; C79.72 Secondary malignant neoplasm of left adrenal gland; C78.89 Secondary malignant neoplasm of other digestive organs; C79.89 Secondary malignant neoplasm of other specified sites
CPT/HCPCS: 70470; 71260; 74178

== ENCOUNTER 2018-07-03 12:43 | Outpatient (RCR) | payer MEDICARE ==
[2018-05-27 08:59] LABS: BASOPHILS # (AUTO) 0.1 10^3/uL (0.0-0.1); BASOPHILS % (AUTO) 0 % (0-10); EOSINOPHILS # (AUTO) 0.5 10^3/uL (0.0-0.3); EOSINOPHILS % (AUTO) 3 % (0-10); HEMATOCRIT 46 % (40-54); HEMOGLOBIN 14.9 G/DL (13.3-17.7); LYMPHOCYTES % (AUTO) 11 % (12-44); MEAN CORPUSCULAR HEMOGLOBIN 28 PG (25-34); MEAN CORPUSCULAR HGB CONC 33 G/DL (32-36); MEAN CORPUSCULAR VOLUME 85 FL (80-99); MEAN PLATELET VOLUME 9.9 FL (7.4-10.4); MONOCYTES # (AUTO) 1.3 X 10^3 (0.0-1.0); MONOCYTES % (AUTO) 7 % (0-12); NEUTROPHILS # (AUTO) 13.8 X 10^3 (1.8-7.8); NEUTROPHILS % (AUTO) 79 % (42-75); PLATELET COUNT 328 10^3/uL (130-400); RED BLOOD COUNT 5.35 10^6/uL (4.35-5.85); RED CELL DISTRIBUTION WIDTH 17.8 % (10.0-14.5); WHITE BLOOD COUNT 17.6 10^3/uL (4.3-11.0)
[2018-05-27 09:19] LABS: BUN/CREATININE RATIO 24; CALCIUM 9.1 MG/DL (8.5-10.1); CARBON DIOXIDE 23 MMOL/L (21-32); CHLORIDE 106 MMOL/L (98-107); CREATININE SERUM 0.89 MG/DL (0.60-1.30); GFR ESTIMATED > 60; GLUCOSE 101 MG/DL (70-105); MAGNESIUM 2.1 MG/DL (1.8-2.4); POTASSIUM 3.9 MMOL/L (3.6-5.0); SODIUM 138 MMOL/L (135-145)
[2018-06-03 13:15] LABS: BASOPHILS # (AUTO) 0.1 10^3/uL (0.0-0.1); BASOPHILS % (AUTO) 0 % (0-10); EOSINOPHILS # (AUTO) 0.4 10^3/uL (0.0-0.3); EOSINOPHILS % (AUTO) 2 % (0-10); HEMATOCRIT 48 % (40-54); HEMOGLOBIN 15.7 G/DL (13.3-17.7); LYMPHOCYTES # (AUTO) 2.8 X 10^3 (1.0-4.0); LYMPHOCYTES % (AUTO) 18 % (12-44); MEAN CORPUSCULAR HEMOGLOBIN 28 PG (25-34); MEAN CORPUSCULAR HGB CONC 33 G/DL (32-36); MEAN CORPUSCULAR VOLUME 85 FL (80-99); MEAN PLATELET VOLUME 10.1 FL (7.4-10.4); MONOCYTES # (AUTO) 1.2 X 10^3 (0.0-1.0); MONOCYTES % (AUTO) 8 % (0-12); NEUTROPHILS # (AUTO) 11.3 X 10^3 (1.8-7.8); NEUTROPHILS % (AUTO) 71 % (42-75); PLATELET COUNT 320 10^3/uL (130-400); RED BLOOD COUNT 5.59 10^6/uL (4.35-5.85); RED CELL DISTRIBUTION WIDTH 18.9 % (10.0-14.5); WHITE BLOOD COUNT 15.8 10^3/uL (4.3-11.0)
[2018-06-03 13:50] LABS: ALANINE AMINOTRANSFERASE 19 U/L (0-55); ALBUMIN 3.1 GM/DL (3.2-4.5); ALKALINE PHOSPHATASE 274 U/L (40-136); BILIRUBIN,TOTAL 0.8 MG/DL (0.1-1.0); BUN/CREATININE RATIO 28; CALCIUM 9.4 MG/DL (8.5-10.1); CARBON DIOXIDE 17 MMOL/L (21-32); CHLORIDE 108 MMOL/L (98-107); CREATININE SERUM 0.93 MG/DL (0.60-1.30); GFR ESTIMATED > 60; GLUCOSE 98 MG/DL (70-105); MAGNESIUM 1.8 MG/DL (1.8-2.4); POTASSIUM 4.1 MMOL/L (3.6-5.0); SODIUM 139 MMOL/L (135-145); TOTAL PROTEIN 5.8 GM/DL (6.4-8.2)
[2018-06-26 10:31] LABS: BASOPHILS % (AUTO) 0 % (0-10); EOSINOPHILS # (AUTO) 0.4 10^3/uL (0.0-0.3); EOSINOPHILS % (AUTO) 2 % (0-10); HEMATOCRIT 33 % (40-54); HEMOGLOBIN 10.1 G/DL (13.3-17.7); LYMPHOCYTES # (AUTO) 2.3 X 10^3 (1.0-4.0); LYMPHOCYTES % (AUTO) 14 % (12-44); MEAN CORPUSCULAR HEMOGLOBIN 28 PG (25-34); MEAN CORPUSCULAR HGB CONC 31 G/DL (32-36); MEAN CORPUSCULAR VOLUME 89 FL (80-99); MEAN PLATELET VOLUME 10.2 FL (7.4-10.4); MONOCYTES # (AUTO) 1.7 X 10^3 (0.0-1.0); MONOCYTES % (AUTO) 10 % (0-12); NEUTROPHILS # (AUTO) 12.4 X 10^3 (1.8-7.8); NEUTROPHILS % (AUTO) 74 % (42-75); PLATELET COUNT 260 10^3/uL (130-400); RED BLOOD COUNT 3.67 10^6/uL (4.35-5.85); RED CELL DISTRIBUTION WIDTH 17.2 % (10.0-14.5); WHITE BLOOD COUNT 16.8 10^3/uL (4.3-11.0)
[2018-06-26 10:52] LABS: ALANINE AMINOTRANSFERASE 14 U/L (0-55); ALBUMIN 2.2 GM/DL (3.2-4.5); ALKALINE PHOSPHATASE 454 U/L (40-136); BILIRUBIN,TOTAL 1.8 MG/DL (0.1-1.0); BUN/CREATININE RATIO 40; CALCIUM 9.1 MG/DL (8.5-10.1); CARBON DIOXIDE 26 MMOL/L (21-32); CHLORIDE 103 MMOL/L (98-107); CREATININE SERUM 0.63 MG/DL (0.60-1.30); GFR ESTIMATED > 60; GLUCOSE 105 MG/DL (70-105); SODIUM 138 MMOL/L (135-145); TOTAL PROTEIN 4.5 GM/DL (6.4-8.2)
[~2018-07-03 12:43] MED LIST changes: -BARIUM SUSPENSION 2.1% (VANILLA SILQ) 450 ML PO ONE; +D5W 500 ML IV (CANCER CTR) 500 ML IV SCH; +FOSAPREPITANT DIMEGLUMINE 150 MG in NS (IVPB) CANCER CENTER ONLY 150 ML IV SCH; -IOHEXOL 350 MG/ML 100 ML (OMNIPAQUE 350) VIAL IV ONE; -NS 250 ML (IVPB) BAG IV ONE; +NS IV 1000 ML (CANCER CTR) 1,000 ML IV SCH; +OXALIPLATIN 100 MG, OXALIPLATIN (GENERIC) 50 MG in D5W 250 ML IVPB (CANCER CTR) 250 ML IV SCH; +PALONOSETRON HCL 0.25 MG, DEXAMETHASONE INJECTION 10 MG in NS (IVPB) CANCER CENTER 50 ML IV SCH; +PANITUMUMAB IV SCH; -RECEIVED CONTRAST (Hold Metformin) IV SCH; +[UNRECOGNIZED DRUG - OTHER] IV SCH; +morphine INJ 4 MG/ML 1 ML (CANCER CTR) IV PRN
== END 2018-08-25 | disposition home or self-care (01) ==
LOC: ONC 12:43
PROVIDERS: ATTEND Internal Medicine Hematology & Oncology
DX: C18.7 Malignant neoplasm of sigmoid colon (principal); C78.7 Secondary malignant neoplasm of liver and intrahepatic bile duct; C79.71 Secondary malignant neoplasm of right adrenal gland; C78.02 Secondary malignant neoplasm of left lung; E87.6 Hypokalemia; R00.0 Tachycardia, unspecified; Z79.899 Other long term (current) drug therapy; Z87.891 Personal history of nicotine dependence
CPT/HCPCS: 36415; 36591; 80048; 80053; 82378; 83735; 85025; 93005; 96361; 96374